=== PATIENT | female | born 1960 | race Caucasian/White ===

== ENCOUNTER 2018-01-01 09:27 | Emergency (ER) | payer MEDICAID ==
[2018-01-01 10:27] LABS: BASOPHILS 0.3 % (0-2); EOSINOPHILS 1.6 % (0-7); HEMOGLOBIN 9.8 g/dL (12-16); IMMATURE GRANULOCYTES 0.2 % (0-5); LYMPHOCYTES 16.8 % (15-50); MCH 26.9 pg (26.0-34.0); MCHC 30.6 g/dL (31.0-37.0); MCV 87.9 fL (80.0-100.0); MEAN PLATELET VOLUME 9.1 fL (7.4-10.4); MONOCYTES 12.2 % (2-11); NEUTROPHILS 68.9 % (40-80); PLATELET COUNT 540 10x3/uL (130-400); RBC 3.64 10x6/uL (4.00-5.40); RDW 13.3 % (11.5-14.5); WBC 10.3 10x3/uL (4.8-10.8)
[2018-01-01 10:43] LABS: ALBUMIN 2.5 g/dL (3.4-5.0); ALKALINE PHOSPHATASE 71 U/L (46-116); ALT (SGPT) 13 U/L (10-68); AMYLASE - SERUM 59 U/L (25-115); CALC OSMOLALITY 278 mosm/kg (275-300); CALCIUM 8.5 mg/dL (8.5-10.1); CARBON DIOXIDE 25.5 mmol/L (21.0-32.0); CHLORIDE - SERUM 107 mmol/L (98-107); CREATININE - SERUM 0.7 mg/dL (0.6-1.3); GLUCOSE 103 mg/dL (74-106); LIPASE 149 U/L (73-393); POTASSIUM - SERUM 3.8 mmol/L (3.5-5.1); PROTEIN - SERUM 6.7 g/dL (6.4-8.2); SODIUM 139 mmol/L (136-145); UREA NITROGEN 14 mg/dL (7-18); eGFR NON AFRICAN AMERICAN > 90 mL/min (90-120)
[2018-01-01 10:44] LABS: APPEARANCE CLEAR (CLEAR); BILIRUBIN NEGATIVE (NEGATIVE); COLOR YELLOW (YELLOW); GLUCOSE NEGATIVE (NEGATIVE); KETONE NEGATIVE (NEGATIVE); NITRITE NEGATIVE (NEGATIVE); PROTEIN NEGATIVE (NEGATIVE); SPECIFIC GRAVITY 1.025 (1.005-1.020); UROBILINOGEN NORMAL (NORMAL)
[2018-01-30 15:33] VITALS: BMI 22.1
== END 2018-01-01 11:48 | disposition home or self-care (01) ==
LOC: D.ER 09:27
PROVIDERS: Family Medicine
DX: K21.9 Gastro-esophageal reflux disease without esophagitis (principal); B18.2 Chronic viral hepatitis C; D64.9 Anemia, unspecified; F17.200 Nicotine dependence, unspecified, uncomplicated

== ENCOUNTER 2018-01-28 10:15 | Inpatient (IN) | payer MEDICAID ==
[~2018-01-28] VITALS: Ht 157.5 cm; Wt 58.7 kg
--- NOTE | ~2018-01-28 | OP ---
PATIENT NAME: ESDRAS ART MEDICAL RECORD: [id number] :62 LOCATION:D.M2 D.2102 ADMISSION DATE:01/29/18 SURGEON: WILLIAM TUCKER MD DATE OF OPERATION: 02/01/2018 DATE OF OPERATION: 02/01/2018 PREOPERATIVE DIAGNOSES: 1. Obstructing distal esophageal adenocarcinoma. 2. Need of IV access for IV chemotherapy. POSTOPERATIVE DIAGNOSES: 1. Obstructing distal esophageal adenocarcinoma. 2. Need of IV access for IV chemotherapy. PROCEDURES: 1. Esophagogastroduodenoscopy with placement of [employer] WallFlex esophageal stent 23 mm x 155 mm under fluoroscopic guidance. 2. Immediate surgeon interpretation of fluoroscopic images. 3. Placement of left infraclavicular PowerPort under fluoroscopic guidance. 4. Immediate surgeon interpretation of fluoroscopic images. SURGEON: William Tucker MD WET PRESS TENDER: None. BLOOD LOSS: Minimal. ANESTHESIA: General. COMPLICATIONS: None. I measured the length of the malignancy, which was an obstructing malignancy. It measured 9 cm in the cephalad caudad dimension. It extended down into the cardia of the stomach. No radiologist was present for this procedure. Static and cine fluoroscopic images were obtained. Some of these images are kept in the PACS system. The surgeon interpretation of the radiographic images is dictated within the body of this operative note. OPERATIVE COURSE: The patient was conveyed to the operating room electively on 02/01/2018. General anesthesia was induced by the anesthesia staff. A bite block was inserted. A gastroscope was inserted into the mouth. It advanced easily into the hypopharynx. There was a lot of particulate debris in the hypopharynx. I intubated the esophagus. There was a great deal of debris within the esophagus, which was somewhat dilated, likely due to the distal obstruction. Although the esophagus was completely obstructed and there was a lot of food material and particulate material proximal to the obstruction, I was able to negotiate through the obstructed carcinoma and into the stomach A measuring tape was placed on the patient's chest. I intubated the duodenum. I then withdrew into the stomach. No gastric biopsies were obtained. I advanced a Jagwire through the working port of the gastroscope. It was advanced into the stomach. I slowly withdrew the endoscope. I marked the distal extent of the malignancy with a metallic clip. I then continued to withdraw the gastroscope OPERATIVE REPORT [id number] ESDRAS ART over the wire and I marked the proximal extent of the malignancy. The malignancy measures 9 cm in total length. I then withdrew the gastroscope over the wire. Over the wire, I advanced an esophageal stent. It was advanced into the stomach. I began to deploy it. Once it had flared out, I pulled it up against the cardia of the stomach. I then continued the deployment. I removed the deployment apparatus as well as the guidewire. I then readvanced the gastroscope. I was able to advance the gastroscope all the way into the stomach. I was able to withdraw as well. It covered the entire length of the malignancy. I was very satisfied with the placement. The endoscope was withdrawn under direct vision. The bite block was removed. The left chest was sterilely prepped and draped. A transverse incision was accomplished inferior to the left clavicle. I dissected down to the pectoralis fascia. A subcutaneous pocket was created in a caudad direction. I then removed some of the adipose tissue from between the skin and the port pocket to aid in easier access. I dissected in the deltopectoral groove. There was no generous cephalic vein. The cephalic vein that there was ligated doubly. I placed the patient in the Trendelenburg position. I then accessed the left subclavian vein in an antegrade fashion easily. A guidewire passed easily. A dilator sheath was advanced over the wire. The dilator and wire were removed. Through the sheath, the PowerPort catheter was advanced. It was advanced to the cavoatrial junction. It was shortened. It was attached to the PowerPort. The locking device was firmly engaged. A 3-point fixation was performed utilizing 2-0 Prolenes to prevent the port from flipping. I irrigated in the port pocket. I accessed the port. It accessed easily. It flushed easily and aspirated dark, nonpulsatile blood. The subdermis was approximated with interrupted 3-0 Vicryls. The skin was approximated with a running intracuticular 4-0 Vicryl. Benzoin and Steri-Strips were applied and then a pressure dressing. The patient was then extubated and conveyed to post-anesthesia care unit where she was in stable condition. A final set of images revealed no apparent kinking or twisting of the PowerPort catheter. The PowerPort catheter tip was at the cavoatrial junction. The right-sided PICC line could be seen as well. There was no evidence of pneumothorax. There is no need for the patient to follow up with me in the office unless she develops a complication related to this operative procedure. When she is ready for surgical resection after neoadjuvant chemotherapy and radiation, then she will be referred back to me at that time. TRANSINT:[id number] Voice Confirmation ID: [id number] DOCUMENT ID: [id number] WILLIAM TUCKER MD CC: ADRIANNE MONTERO MD, WILLIAM BARNETT and ROGELIO SAUCEDO [phone] DICTATION DATE: 02/01/182051 LOG TUMBLER: 02/02/18 0141 ADM IN [place] [id number] [place] [address]
[2018-01-28 11:00] LABS: BASOPHILS 0.3 % (0-2); EOSINOPHILS 0.1 % (0-7); HEMOGLOBIN 8.4 g/dL (12-16); IMMATURE GRANULOCYTES 0.2 % (0-5); MCH 26.5 pg (26.0-34.0); MCHC 31.1 g/dL (31.0-37.0); MCV 85.2 fL (80.0-100.0); MEAN PLATELET VOLUME 8.9 fL (7.4-10.4); MONOCYTES 7.7 % (2-11); NEUTROPHILS 75.7 % (40-80); PLATELET COUNT 604 10x3/uL (130-400); RBC 3.17 10x6/uL (4.00-5.40); RDW 13.3 % (11.5-14.5); WBC 11.5 10x3/uL (4.8-10.8)
[2018-01-28 11:17] LABS: APTT 32.1 SECONDS (22.8-39.4); INR 1.07 (0.85-1.17); PROTIME 13.5 SECONDS (11.6-15.0)
[2018-01-28 11:27] LABS: ALBUMIN 2.2 g/dL (3.4-5.0); ALKALINE PHOSPHATASE 51 U/L (46-116); ALT (SGPT) 12 U/L (10-68); BILIRUBIN - TOTAL 0.18 mg/dL (0.2-1.3); CALC OSMOLALITY 289 mosm/kg (275-300); CALCIUM 8.2 mg/dL (8.5-10.1); CARBON DIOXIDE 26.8 mmol/L (21.0-32.0); CHLORIDE - SERUM 106 mmol/L (98-107); CREATININE - SERUM 0.7 mg/dL (0.6-1.3); GLUCOSE 104 mg/dL (74-106); POTASSIUM - SERUM 3.1 mmol/L (3.5-5.1); PROTEIN - SERUM 6.4 g/dL (6.4-8.2); SODIUM 142 mmol/L (136-145); UREA NITROGEN 33 mg/dL (7-18); eGFR NON AFRICAN AMERICAN > 90 mL/min (90-120)
[2018-01-28 11:37] LABS: AMYLASE - SERUM 42 U/L (25-115); CREATINE KINASE 39 UL (21-215); LIPASE 121 U/L (73-393)
[2018-01-28 11:38] LABS: TROPONIN-I < 0.017 ng/mL (0.000-0.060)
[2018-01-28 11:50] LABS: UDS - AMPHET NEGATIVE QUAL (NEGATIVE); UDS - BARB NEGATIVE QUAL (NEGATIVE); UDS - BENZO NEGATIVE QUAL (NEGATIVE); UDS - COCAINE NEGATIVE QUAL (NEGATIVE); UDS - OPIATE NEGATIVE QUAL (NEGATIVE); UDS - PCP NEGATIVE QUAL (NEGATIVE); UDS - THC NEGATIVE QUAL (NEGATIVE)
[2018-01-28 11:55] LABS: APPEARANCE CLEAR (CLEAR); BILIRUBIN NEGATIVE (NEGATIVE); COLOR YELLOW (YELLOW); GLUCOSE NEGATIVE (NEGATIVE); KETONE LARGE mg/dL (NEGATIVE); NITRITE NEGATIVE (NEGATIVE); PROTEIN NEGATIVE (NEGATIVE); UROBILINOGEN NORMAL (NORMAL)
[2018-01-28] MEDS ORDERED: PROTONIX20 MG PO ×2 (16:25→16:26)
[2018-01-28] MEDS ORDERED: ZOFRAN4 MG PO (16:27)
[2018-01-28] MEDS ORDERED: FERROUS SULFAT325 MG PO (16:27)
[2018-01-28] MEDS ORDERED: CARAFATE1 G (16:28)
[2018-01-28] MEDS ORDERED: VITAMIN D3400 UNI1 PO (16:29)
[2018-01-28] MEDS ORDERED: ASCORBIC ACID500 MG PO (16:29)
[2018-01-28 16:38] VITALS: BP 117/73; BMI 22.2
[2018-01-28 21:09] VITALS: BP 90/53
[2018-01-29 00:49] VITALS: BP 96/58
[2018-01-29 05:12] VITALS: BP 102/70
[2018-01-29 06:47] LABS: BASOPHILS 0.4 % (0-2); EOSINOPHILS 1.6 % (0-7); HEMATOCRIT 25.4 % (36.0-48.0); HEMOGLOBIN 7.7 g/dL (12-16); IMMATURE GRANULOCYTES 0.2 % (0-5); LYMPHOCYTES 15.4 % (15-50); MCH 26.1 pg (26.0-34.0); MCHC 30.3 g/dL (31.0-37.0); MCV 86.1 fL (80.0-100.0); MEAN PLATELET VOLUME 9.9 fL (7.4-10.4); MONOCYTES 8.5 % (2-11); NEUTROPHILS 73.9 % (40-80); RBC 2.95 10x6/uL (4.00-5.40); RDW 13.7 % (11.5-14.5); WBC 9.4 10x3/uL (4.8-10.8)
[2018-01-29 06:48] LABS: PLATELET COUNT 443 10x3/uL (130-400)
[2018-01-29 07:01] LABS: CALCIUM 7.8 mg/dL (8.5-10.1); CARBON DIOXIDE 20.3 mmol/L (21.0-32.0); CHLORIDE - SERUM 113 mmol/L (98-107); CREATININE - SERUM 0.6 mg/dL (0.6-1.3); GLUCOSE 101 mg/dL (74-106); MAGNESIUM - SERUM 1.7 mg/dL (1.8-2.4); SODIUM 145 mmol/L (136-145); eGFR NON AFRICAN AMERICAN > 90 mL/min (90-120)
[2018-01-29 07:05] LABS: CALC OSMOLALITY 290 mosm/kg (275-300); POTASSIUM - SERUM 3.7 mmol/L (3.5-5.1); UREA NITROGEN 18 mg/dL (7-18)
[2018-01-29 08:14] VITALS: BP 109/70
[2018-01-29 11:53] VITALS: BP 104/55
[2018-01-29 13:15] VITALS: BMI 22.1
[2018-01-29 15:24] VITALS: BP 91/66
[2018-01-29 21:09] VITALS: BP 111/76
[2018-01-30 05:54] VITALS: BP 105/65
[2018-01-30 06:00] LABS: BASOPHILS 0.3 % (0-2); HEMATOCRIT 21.1 % (36.0-48.0); IMMATURE GRANULOCYTES 0.4 % (0-5); LYMPHOCYTES 12.4 % (15-50); MCH 27.1 pg (26.0-34.0); MCHC 30.8 g/dL (31.0-37.0); MCV 87.9 fL (80.0-100.0); MEAN PLATELET VOLUME 9.6 fL (7.4-10.4); MONOCYTES 7.4 % (2-11); NEUTROPHILS 78.5 % (40-80); PLATELET COUNT 386 10x3/uL (130-400); RDW 13.7 % (11.5-14.5)
[2018-01-30 06:10] LABS: CALCIUM 7.9 mg/dL (8.5-10.1); CARBON DIOXIDE 21.6 mmol/L (21.0-32.0); CHLORIDE - SERUM 113 mmol/L (98-107); GLUCOSE 86 mg/dL (74-106); POTASSIUM - SERUM 3.8 mmol/L (3.5-5.1); SODIUM 144 mmol/L (136-145)
[2018-01-30 06:11] LABS: HEMOGLOBIN 6.5 g/dL (12-16)
[2018-01-30 06:14] LABS: CALC OSMOLALITY 284 mosm/kg (275-300); CREATININE - SERUM 0.4 mg/dL (0.6-1.3); UREA NITROGEN 11 mg/dL (7-18); eGFR NON AFRICAN AMERICAN > 90 mL/min (90-120)
[2018-01-30 08:52] VITALS: BP 105/66
[2018-01-30 12:47] VITALS: BP 126/85
[2018-01-30 13:19] LABS: HEPATITIS C ANTIBODY >11.0 (0.0-0.9)
[2018-01-30 15:33] VITALS: Ht 157.5 cm; Wt 58.7 kg
[2018-01-30 18:08] VITALS: BP 124/87
[2018-01-30 20:00] VITALS: BP 133/76
[2018-01-31] VITALS: BP 133/84
[2018-01-31 04:00] VITALS: BP 147/84
[2018-01-31 05:45] LABS: BASOPHILS 0.3 % (0-2); EOSINOPHILS 0.7 % (0-7); IMMATURE GRANULOCYTES 0.3 % (0-5); LYMPHOCYTES 9.3 % (15-50); MCV 87.4 fL (80.0-100.0); MEAN PLATELET VOLUME 9.5 fL (7.4-10.4); MONOCYTES 10.9 % (2-11); NEUTROPHILS 78.5 % (40-80); PLATELET COUNT 397 10x3/uL (130-400); RDW 13.9 % (11.5-14.5); WBC 9.9 10x3/uL (4.8-10.8)
[2018-01-31 05:46] LABS: HEMATOCRIT 30.6 % (36.0-48.0); HEMOGLOBIN 9.8 g/dL (12-16)
[2018-01-31 05:56] LABS: % SATURATION 95 % (15-55); IRON 241 ug/dl (35-150); TOTAL IRON BIND CAPACITY 253 ug/dl (260-445)
[2018-01-31 06:03] LABS: CALC OSMOLALITY 278 mosm/kg (275-300); CALCIUM 7.8 mg/dL (8.5-10.1); CARBON DIOXIDE 23.8 mmol/L (21.0-32.0); CHLORIDE - SERUM 109 mmol/L (98-107); CREATININE - SERUM 0.4 mg/dL (0.6-1.3); FERRITIN 49 ng/mL (3-244); GLUCOSE 97 mg/dL (74-106); POTASSIUM - SERUM 3.3 mmol/L (3.5-5.1); SODIUM 141 mmol/L (136-145); UNSAT IRON BIND CAPACITY 12 ug/dl (150-375); eGFR NON AFRICAN AMERICAN > 90 mL/min (90-120)
[2018-01-31 06:04] LABS: UREA NITROGEN 7 mg/dL (7-18)
[2018-01-31 08:39] VITALS: BP 140/90
[2018-01-31 11:57] VITALS: BP 128/77
[2018-01-31 15:54] VITALS: BP 139/93
[2018-01-31 20:00] VITALS: BP 136/93
[2018-02-01] VITALS (7 sets, daily range): BP systolic 108–125; BP diastolic 71–91
[2018-02-01 07:00] LABS: CALC OSMOLALITY 277 mosm/kg (275-300); CALCIUM 7.9 mg/dL (8.5-10.1); CARBON DIOXIDE 25.9 mmol/L (21.0-32.0); CHLORIDE - SERUM 108 mmol/L (98-107); CREATININE - SERUM 0.4 mg/dL (0.6-1.3); GLUCOSE 89 mg/dL (74-106); POTASSIUM - SERUM 3.5 mmol/L (3.5-5.1); SODIUM 141 mmol/L (136-145); UREA NITROGEN 6 mg/dL (7-18); eGFR NON AFRICAN AMERICAN > 90 mL/min (90-120)
[2018-02-01 07:15] LABS: BASOPHILS 0.1 % (0-2); EOSINOPHILS 1.4 % (0-7); HEMATOCRIT 30.4 % (36.0-48.0); HEMOGLOBIN 9.6 g/dL (12-16); IMMATURE GRANULOCYTES 0.4 % (0-5); LYMPHOCYTES 10.5 % (15-50); MCH 27.5 pg (26.0-34.0); MCHC 31.6 g/dL (31.0-37.0); MCV 87.1 fL (80.0-100.0); MEAN PLATELET VOLUME 9.5 fL (7.4-10.4); MONOCYTES 11.5 % (2-11); NEUTROPHILS 76.1 % (40-80); PLATELET COUNT 350 10x3/uL (130-400); RBC 3.49 10x6/uL (4.00-5.40); RDW 13.8 % (11.5-14.5); WBC 9.2 10x3/uL (4.8-10.8)
[2018-02-01 08:20] LABS: FOLATE (FOLIC ACID) - SERUM 5.5 ng/mL (>3.0)
[2018-02-02 01:11] VITALS: BP 104/62
[2018-02-02 05:46] VITALS: BP 118/76
[2018-02-02 06:06] LABS: BASOPHILS 0.4 % (0-2); EOSINOPHILS 0.7 % (0-7); HEMOGLOBIN 9.6 g/dL (12-16); IMMATURE GRANULOCYTES 0.4 % (0-5); LYMPHOCYTES 9.4 % (15-50); MCH 27.4 pg (26.0-34.0); MCV 88.3 fL (80.0-100.0); MEAN PLATELET VOLUME 9.7 fL (7.4-10.4); MONOCYTES 14.7 % (2-11); NEUTROPHILS 74.4 % (40-80); PLATELET COUNT 322 10x3/uL (130-400); RBC 3.51 10x6/uL (4.00-5.40); RDW 14.4 % (11.5-14.5); WBC 10.9 10x3/uL (4.8-10.8)
[2018-02-02 06:15] LABS: CALC OSMOLALITY 274 mosm/kg (275-300); CALCIUM 8.1 mg/dL (8.5-10.1); CARBON DIOXIDE 24.3 mmol/L (21.0-32.0); CHLORIDE - SERUM 107 mmol/L (98-107); CREATININE - SERUM 0.5 mg/dL (0.6-1.3); GLUCOSE 87 mg/dL (74-106); POTASSIUM - SERUM 3.9 mmol/L (3.5-5.1); SODIUM 139 mmol/L (136-145); eGFR NON AFRICAN AMERICAN > 90 mL/min (90-120)
[2018-02-02 06:19] LABS: UREA NITROGEN 8 mg/dL (7-18)
[2018-02-02 08:26] VITALS: BP 127/81
[2018-02-02] MEDS ORDERED: TRANSDERM-SCO1 PATCH TRANSDERM (09:34)
[2018-02-02] MEDS ORDERED: HYDROCODON-ACE1 EAC7 PO (09:35)
== END 2018-02-02 11:30 | disposition home or self-care (01) | DRG 374 ==
LOC: D.ER 10:15 → D.EDHOLD 14:58 → OBSVTIME 14:58 → D.M2 14:58
PROVIDERS: Family Medicine; Internal Medicine Gastroenterology; Internal Medicine Hematology & Oncology; Internal Medicine Nephrology
PROC: 0DB48ZX Excision of Esophagogastric Junction, Via Natural or Artificial Opening Endoscopic, Diagnostic (ICD-10-PCS; principal; 2018-01-29 15:30)
PROC: 02H633Z Insertion of Infusion Device into Right Atrium, Percutaneous Approach (ICD-10-PCS; 2018-01-30)
PROC: B244ZZZ Ultrasonography of Right Heart (ICD-10-PCS; 2018-01-30)
PROC: 0D748DZ Dilation of Esophagogastric Junction with Intraluminal Device, Via Natural or Artificial Opening Endoscopic (ICD-10-PCS; 2018-02-01)
PROC: BD11ZZZ Fluoroscopy of Esophagus (ICD-10-PCS; 2018-02-01)
PROC: 02HV33Z Insertion of Infusion Device into Superior Vena Cava, Percutaneous Approach (ICD-10-PCS; 2018-02-01)
PROC: B5181ZA Fluoroscopy of Superior Vena Cava using Low Osmolar Contrast, Guidance (ICD-10-PCS; 2018-02-01)
DX: C15.9 Malignant neoplasm of esophagus, unspecified (principal); E43 Unspecified severe protein-calorie malnutrition; D62 Acute posthemorrhagic anemia; N17.9 Acute kidney failure, unspecified; E87.6 Hypokalemia; K21.9 Gastro-esophageal reflux disease without esophagitis; B19.20 Unspecified viral hepatitis C without hepatic coma; F41.9 Anxiety disorder, unspecified; Z68.22 Body mass index [BMI] 22.0-22.9, adult

== ENCOUNTER 2018-04-20 20:28 | Emergency (ER) | payer MEDICAID ==
[~2018-04-20] VITALS: Ht 157.5 cm; Wt 50.8 kg
[~2018-04-20 20:28] MED LIST: ASCORBIC ACID500 MG PO; CARAFATE1 G; FERROUS SULFAT325 MG PO; HYDROCODON-ACE1 EAC7 PO; PROTONIX20 MG PO; TRANSDERM-SCO1 PATCH TRANSDERM; VITAMIN D3400 UNI1 PO; ZOFRAN4 MG PO
[2018-04-20 21:04] VITALS: Ht 157.5 cm; Wt 50.8 kg
[2018-04-20] MEDS ORDERED: DURAGESIC1 PATCH .1 TRANSDERM (21:06)
[2018-04-20] MEDS ORDERED: OXYCONTIN10 MG PO (21:07)
[2018-04-21] MEDS ORDERED: PERCOCET 10/3251 TA1 PO (02:42)
[2018-04-21 02:54] VITALS: BP 150/90
== END 2018-04-21 02:55 | disposition home or self-care (01) ==
LOC: D.ER 20:28
DX: G89.29 Other chronic pain (principal); C15.9 Malignant neoplasm of esophagus, unspecified

== ENCOUNTER 2018-06-05 18:19 | Emergency (ER) | payer MEDICAID ==
[~2018-06-05] VITALS: Ht 157.5 cm; Wt 54.1 kg
[~2018-06-05 18:19] MED LIST changes: +DURAGESIC1 PATCH .1 TRANSDERM; +OXYCONTIN10 MG PO; +PERCOCET 10/3251 TA1 PO
[2018-06-05 18:25] VITALS: BP 103/69; Ht 157.5 cm; Wt 54.1 kg
[2018-06-06] MEDS ORDERED: XANAX0.5 MG PO (10:28)
== END 2018-06-05 19:10 | disposition left against medical advice (07) ==
LOC: D.ER 18:19
DX: R07.9 Chest pain, unspecified (principal); Z85.01 Personal history of malignant neoplasm of esophagus

== ENCOUNTER 2018-06-05 20:07 | Emergency (ER) | payer MEDICAID ==
[~2018-06-05] VITALS: Ht 157.5 cm; Wt 52.3 kg
[2018-06-05 20:12] VITALS: Ht 157.5 cm; Wt 52.3 kg
[2018-06-05 21:16] LABS: BASOPHILS 0.2 % (0-2); EOSINOPHILS 1.7 % (0-7); HEMATOCRIT 35.7 % (36.0-48.0); HEMOGLOBIN 11.8 g/dL (12-16); IMMATURE GRANULOCYTES 0.3 % (0-5); LYMPHOCYTES 9.6 % (15-50); MCHC 33.1 g/dL (31.0-37.0); MCV 96.7 fL (80.0-100.0); MEAN PLATELET VOLUME 8.3 fL (7.4-10.4); NEUTROPHILS 77.2 % (40-80); PLATELET COUNT 344 10x3/uL (130-400); RBC 3.69 10x6/uL (4.00-5.40); RDW 13.8 % (11.5-14.5); WBC 10.8 10x3/uL (4.8-10.8)
[2018-06-05 21:27] LABS: APTT 34.1 SECONDS (22.8-39.4); INR 1.01 (0.85-1.17); PROTIME 12.9 SECONDS (11.6-15.0)
[2018-06-05 21:28] LABS: D-DIMER-QUANTITATIVE 0.42 ug/mLFEU (0.20-0.54)
[2018-06-05 21:36] LABS: ALBUMIN 2.7 g/dL (3.4-5.0); ALKALINE PHOSPHATASE 83 U/L (46-116); ALT (SGPT) 17 U/L (10-68); BILIRUBIN - TOTAL 0.19 mg/dL (0.2-1.3); CALC OSMOLALITY 269 mosm/kg (275-300); CALCIUM 8.9 mg/dL (8.5-10.1); CARBON DIOXIDE 30.7 mmol/L (21.0-32.0); CHLORIDE - SERUM 99 mmol/L (98-107); CREATININE - SERUM 0.8 mg/dL (0.6-1.3); GLUCOSE 122 mg/dL (74-106); PROTEIN - SERUM 8.2 g/dL (6.4-8.2); SODIUM 134 mmol/L (136-145); UREA NITROGEN 16 mg/dL (7-18); eGFR NON AFRICAN AMERICAN 78 mL/min (90-120)
[2018-06-05 21:48] LABS: CREATINE KINASE 21 UL (21-215); TROPONIN-I < 0.017 ng/mL (0.000-0.060)
[2018-06-06 01:18] VITALS: BP 115/84
[2018-06-06] MEDS ORDERED: XANAX0.5 MG PO (10:28)
[2018-06-07] MEDS ORDERED: OXYCODONE-APAP1 TAB PO (06:24)
== END 2018-06-06 01:19 | disposition home or self-care (01) ==
LOC: D.ER 20:07
PROVIDERS: Family Medicine
DX: R07.9 Chest pain, unspecified (principal); Z85.01 Personal history of malignant neoplasm of esophagus

== ENCOUNTER 2018-06-07 05:42 | Inpatient (IN) | payer MEDICAID ==
[~2018-06-07] VITALS: Ht 157.5 cm; Wt 39.2 kg
[2018-06-07] VITALS (31 sets, daily range): BP systolic 80–184; BP diastolic 60–109; BMI 19.6; BMI 19.4
--- NOTE | ~2018-06-07 | MORECARE ---
CASE MANAGEMENT DISCHARGE SUMMARY PATIENT: EVY ART UNIT: [id number] ADM DATE: 06/07/18 AGE: 57 : 62 SEX: F ROOM/BED: D.2224 AUTHOR: DARCI MAR PHYSICIAN: REFERRING PHYSICIAN: WILLIAM TUCKER MD DATE OF SERVICE: 08/23/18 Discharge Plan Patient Name: EVY ART Facility: [facility]:[place] : 1960 Planned Disposition: Home or Self Care Anticipated Discharge Date: Discharge Date: Expected LOS: Initial Reviewer: [email or web address] Initial Review Date: 06/07/2018 Generated: 08/23/18 1:22 pm Comments DCP- Discharge Planning Updated by [id number]: Edita Quinonez on 08/23/18 11:[address] I spoke with Alba Baker today for an update. She states she does not have an accepting facility at this time. I sent referral to [facility]. CM will continue to follow and assist with discharge planning/needs. DCP- Discharge Planning Updated by [id number]: Lizabeth Bingham on 08/21/18 9:[address] CM received a call from patients sister Lesley Domingo that [facility] has notified her that she should be receiving her paperwork in the next 2 weeks. Paperwork that she can act in Evy behalf for Medicaid. CM will continue to follow and assist with discharge planning. DCP- Discharge Planning Updated by [email or web address]: Lizabeth Bingham on 08/16/18 11:[address] CM continuing to follow up with [facility] about placement for female vent bed availability. If patient can be off vent for 72hrs then CM can seek placement locally. CM will continue to follow and assist as needed with discharge planning / needs. DCP- Discharge Planning Updated by [id number]: Winter Randolph on 08/15/18 12:[address] Patient Name: EVY ART Admission Status: Elective Accout number: [id number] Admission Date: 06-07-2018 : 1960 Admission Diagnosis:MALIGNANT NEOPLASM OF CARDIA Attending: WILLIAM TUCKER Current LOS: 69 Anticipated DC Date: Planned Disposition: Home or Self Care Primary Insurance: MEDICAID [place] Discharge Planning Comments: CM CALLED [facility] TO SPEAK WITH JULY REGARDING A VENT BED. THEY STATE JULY IS OUT SICK AND WON'T BE BACK UNTIL NEXT WEEK. STATES WILL HAVE TO CALL BACK ON SUNDAY. Tearoom Hostess: Winter Randolph DCP- Discharge Planning Updated by [email or web address]: Lizabeth Bingham on 08/14/18 4:[address] CM called [facility] and spoke with Jennyfer RANDLE. Jennyfer stated that she wasn't able to answer questions regarding how soon for bed availability. July was out sick and she had no information on placement. CM will call back tomorrow and attempt to speak with July. DCP- Discharge Planning Updated by [id number]: Lizabeth Bingham on 08/13/18 2:[address] CM called [facility] in [place] and left message for DON (July) to return call regarding placement and how long until placement. CM still awaiting call back @ this time. DCP- Discharge Planning Updated by [id number]: Lizabeth Bingham on 08/12/18 5:[address] CM called and spoke with Meli @ [facility] [phone]. Meli stated that at this time they do not have a female vent bed available. She stated that she doesn't know when one may be available or if patient is at the top of the list or not. Meli stated that CM would need to speak with July PARK for that information and she isn't there today. CM will continue to follow and assist as needed with discharge planning / needs. DCP- Discharge Planning Updated by [id number]: Lizabeth Bingham on 08/09/18 6:[address] CM spoke with Wei Delatorre in [employer] she got in touch with for me and got in touch with the appropriate person at [facility]. Was able to fax form in and get the appropriate information to Meli @ [facility] in [place]. CM later contacted Meli and she stated that everything was good as far as financials. They currently do not have any female vent beds available. Meli stated she would keep us posted on availability. Wei notified me that [facility] had put in the necessary information so that Lesley Domingo patients sister can be her payor source. Lesley is to go to social security in [place] next week.CM will continue to follow and assist as needed with discharge planning / needs. DCP- Discharge Planning Updated by [id number]: Lizabeth Bingham on 08/08/18 7:[address] CM attempted to call local office to see if CM could fax form into them and get patients disability number. CM was on hold for over 30 mins and never got to speak to a off premise service representative. KRYSTAL spoke with Meli at [facility]. She stated that she hasn't heard anything yet. Meli stated that once the financials was cleared then we will need to send updated clinicals and then would go through medical review for acceptance. CM will continue to follow and assist with discharge planning/ needs DCP- Discharge Planning Updated by [email or web address]: Lizabeth Bingham on 08/06/18 5:[address] Late Entry 08/06/18 @ [address] Webb office to see if they have received a fax from [employer]. Omaira stated that they have not received anything for her. CM will try to get back in touch with Lesley Domingo patients sister and Wei in [facility] to see what our next step is. CM contacted Meli at [facility] to let her know we are still working on placement. CM will continue to follow and assist with discharge planning / needs. DCP- Discharge Planning Updated by [id number]: Lizabeth Bingham on 07/31/18 4:[address] CM received notification that the social security office in [place] would not accept form that was sent to Lesley Domingo to get authorization to manage patients finances. They said they would have to directly send it to Dr. Tucker and then have him to send it back. [facility] has to have some proof of income before they can accept patient. We are having to wait to see if we can get Lesley approved to manage social security benefits in patients behalf. CM will continue to follow and assist with discharge planning / needs. DCP- Discharge Planning Updated by [id number]: Lizabeth Bingham on 07/26/18 6:[address] Late Entry 07/26/18 @ [address] Tucker and got form signed for [facility]. CM took form to Wei in [facility]. CM will continue to follow and assist as needed with discharge planning / needs DCP- Discharge Planning Updated by [id number]: Lizabeth Cumminsr on 07/25/18 4:[address] CM spoke with Wei Delatorre this am. Wei spoke with patients sister Lesley Domingo trying to find out information needed to get patient placement. KRYSTAL was later notified that a form from [employer] needed to be filled out by physician. CM attempted to get in touch with paged him several times but was unsuccessful. Called his office but no response at this time. CM will continue to follow and assist as needed with discharge planning / needs. DCP- Discharge Planning Updated by [id number]: Lizabethlarry Bingham on 07/24/18 4:[address] CM called and spoke with Meli at [facility] in [place]. [phone]. KRYSTAL asked if family was able to provide information needed. Meli stated that she hasn't heard from anyone since she had spoke to me last week. Meli is requesting proof that patient has applied for SSI and she needs proof of income. KRYSTAL attempted to call home health care social worker Ailyn Read [phone] or [phone] to see if she might could assist with obtaining this information. CM was unsuccessful in contacting Ailyn. CM called and spoke with Wei Delatorre and gave her Meli phone number to see if she could assist with information. Wei will contact Meli and her elevator constructor supervisor to see if they can assist with information needed. Wei will contact KRYSTAL after she gets in contact with others. CM will continue to follow and assist as needed with discharge planning / needs. DCP- Discharge Planning Updated by [id number]: Lizabeth Zachery on 07/18/18 5:[address] Late Entry 07/18/18 @ 1020 CM called and left a message for July PARK @ [facility]. CM awaiting response.CM will continue to follow and assist as needed with discharge planning / needs. Late Entry 07/18/18 @ 1330 CM received call from Meli with [facility]. Meli was wanting to know if patient was getting SSI or SSA. KRYSTAL was unaware of this information and referred Meli to call patients sister Lesley Domingo. KRYSTAL called and spoke with Wei Delatorre regarding Medicaid. Wei stated patient had SSI Medicaid until 07/10/18 and regular Medicaid started 07/11/18. CM called Meli back to give this information to her and also gave Wei's number if she has questions regarding this. Meli stated that she also needed to know if the patient had applied for SSI and how much she had in her bank account. CM explained that we would try to find out this information. CM will check with sister and possibly patient renal case manager whom assisted patient with housing when released from skilled nursing. CM will continue to follow and assist as needed with discharge planning / needs. DCP- Discharge Planning Updated by [email or web address]: Lizabeth Bingham on 07/18/18 5:[address] Late Entry 07/17/18 @ 1600 CM called and left message x 2 for July PARK from [facility]. CM awaiting response. CM will continue to follow and assist as needed with discharge planning / needs. DCP- Discharge Planning Updated by [id number]: Lizabeth Bingham on 07/15/18 12:[address] CM spoke with patient's sister Lesley Domingo this am. She stated that the patient doesn't have Medicare. She asked when patient would transfer to [place]. CM explained that we are awaiting on acceptance to [facility] at this point. CM called [facility] for update July told CM to fax updated clinical and that it would be tomorrow 07/16/18 before they may have a determination. July requested CM not to call back tomorrow until after noon. CM will update family. CM also contacted [facility] in [place], [place]. [phone] CM spoke with Za she stated at this time they are not accepting out of state Medicaid at their facility. CM will continue to follow and assist as needed with discharge planning / needs. DCP- Discharge Planning Updated by [id number]: Lizabeth Bingham on 07/12/18 7:[address] CM was notified patient sister Lesley Domingo was here and requested to speak with me. KRYSTAL explained that the current plan was that we was looking into placement with [facility] in [place], [place]. CM had spoke to Zoila with [facility] prior to coming to speak with Lesley. KRYSTAL had answered questions that Zoila had. Zoila stated the next process that they would send patients information to Executive offices and would be awaiting financial approval. Zoila stated for CM to call back to check on this at anytime next week. KRYSTAL explained all this to sister Lesley. Lesley asked why she was having to be transferred out of state. KRYSTAL explained that LTACH facilities within the state do not take Medicaid and that regional intermodal truck driver residential facilities in the state do not accept ventilator patients. Lesley states that she had received information that the patient is and receiving Medicare through her . KRYSTAL explained that we had no record of that only Medicaid. Lesley requested that [facility] find this information out. KRYSTAL explained that if it was through the patients spouse then it would need to be his information used to look it up. Lesley states that she has a letter at her home that has this information on it.(Because she has custody of patients son and he receiving his benefits also). The conversation ended that Lesley was going to get the information to KRYSTAL. KRYSTAL received call from Lesley around 4:45pm requesting information on online Social Security office hours. Lesley also wanted to know what would happen if they didn't consent to transfer. KRYSTAL explained that I wasn't sure and Lesley requested for CM to find out this information. KRYSTAL spoke with other keycase assembler within the facility. KRYSTAL then called Lesley back and explained that if the patient was stable for transfer and they still refusing transfer then it would most likely go to ethics board and DHS could be notified. Lesley then starting raising her voice that" the hospital and staff was not giving her accurate updates over the phone. She had no idea that Evy was almost in a comatose state." Lesley requested for us to wait on transfer until after she could show proof that she has Medicare. KRYSTAL explained that nothing would be happening until next week. She was still upset that she was going to have to stay longer than she had planned to get this taken care of. KRYSTAL told her that I would be happy to let her speak to someone else on Sunday. CM will continue to follow and assist as needed will discharge planning/ needs. DCP- Discharge Planning Updated by [id number]: Lizabeth Bingham on 07/11/18 7:[address] KRYSTAL spoke with [facility] in [place] ([facility]). She stated that all their Vent beds are full at this time and they could put the patient on a waiting list for a bed. CM gave information to put patient on waiting list. CM then contacted [facility] in [place] ([facility]) she stated they might could accept patient. CM faxed over information and later got denial from [facility] that patient required too high of level of care. CM contacted [facility] to see if they could give any insight on facilities that take ventilator patients within the [facility]. They only gave [facility] in [place]. CM called and spoke with patients sister Lesley Domingo. CM explained the situation that the patient was needing placement and we might have to go out of the state of [place] for placement. Lesley was concerned about patient getting back to [place] once she recovered. Lesley also stated that she would be in to see patient today that she just got into town. CM will plan to speak to her while she is here. CM received information on [facility] in [place], [place] that takes ventilator patients. CM called Meli [phone] and faxed [phone] records. CM awaiting decision from [facility]. CM will continue to follow and assist as needed with discharge planning / needs. DCP- Discharge Planning Updated by [email or web address]: Lizabeth Bingham on 07/08/18 4:[address] CM contacted all LTACH within [facility] to check on Medicaid bed availability / ana bed availability. Still awaiting call back on three facilities but at this time no had stated they would accept any Medicaid patients or ana. CM will continue to follow and assist as needed with discharge planning / needs. DCP- Discharge Planning Updated by [id number]: Lizabeth Bingham on 06/20/18 11:[address] Patient Name: EVY ART Admission Status: Elective Accout number: [id number] Admission Date: 06-07-2018 : 1960 Admission Diagnosis:MALIGNANT NEOPLASM OF CARDIA Attending: WILLIAM TUCKER Current LOS: 13 Anticipated DC Date: Planned Disposition: Home or Self Care Primary Insurance: MEDICAID [place] Discharge Planning Comments: CM called and spoke with sister Lesley Domingo [phone]. Patient is still on vent and sedated. Lesley (lives in [place]) informed CM that patient doesn't have any family that lives in the state of [place]. She stated that the patient had been incarcerated and had been released approximately 8 weeks prior to admission. Sister states that patient had found out while incarcerated that she had cancer. Patient had been getting radiation / chemo prior to admit. Lesley states that she has custody of patients youngest child and that her oldest child is in skilled nursing in [place]. Lesley states that her goal is for patient to finish her cancer treatments then come to her home in [place]. Lesley also states that patient has a roommate Nadine that comes to visit patient in the evenings. CM will continue to follow and assist as needed with discharge planning/ needs. Tearoom Hostess: Lizabeth Bingham DCP- Discharge Planning Updated by [id number]: Lizabeth Bingham on 06/14/18 7:[address] Patient on Vent / sedated. No family available for discharge planning.CM will continue to follow and assist as needed with discharge planning / needs. Last DP export: 08/23/18 10:43 Patient Name: EVY ART Page [id number] at 1222 All edits/amendments must be made on the electronic document DICTATION DATE: 08/23/18 122 CORRESPONDENCE REVIEW CLERK: ANA ROSA 08/23/18 122 RPT#: [id number] DC DATE: STATUS: ADM IN [facility] [address] [place] [address] END OF REPORT
--- NOTE | ~2018-06-07 | MORECARE ---
CASE MANAGEMENT DISCHARGE SUMMARY PATIENT: ESDRAS ART UNIT: [id number] ADM DATE: 06/07/18 AGE: 57 : 62 SEX: F ROOM/BED: D.2307 AUTHOR: ZAID,DOC PHYSICIAN: REFERRING PHYSICIAN: WILLIAM TUCKER MD DATE OF SERVICE: 07/11/18 Discharge Plan Patient Name: ESDRAS ART Facility: [facility]:[place] : 1960 Planned Disposition: Home or Self Care Anticipated Discharge Date: Discharge Date: Expected LOS: Initial Reviewer: [email or web address] Initial Review Date: 06/07/2018 Generated: 07/11/18 12:23 pm Comments DCP- Discharge Planning Updated by [id number]: Lizabeth Bingham on 07/08/18 3:[address] CM contacted all LTACH within state to check on Medicaid bed availability / ana bed availability. Still awaiting call back on three facilities but at this time no had stated they would accept any Medicaid patients or ana. CM will continue to follow and assist as needed with discharge planning / needs. DCP- Discharge Planning Updated by [id number]: Lizabeth Bingham on 06/20/18 10:[address] Patient Name: ESDRAS ART Admission Status: Elective Accout number: [id number] Admission Date: 06-07-2018 : 1960 Admission Diagnosis:MALIGNANT NEOPLASM OF CARDIA Attending: WILLIAM TUCKER Current LOS: 13 Anticipated DC Date: Planned Disposition: Home or Self Care Primary Insurance: MED[place]ID [place] Discharge Planning Comments: CM called and spoke with sister Lesley Domingo [phone]. Patient is still on vent and sedated. Lesley (lives in [place]) informed CM that patient doesn't have any family that lives in the state of [place]. She stated that the patient had been incarcerated and had been released approximately 8 weeks prior to admission. Sister states that patient had found out while incarcerated that she had cancer. Patient had been getting radiation / chemo prior to admit. Lesley states that she has custody of patients youngest child and that her oldest child is in senior living in [place]. Lesley states that her goal is for patient to finish her cancer treatments then come to her home in [place]. Lesley also states that patient has a roommate Nadine that comes to visit patient in the evenings. CM will continue to follow and assist as needed with discharge planning/ needs. Director Fundraising: Lizabeth Bingham DCP- Discharge Planning Updated by [id number]: Lizabeth Bingham on 06/14/18 6:[address] Patient on Vent / sedated. No family available for discharge planning.CM will continue to follow and assist as needed with discharge planning / needs. External Providers External Provider: [facility] Next Contact Date: Service Request Date: Service Type: Resolution: Reviewer: Comments: Last DP export: 07/08/18 3:54 Patient Name: ESDRAS ART Page [id number] at 1123 All edits/amendments must be made on the electronic document DICTATION DATE: 07/11/181121 WET PROCESS ASSISTANT HEAD MILLER: ANA ROSA 07/11/18 112 RPT#: [id number] DC DATE: STATUS: ADM IN [facility] [address] [place] [address] END OF REPORT
--- NOTE | ~2018-06-07 | MORECARE ---
CASE MANAGEMENT DISCHARGE SUMMARY PATIENT: EVY ART UNIT: [id number] ADM DATE: 06/07/18 AGE: 57 : 62 SEX: F ROOM/BED: D.2224 AUTHOR: DARCI MAR PHYSICIAN: REFERRING PHYSICIAN: WILLIAM TUCKER MD DATE OF SERVICE: 08/30/18 Discharge Plan Patient Name: EVY ART Facility: [facility]:[place] : 1960 Planned Disposition: Home or Self Care Anticipated Discharge Date: Discharge Date: Expected LOS: Initial Reviewer: [email or web address] Initial Review Date: 06/07/2018 Generated: 08/30/18 10:36 am Comments DCP- Discharge Planning Updated by [id number]: Edita Quinonez on 08/30/18 8:[address] I spoke with Shaniqua in [facility] in [place]. She states she is waiting on 3 months of bank statements from the sister. She is also going to check on when her supplier can get her osmolyte and concentrator to them. I called her sister, Lesley, and gave her the update. She states she has sent Shaniqua the bank account number and information. States she cannot get the bank statements until Medicaid sends her the payee franchise sales representative approval. Karyn from [facility] called and they have declined patient due to no Medicaid beds available. CM will continue to follow and assist with discharge planning/needs. DCP- Discharge Planning Updated by [id number]: Edita Quinonez on 08/29/18 10:[address] Referral sent to [facility] in [facility] faxed. I was unable to speak with the disaster response director, but left a message with my phone number to return call. CM will continue to follow and assist with discharge planning/needs. DCP- Discharge Planning Updated by [id number]: Edita Quinonez on 08/29/18 8:[address] I spoke with Quan at [facility] and faxed clinical. I also spoke with Shaniqua at [facility] and faxed clinical. Shaniqua states they do have a restorative plan for therapy there for physical therapy for Medicaid patients. States she will come to [place] and see her today. CM will continue to follow and assist with discharge planning/needs. DCP- Discharge Planning Updated by [email or web address]: Edita Quinonez on 08/28/18 2:[address] Received a call from Evi that they are not going to meet her needs for rehab at their facility and will deny her coming to [facility] in [place]. I spoke with the patient and explained. I called [facility] and asked if she could look again for a place for her. Her tracheostomy has a plug and she is now on a nasal cannula. She is taking in ice chips. I will continue to work on finding placement, she only has Medicaid, so she does not have any rehab benefits. DCP- Discharge Planning Updated by [id number]: Edita Quinonez on 08/28/18 7:[address] Spoke with Evi at [facility] in [place] and sent requested clinical. She states she and the DON are reviewing clinical for admission. I did inform her barber shop manager is working toward decannulation. I spoke again with [facility] and she met with the patient and at this time she is unable to get her placed with any of her facilities. CM will continue to follow and assist with discharge planning/needs. DCP- Discharge Planning Updated by [email or web address]: Edita Quinonez on 08/27/18 10:[address] Updated clinical sent to [facility] in [facility] and I notified David Byrne that I sent them. I left a message with David about status of transfer to the facility. CM will continue to follow and assist with discharge planning/needs. DCP- Discharge Planning Updated by [id number]: Edita Mckeonangelita on 08/26/18 1:[address] KYLIE paper work and clinical faxed to [facility]. CM will continue to follow and assist with discharge planning/needs. DCP- Discharge Planning Updated by [id number]: Edita Quinonez on 08/26/18 12:[address] Met with patient to discuss discharge planning, she would like to go to her brother's up [place]. She states that she needs to get stronger prior to going there. I informed her I was trying to get her in a rehab in [place], which is [facility]. She agrees to going to [place] for rehab if they will accept her. I have filled a Kylie form out and she signed. I will need to contact Dr. Tucker for his signature. He is in surgery at this time. DCP- Discharge Planning Updated by [email or web address]: Edita Quinonez on 08/23/18 3:[address] Received a call from Evi bernardo [facility] in [facility] for more information for possible admission. I faxed her clinical to [phone]. She will also need a KYLIE before admission completed. CM will continue to follow and assist with discharge planning/needs. DCP- Discharge Planning Updated by [id number]: Edita Quinonez on 08/23/18 11:[address] I spoke with [facility] today for an update. She states she does not have an accepting facility at this time. I sent referral to David Byrne. CM will continue to follow and assist with discharge planning/needs. DCP- Discharge Planning Updated by [id number]: Lizabeth Bingham on 08/21/18 9:[address] CM received a call from patients sister Lesley Domingo that [employer] has notified her that she should be receiving her paperwork in the next 2 weeks. Paperwork that she can act in Evy behalf for Medicaid. CM will continue to follow and assist with discharge planning. DCP- Discharge Planning Updated by [id number]: Lizabeth Bingham on 08/16/18 11:[address] CM continuing to follow up with [facility] about placement for female vent bed availability. If patient can be off vent for 72hrs then CM can seek placement locally. CM will continue to follow and assist as needed with discharge planning / needs. DCP- Discharge Planning Updated by [id number]: Winter Randolph on 08/15/18 12:[address] Patient Name: EVY ART Admission Status: Elective Accout number: [id number] Admission Date: 06-07-2018 : 1960 Admission Diagnosis:MALIGNANT NEOPLASM OF CARDIA Attending: WILLIAM TUCKER Current LOS: 69 Anticipated DC Date: Planned Disposition: Home or Self Care Primary Insurance: [place]ID [place] Discharge Planning Comments: CM CALLED [facility] TO SPEAK WITH JULY REGARDING A VENT BED. THEY STATE JULY IS OUT SICK AND WON'T BE BACK UNTIL NEXT WEEK. STATES WILL HAVE TO CALL BACK ON SUNDAY. Office Machine Punch Operator: Winter Randolph DCP- Discharge Planning Updated by [id number]: Lizabeth Bingham on 08/14/18 4:[address] CM called [facility] and spoke with Jennyfer RANDLE. Jennyfer stated that she wasn't able to answer questions regarding how soon for bed availability. July was out sick and she had no information on placement. CM will call back tomorrow and attempt to speak with July. DCP- Discharge Planning Updated by [id number]: Lizabeth Bingham on 08/13/18 2:[address] CM called [facility] in [place] and left message for DON (July) to return call regarding placement and how long until placement. CM still awaiting call back @ this time. DCP- Discharge Planning Updated by [id number]: Lizabeth Bingham on 08/12/18 5:[address] CM called and spoke with Meli @ [facility] [phone]. Meli stated that at this time they do not have a female vent bed available. She stated that she doesn't know when one may be available or if patient is at the top of the list or not. Meli stated that CM would need to speak with July PARK for that information and she isn't there today. CM will continue to follow and assist as needed with discharge planning / needs. DCP- Discharge Planning Updated by [id number]: Lizabeth Bingham on 08/09/18 6:[address] CM spoke with Wei Delatorre in [facility] Data she got in touch with for me and got in touch with the appropriate person at [facility]. Was able to fax form in and get the appropriate information to Meli @ [facility] in [place]. CM later contacted Meli and she stated that everything was good as far as financials. They currently do not have any female vent beds available. Meli stated she would keep us posted on availability. Wei notified me that [facility] had put in the necessary information so that Lesley diaz sister can be her payor source. Lesley is to go to social security in [place] next week.CM will continue to follow and assist as needed with discharge planning / needs. DCP- Discharge Planning Updated by [id number]: Lizabeth Bingham on 08/08/18 7:[address] CM attempted to call local office to see if CM could fax form into them and get patients disability number. CM was on hold for over 30 mins and never got to speak to a franchise sales representative. CM spoke with Meli at [facility]. She stated that she hasn't heard anything yet. Meli stated that once the financials was cleared then we will need to send updated clinicals and then would go through medical review for acceptance. CM will continue to follow and assist with discharge planning/ needs DCP- Discharge Planning Updated by [id number]: Lizabeth Bingham on 08/06/18 5:[address] Late Entry 08/06/18 @ [address] Webb office to see if they have received a fax from Social Security. Omaira stated that they have not received anything for her. CM will try to get back in touch with Lesley Domingo patients sister [facility] to see what our next step is. KRYSTAL contacted Meli at [facility] to let her know we are still working on placement. CM will continue to follow and assist with discharge planning / needs. DCP- Discharge Planning Updated by [id number]: Lizabeth Bingham on 07/31/18 4:[address] CM received notification that the social security office in [place] would not accept form that was sent to Lesley Domingo to get authorization to manage patients finances. They said they would have to directly send it to Dr. Tucker and then have him to send it back. [facility] has to have some proof of income before they can accept patient. We are having to wait to see if we can get Lesley approved to manage social security benefits in patients behalf. CM will continue to follow and assist with discharge planning / needs. DCP- Discharge Planning Updated by [id number]: Lizabeth Bingham on 07/26/18 6:[address] Late Entry 07/26/18 @ [address] Tucker and got form signed for [facility]. CM took form to Wei in [facility]. CM will continue to follow and assist as needed with discharge planning / needs DCP- Discharge Planning Updated by [id number]: Lizaebth Bingham on 07/25/18 4:[address] CM spoke with Wei Delatorre this am. Wei spoke with patients sister Lesley Domingo trying to find out information needed to get patient placement. KRYSTAL was later notified that a form from [employer] needed to be filled out by physician. KRYSTAL attempted to get in touch with paged him several times but was unsuccessful. Called his office but no response at this time. CM will continue to follow and assist as needed with discharge planning / needs. DCP- Discharge Planning Updated by [id number]: Lizabeth Bingham on 07/24/18 4:[address] CM called and spoke with Meli at [facility] in [place]. [phone]. KRYSTAL asked if family was able to provide information needed. Meli stated that she hasn't heard from anyone since she had spoke to me last week. Meli is requesting proof that patient has applied for SSI and she needs proof of income. KRYSTAL attempted to call dowel pin worker Ailyn Read [phone] or [phone] to see if she might could assist with obtaining this information. CM was unsuccessful in contacting Ailyn. KRYSTAL called and spoke with Wei Delatorre and gave her Meli phone number to see if she could assist with information. Wei will contact Meli and her city dispatch supervisor to see if they can assist with information needed. Wei will contact KRYSTAL after she gets in contact with others. CM will continue to follow and assist as needed with discharge planning / needs. DCP- Discharge Planning Updated by [id number]: Lizabeth Zachery on 07/18/18 5:[address] Late Entry 07/18/18 @ 1020 CM called and left a message for July PARK @ [facility]. CM awaiting response.CM will continue to follow and assist as needed with discharge planning / needs. Late Entry 07/18/18 @ 1330 CM received call from Meli with [facility]. Meli was wanting to know if patient was getting SSI or SSA. KRYSTAL was unaware of this information and referred Meli to call patients sister Lesley Domingo. KRYSTAL called and spoke with Wei Delatorre regarding Medicaid. Wei stated patient had SSI Medicaid until 07/10/18 and regular Medicaid started 07/11/18. KRYSTAL called Meli back to give this information to her and also gave Wei's number if she has questions regarding this. Meli stated that she also needed to know if the patient had applied for SSI and how much she had in her bank account. CM explained that we would try to find out this information. CM will check with sister and possibly patient case folder whom assisted patient with housing when released from assisted. CM will continue to follow and assist as needed with discharge planning / needs. DCP- Discharge Planning Updated by [id number]: Lizabeth Bingham on 07/18/18 5:[address] Late Entry 07/17/18 @ 1600 CM called and left message x 2 for July PARK from [facility]. CM awaiting response. CM will continue to follow and assist as needed with discharge planning / needs. DCP- Discharge Planning Updated by [id number]: Lizabeth Bingham on 07/15/18 12:[address] CM spoke with patient's sister Lesley Domingo this am. She stated that the patient doesn't have Medicare. She asked when patient would transfer to [place]. CM explained that we are awaiting on acceptance to [facility] at this point. CM called [facility] for update July told CM to fax updated clinical and that it would be tomorrow 07/16/18 before they may have a determination. July requested CM not to call back tomorrow until after noon. CM will update family. CM also contacted [facility] in [place], [place]. [phone] CM spoke with Za she stated at this time they are not accepting out of state Medicaid at their facility. CM will continue to follow and assist as needed with discharge planning / needs. DCP- Discharge Planning Updated by [id number]: Lizabeth Bingham on 07/12/18 7:[address] CM was notified patient sister Lesley Domingo was here and requested to speak with me. KRYSTAL explained that the current plan was that we was looking into placement with [facility] in [place], [place]. CM had spoke to Zoila with [facility] prior to coming to speak with Lesley. KRYSTAL had answered questions that Zoila had. Zoila stated the next process that they would send patients information to Executive offices and would be awaiting financial approval. Zoila stated for CM to call back to check on this at anytime next week. KRYSTAL explained all this to sister Lesley. Lesley asked why she was having to be transferred out of state. KRYSTAL explained that LTACH facilities within the state do not take Medicaid and that [facility] in the state do not accept ventilator patients. Lesley states that she had received information that the patient is and receiving Medicare through her . KRYSTAL explained that we had no record of that only Medicaid. Lesley requested that [facility] find this information out. KRYSTAL explained that if it was through the patients spouse then it would need to be his information used to look it up. Lesley states that she has a letter at her home that has this information on it.(Because she has custody of patients son and he receiving his benefits also). The conversation ended that Lesley was going to get the information to KRYSTAL. KRYSTAL received call from Lesley around 4:45pm requesting information on online Social Security office hours. Lesley also wanted to know what would happen if they didn't consent to transfer. KRYSTAL explained that I wasn't sure and Lesley requested for CM to find out this information. KRYSTAL spoke with other caser up within the facility. KRYSTAL then called Lesley back and explained that if the patient was stable for transfer and they still refusing transfer then it would most likely go to ethics board and DHS could be notified. Lesley then starting raising her voice that" the hospital and staff was not giving her accurate updates over the phone. She had no idea that Evy was almost in a comatose state." Lesley requested for us to wait on transfer until after she could show proof that she has Medicare. KRYSTAL explained that nothing would be happening until next week. She was still upset that she was going to have to stay longer than she had planned to get this taken care of. KRYSTAL told her that I would be happy to let her speak to someone else on Sunday. CM will continue to follow and assist as needed will discharge planning/ needs. DCP- Discharge Planning Updated by [id number]: Lizabeth Bingham on 07/11/18 7:[address] KRYSTAL spoke with [facility] in [place] ([facility] She stated that all their Vent beds are full at this time and they could put the patient on a waiting list for a bed. CM gave information to put patient on waiting list. KRYSTAL then contacted [facility] in [place] ([facility]) she stated they might could accept patient. CM faxed over information and later got denial from [facility] that patient required too high of level of care. CM contacted [facility] division terminal gauger care to see if they could give any insight on facilities that take ventilator patients within the critical access hospital. They only gave [facility] in [place]. CM called and spoke with patients sister Lesley Domingo. CM explained the situation that the patient was needing placement and we might have to go out of the state of [place] for placement. Lesley was concerned about patient getting back to [place] once she recovered. Lesley also stated that she would be in to see patient today that she just got into town. CM will plan to speak to her while she is here. CM received information on [facility] in [place], [place] that takes ventilator patients. CM called Meli [phone] and faxed [phone] records. CM awaiting decision from [facility]. CM will continue to follow and assist as needed with discharge planning / needs. DCP- Discharge Planning Updated by [id number]: Lizabeth Bingham on 07/08/18 4:[address] CM contacted all LTACH within critical access hospital to check on Medicaid bed availability / ana bed availability. Still awaiting call back on three facilities but at this time no had stated they would accept any Medicaid patients or ana. CM will continue to follow and assist as needed with discharge planning / needs. DCP- Discharge Planning Updated by [id number]: Lizabeth Bingham on 06/20/18 11:[address] Patient Name: EVY ART Admission Status: Elective Accout number: [id number] Admission Date: 06-07-2018 : 1960 Admission Diagnosis:MALIGNANT NEOPLASM OF CARDIA Attending: WILLIAM TUCKER Current LOS: 13 Anticipated DC Date: Planned Disposition: Home or Self Care Primary Insurance: [place] Discharge Planning Comments: CM called and spoke with sister Lesley Domingo [phone]. Patient is still on vent and sedated. Lesley (lives in [place]) informed CM that patient doesn't have any family that lives in the state of [place]. She stated that the patient had been incarcerated and had been released approximately 8 weeks prior to admission. Sister states that patient had found out while incarcerated that she had cancer. Patient had been getting radiation / chemo prior to admit. Lesley states that she has custody of patients youngest child and that her oldest child is in assisted in [place]. Lesley states that her goal is for patient to finish her cancer treatments then come to her home in [place]. Lesley also states that patient has a roommate Nadine that comes to visit patient in the evenings. CM will continue to follow and assist as needed with discharge planning/ needs. Office Machine Punch Operator: Lizabeth Bingham DCP- Discharge Planning Updated by [id number]: Lizabeth Bingham on 06/14/18 7:[address] Patient on Vent / sedated. No family available for discharge planning.CM will continue to follow and assist as needed with discharge planning / needs. Last DP export: 08/30/18 8:29 Patient Name: EVY ART Page 33331 at 0936 All edits/amendments must be made on the electronic document DICTATION DATE: 08/30/18934 EVP CHIEF EXPLORATION OFFICER: ANA ROSA 08/30/18934 RPT#: [id number] DC DATE: STATUS: ADM IN [facility] [address] [place] [address] END OF REPORT
--- NOTE | ~2018-06-07 | MORECARE ---
CASE MANAGEMENT DISCHARGE SUMMARY PATIENT: ESDRAS ART UNIT: [id number] ADM DATE: 06/07/18 AGE: 57 : 62 SEX: F ROOM/BED: D.2307 AUTHOR: ZAID,DOC PHYSICIAN: REFERRING PHYSICIAN: WILLIAM TUCKER MD DATE OF SERVICE: 07/11/18 Discharge Plan Patient Name: ESDRAS ART Facility: [facility]:[place] : 1960 Planned Disposition: Home or Self Care Anticipated Discharge Date: Discharge Date: Expected LOS: Initial Reviewer: [email or web address] Initial Review Date: 06/07/2018 Generated: 07/11/18 5:46 pm Comments DCP- Discharge Planning Updated by [email or web address]: Lizabeth Bingham on 07/08/18 3:[address] CM contacted all [facility] within state to check on Medicaid bed availability / ana bed availability. Still awaiting call back on three facilities but at this time no had stated they would accept any Medicaid patients or ana. CM will continue to follow and assist as needed with discharge planning / needs. DCP- Discharge Planning Updated by [email or web address]: Lizabeth Bingham on 06/20/18 10:[address] Patient Name: ESDRAS ART Admission Status: Elective Accout number: [id number] Admission Date: 06-07-2018 : 1960 Admission Diagnosis:MALIGNANT NEOPLASM OF CARDIA Attending: WILLIAM TUCKER Current LOS: 13 Anticipated DC Date: Planned Disposition: Home or Self Care Primary Insurance: [place]ICAID [place] Discharge Planning Comments: CM called and spoke with sister Lesley Domingo [phone]. Patient is still on vent and sedated. Lesley (lives in [place]) informed CM that patient doesn't have any family that lives in the state of [place]. She stated that the patient had been incarcerated and had been released approximately 8 weeks prior to admission. Sister states that patient had found out while incarcerated that she had cancer. Patient had been getting radiation / chemo prior to admit. Lesley states that she has custody of patients youngest child and that her oldest child is in senior care in [place]. Lesley states that her goal is for patient to finish her cancer treatments then come to her home in [place]. Lesley also states that patient has a roommate Nadine that comes to visit patient in the evenings. CM will continue to follow and assist as needed with discharge planning/ needs. Treasury Representative: Lizabeth Bingham DCP- Discharge Planning Updated by [email or web address]: Lizabeth Bingham on 06/14/18 6:[address] Patient on Vent / sedated. No family available for discharge planning.CM will continue to follow and assist as needed with discharge planning / needs. External Providers External Provider: OTHER-OTHER Next Contact Date: Service Request Date: Service Type: Resolution: Reviewer: Comments: Last DP export: 07/11/18 10:23 a Patient Name: ESDRAS ART Page [id number] at 1646 All edits/amendments must be made on the electronic document DICTATION DATE: 07/11/181645 FERRULER: ANA ROSA 07/11/181645 RPT#: [id number] [place] DATE: STATUS: ADM IN [facility] [address] [place] [address] END OF REPORT
--- NOTE | ~2018-06-07 | OP ---
PATIENT NAME: ESDRAS ART MEDICAL RECORD: [id number] :[birth year] LOCATION:D.[facility] D.2307 ADMISSION DATE:06/07/18 SURGEON: WILLIAM TUCKER MD DATE OF OPERATION: 06/21/2018 PREOPERATIVE DIAGNOSES: 1. Rule out gastro-tracheal fistula. 2. Bile reflux. POSTOPERATIVE DIAGNOSES: 1. No evidence of a gastro-tracheal fistula. 2. Bile reflux. PROCEDURE: Esophagogastroduodenoscopy without biopsies. SURGEON: William Tucker MD HIGH SCHOOL PHYSICAL EDUCATION TEACHER: None. BLOOD LOSS: Minimal. ANESTHESIA: IV sedation. COMPLICATIONS: None. I am going to perform an EGD to try to determine whether the anastomosis is patent, whether the pyloroplasty is patent and whether there is a gastro-bronchial or gastro-tracheal fistula. Consent was obtained. The patient is already on a propofol drip. OPERATIVE COURSE: The patient was given a bolus for sedation. A bite-block was inserted. A gastroscope was inserted into the mouth. It was advanced easily into the hypopharynx. I noted that the endotracheal tube balloon was actually at the level of the cords. I was able to go posterior to the balloon into the hypopharynx and then intubate the esophagus. I traveled down the esophagus and very gently I traversed the esophagogastric anastomosis. I then went down the gastric tube through the pyloroplasty and into the duodenum. I then withdrew the endoscope while aspirating. There was a great deal of bowel present. The pyloroplasty was widely patent. The gastric tube appeared viable. There was some exudate on the superior aspect of the gastric tube; however, there was no full-thickness necrosis. The anastomosis was intact. I then continued to withdraw the endoscope. I have discussed the endoscopic findings with Dr. Lang. We are going to try to see if we can find some type of esophageal stent that has a one-way valve in it because what is happening is that bile is refluxing all the way up the gastric tube up the esophagus and then spilling over into the hypopharynx and some of this is getting by the endotracheal tube balloon and is entering the tracheobronchial tree. She likely is going to require a tracheostomy sometime next week. TRANSINT:[id number] Voice Confirmation ID: [id number] DOCUMENT ID: [id number] OPERATIVE REPORT [id number] ESDRAS ART ROBERT MD at 1708 CC: KAR LANG MD, Jessy TYSON MULDOON, ROBERT T and [id number] DICTATION DATE: 06/22/18 1426 INVESTMENT BANKER: 06/22/18 1454 ADM IN [facility] [address] [id number]
--- NOTE | ~2018-06-07 | OP ---
PATIENT NAME: ESDRAS ART MEDICAL RECORD: [id number] :62 LOCATION:D.[facility] D.2307 ADMISSION DATE:06/07/18 SURGEON: KARLOS TUCKER MD DATE OF OPERATION: 06/27/2018 PREOPERATIVE DIAGNOSES: 1. Bile reflux to the pharynx. 2. Postop esophagogastrectomy. 3. Overflow of bile reflux into the tracheobronchial tree. 4. Ventilatory failure. 5. Prolonged mechanical ventilation. POSTOPERATIVE DIAGNOSES: 1. Bile reflux to the pharynx. 2. Postop esophagogastrectomy. 3. Overflow of bile reflux into the tracheobronchial tree. 4. Ventilatory failure. 5. Prolonged mechanical ventilation with inability to perform a percutaneous gastrostomy tube. 6. Intraabdominal adhesions. 7. Mucopurulent debris involving the segmental bronchi of both lungs, worse on the right. 8. Bile gastritis. PROCEDURES: 1. Esophagogastroduodenoscopy without biopsies. 2. Exploratory laparotomy with open placement of 24-Urdu balloon-type gastrostomy tube. 3. Diagnostic and therapeutic bronchoscopy with bronchoalveolar lavage. 4. Percutaneous tracheostomy placement, 8 mm. SURGEON: Karlos Tucker MD MATCH MAKER: None. BLOOD LOSS: Minimal. ANESTHESIA: General. COMPLICATIONS: None. The risks, possible complications and alternatives to procedure were explained. A consent form was signed. OPERATIVE COURSE: The patient was conveyed to the operating room electively on 06/27/2018. General anesthesia was induced by anesthesia staff. The right chest was sterilely prepped and draped. [place] from the thoracotomy incision were removed. I then removed both chest tubes and tied down on the horizontal mattress Prolene sutures to close the chest tube insertion sites. I then went about the EGD. A bite block was inserted. A gastroscope was inserted into the mouth. It was advanced easily into the hypopharynx. The esophagus was easily intubated as were the stomach and duodenum. Upon withdrawal, I aspirated large amount of bile. There was impressive bile gastritis present. We turned the lights down in the room. I tried to OPERATIVE REPORT [id number] ESDRAS ART transilluminate the abdominal wall with my gastroscope. This was not successful. I tried to indent the anterior abdominal wall and visualize this endoscopically and this was not successful either. I felt that an attempt at insertion of a percutaneous gastrostomy tube would be treacherous. I elected to convert to an open procedure. The gastroscope was then withdrawn under direct vision. The abdomen was sterilely prepped and draped. I opened the midline incision. I cut the PDS sutures. The peritoneal cavity was entered bluntly. I was able to take down some filmy adhesions with my fingers. In fact, most of the dissection was finger dissection. At no time was there any full thickness enterotomy. A serial myotomy occurred and this was oversewn with imbricating 3-0 Vicryl sutures. The jejunostomy tube was still well placed. I could not immediately identified the stomach. I had to dissect some small bowel out of the way that was between the stomach and the anterior abdominal wall. Additionally, the liver just about completely covered the gastric tube. I identified the gastric tube. An abdominal wall defect was accomplished in the left upper quadrant cephalad to the jejunostomy tube. Through this abdominal wall defect, I passed the 24-Urdu gastrostomy tube. An anterior gastrotomy was accomplished. Through the gastrotomy, I advanced the tip of the gastrostomy tube. The balloon was inflated. I then placed a 3-0 silk pursestring suture around the G-tube. I irrigated and all quadrants aspirated. I ensured the small bowel was not twisted on its mesentery. The midline fascia was approximated with a running looped PDS in a horizontal mattress fashion. I then overran the fascial closure with a running #1 Vicryl. The subdermis was approximated with interrupted 3-0 Vicryls. The skin was approximated with metallic clips. I then pushed down on the flange of the gastrostomy tube. The gastrostomy tube flange was sutured to the underlying skin with 2-0 silks. The gastrostomy tube was then attached to a Mejía drainage bag and it did drain bile. The plan is that hopefully this will drain enough bile so that the bowel will not reflux at the gastric tube into the esophagus and then into the pharynx. Attention was then turned to placement of the tracheostomy. The neck was extended. The neck was sterilely prepped and draped. The bronchoscopic adapter was attached to the endotracheal tube. Utilizing the bronchoscope, I first examined the right lung and then the left lung. I irrigated with normal saline. No cultures were obtained. I aspirated until all the segmental bronchi were free of mucopurulent debris. I then made an incision in the suprasternal notch. Sharp dissection was carried down through the skin and subcutaneous tissue. The strap muscles were in the midline. I divided a portion of the thyroid gland. I identified the tracheal rings. I then had the MEDICAL PRACTITIONERS withdraw the bronchoscope and the endotracheal tube as a unit, then the anterior portion of the trachea. I entered the trachea with an Angiocath at the second ring. A guidewire passed easily. I dilated over the guidewire to a larger size. The 8 mm percutaneous tracheostomy tube, which had been loaded on its introducer was advanced over the wire. The balloon was well within the trachea and it was inflated. The wire and the tracheostomy introduction device were removed. I performed a quick OPERATIVE REPORT [id number] ESDRAS ART bronchoscopy through the tracheostomy tube and it revealed intratracheal placement with no apparent injury to the esophagus. We began ventilating through the tracheostomy. The flange of the tracheostomy was sutured to the surrounding skin with 2-0 nylons. I closed some of the skin around the tracheostomy tube with 3-0 Vicryls. I then injected Tisseel into the area around the tracheostomy tube for additional hemostasis. Sterile dressings were applied. The patient was then conveyed back to the intensive care unit in critical, but stable condition. TRANSINT:[id number] Voice Confirmation ID: [id number] DOCUMENT ID: [id number] KARLOS TUCKER MD at 1718 CC: [id number] DICTATION DATE: 06/27/18 1438 SCRAP BALER: 06/27/18 1701 ADM IN [facility] [address] [place] [address]
--- NOTE | ~2018-06-07 | MORECARE ---
CASE MANAGEMENT DISCHARGE SUMMARY PATIENT: EVY ART UNIT: [id number] ADM DATE: 06/07/18 AGE: 57 : 62 SEX: F ROOM/BED: D.2224 AUTHOR: ZAID,DOC PHYSICIAN: REFERRING PHYSICIAN: WILLIAM TUCKER MD DATE OF SERVICE: 08/23/18 Discharge Plan Patient Name: EVY ART Facility: [facility]:[place] : 1960 Planned Disposition: Home or Self Care Anticipated Discharge Date: Discharge Date: Expected LOS: Initial Reviewer: [id number] Initial Review Date: 06/07/2018 Generated: 08/23/18 5:54 pm Comments DCP- Discharge Planning Updated by [email or web address]: Edita Quinonez on 08/23/18 3:[address] Received a call from Evi bernardo [place] in [facility] for more information for possible admission. I faxed her clinical to [phone]. She will also need a KYLIE before admission completed. CM will continue to follow and assist with discharge planning/needs. DCP- Discharge Planning Updated by [email or web address]: Edita Quinonez on 08/23/18 11:[address] I spoke with Alba Baker today for an update. She states she does not have an accepting facility at this time. I sent referral to [facility]. CM will continue to follow and assist with discharge planning/needs. DCP- Discharge Planning Updated by [id number]: Lizabeth Bingham on 08/21/18 9:[address] CM received a call from patients sister Lesley Domingo that [employer] has notified her that she should be receiving her paperwork in the next 2 weeks. Paperwork that she can act in Evy behalf for Medicaid. CM will continue to follow and assist with discharge planning. DCP- Discharge Planning Updated by [email or web address]: Lizabeth Bingham on 08/16/18 11:[address] CM continuing to follow up with [facility] about placement for female vent bed availability. If patient can be off vent for 72hrs then CM can seek placement locally. CM will continue to follow and assist as needed with discharge planning / needs. DCP- Discharge Planning Updated by [id number]: Winter Randolph on 08/15/18 12:[address] Patient Name: EVY ART Admission Status: Elective Accout number: [id number] Admission Date: 06-07-2018 : 1960 Admission Diagnosis:MALIGNANT NEOPLASM OF CARDIA Attending: WILLIAM TUCKER Current LOS: 69 Anticipated DC Date: Planned Disposition: Home or Self Care Primary Insurance: [place] Discharge Planning Comments: CM CALLED [facility] TO SPEAK WITH JULY REGARDING A VENT BED. THEY STATE JULY IS OUT SICK AND WON'T BE BACK UNTIL NEXT WEEK. STATES WILL HAVE TO CALL BACK ON SUNDAY. Letter Stamping Machine Operator: Winter Randolph DCP- Discharge Planning Updated by [id number]: Lizabeth Bingham on 08/14/18 4:[address] CM called [facility] and spoke with Jennyfer RANDLE. Jennyfer stated that she wasn't able to answer questions regarding how soon for bed availability. July was out sick and she had no information on placement. CM will call back tomorrow and attempt to speak with July. DCP- Discharge Planning Updated by [email or web address]: Lizabeth Bingham on 08/13/18 2:[address] CM called [facility] in [place] and left message for DON (July) to return call regarding placement and how long until placement. CM still awaiting call back @ this time. DCP- Discharge Planning Updated by [id number]: Lizabeth Bingham on 08/12/18 5:[address] CM called and spoke with Meli @ [facility] [phone]. Meli stated that at this time they do not have a female vent bed available. She stated that she doesn't know when one may be available or if patient is at the top of the list or not. Meli stated that CM would need to speak with July PARK for that information and she isn't there today. CM will continue to follow and assist as needed with discharge planning / needs. DCP- Discharge Planning Updated by [id number]: Lizabeth Bingham on 08/09/18 6:[address] CM spoke with Wei Delatorre in [facility] she got in touch with for me and got in touch with the appropriate person at [employer]. Was able to fax form in and get the appropriate information to Meli @ [facility] in [place]. KRYSTAL later contacted Meli and she stated that everything was good as far as financials. They currently do not have any female vent beds available. Meli stated she would keep us posted on availability. Wei notified me that social security had put in the necessary information so that Lesley Domingo patients sister can be her payor source. Lesley is to go to social security in [place] next week.KRYSTAL will continue to follow and assist as needed with discharge planning / needs. DCP- Discharge Planning Updated by [id number]: Lizabeth Bingham on 08/08/18 7:[address] CM attempted to call local office to see if CM could fax form into them and get patients disability number. CM was on hold for over 30 mins and never got to speak to a reimbursement representative. KRYSTAL spoke with Meli at [facility]. She stated that she hasn't heard anything yet. Meli stated that once the financials was cleared then we will need to send updated clinicals and then would go through medical review for acceptance. CM will continue to follow and assist with discharge planning/ needs DCP- Discharge Planning Updated by [email or web address]: Lizabeth Bingham on 08/06/18 5:[address] Late Entry 08/06/18 @ [address] Webb office to see if they have received a fax from [employer]. Omaira stated that they have not received anything for her. KRYSTAL will try to get back in touch with Lesleygerda Domingo patients sister and Wei in [facility] to see what our next step is. KRYSTAL contacted Meli at [facility] to let her know we are still working on placement. CM will continue to follow and assist with discharge planning / needs. DCP- Discharge Planning Updated by [id number]: Lizabeth Bingham on 07/31/18 4:[address] CM received notification that the social security office in [place] would not accept form that was sent to Lesley Domingo to get authorization to manage patients finances. They said they would have to directly send it to Dr. Tucker and then have him to send it back. [facility] has to have some proof of income before they can accept patient. We are having to wait to see if we can get Lesley approved to manage social security benefits in patients behalf. CM will continue to follow and assist with discharge planning / needs. DCP- Discharge Planning Updated by [id number]: Lizabeth Bingham on 07/26/18 6:[address] Late Entry 07/26/18 @ [address] Tucker and got form signed for [facility]. CM took form to Wei in [facility]. CM will continue to follow and assist as needed with discharge planning / needs DCP- Discharge Planning Updated by [id number]: Lizabeth Bingham on 07/25/18 4:[address] CM spoke with Wei Delatorre this am. Wei spoke with patients sister Lesley Domingo trying to find out information needed to get patient placement. KRYSTAL was later notified that a form from [facility] needed to be filled out by physician. CM attempted to get in touch with paged him several times but was unsuccessful. Called his office but no response at this time. CM will continue to follow and assist as needed with discharge planning / needs. DCP- Discharge Planning Updated by [id number]: Lizabeth Bingham on 07/24/18 4:[address] CM called and spoke with Meli at [facility] in [place]. [phone]. KRYSTAL asked if family was able to provide information needed. Meli stated that she hasn't heard from anyone since she had spoke to me last week. Meli is requesting proof that patient has applied for SSI and she needs proof of income. KRYSTAL attempted to call forming process line worker Ailyn Read [phone] or [phone] to see if she might could assist with obtaining this information. KRYSTAL was unsuccessful in contacting Ailyn. KRYSTAL called and spoke with Wei Delatorre and gave her Meli phone number to see if she could assist with information. Wei will contact Meli and her security shift supervisor to see if they can assist with information needed. Wei will contact KRYSTAL after she gets in contact with others. CM will continue to follow and assist as needed with discharge planning / needs. DCP- Discharge Planning Updated by [id number]: Lizabeth Bingham on 07/18/18 5:[address] Late Entry 07/18/18 @ 1020 CM called and left a message for July PARK @ [facility]. CM awaiting response.CM will continue to follow and assist as needed with discharge planning / needs. Late Entry 07/18/18 @ 1330 CM received call from Meli with [facility]. Meli was wanting to know if patient was getting SSI or SSA. CM was unaware of this information and referred Meli to call patients sister Lesley Domingo. CM called and spoke with Wei Delatorre regarding Medicaid. Wei stated patient had SSI Medicaid until 07/10/18 and regular Medicaid started 07/11/18. CM called Meli back to give this information to her and also gave Wei's number if she has questions regarding this. Meli stated that she also needed to know if the patient had applied for SSI and how much she had in her bank account. CM explained that we would try to find out this information. CM will check with sister and possibly patient case fitter whom assisted patient with housing when released from [facility]. CM will continue to follow and assist as needed with discharge planning / needs. DCP- Discharge Planning Updated by [email or web address]: Lizabeth Bingham on 07/18/18 5:[address] Late Entry 07/17/18 @ 1600 CM called and left message x 2 for July PARK from [facility]. CM awaiting response. CM will continue to follow and assist as needed with discharge planning / needs. DCP- Discharge Planning Updated by [id number]: Lizabeth Bingham on 07/15/18 12:[address] CM spoke with patient's sister Lesley Domingo this am. She stated that the patient doesn't have Medicare. She asked when patient would transfer to [place]. CM explained that we are awaiting on acceptance to [facility] at this point. KRYSTAL called [facility] for update July told CM to fax updated clinical and that it would be tomorrow 07/16/18 before they may have a determination. July requested CM not to call back tomorrow until after noon. CM will update family. CM also contacted [facility] in [place], [place]. [phone] CM spoke with Za she stated at this time they are not accepting out of state Medicaid at their facility. CM will continue to follow and assist as needed with discharge planning / needs. DCP- Discharge Planning Updated by [id number]: Lizabeth Bingham on 07/12/18 7:[address] CM was notified patient sister Lesley Domingo was here and requested to speak with me. KRYSTAL explained that the current plan was that we was looking into placement with [facility] in [place], [place]. KRYSTAL had spoke to Zoila with [facility] prior to coming to speak with Lesley. KRYSTAL had answered questions that Zoila had. Zoila stated the next process that they would send patients information to Executive offices and would be awaiting financial approval. Zolia stated for KRYSTAL to call back to check on this at anytime next week. KRYSTAL explained all this to sister Lesley. Lesley asked why she was having to be transferred out of state. KRYSTAL explained that LTACH facilities within the state do not take Medicaid and that prison longterm facilities in the state do not accept ventilator patients. Lesley states that she had received information that the patient is and receiving Medicare through her . KRYSTAL explained that we had no record of that only Medicaid. Lesley requested that [facility] find this information out. KRYSTAL explained that if it was through the patients spouse then it would need to be his information used to look it up. Lesley states that she has a letter at her home that has this information on it.(Because she has custody of patients son and he receiving his benefits also). The conversation ended that Lesley was going to get the information to KRYSTAL. KRYSTAL received call from Lesley around 4:45pm requesting information on online Social Security office hours. Lesley also wanted to know what would happen if they didn't consent to transfer. KRYSTAL explained that I wasn't sure and Lesley requested for KRYSTAL to find out this information. KRYSTAL spoke with other telehealth case manager within the facility. KRYSTAL then called Lesley back and explained that if the patient was stable for transfer and they still refusing transfer then it would most likely go to ethics board and DHS could be notified. Lesley then starting raising her voice that" the hospital and staff was not giving her accurate updates over the phone. She had no idea that Evy was almost in a comatose state." Lesley requested for us to wait on transfer until after she could show proof that she has Medicare. KRYSTAL explained that nothing would be happening until next week. She was still upset that she was going to have to stay longer than she had planned to get this taken care of. KRYSTAL told her that I would be happy to let her speak to someone else on Sunday. CM will continue to follow and assist as needed will discharge planning/ needs. DCP- Discharge Planning Updated by [id number]: Lizabeth Bingham on 07/11/18 7:[address] CM spoke with [facility] in [place] ([place]). She stated that all their Vent beds are full at this time and they could put the patient on a waiting list for a bed. CM gave information to put patient on waiting list. [facility] [place] [facility]) she stated they might could accept patient. CM faxed over information and later got denial from [facility] that patient required too high of level of care. CM contacted [facility] termination clerk care to see if they could give any insight on facilities that take ventilator patients within the [facility]. They only gave [facility] in [place]. CM called and spoke with patients sister Lesley Domingo. CM explained the situation that the patient was needing placement and we might have to go out of the [facility] for placement. Lesley was concerned about patient getting back to [place] once she recovered. Lesley also stated that she would be in to see patient today that she just got into town. CM will plan to speak to her while she is here. CM received information on [facility] in [place], [place] that takes ventilator patients. CM called [facility] [phone] and faxed [phone] records. CM awaiting decision from [facility]. CM will continue to follow and assist as needed with discharge planning / needs. DCP- Discharge Planning Updated by [id number]: Lizabeth Bingham on 07/08/18 4:[address] CM contacted all LTACH within [facility] to check on Medicaid bed availability / ana bed availability. Still awaiting call back on three facilities but at this time no had stated they would accept any Medicaid patients or ana. CM will continue to follow and assist as needed with discharge planning / needs. DCP- Discharge Planning Updated by [id number]: Lizabeth Bingham on 06/20/18 11:[address] Patient Name: EVY ART Admission Status: Elective Accout number: [id number] Admission Date: 06-07-2018 : 1960 Admission Diagnosis:MALIGNANT NEOPLASM OF CARDIA Attending: WILLIAM TUCKER Current LOS: 13 Anticipated DC Date: Planned Disposition: Home or Self Care Primary Insurance: [place] Discharge Planning Comments: CM called and spoke with sister Lesley Domingo [phone]. Patient is still on vent and sedated. Lesley (lives in [place]) informed CM that patient doesn't have any family that lives in the state of [place]. She stated that the patient had been incarcerated and had been released approximately 8 weeks prior to admission. Sister states that patient had found out while incarcerated that she had cancer. Patient had been getting radiation / chemo prior to admit. Lesley states that she has custody of patients youngest child and that her oldest child is in [facility] in [place]. Lesley states that her goal is for patient to finish her cancer treatments then come to her home in [place]. Lesley also states that patient has a roommate Nadine that comes to visit patient in the evenings. CM will continue to follow and assist as needed with discharge planning/ needs. Letter Stamping Machine Operator: Lizabeth Bingham DCP- Discharge Planning Updated by [id number]: Lizabeth Bingham on 06/14/18 7:[address] Patient on Vent / sedated. No family available for discharge planning.CM will continue to follow and assist as needed with discharge planning / needs. Last DP export: 08/23/18 11:22 Patient Name: EVY ART Page [id number] at 1654 All edits/amendments must be made on the electronic document DICTATION DATE: 08/23/181652 STORE CASHIER: ANA ROSA 08/23/181652 RPT#: [id number] DC DATE: STATUS: ADM IN [facility] [address] [place] [address] END OF REPORT
--- NOTE | ~2018-06-07 | MORECARE ---
CASE MANAGEMENT DISCHARGE SUMMARY PATIENT: EVY ART UNIT: [id number] ADM DATE: 06/07/18 AGE: 57 : 62 SEX: F ROOM/BED: D.2307 AUTHOR: ZAID,DOC PHYSICIAN: REFERRING PHYSICIAN: WILLIAM TUCKER MD DATE OF SERVICE: 07/25/18 Discharge Plan Patient Name: EVY ART Facility: [facility]:[place] : 1960 Planned Disposition: Home or Self Care Anticipated Discharge Date: Discharge Date: Expected LOS: Initial Reviewer: [email or web address] Initial Review Date: 06/07/2018 Generated: 07/25/18 6:53 pm Comments DCP- Discharge Planning Updated by [id number]: Lizabeth Bingham on 07/25/18 4:[address] CM spoke with Wei eDlatorre this am. Wei spoke with patients sister Lesley Domingo trying to find out information needed to get patient placement. KRYSTAL was later notified that a form from [facility] needed to be filled out by physician. KRYSTAL attempted to get in touch with paged him several times but was unsuccessful. Called his office but no response at this time. CM will continue to follow and assist as needed with discharge planning / needs. DCP- Discharge Planning Updated by [id number]: Lizabeth Bingham on 07/24/18 4:[address] CM called and spoke with Meli at [facility] in [place]. [phone]. KRYSTAL asked if family was able to provide information needed. Meli stated that she hasn't heard from anyone since she had spoke to me last week. Meli is requesting proof that patient has applied for SSI and she needs proof of income. KRYSTAL attempted to call workers compensation coordinator Ailyn Read [phone] or [phone] to see if she might could assist with obtaining this information. KRYSTAL was unsuccessful in contacting Ailyn. KRYSTAL called and spoke with Wei Delatorre and gave her Meli phone number to see if she could assist with information. Wei will contact Meli and her blacksmith supervisor to see if they can assist with information needed. Wei will contact KRYSTAL after she gets in contact with others. CM will continue to follow and assist as needed with discharge planning / needs. DCP- Discharge Planning Updated by [id number]: Lizabeth Bingham on 07/18/18 5:[address] Late Entry 07/18/18 @ 1020 CM called and left a message for July PARK @ [facility]. CM awaiting response.CM will continue to follow and assist as needed with discharge planning / needs. Late Entry 07/18/18 @ 1330 CM received call from Meli with [facility]. Meli was wanting to know if patient was getting SSI or SSA. KRYSTAL was unaware of this information and referred Meli to call patients sister Lesley Domingo. KRYSTAL called and spoke with Wei Juan Ramon regarding Medicaid. Wei stated patient had SSI Medicaid until 07/10/18 and regular Medicaid started 07/11/18. CM called Meli back to give this information to her and also gave Wei's number if she has questions regarding this. Meli stated that she also needed to know if the patient had applied for SSI and how much she had in her bank account. KRYSTAL explained that we would try to find out this information. CM will check with sister and possibly patient continuous pillowcase cutter whom assisted patient with housing when released from [facility]. CM will continue to follow and assist as needed with discharge planning / needs. DCP- Discharge Planning Updated by [id number]: Lizabeth Cumminsr on 07/18/18 5:[address] Late Entry 07/17/18 @ 1600 CM called and left message x 2 for July PARK from [facility]. CM awaiting response. CM will continue to follow and assist as needed with discharge planning / needs. DCP- Discharge Planning Updated by [id number]: Lizabeth Bingham on 07/15/18 12:[address] CM spoke with patient's sister Lesley Domingo this am. She stated that the patient doesn't have Medicare. She asked when patient would transfer to [place]. CM explained that we are awaiting on acceptance to [facility] at this point. KRYSTAL called [facility] for update July told CM to fax updated clinical and that it would be tomorrow 07/16/18 before they may have a determination. July requested CM not to call back tomorrow until after noon. CM will update family. CM also contacted [facility] in [place], [place]. [phone] KRYSTAL spoke with Za she stated at this time they are not accepting out of state Medicaid at their facility. KRYSTAL will continue to follow and assist as needed with discharge planning / needs. DCP- Discharge Planning Updated by [id number]: Lizabeth Bingham on 07/12/18 7:[address] KRYSTAL was notified patient sister Lesley Domingo was here and requested to speak with me. KRYSTAL explained that the current plan was that we was looking into placement with [facility] in [place], [place]. KRYSTAL had spoke to Zoila with [facility] prior to coming to speak with Lesley. KRYSTAL had answered questions that Zoila had. Zoila stated the next process that they would send patients information to Executive offices and would be awaiting financial approval. Zoila stated for KRYSTAL to call back to check on this at anytime next week. KRYSTAL explained all this to sister Lesley. Lesley asked why she was having to be transferred out of state. KRYSTAL explained that LTACH facilities within the state do not take Medicaid and that fci fci facilities in the state do not accept ventilator patients. Lesley states that she had received information that the patient is and receiving Medicare through her . KRYSTAL explained that we had no record of that only Medicaid. Lesley requested that [facility] find this information out. KRYSTAL explained that if it was through the patients spouse then it would need to be his information used to look it up. Lesley states that she has a letter at her home that has this information on it.(Because she has custody of patients son and he receiving his benefits also). The conversation ended that Lesley was going to get the information to KRYSTAL. KRYSTAL received call from Lesley around 4:45pm requesting information on online Social Security office hours. Lesley also wanted to know what would happen if they didn't consent to transfer. KRYSTAL explained that I wasn't sure and Lesley requested for KRYSTAL to find out this information. KRYSTAL spoke with other case sealer within the facility. KRYSTAL then called Lesley back and explained that if the patient was stable for transfer and they still refusing transfer then it would most likely go to ethics board and DHS could be notified. Lesley then starting raising her voice that" the hospital and staff was not giving her accurate updates over the phone. She had no idea that Evy was almost in a comatose state." Lesley requested for us to wait on transfer until after she could show proof that she has Medicare. CM explained that nothing would be happening until next week. She was still upset that she was going to have to stay longer than she had planned to get this taken care of. CM told her that I would be happy to let her speak to someone else on Sunday. CM will continue to follow and assist as needed will discharge planning/ needs. DCP- Discharge Planning Updated by [email or web address]: Lizabeth Bingham on 07/11/18 7:[address] CM spoke with [facility] in [place] ([facility]). She stated that all their Vent beds are full at this time and they could put the patient on a waiting list for a bed. CM gave information to put patient on waiting list. CM then contacted [facility] in [place] ([facility]) she stated they might could accept patient. CM faxed over information and later got denial from [facility] that patient required too high of level of care. CM contacted [facility] division fci care to see if they could give any insight on facilities that take ventilator patients within the [facility]. They only gave [facility] in [place]. CM called and spoke with patients sister Lesley Domingo. CM explained the situation that the patient was needing placement and we might have to go out of the state of [place] for placement. Lesley was concerned about patient getting back to [place] once she recovered. Lesley also stated that she would be in to see patient today that she just got into town. CM will plan to speak to her while she is here. CM received information on [facility] in [place], [place] that takes ventilator patients. CM called Meli [phone] and faxed [phone] records. CM awaiting decision from [facility]. CM will continue to follow and assist as needed with discharge planning / needs. DCP- Discharge Planning Updated by [email or web address]: Lizabeth Bingham on 07/08/18 4:[address] CM contacted all LTACH within [facility] to check on Medicaid bed availability / ana bed availability. Still awaiting call back on three facilities but at this time no had stated they would accept any Medicaid patients or ana. CM will continue to follow and assist as needed with discharge planning / needs. DCP- Discharge Planning Updated by [id number]: Lizabeth Bingham on 06/20/18 11:[address] Patient Name: EVY ART Admission Status: Elective Accout number: [id number] Admission Date: 06-07-2018 : 1960 Admission Diagnosis:MALIGNANT NEOPLASM OF CARDIA Attending: WILLIAM TUCKER Current LOS: 13 Anticipated DC Date: Planned Disposition: Home or Self Care Primary Insurance: MEDICAID [place] Discharge Planning Comments: CM called and spoke with sister Lesley Domingo [phone]. Patient is still on vent and sedated. Lesley (lives in [place]) informed CM that patient doesn't have any family that lives in the [facility]. She stated that the patient had been incarcerated and had been released approximately 8 weeks prior to admission. Sister states that patient had found out while incarcerated that she had cancer. Patient had been getting radiation / chemo prior to admit. Lesley states that she has custody of patients youngest child and that her oldest child is in [facility] in [place]. Lesley states that her goal is for patient to finish her cancer treatments then come to her home in [place]. Lesley also states that patient has a roommate Nadine that comes to visit patient in the evenings. CM will continue to follow and assist as needed with discharge planning/ needs. Field Care Advocate: Lizabeth Bingham DCP- Discharge Planning Updated by [id number]: Lizabeth Bingham on 06/14/18 7:[address] Patient on Vent / sedated. No family available for discharge planning.CM will continue to follow and assist as needed with discharge planning / needs. Last DP export: 07/24/18 4:20 Patient Name: EVY ART Page [id number] at 1753 All edits/amendments must be made on the electronic document DICTATION DATE: 07/25/181752 RIVETER HELPER: ANA ROSA 07/25/181752 RPT#: [id number] DC DATE: STATUS: ADM IN [place] [address] [place] [address] END OF REPORT
--- NOTE | ~2018-06-07 | MORECARE ---
CASE MANAGEMENT DISCHARGE SUMMARY PATIENT: EVY ART UNIT: [id number] ADM DATE: 06/07/18 AGE: 57 : 62 SEX: F ROOM/BED: D.2307 AUTHOR: ZAID,DOC PHYSICIAN: REFERRING PHYSICIAN: WILLIAM TUCKER MD DATE OF SERVICE: 07/24/18 Discharge Plan Patient Name: EVY ART Facility: [facility]:[place] : 1960 Planned Disposition: Home or Self Care Anticipated Discharge Date: Discharge Date: Expected LOS: Initial Reviewer: [email or web address] Initial Review Date: 06/07/2018 Generated: 07/24/18 6:20 pm Comments DCP- Discharge Planning Updated by [email or web address]: Lizabeth Bingham on 07/24/18 4:[address] CM called and spoke with Meli at [facility] in [place]. [phone]. KRYSTAL asked if family was able to provide information needed. Meli stated that she hasn't heard from anyone since she had spoke to me last week. Meli is requesting proof that patient has applied for SSI and she needs proof of income. KRYSTAL attempted to call box worker Ailyn Read [phone] or [phone] to see if she might could assist with obtaining this information. KRYSTAL was unsuccessful in contacting Ailyn. KRYSTAL called and spoke with Wei Delatorre and gave her Meli phone number to see if she could assist with information. Wei will contact Meli and her supervisor/port director to see if they can assist with information needed. Wei will contact KRYSTAL after she gets in contact with others. CM will continue to follow and assist as needed with discharge planning / needs. DCP- Discharge Planning Updated by [id number]: Lizabeth Bingham on 07/18/18 5:[address] Late Entry 07/18/18 @ 1020 CM called and left a message for July PARK @ [facility]. CM awaiting response.CM will continue to follow and assist as needed with discharge planning / needs. Late Entry 07/18/18 @ 1330 CM received call from Meli with [facility]. Meli was wanting to know if patient was getting SSI or SSA. CM was unaware of this information and referred Meli to call patients sister Lesley Domingo. CM called and spoke with Wei Delatorre regarding Medicaid. Wei stated patient had SSI Medicaid until 07/10/18 and regular Medicaid started 07/11/18. CM called Meli back to give this information to her and also gave Wei's number if she has questions regarding this. Meli stated that she also needed to know if the patient had applied for SSI and how much she had in her bank account. CM explained that we would try to find out this information. CM will check with sister and possibly patient family independence case manager whom assisted patient with housing when released from halfway. CM will continue to follow and assist as needed with discharge planning / needs. DCP- Discharge Planning Updated by [id number]: Lizabeth Bingham on 07/18/18 5:[address] Late Entry 07/17/18 @ 1600 CM called and left message x 2 for July VIVIAN from [facility]. CM awaiting response. CM will continue to follow and assist as needed with discharge planning / needs. DCP- Discharge Planning Updated by [id number]: Lizabeth Binhgam on 07/15/18 12:[address] CM spoke with patient's sister Lesley Domingo this am. She stated that the patient doesn't have Medicare. She asked when patient would transfer to [place]. CM explained that we are awaiting on acceptance to [facility] at this point. CM called [facility] for update July told CM to fax updated clinical and that it would be tomorrow 07/16/18 before they may have a determination. July requested CM not to call back tomorrow until after noon. CM will update family. CM also contacted [facility] in [place], [place]. [phone] CM spoke with Za she stated at this time they are not accepting out of state Medicaid at their facility. CM will continue to follow and assist as needed with discharge planning / needs. DCP- Discharge Planning Updated by [id number]: Lizabeth Bingham on 07/12/18 7:[address] CM was notified patient sister Lesley Domingo was here and requested to speak with me. CM explained that the current plan was that we was looking into placement with [facility] in [place], [place]. CM had spoke to [facility] with [facility] prior to coming to speak with Lesley. KRYSTAL had answered questions that Zoila had. Zoila stated the next process that they would send patients information to Executive offices and would be awaiting financial approval. Zoila stated for CM to call back to check on this at anytime next week. KRYSTAL explained all this to sister Lesley. Lesley asked why she was having to be transferred out of state. KRYSTAL explained that LTACH facilities within the state do not take Medicaid and that halfway senior living facilities in the state do not accept ventilator patients. Lesley states that she had received information that the patient is and receiving Medicare through her . KRYSTAL explained that we had no record of that only Medicaid. Lesley requested that [facility] find this information out. KRYSTAL explained that if it was through the patients spouse then it would need to be his information used to look it up. Lesley states that she has a letter at her home that has this information on it.(Because she has custody of patients son and he receiving his benefits also). The conversation ended that Lesley was going to get the information to . CM received call from Lesley around 4:45pm requesting information on online Social Security office hours. Lesley also wanted to know what would happen if they didn't consent to transfer. KRYSTAL explained that I wasn't sure and Lesley requested for CM to find out this information. KRYSTAL spoke with other telephonic case manager within the facility. KRYSTAL then called Lesley back and explained that if the patient was stable for transfer and they still refusing transfer then it would most likely go to ethics board and DHS could be notified. Lesley then starting raising her voice that" the hospital and staff was not giving her accurate updates over the phone. She had no idea that Evy was almost in a comatose state." Lesley requested for us to wait on transfer until after she could show proof that she has Medicare. KRYSTAL explained that nothing would be happening until next week. She was still upset that she was going to have to stay longer than she had planned to get this taken care of. CM told her that I would be happy to let her speak to someone else on Sunday. CM will continue to follow and assist as needed will discharge planning/ needs. DCP- Discharge Planning Updated by [id number]: Lizabeth Bingham on 07/11/18 7:[address] CM spoke with [facility] in [place] ([place]). She stated that all their Vent beds are full at this time and they could put the patient on a waiting list for a bed. CM gave information to put patient on waiting list. CM then contacted [facility] in [place] ([facility]) she stated they might could accept patient. CM faxed over information and later got denial from [facility] that patient required too high of level of care. CM contacted [facility] division halfway care to see if they could give any insight on facilities that take ventilator patients within the [facility]. They only gave [facility] in [place]. CM called and spoke with patients sister Lesley Domingo. CM explained the situation that the patient was needing placement and we might have to go out of the state of [place] for placement. Lesley was concerned about patient getting back to [place] once she recovered. Lesley also stated that she would be in to see patient today that she just got into town. CM will plan to speak to her while she is here. CM received information on [facility] in [place], [place] that takes ventilator patients. CM called [facility] [phone] and faxed [phone] records. CM awaiting decision from [facility]. CM will continue to follow and assist as needed with discharge planning / needs. DCP- Discharge Planning Updated by [id number]: Lizabeth Bingham on 07/08/18 4:[address] CM contacted all [facility] within [facility] to check on Medicaid bed availability / ana bed availability. Still awaiting call back on three facilities but at this time no had stated they would accept any Medicaid patients or ana. CM will continue to follow and assist as needed with discharge planning / needs. DCP- Discharge Planning Updated by [id number]: Lizabeth Bingham on 06/20/18 11:[address] Patient Name: EVY ART Admission Status: Elective Accout number: [id number] Admission Date: 06-07-2018 : 1960 Admission Diagnosis:MALIGNANT NEOPLASM OF CARDIA Attending: WILLIAM TUCKER Current LOS: 13 Anticipated DC Date: Planned Disposition: Home or Self Care Primary Insurance: MEDICAID [place] Discharge Planning Comments: CM called and spoke with sister Lesley Domingo [phone]. Patient is still on vent and sedated. Lesley (lives in [place]) informed CM that patient doesn't have any family that lives in the state of [place]. She stated that the patient had been incarcerated and had been released approximately 8 weeks prior to admission. Sister states that patient had found out while incarcerated that she had cancer. Patient had been getting radiation / chemo prior to admit. Lesley states that she has custody of patients youngest child and that her oldest child is in halfway in [place]. Lesley states that her goal is for patient to finish her cancer treatments then come to her home in [place]. Lesley also states that patient has a roommate Nadine that comes to visit patient in the evenings. CM will continue to follow and assist as needed with discharge planning/ needs. Medical Receptionist Assistant: Lizabeth Bingham DCP- Discharge Planning Updated by [id number]: Lizabeth Bingham on 06/14/18 7:[address] Patient on Vent / sedated. No family available for discharge planning.CM will continue to follow and assist as needed with discharge planning / needs. Last DP export: 07/18/18 5:35 p Patient Name: EVY ART Page [id number] at 1721 All edits/amendments must be made on the electronic document DICTATION DATE: 07/24/181719 BOILER RELINER: ANA ROSA 07/24/181719 RPT#: [id number] [place] DATE: STATUS: ADM IN [facility] [address] [place] [address] END OF REPORT
--- NOTE | ~2018-06-07 | MORECARE ---
CASE MANAGEMENT DISCHARGE SUMMARY PATIENT: EVY ART UNIT: [id number] ADM DATE: 06/07/18 AGE: 57 : 62 SEX: F ROOM/BED: D.2224 AUTHOR: DARCI MAR PHYSICIAN: REFERRING PHYSICIAN: WILLIAM TUCKER MD DATE OF SERVICE: 09/04/18 Discharge Plan Patient Name: EVY ART Facility: [facility]:[place] : 1960 Planned Disposition: Home or Self Care Anticipated Discharge Date: Discharge Date: Expected LOS: Initial Reviewer: [email or web address] Initial Review Date: 06/07/2018 Generated: 09/04/18 4:35 pm Comments DCP- Discharge Planning Updated by [id number]: Edita Quinonez on 09/04/18 2:[address] I received a call from [facility] that they can accept the patient tomorrow via ambulance. They would like her transported via ambulance due to inability to sit that long in a van. I called Dr. Tucker and informed him that she can be discharged to [facility] tomorrow. I also notified Dr. Smith and Dr. Jose and they are in agreement. CM will continue to follow and assist with discharge planning/needs. DCP- Discharge Planning Updated by [id number]: Edita Quinonez on 09/04/18 11:[address] I spoke with [facility] today with [facility], they are still awaiting bank statements for placement. I spoke with Lesley (Patient's sister) she just received patient's PIN number and is setting up on line banking to retrieve bank statements and will fax them to me. I gave her case managements fax number. CM will continue to follow and assist with discharge planning/needs. DCP- Discharge Planning Updated by [email or web address]: Edita Quinonez on 08/30/18 2:[address] RECEIVED A CALL FROM [facility] FROM [facility]. THEY ARE WILLING TO ACCEPT HER NEXT WEEK IF THEY ARE ABLE TO GET HER 3 MONTHS BANK STATEMENTS FROM [employer]. I WILL F/U NEXT WEEK. DCP- Discharge Planning Updated by [id number]: Edita Quinonez on 08/30/18 8:[address] I spoke with Shaniqua in [facility] in [place]. She states she is waiting on 3 months of bank statements from the sister. She is also going to check on when her supplier can get her osmolyte and concentrator to them. I called her sister, Lesley, and gave her the update. She states she has sent Shaniqua the bank account number and information. States she cannot get the bank statements until Medicaid sends her the payee statement services representative approval. Karyn from [facility] called and they have declined patient due to no Medicaid beds available. CM will continue to follow and assist with discharge planning/needs. DCP- Discharge Planning Updated by [id number]: Edita Quinonez on 08/29/18 10:[address] Referral sent to [facility] in [place], clinical faxed. I was unable to speak with the residential life director, but left a message with my phone number to return call. CM will continue to follow and assist with discharge planning/needs. DCP- Discharge Planning Updated by [id number]: Edita Quinonez on 08/29/18 8:[address] I spoke with Quan at [facility] and faxed clinical. I also spoke with Shaniqua at [facility] and faxed clinical. Shaniqua states they do have a restorative plan for therapy there for physical therapy for Medicaid patients. States she will come to [place] and see her today. CM will continue to follow and assist with discharge planning/needs. DCP- Discharge Planning Updated by [id number]: Edita Quinonez on 08/28/18 2:[address] Received a call from Evi that they are not going to meet her needs for rehab at their facility and will deny her coming to [facility] in [place]. I spoke with the patient and explained. I called [facility] and asked if she could look again for a place for her. Her tracheostomy has a plug and she is now on a nasal cannula. She is taking in ice chips. I will continue to work on finding placement, she only has Medicaid, so she does not have any rehab benefits. DCP- Discharge Planning Updated by [email or web address]: Edita Quinonez on 08/28/18 7:[address] Spoke with Evi at [facility] in [place] and sent requested clinical. She states she and the DON are reviewing clinical for admission. I did inform her peoplesoft developer is working toward decannulation. I spoke again with [facility] and she met with the patient and at this time she is unable to get her placed with any of her facilities. CM will continue to follow and assist with discharge planning/needs. DCP- Discharge Planning Updated by [id number]: Edita Mckeonangelita on 08/27/18 10:[address] Updated clinical sent to [facility] in [facility] and I notified David Byrne that I sent them. I left a message with David about status of transfer to the facility. CM will continue to follow and assist with discharge planning/needs. DCP- Discharge Planning Updated by [id number]: Edita Quinonez on 08/26/18 1:[address] KYLIE paper work and clinical faxed to [facility]. CM will continue to follow and assist with discharge planning/needs. DCP- Discharge Planning Updated by [id number]: Edita Quinonez on 08/26/18 12:[address] Met with patient to discuss discharge planning, she would like to go to her brother's [facility]. She states that she needs to get stronger prior to going there. I informed her I was trying to get her in a rehab in [place], which is [facility]. She agrees to going to [place] for rehab if they will accept her. I have filled a Kylie form out and she signed. I will need to contact Dr. Tucker for his signature. He is in surgery at this time. DCP- Discharge Planning Updated by [id number]: Edita Quinonez on 08/23/18 3:[address] Received a call from Evi at [facility] in [facility] for more information for possible admission. I faxed her clinical to [phone]. She will also need a KYLIE before admission completed. CM will continue to follow and assist with discharge planning/needs. DCP- Discharge Planning Updated by [id number]: Edita Quinonez on 08/23/18 11:[address] I spoke with [facility] today for an update. She states she does not have an accepting facility at this time. I sent referral to [facility]. CM will continue to follow and assist with discharge planning/needs. DCP- Discharge Planning Updated by [id number]: Lizabeth Bingham on 08/21/18 9:[address] CM received a call from patients sister Lesley Domingo that [employer] security has notified her that she should be receiving her paperwork in the next 2 weeks. Paperwork that she can act in Evy behalf for Medicaid. CM will continue to follow and assist with discharge planning. DCP- Discharge Planning Updated by [id number]: Lizabeth Bingham on 08/16/18 11:[address] CM continuing to follow up with [facility] about placement for female vent bed availability. If patient can be off vent for 72hrs then CM can seek placement locally. CM will continue to follow and assist as needed with discharge planning / needs. DCP- Discharge Planning Updated by [id number]: Winter Randolph on 08/15/18 12:[address] Patient Name: EVY ART Admission Status: Elective Accout number: [id number] Admission Date: 06-07-2018 : 1960 Admission Diagnosis:MALIGNANT NEOPLASM OF CARDIA Attending: WILLIAM TUCKER Current LOS: 69 Anticipated DC Date: Planned Disposition: Home or Self Care Primary Insurance: [place] Discharge Planning Comments: CM CALLED [facility] TO SPEAK WITH JULY REGARDING A VENT BED. THEY STATE JULY IS OUT SICK AND WON'T BE BACK UNTIL NEXT WEEK. STATES WILL HAVE TO CALL BACK ON SUNDAY. Director Data Architecture: Winter Randolph DCP- Discharge Planning Updated by [id number]: Lizabeth Bingham on 08/14/18 4:[address] CM called [facility] and spoke with Jennyfer RANDLE. Jennyfer stated that she wasn't able to answer questions regarding how soon for bed availability. July was out sick and she had no information on placement. CM will call back tomorrow and attempt to speak with July. DCP- Discharge Planning Updated by [id number]: Lizabeth Bingham on 08/13/18 2:[address] CM called [facility] in [place] and left message for DON (July) to return call regarding placement and how long until placement. CM still awaiting call back @ this time. DCP- Discharge Planning Updated by [id number]: Lizabeth Bingham on 08/12/18 5:[address] CM called and spoke with Meli @ [facility] [phone]. Meli stated that at this time they do not have a female vent bed available. She stated that she doesn't know when one may be available or if patient is at the top of the list or not. Meli stated that KRYSTAL would need to speak with July PARK for that information and she isn't there today. CM will continue to follow and assist as needed with discharge planning / needs. DCP- Discharge Planning Updated by [email or web address]: Lizabeth Bingham on 08/09/18 6:[address] CM spoke with Wei Delatorre in [employer] she got in touch with for me and got in touch with the appropriate person at [facility]. Was able to fax form in and get the appropriate information to Meli @ [facility] in [place]. KRYSTAL later contacted Meli and she stated that everything was good as far as financials. They currently do not have any female vent beds available. Meli stated she would keep us posted on availability. Wei notified me that [facility] had put in the necessary information so that Lesley Domingo patients sister can be her payor source. Lesley is to go to [facility] in [place] next week.CM will continue to follow and assist as needed with discharge planning / needs. DCP- Discharge Planning Updated by [id number]: Lizabeth Bingham on 08/08/18 7:[address] CM attempted to call local SS office to see if CM could fax form into them and get patients disability number. CM was on hold for over 30 mins and never got to speak to a statement services representative. KRYSTAL spoke with Meli at [facility]. She stated that she hasn't heard anything yet. Meli stated that once the financials was cleared then we will need to send updated clinicals and then would go through medical review for acceptance. CM will continue to follow and assist with discharge planning/ needs DCP- Discharge Planning Updated by [id number]: Lizabeth Bingham on 08/06/18 5:[address] Late Entry 08/06/18 @ [address] Webb office to see if they have received a fax from [facility]. Omaira stated that they have not received anything for her. KRYSTAL will try to get back in touch with Lesley Domingo patients sister and Wei in [employer] to see what our next step is. CM contacted Meli at [facility] to let her know we are still working on placement. CM will continue to follow and assist with discharge planning / needs. DCP- Discharge Planning Updated by [id number]: Lizabeth Bingham on 07/31/18 4:[address] CM received notification that the social security office in [place] would not accept form that was sent to Lesley Domingo to get authorization to manage patients finances. They said they would have to directly send it to Dr. Tucker and then have him to send it back. [facility] has to have some proof of income before they can accept patient. We are having to wait to see if we can get Lesley approved to manage social security benefits in patients behalf. CM will continue to follow and assist with discharge planning / needs. DCP- Discharge Planning Updated by [id number]: Lizabeth Bingham on 07/26/18 6:[address] Late Entry 07/26/18 @ [address] Tucker and got form signed for [facility]. CM took form to Wei in [facility]. CM will continue to follow and assist as needed with discharge planning / needs DCP- Discharge Planning Updated by [id number]: Lizabeth Bingham on 07/25/18 4:[address] CM spoke with Wei Delatorre this am. Wei spoke with patients sister Lesley Domingo trying to find out information needed to get patient placement. KRYSTAL was later notified that a form from [facility] needed to be filled out by physician. KRYSTAL attempted to get in touch with paged him several times but was unsuccessful. Called his office but no response at this time. CM will continue to follow and assist as needed with discharge planning / needs. DCP- Discharge Planning Updated by [id number]: Lizabeth Bingham on 07/24/18 4:[address] CM called and spoke with Meli at [facility] in [place]. [phone]. CM asked if family was able to provide information needed. Meli stated that she hasn't heard from anyone since she had spoke to me last week. Meli is requesting proof that patient has applied for SSI and she needs proof of income. KRYSTAL attempted to call workers compensation claims analyst Ailyn Read [phone] or [phone] to see if she might could assist with obtaining this information. CM was unsuccessful in contacting Ailyn. CM called and spoke with Wei Juan Ramon and gave her Meli phone number to see if she could assist with information. Wei will contact Meli and her maintenance and custodian supervisor to see if they can assist with information needed. Wei will contact CM after she gets in contact with others. CM will continue to follow and assist as needed with discharge planning / needs. DCP- Discharge Planning Updated by [id number]: Lizabeth Bingham on 07/18/18 5:[address] Late Entry 07/18/18 @ 1020 CM called and left a message for July PARK @ [facility]. CM awaiting response.CM will continue to follow and assist as needed with discharge planning / needs. Late Entry 07/18/18 @ 1330 CM received call from Meli with [facility]. Meli was wanting to know if patient was getting SSI or SSA. KRYSTAL was unaware of this information and referred Meli to call patients sister Lesley Domingo. KRYSTAL called and spoke with Wei Delatorre regarding Medicaid. Wei stated patient had SSI Medicaid until 07/10/18 and regular Medicaid started 07/11/18. KRYSTAL called Meli back to give this information to her and also gave Wei's number if she has questions regarding this. Meli stated that she also needed to know if the patient had applied for SSI and how much she had in her bank account. KRYSTAL explained that we would try to find out this information. KRYSTAL will check with sister and possibly patient case resource manager whom assisted patient with housing when released from care home. CM will continue to follow and assist as needed with discharge planning / needs. DCP- Discharge Planning Updated by [id number]: Lizabeth Bingham on 07/18/18 5:[address] Late Entry 07/17/18 @ 1600 CM called and left message x 2 for July PARK from [facility]. CM awaiting response. CM will continue to follow and assist as needed with discharge planning / needs. DCP- Discharge Planning Updated by [id number]: Lizabeth Bingham on 07/15/18 12:[address] CM spoke with patient's sister Lesley Domingo this am. She stated that the patient doesn't have Medicare. She asked when patient would transfer to [place]. CM explained that we are awaiting on acceptance to [facility] at this point. KRYSTAL called [facility] for update July told CM to fax updated clinical and that it would be tomorrow 07/16/18 before they may have a determination. July requested CM not to call back tomorrow until after noon. CM will update family. CM also contacted [facility] in [place], [place]. [phone] CM spoke with Za she stated at this time they are not accepting out of state Medicaid at their facility. CM will continue to follow and assist as needed with discharge planning / needs. DCP- Discharge Planning Updated by [id number]: Lizabeth Bingham on 07/12/18 7:[address] CM was notified patient sister Lesley Domingo was here and requested to speak with me. KRYSTAL explained that the current plan was that we was looking into placement with [facility] in [place], [place]. KRYSTAL had spoke to Zoila with [facility] prior to coming to speak with Lesley. KRYSTAL had answered questions that Zoila had. Zoila stated the next process that they would send patients information to Executive offices and would be awaiting financial approval. Zoila stated for CM to call back to check on this at anytime next week. KRYSTAL explained all this to sister Lesley. Lesley asked why she was having to be transferred out of state. KRYSTAL explained that LTACH facilities within the state do not take Medicaid and that [facility] jail facilities in the [facility] do not accept ventilator patients. Lesley states that she had received information that the patient is and receiving Medicare through her . KRYSTAL explained that we had no record of that only Medicaid. Lesley requested that [facility] find this information out. KRYSTAL explained that if it was through the patients spouse then it would need to be his information used to look it up. Lesley states that she has a letter at her home that has this information on it.(Because she has custody of patients son and he receiving his benefits also). The conversation ended that Lesley was going to get the information to KRYSTAL. KRYSTAL received call from Lesley around 4:45pm requesting information on online Social Security office hours. Lesley also wanted to know what would happen if they didn't consent to transfer. KRYSTAL explained that I wasn't sure and Lesley requested for KRYSTAL to find out this information. KRYSTAL spoke with other corrections caseworker within the facility. KRYSTAL then called Lesley back and explained that if the patient was stable for transfer and they still refusing transfer then it would most likely go to ethics board and [facility] could be notified. Lesley then starting raising her voice that" the hospital and staff was not giving her accurate updates over the phone. She had no idea that Evy was almost in a comatose state." Lesley requested for us to wait on transfer until after she could show proof that she has Medicare. KRYSTAL explained that nothing would be happening until next week. She was still upset that she was going to have to stay longer than she had planned to get this taken care of. CM told her that I would be happy to let her speak to someone else on Sunday. CM will continue to follow and assist as needed will discharge planning/ needs. DCP- Discharge Planning Updated by [id number]: Lizabeth Bingham on 07/11/18 7:[address] KRYSTAL spoke with [facility] in [place] ([facility]). She stated that all their Vent beds are full at this time and they could put the patient on a waiting list for a bed. CM gave information to put patient on waiting list. CM then contacted [facility] [place] ([facility]) she stated they might could accept patient. CM faxed over information and later got denial from [facility] that patient required too high of level of care. CM contacted [facility] division longterm care to see if they could give any insight on facilities that take ventilator patients within the [facility]. They only gave [facility] in [place]. KRYSTAL called and spoke with patients sister Lesley Domingo. KRYSTAL explained the situation that the patient was needing placement and we might have to go out of the state of [place] for placement. Lesley was concerned about patient getting back to [place] once she recovered. Lesley also stated that she would be in to see patient today that she just got into town. CM will plan to speak to her while she is here. KRYSTAL received information on [facility] in [place], [place] that takes ventilator patients. KRYSTAL called Meli [phone] and faxed [phone] records. CM awaiting decision from [facility]. CM will continue to follow and assist as needed with discharge planning / needs. DCP- Discharge Planning Updated by [id number]: Lizabeth Bingham on 07/08/18 4:[address] CM contacted all LTACH within state to check on Medicaid bed availability / ana bed availability. Still awaiting call back on three facilities but at this time no had stated they would accept any Medicaid patients or ana. CM will continue to follow and assist as needed with discharge planning / needs. DCP- Discharge Planning Updated by [email or web address]: Lizabeth Bingham on 06/20/18 11:[address] Patient Name: EVY CARABALLOMikhail Admission Status: Elective Accout number: [id number] Admission Date: 06-07-2018 : 1960 Admission Diagnosis:MALIGNANT NEOPLASM OF CARDIA Attending: WILLIAM TUCKER Current LOS: 13 Anticipated DC Date: Planned Disposition: Home or Self Care Primary Insurance: [place] Discharge Planning Comments: CM called and spoke with sister Lesley Domingo [phone]. Patient is still on vent and sedated. Lesley (lives in [place]) informed CM that patient doesn't have any family that lives in the [facility] of [place]. She stated that the patient had been incarcerated and had been released approximately 8 weeks prior to admission. Sister states that patient had found out while incarcerated that she had cancer. Patient had been getting radiation / chemo prior to admit. Lesley states that she has custody of patients youngest child and that her oldest child is in care home in [place]. Lesley states that her goal is for patient to finish her cancer treatments then come to her home in [place]. Lesley also states that patient has a roommate Nadine that comes to visit patient in the evenings. CM will continue to follow and assist as needed with discharge planning/ needs. Director Data Architecture: Lizabeth Bingham DCP- Discharge Planning Updated by [id number]: Lizabeth Bingham on 06/14/18 7:[address] Patient on Vent / sedated. No family available for discharge planning.CM will continue to follow and assist as needed with discharge planning / needs. Last DP export: 09/04/18 11:45 Patient Name: KAELYN EVY Page [id number] at 1535 All edits/amendments must be made on the electronic document DICTATION DATE: 09/04/181534 HIGH SCHOOL TEACHER: ANA ROSA 09/04/181534 RPT#: [id number] DC DATE: STATUS: ADM IN [facility] [address] [place] [address] END OF REPORT
--- NOTE | ~2018-06-07 | MORECARE ---
CASE MANAGEMENT DISCHARGE SUMMARY PATIENT: EVY ART UNIT: [id number] ADM DATE: 06/07/18 AGE: 57 : 62 SEX: F ROOM/BED: D.2307 AUTHOR: ZAID,DOC PHYSICIAN: REFERRING PHYSICIAN: WILLIAM TUCKER MD DATE OF SERVICE: 07/26/18 Discharge Plan Patient Name: EVY ART Facility: [facility]:[place] : 1960 Planned Disposition: Home or Self Care Anticipated Discharge Date: Discharge Date: Expected LOS: Initial Reviewer: [email or web address] Initial Review Date: 06/07/2018 Generated: 07/26/18 9:02 pm Comments DCP- Discharge Planning Updated by [id number]: Lizabeth Bingham on 07/26/18 6:[address] Late Entry 07/26/18 @ [address] Tucker and got form signed for [facility]. CM took form to Wei in [facility]. CM will continue to follow and assist as needed with discharge planning / needs DCP- Discharge Planning Updated by [email or web address]: Lizabeth Bingham on 07/25/18 4:[address] CM spoke with Wei Delatorre this am. Wei spoke with patients sister Lesley Domingo trying to find out information needed to get patient placement. CM was later notified that a form from [facility] needed to be filled out by physician. CM attempted to get in touch with paged him several times but was unsuccessful. Called his office but no response at this time. CM will continue to follow and assist as needed with discharge planning / needs. DCP- Discharge Planning Updated by [email or web address]: Lizabeth Bingham on 07/24/18 4:[address] CM called and spoke with Meli at [facility] in [place]. [phone]. CM asked if family was able to provide information needed. Meli stated that she hasn't heard from anyone since she had spoke to me last week. Meli is requesting proof that patient has applied for SSI and she needs proof of income. CM attempted to call cinder crew worker Ailyn Raed [phone] or [phone] to see if she might could assist with obtaining this information. CM was unsuccessful in contacting Ailyn. CM called and spoke with Wei Delatorre and gave her Meli phone number to see if she could assist with information. Wei will contact Meli and her oil field equipment mechanic supervisor to see if they can assist with information needed. Wei will contact CM after she gets in contact with others. CM will continue to follow and assist as needed with discharge planning / needs. DCP- Discharge Planning Updated by [email or web address]: Lizabeth Bingham on 07/18/18 5:[address] Late Entry 07/18/18 @ 1020 CM called and left a message for July VIVIAN @ [facility]. CM awaiting response.CM will continue to follow and assist as needed with discharge planning / needs. Late Entry 07/18/18 @ 1330 CM received call from Meli with [facility]. Meli was wanting to know if patient was getting SSI or SSA. KRYSTAL was unaware of this information and referred Meli to call patients sister Lesley Domingo. KRYSTAL called and spoke with Wie Delatorre regarding Medicaid. Wei stated patient had SSI Medicaid until 07/10/18 and regular Medicaid started 07/11/18. CM called Meli back to give this information to her and also gave Wei's number if she has questions regarding this. Meli stated that she also needed to know if the patient had applied for SSI and how much she had in her bank account. KRYSTAL explained that we would try to find out this information. CM will check with sister and possibly patient trimming caser whom assisted patient with housing when released from intermediate. CM will continue to follow and assist as needed with discharge planning / needs. DCP- Discharge Planning Updated by [email or web address]: Lizabeth Bingham on 07/18/18 5:[address] Late Entry 07/17/18 @ 1600 CM called and left message x 2 for July PARK from [facility]. CM awaiting response. CM will continue to follow and assist as needed with discharge planning / needs. DCP- Discharge Planning Updated by [id number]: Lizabeth Bingham on 07/15/18 12:[address] CM spoke with patient's sister Lesley Domingo this am. She stated that the patient doesn't have Medicare. She asked when patient would transfer to [place]. CM explained that we are awaiting on acceptance to [facility] at this point. CM called [facility] for update July told CM to fax updated clinical and that it would be tomorrow 07/16/18 before they may have a determination. July requested CM not to call back tomorrow until after noon. CM will update family. KRYSTAL also contacted [facility] in [place], [place]. [phone] KRYSTAL spoke with Za she stated at this time they are not accepting out of state Medicaid at their facility. CM will continue to follow and assist as needed with discharge planning / needs. DCP- Discharge Planning Updated by [email or web address]: Lizabeth Bingham on 07/12/18 7:[address] CM was notified patient sister Lesley Domingo was here and requested to speak with me. KRYSTAL explained that the current plan was that we was looking into placement with [facility] in [place], [place]. KRYSTAL had spoke to Zoila with [facility] prior to coming to speak with Lesley. KRYSTAL had answered questions that Zoila had. Zoila stated the next process that they would send patients information to Executive offices and would be awaiting financial approval. Zoila stated for KRYSTAL to call back to check on this at anytime next week. KRYSTAL explained all this to sister Lesley. Lesley asked why she was having to be transferred out of state. KRYSTAL explained that LTACH facilities within the state do not take Medicaid and that [facility] [place] facilities in the state do not accept ventilator patients. Lesley states that she had received information that the patient is and receiving Medicare through her . KRYSTAL explained that we had no record of that only Medicaid. Lesley requested that [facility] find this information out. KRYSTAL explained that if it was through the patients spouse then it would need to be his information used to look it up. Lesley states that she has a letter at her home that has this information on it.(Because she has custody of patients son and he receiving his benefits also). The conversation ended that Lesley was going to get the information to KRYSTAL. KRYSTAL received call from Lesley around 4:45pm requesting information on online Social Security office hours. Lesley also wanted to know what would happen if they didn't consent to transfer. KRYSTAL explained that I wasn't sure and Lesley requested for KRYSTAL to find out this information. KRYSTAL spoke with other binder caser within the facility. KRYSTAL then called Lesley back and explained that if the patient was stable for transfer and they still refusing transfer then it would most likely go to ethics board and [facility] could be notified. Lesley then starting raising her voice that" the hospital and staff was not giving her accurate updates over the phone. She had no idea that Evy was almost in a comatose state." Lesley requested for us to wait on transfer until after she could show proof that she has Medicare. KRYSTAL explained that nothing would be happening until next week. She was still upset that she was going to have to stay longer than she had planned to get this taken care of. CM told her that I would be happy to let her speak to someone else on Sunday. CM will continue to follow and assist as needed will discharge planning/ needs. DCP- Discharge Planning Updated by [id number]: Lizabeth Bingham on 07/11/18 7:[address]RYSTAL spoke with [facility] in [place] ([facility] She stated that all their Vent beds are full at this time and they could put the patient on a waiting list for a bed. CM gave information to put patient on waiting list. CM then contacted [facility] in [place] ([facility]) she stated they might could accept patient. CM faxed over information and later got denial from [facility] that patient required too high of level of care. CM contacted [facility] division online content coordinator care to see if they could give any insight on facilities that take ventilator patients within the [facility]. They only gave [facility] in [place]. KRYSTAL called and spoke with patients sister Lesley Domingo. KRYSTAL explained the situation that the patient was needing placement and we might have to go out of the state of [place] for placement. Lesley was concerned about patient getting back to [place] once she recovered. Lesley also stated that she would be in to see patient today that she just got into town. CM will plan to speak to her while she is here. KRYSTAL received information on [facility] in [place], [place] that takes ventilator patients. KRYSTAL called Meli [phone] and faxed [phone] records. CM awaiting decision from [facility]. CM will continue to follow and assist as needed with discharge planning / needs. DCP- Discharge Planning Updated by [email or web address]: Lizabeth Bingham on 07/08/18 4:[address] CM contacted all LTACH within state to check on Medicaid bed availability / ana bed availability. Still awaiting call back on three facilities but at this time no had stated they would accept any Medicaid patients or ana. CM will continue to follow and assist as needed with discharge planning / needs. DCP- Discharge Planning Updated by [email or web address]: Lizabeth Bingham on 06/20/18 11:[address] Patient Name: EVY ART Admission Status: Elective Accout number: [id number] Admission Date: 06-07-2018 : 1960 Admission Diagnosis:MALIGNANT NEOPLASM OF CARDIA Attending: WILLIAM TUCKER Current LOS: 13 Anticipated DC Date: Planned Disposition: Home or Self Care Primary Insurance: [place]ID [place] Discharge Planning Comments: CM called and spoke with sister Lesley Domingo [phone]. Patient is still on vent and sedated. Lesley (lives in [place]) informed CM that patient doesn't have any family that lives in the [facility]. She stated that the patient had been incarcerated and had been released approximately 8 weeks prior to admission. Sister states that patient had found out while incarcerated that she had cancer. Patient had been getting radiation / chemo prior to admit. Lesley states that she has custody of patients youngest child and that her oldest child is in intermediate in [place]. Lesley states that her goal is for patient to finish her cancer treatments then come to her home in [place]. Lesley also states that patient has a roommate Nadine that comes to visit patient in the evenings. CM will continue to follow and assist as needed with discharge planning/ needs. Operations Manager: Lizabeth Bingham DCP- Discharge Planning Updated by [email or web address]: Lizabeth Bingham on 06/14/18 7:[address] Patient on Vent / sedated. No family available for discharge planning.CM will continue to follow and assist as needed with discharge planning / needs. Last DP export: 07/25/18 4:53 Patient Name: KAELYN EVY Page [id number] at 2002 All edits/amendments must be made on the electronic document DICTATION DATE: 07/26/182000 HEEL BOOM OPERATOR: ANA ROSA 07/26/182000 RPT#: [id number] DC DATE: STATUS: ADM IN [facility] [address] [place] [address] END OF REPORT
--- NOTE | ~2018-06-07 | MORECARE ---
CASE MANAGEMENT DISCHARGE SUMMARY PATIENT: ESDRAS ART UNIT: [id number] ADM DATE: 06/07/18 AGE: 57 : 62 SEX: F ROOM/BED: D.2307 AUTHOR: ZAID,DOC PHYSICIAN: REFERRING PHYSICIAN: WILLIAM TUCKER MD DATE OF SERVICE: 07/15/18 Discharge Plan Patient Name: ESDRAS ART Facility: [facility]:[place] : 1960 Planned Disposition: Home or Self Care Anticipated Discharge Date: Discharge Date: Expected LOS: Initial Reviewer: [id number] Initial Review Date: 06/07/2018 Generated: 07/15/18 2:05 pm Comments DCP- Discharge Planning Updated by [email or web address]: Lizabeth Bingham on 07/15/18 12:[address] CM spoke with patient's sister Lesley Domingo this am. She stated that the patient doesn't have Medicare. She asked when patient would transfer to [place]. KRYSTAL explained that we are awaiting on acceptance to [facility] at this point. KRYSTAL called [facility] for update July told CM to fax updated clinical and that it would be tomorrow 07/16/18 before they may have a determination. July requested CM not to call back tomorrow until after noon. CM will update family. KRYSTAL also contacted [facility] in [place], [place]. [phone] KRYSTAL spoke with Za she stated at this time they are not accepting out of state Medicaid at their facility. CM will continue to follow and assist as needed with discharge planning / needs. DCP- Discharge Planning Updated by [id number]: Lizabeth Bingham on 07/12/18 7:[address] KRYSTAL was notified patient sister Lesley Domingo was here and requested to speak with me. KRYSTAL explained that the current plan was that we was looking into placement with [facility] in [place], [place]. KRYSTAL had spoke to Zoila with [facility] prior to coming to speak with Lesley. KRYSTAL had answered questions that Zoila had. Zoila stated the next process that they would send patients information to Executive offices and would be awaiting financial approval. Zoila stated for CM to call back to check on this at anytime next week. KRYSTAL explained all this to sister Lesley. Lesley asked why she was having to be transferred out of state. KRYSTAL explained that LTACH facilities within the state do not take Medicaid and that [facility] facilities in the state do not accept ventilator patients. Lesley states that she had received information that the patient is and receiving Medicare through her . KRYSTAL explained that we had no record of that only Medicaid. Lesley requested that [facility] find this information out. KRYSTAL explained that if it was through the patients spouse then it would need to be his information used to look it up. Lesley states that she has a letter at her home that has this information on it.(Because she has custody of patients son and he receiving his benefits also). The conversation ended that Lesley was going to get the information to KRYSTAL. KRYSTAL received call from Lesley around 4:45pm requesting information on online Social Security office hours. Lesley also wanted to know what would happen if they didn't consent to transfer. KRYSTAL explained that I wasn't sure and Lesley requested for CM to find out this information. KRYSTAL spoke with other classification case manager within the facility. KRYSTAL then called Lesley back and explained that if the patient was stable for transfer and they still refusing transfer then it would most likely go to ethics board and [facility] could be notified. Lesley then starting raising her voice that" the hospital and staff was not giving her accurate updates over the phone. She had no idea that Esdras was almost in a comatose state." Lesley requested for us to wait on transfer until after she could show proof that she has Medicare. KRYSTAL explained that nothing would be happening until next week. She was still upset that she was going to have to stay longer than she had planned to get this taken care of. KRYSTAL told her that I would be happy to let her speak to someone else on Sunday. CM will continue to follow and assist as needed will discharge planning/ needs. DCP- Discharge Planning Updated by [email or web address]: Lizabeth Bingham on 07/11/18 7:[address] KRYSTAL spoke with [facility] in [place] ([facility]). She stated that all their Vent beds are full at this time and they could put the patient on a waiting list for a bed. KRYSTAL gave information to put patient on waiting list. CM then contacted [facility] in [place] ([facility]) she stated they might could accept patient. CM faxed over information and later got denial from [facility] that patient required too high of level of care. CM contacted [facility] detention care to see if they could give any insight on facilities that take ventilator patients within the [facility]. They only gave [facility] in [place]. CM called and spoke with patients sister Lesley Domingo. CM explained the situation that the patient was needing placement and we might have to go out of the state [facility] for placement. Lesley was concerned about patient getting back to [place] once she recovered. Lesley also stated that she would be in to see patient today that she just got into town. CM will plan to speak to her while she is here. CM received information on [facility] in [place], [place] that takes ventilator patients. CM called [facility] [phone] and faxed [phone] records. CM awaiting decision from [facility]. CM will continue to follow and assist as needed with discharge planning / needs. DCP- Discharge Planning Updated by [id number]: Lizabeth Bingham on 07/08/18 4:[address] CM contacted all LTACH within [facility] to check on Medicaid bed availability / ana bed availability. Still awaiting call back on three facilities but at this time no had stated they would accept any Medicaid patients or ana. CM will continue to follow and assist as needed with discharge planning / needs. DCP- Discharge Planning Updated by [id number]: Lizabeth Bingham on 06/20/18 11:[address] Patient Name: ESDRAS ART Admission Status: Elective Accout number: [id number] Admission Date: 06-07-2018 : 1960 Admission Diagnosis:MALIGNANT NEOPLASM OF CARDIA Attending: WILLIAM TUCKER Current LOS: 13 Anticipated DC Date: Planned Disposition: Home or Self Care Primary Insurance: MEDICAID [place] Discharge Planning Comments: CM called and spoke with sister Lesley Domingo [phone]. Patient is still on vent and sedated. Lesley (lives in [place]) informed CM that patient doesn't have any family that lives in the state of [place]. She stated that the patient had been incarcerated and had been released approximately 8 weeks prior to admission. Sister states that patient had found out while incarcerated that she had cancer. Patient had been getting radiation / chemo prior to admit. Lesley states that she has custody of patients youngest child and that her oldest child is in retirement in [place]. Lesley states that her goal is for patient to finish her cancer treatments then come to her home in [place]. Lesley also states that patient has a roommate Nadine that comes to visit patient in the evenings. CM will continue to follow and assist as needed with discharge planning/ needs. Stencil Cutter Machine: Lizabeth Bingham DCP- Discharge Planning Updated by [email or web address]: Lizabeth Bingham on 06/14/18 7:[address] Patient on Vent / sedated. No family available for discharge planning.CM will continue to follow and assist as needed with discharge planning / needs. Last DP export: 07/12/18 7:06 p Patient Name: ESDRAS ART Page [id number] at 1305 All edits/amendments must be made on the electronic document DICTATION DATE: 07/15/18 1305 DIE SET UP WORKER: ANA ROSA 07/15/18 1305 RPT#: [id number] DC DATE: STATUS: ADM IN [facility] [address] [place] [address] END OF REPORT
--- NOTE | ~2018-06-07 | MORECARE ---
CASE MANAGEMENT DISCHARGE SUMMARY PATIENT: EVY ART UNIT: [id number] ADM DATE: 06/07/18 AGE: 57 : 62 SEX: F ROOM/BED: D.2224 AUTHOR: DARCI MAR PHYSICIAN: REFERRING PHYSICIAN: WILLIAM TUCKER MD DATE OF SERVICE: 08/28/18 Discharge Plan Patient Name: EVY ART Facility: [facility]:[place] : 1960 Planned Disposition: Home or Self Care Anticipated Discharge Date: Discharge Date: Expected LOS: Initial Reviewer: [id number] Initial Review Date: 06/07/2018 Generated: 08/28/18 4:20 pm Comments DCP- Discharge Planning Updated by [email or web address]: Edita Mckeonangelita on 08/28/18 2:[address] Received a call from Evi that they are not going to meet her needs for rehab at their facility and will deny her coming to [facility]. I spoke with the patient and explained. I called [facility] and asked if she could look again for a place for her. Her tracheostomy has a plug and she is now on a nasal cannula. She is taking in ice chips. I will continue to work on finding placement, she only has Medicaid, so she does not have any rehab benefits. DCP- Discharge Planning Updated by [email or web address]: Edita Mckeonangelita on 08/28/18 7:[address] Spoke with Evi at [facility] in [place] and sent requested clinical. She states she and the DON are reviewing clinical for admission. I did inform her enrollment specialist is working toward decannulation. I spoke again with [facility] and she met with the patient and at this time she is unable to get her placed with any of her facilities. CM will continue to follow and assist with discharge planning/needs. DCP- Discharge Planning Updated by [id number]: Edita Mckeonangelita on 08/27/18 10:[address] Updated clinical sent to [facility] and I notified David Byrne that I sent them. I left a message with David about status of transfer to the facility. CM will continue to follow and assist with discharge planning/needs. DCP- Discharge Planning Updated by [id number]: Edita Quinonez on 08/26/18 1:[address] KYLIE paper work and clinical faxed to [facility]. CM will continue to follow and assist with discharge planning/needs. DCP- Discharge Planning Updated by [id number]: Edita Quinonez on 08/26/18 12:[address] Met with patient to discuss discharge planning, she would like to go to her brother's [facility]. She states that she needs to get stronger prior to going there. I informed her I was trying to get her in a rehab in [place], which is [facility]. She agrees to going to [place] for rehab if they will accept her. I have filled a [place] form out and she signed. I will need to contact Dr. Tucker for his signature. He is in surgery at this time. DCP- Discharge Planning Updated by [id number]: Edita Quinonez on 08/23/18 3:[address] Received a call from Evi bernardo [facility] in [facility] for more information for possible admission. I faxed her clinical to [phone]. She will also need a KYLIE before admission completed. CM will continue to follow and assist with discharge planning/needs. DCP- Discharge Planning Updated by [id number]: Edita Quinonez on 08/23/18 11:[address] I spoke with [facility] today for an update. She states she does not have an accepting facility at this time. I sent referral to David Byrne. CM will continue to follow and assist with discharge planning/needs. DCP- Discharge Planning Updated by [id number]: Lizabeth Bingham on 08/21/18 9:[address] CM received a call from patients sister Lesley Domingo that [employer] has notified her that she should be receiving her paperwork in the next 2 weeks. Paperwork that she can act in Evy behalf for Medicaid. CM will continue to follow and assist with discharge planning. DCP- Discharge Planning Updated by [id number]: Lizabeth Bingham on 08/16/18 11:[address] CM continuing to follow up with [facility] about placement for female vent bed availability. If patient can be off vent for 72hrs then CM can seek placement locally. CM will continue to follow and assist as needed with discharge planning / needs. DCP- Discharge Planning Updated by [id number]: Winter Tomasa on 08/15/18 12:[address] Patient Name: EVY ART Admission Status: Elective Accout number: [id number] Admission Date: 06-07-2018 : 1960 Admission Diagnosis:MALIGNANT NEOPLASM OF CARDIA Attending: WILLIAM TUCKER Current LOS: 69 Anticipated DC Date: Planned Disposition: Home or Self Care Primary Insurance: [place]ID [place] Discharge Planning Comments: CM CALLED [facility] TO SPEAK WITH JULY REGARDING A VENT BED. THEY STATE JULY IS OUT SICK AND WON'T BE BACK UNTIL NEXT WEEK. STATES WILL HAVE TO CALL BACK ON SUNDAY. Dowel Pointer: Winter Randolph DCP- Discharge Planning Updated by [id number]: Lizabeth Bingham on 08/14/18 4:[address] CM called [facility] and spoke with Jennyfer RANDLE. Jennyfer stated that she wasn't able to answer questions regarding how soon for bed availability. July was out sick and she had no information on placement. CM will call back tomorrow and attempt to speak with July. DCP- Discharge Planning Updated by [id number]: Lizabeth Bingham on 08/13/18 2:[address] CM called [facility] in [place] and left message for DON (July) to return call regarding placement and how long until placement. CM still awaiting call back @ this time. DCP- Discharge Planning Updated by [id number]: Lizabeth Bingham on 08/12/18 5:[address] CM called and spoke with Meli @ [facility] [phone]. Meli stated that at this time they do not have a female vent bed available. She stated that she doesn't know when one may be available or if patient is at the top of the list or not. Meli stated that CM would need to speak with July PARK for that information and she isn't there today. CM will continue to follow and assist as needed with discharge planning / needs. DCP- Discharge Planning Updated by [id number]: Lizabeth Bingham on 08/09/18 6:[address] CM spoke with Wei Delatorre in [facility] [employer] she got in touch with for me and got in touch with the appropriate person at [employer] [facility]. Was able to fax form in and get the appropriate information to Meli @ [facility] in [place]. KRYSTAL later contacted Meli and she stated that everything was good as far as financials. They currently do not have any female vent beds available. Meli stated she would keep us posted on availability. Wei notified me that [employer] [facility] had put in the necessary information so that Lesley Domingo patients sister can be her payor source. Lesley is to go to social security in [place] next week.KRYSTAL will continue to follow and assist as needed with discharge planning / needs. DCP- Discharge Planning Updated by [id number]: Lizabeth Bingham on 08/08/18 7:[address] CM attempted to call local SS office to see if CM could fax form into them and get patients disability number. KRYSTAL was on hold for over 30 mins and never got to speak to a transportation services representative. KRYSTAL spoke with Meli at [facility]. She stated that she hasn't heard anything yet. Meli stated that once the financials was cleared then we will need to send updated clinicals and then would go through medical review for acceptance. CM will continue to follow and assist with discharge planning/ needs DCP- Discharge Planning Updated by [id number] Bingham on 08/06/18 5:[address] Late Entry 08/06/18 @ [address] Webb office to see if they have received a fax from [email or web address] [facility]. Omaira stated that they have not received anything for her. KRYSTAL will try to get back in touch with Lesleygerda Domingo patients sister and Wei in [facility] to see what our next step is. KRYSTAL contacted Meli at [facility] to let her know we are still working on placement. CM will continue to follow and assist with discharge planning / needs. DCP- Discharge Planning Updated by [id number]: Lizabeth Bingham on 07/31/18 4:[address] CM received notification that the social security office in [place] would not accept form that was sent to Lesley Domingo to get authorization to manage patients finances. They said they would have to directly send it to Dr. Tucker and then have him to send it back. [facility] has to have some proof of income before they can accept patient. We are having to wait to see if we can get Lesley approved to manage social security benefits in patients behalf. CM will continue to follow and assist with discharge planning / needs. DCP- Discharge Planning Updated by [email or web address]: Lizabeth Bingham on 07/26/18 6:[address] Late Entry 07/26/18 @ [address] Tucker and got form signed for [facility]. CM took form to Wei in [facility] [employer]. CM will continue to follow and assist as needed with discharge planning / needs DCP- Discharge Planning Updated by [email or web address]: Lizabeth Bingham on 07/25/18 4:[address] CM spoke with Wei Delatorre this am. Wei spoke with patients sister Lesley Domingo trying to find out information needed to get patient placement. KRYSTAL was later notified that a form from [facility] needed to be filled out by physician. CM attempted to get in touch with paged him several times but was unsuccessful. Called his office but no response at this time. CM will continue to follow and assist as needed with discharge planning / needs. DCP- Discharge Planning Updated by [id number]: Lizabeth Bingham on 07/24/18 4:[address] CM called and spoke with Meli at [facility] in [place]. [phone]. KRYSTAL asked if family was able to provide information needed. Meli stated that she hasn't heard from anyone since she had spoke to me last week. Meli is requesting proof that patient has applied for SSI and she needs proof of income. KRYSTAL attempted to call convention worker Ailyn Read [phone] or [phone] to see if she might could assist with obtaining this information. KRYSTAL was unsuccessful in contacting Ailyn. CM called and spoke with Wei Delatorre and gave her Meli phone number to see if she could assist with information. Wei will contact Meli and her supervisor harvesting to see if they can assist with information needed. Wei will contact KRYSTAL after she gets in contact with others. CM will continue to follow and assist as needed with discharge planning / needs. DCP- Discharge Planning Updated by [id number]: Lizabeth Bingham on 07/18/18 5:[address] Late Entry 07/18/18 @ 1020 CM called and left a message for July PARK @ [facility]. CM awaiting response.CM will continue to follow and assist as needed with discharge planning / needs. Late Entry 07/18/18 @ 1330 CM received call from Meli with [facility]. Meli was wanting to know if patient was getting SSI or SSA. CM was unaware of this information and referred Meli to call patients sister Lesley Domingo. CM called and spoke with Wei Delatorre regarding Medicaid. Wei stated patient had SSI Medicaid until 07/10/18 and regular Medicaid started 07/11/18. CM called Meli back to give this information to her and also gave Wei's number if she has questions regarding this. Meli stated that she also needed to know if the patient had applied for SSI and how much she had in her bank account. CM explained that we would try to find out this information. CM will check with sister and possibly patient director of casework department whom assisted patient with housing when released from [facility]. CM will continue to follow and assist as needed with discharge planning / needs. DCP- Discharge Planning Updated by [id number]: Lizabeth Bingham on 07/18/18 5:[address] Late Entry 07/17/18 @ 1600 CM called and left message x 2 for July PARK from [facility]. CM awaiting response. CM will continue to follow and assist as needed with discharge planning / needs. DCP- Discharge Planning Updated by [id number]: Lizabeth Bingham on 07/15/18 12:[address] CM spoke with patient's sister Lesley Domingo this am. She stated that the patient doesn't have Medicare. She asked when patient would transfer to [place]. CM explained that we are awaiting on acceptance to [facility] at this point. KRYSTAL called [facility] for update July told CM to fax updated clinical and that it would be tomorrow 07/16/18 before they may have a determination. July requested CM not to call back tomorrow until after noon. CM will update family. CM also contacted [facility] in [place], [place]. [phone] CM spoke with Za she stated at this time they are not accepting out of state Medicaid at their facility. CM will continue to follow and assist as needed with discharge planning / needs. DCP- Discharge Planning Updated by [id number]: Lizabeth Zachery on 07/12/18 7:[address] KRYSTAL was notified patient sister Lesley Domingo was here and requested to speak with me. KRYSTAL explained that the current plan was that we was looking into placement with [facility] in [place], [place]. KRYSTAL had spoke to Zoila with [facility] prior to coming to speak with Lesley. KRYSTAL had answered questions that Zoila had. Zoila stated the next process that they would send patients information to Executive offices and would be awaiting financial approval. Zoila stated for CM to call back to check on this at anytime next week. KRYSTAL explained all this to sister Lesley. Lesley asked why she was having to be transferred out of state. KRYSTAL explained that LTACH facilities within the state do not take Medicaid and that [facility] facilities in the [facility] do not accept ventilator patients. Lesley states that she had received information that the patient is and receiving Medicare through her . KRYSTAL explained that we had no record of that only Medicaid. Lesley requested that [facility] find this information out. KRYSTAL explained that if it was through the patients spouse then it would need to be his information used to look it up. Lesley states that she has a letter at her home that has this information on it.(Because she has custody of patients son and he receiving his benefits also). The conversation ended that Lesley was going to get the information to KRYSTAL. KRYSTAL received call from Lesley around 4:45pm requesting information on online Social Security office hours. Lesley also wanted to know what would happen if they didn't consent to transfer. KRYSTAL explained that I wasn't sure and Lesley requested for KRYSTAL to find out this information. KRYSTAL spoke with other director case management within the facility. KRYSTAL then called Lesley back and explained that if the patient was stable for transfer and they still refusing transfer then it would most likely go to ethics board and DHS could be notified. Lesley then starting raising her voice that" the hospital and staff was not giving her accurate updates over the phone. She had no idea that Evy was almost in a comatose state." Lesley requested for us to wait on transfer until after she could show proof that she has Medicare. KRYSTAL explained that nothing would be happening until next week. She was still upset that she was going to have to stay longer than she had planned to get this taken care of. CM told her that I would be happy to let her speak to someone else on Sunday. CM will continue to follow and assist as needed will discharge planning/ needs. DCP- Discharge Planning Updated by [id number]: Lizabeth Bingham on 07/11/18 7:[address] CM spoke with [facility] in [place] ([place]). She stated that all their Vent beds are full at this time and they could put the patient on a waiting list for a bed. CM gave information to put patient on waiting list. CM then contacted [facility] in [place] ([facility]) she stated they might could accept patient. CM faxed over information and later got denial from [facility] that patient required too high of level of care. CM contacted [facility] moth exterminator care to see if they could give any insight on facilities that take ventilator patients within the [facility]. They only gave [facility] in [place]. CM called and spoke with patients sister Lesley Domingo. CM explained the situation that the patient was needing placement and we might have to go out of the state of [place] for placement. Lesley was concerned about patient getting back to [place] once she recovered. Lesley also stated that she would be in to see patient today that she just got into town. CM will plan to speak to her while she is here. CM received information on [facility] in [place], [place] that takes ventilator patients. CM called [facility] [phone] and faxed [phone] records. CM awaiting decision from [facility]. CM will continue to follow and assist as needed with discharge planning / needs. DCP- Discharge Planning Updated by [id number]: Lizabeth Bingham on 07/08/18 4:[address] CM contacted all [facility] within [facility] to check on Medicaid bed availability / ana bed availability. Still awaiting call back on three facilities but at this time no had stated they would accept any Medicaid patients or ana. CM will continue to follow and assist as needed with discharge planning / needs. DCP- Discharge Planning Updated by [id number]: Lizabeth Bingham on 06/20/18 11:[address] Patient Name: EVY ART Admission Status: Elective Accout number: [id number] Admission Date: 06-07-2018 : 1960 Admission Diagnosis:MALIGNANT NEOPLASM OF CARDIA Attending: WILLIAM TUCKER Current LOS: 13 Anticipated DC Date: Planned Disposition: Home or Self Care Primary Insurance: [place]ID [place] Discharge Planning Comments: CM called and spoke with sister Lesley Domingo [phone]. Patient is still on vent and sedated. Lesley (lives in [place]) informed CM that patient doesn't have any family that lives in the [facility]. She stated that the patient had been incarcerated and had been released approximately 8 weeks prior to admission. Sister states that patient had found out while incarcerated that she had cancer. Patient had been getting radiation / chemo prior to admit. Lesley states that she has custody of patients youngest child and that her oldest child is in fdc in [place]. Lesley states that her goal is for patient to finish her cancer treatments then come to her home in [place]. Lesley also states that patient has a roommate Nadine that comes to visit patient in the evenings. CM will continue to follow and assist as needed with discharge planning/ needs. Dowel Pointer: Lizabeth Bingham DCP- Discharge Planning Updated by [id number]: Lizabeth Bingham on 06/14/18 7:[address] Patient on Vent / sedated. No family available for discharge planning.CM will continue to follow and assist as needed with discharge planning / needs. Last DP export: 08/28/18 1:05 Patient Name: EVY ART Page [id number] Electronically Signed by DARCI [email or web address] on 08/28/18 at 1520 All edits/amendments must be made on the electronic document DICTATION DATE: 08/28/18 1520 VIDEOGAME DESIGNER: ANA ROSA 08/28/18 1520 RPT#: [id number] DC DATE: STATUS: ADM IN [facility] [address] [place] [address] END OF REPORT
--- NOTE | ~2018-06-07 | MORECARE ---
CASE MANAGEMENT DISCHARGE SUMMARY PATIENT: EVY ART UNIT: [id number] ADM DATE: 06/07/18 AGE: 57 : 62 SEX: F ROOM/BED: D.2224 AUTHOR: DARCI MAR PHYSICIAN: REFERRING PHYSICIAN: WILLIAM TUCKER MD DATE OF SERVICE: 09/04/18 Discharge Plan Patient Name: EVY ART Facility: [facility]:[place] : 1960 Planned Disposition: Home or Self Care Anticipated Discharge Date: Discharge Date: Expected LOS: Initial Reviewer: [id number] Initial Review Date: 06/07/2018 Generated: 09/04/18 1:45 pm Comments DCP- Discharge Planning Updated by [id number]: Edita Quinonez on 09/04/18 11:[address] I spoke with Clovis today with [facility], they are still awaiting bank statements for placement. I spoke with Lesley (Patient's sister) she just received patient's PIN number and is setting up on line banking to retrieve bank statements and will fax them to me. I gave her case managements fax number. CM will continue to follow and assist with discharge planning/needs. DCP- Discharge Planning Updated by [id number]: Edita Quinonez on 08/30/18 2:[address] RECEIVED A CALL FROM CLOVIS FROM [facility]. THEY ARE WILLING TO ACCEPT HER NEXT WEEK IF THEY ARE ABLE TO GET HER 3 MONTHS BANK STATEMENTS FROM [employer]. I WILL F/U NEXT WEEK. DCP- Discharge Planning Updated by [id number]: Edita Quinonez on 08/30/18 8:[address] I spoke with Shaniqua in [facility] in [place]. She states she is waiting on 3 months of bank statements from the sister. She is also going to check on when her supplier can get her osmolyte and concentrator to them. I called her sister, Lesley, and gave her the update. She states she has sent Shaniqua the bank account number and information. States she cannot get the bank statements until Medicaid sends her the payee field representatives director approval. Karyn from [facility] called and they have declined patient due to no Medicaid beds available. CM will continue to follow and assist with discharge planning/needs. DCP- Discharge Planning Updated by [id number]: Edita Mckeonangelita on 08/29/18 10:[address] Referral sent to [facility] in [place], clinical faxed. I was unable to speak with the staffing director, but left a message with my phone number to return call. CM will continue to follow and assist with discharge planning/needs. DCP- Discharge Planning Updated by [id number]: Edita Mckeonangelita on 08/29/18 8:[address] I spoke with Quan at [facility] and faxed clinical. I also spoke with Shaniqua at [facility] and faxed clinical. Shaniqua states they do have a restorative plan for therapy there for physical therapy for Medicaid patients. States she will come to [place] and see her today. CM will continue to follow and assist with discharge planning/needs. DCP- Discharge Planning Updated by [id number]: Edita Mckeonangelita on 08/28/18 2:[address] Received a call from Evi that they are not going to meet her needs for rehab at their facility and will deny her coming to [facility]. I spoke with the patient and explained. I called [facility] and asked if she could look again for a place for her. Her tracheostomy has a plug and she is now on a nasal cannula. She is taking in ice chips. I will continue to work on finding placement, she only has Medicaid, so she does not have any rehab benefits. DCP- Discharge Planning Updated by [id number]: Edita Devi on 08/28/18 7:[address] Spoke with Evi at [facility] in [place] and sent requested clinical. She states she and the DON are reviewing clinical for admission. I did inform her assembler finger buffs is working toward decannulation. I spoke again with [facility] and she met with the patient and at this time she is unable to get her placed with any of her facilities. CM will continue to follow and assist with discharge planning/needs. DCP- Discharge Planning Updated by [id number]: Edita Devi on 08/27/18 10:[address] Updated clinical sent to [facility] in [facility] and I notified David Byrne that I sent them. I left a message with David about status of transfer to the facility. CM will continue to follow and assist with discharge planning/needs. DCP- Discharge Planning Updated by [id number]: Edita Quinonez on 08/26/18 1:[address] KYLIE paper work and clinical faxed to [facility]. CM will continue to follow and assist with discharge planning/needs. DCP- Discharge Planning Updated by [id number]: Edita Quinonez on 08/26/18 12:[address] Met with patient to discuss discharge planning, she would like to go to her brother[facility] [place]. She states that she needs to get stronger prior to going there. I informed her I was trying to get her in a rehab in [place], which is [facility]. She agrees to going to [place] for rehab if they will accept her. I have filled a Kylie form out and she signed. I will need to contact Dr. Tucker for his signature. He is in surgery at this time. DCP- Discharge Planning Updated by [id number]: Edita Quinonez on 08/23/18 3:[address] Received a call from Evi bernardo [facility] in [facility] for more information for possible admission. I faxed her clinical to [phone]. She will also need a KYLIE before admission completed. CM will continue to follow and assist with discharge planning/needs. DCP- Discharge Planning Updated by [id number]: Edita Quinonez on 08/23/18 11:[address] I spoke with [facility] today for an update. She states she does not have an accepting facility at this time. I sent referral to David Byrne. CM will continue to follow and assist with discharge planning/needs. DCP- Discharge Planning Updated by [id number]: Lizabeth Bingham on 08/21/18 9:[address] CM received a call from patients sister Lesley Domingo that [employer] has notified her that she should be receiving her paperwork in the next 2 weeks. Paperwork that she can act in Evy behalf for Medicaid. CM will continue to follow and assist with discharge planning. DCP- Discharge Planning Updated by [id number]: Lizabeth Bingham on 08/16/18 11:[address] CM continuing to follow up with [facility] about placement for female vent bed availability. If patient can be off vent for 72hrs then CM can seek placement locally. CM will continue to follow and assist as needed with discharge planning / needs. DCP- Discharge Planning Updated by [id number]: Winter Randolph on 08/15/18 12:[address] Patient Name: EVY ART Admission Status: Elective Accout number: [id number] Admission Date: 06-07-2018 : 1960 Admission Diagnosis:MALIGNANT NEOPLASM OF CARDIA Attending: WILLIAM TUCKER Current LOS: 69 Anticipated DC Date: Planned Disposition: Home or Self Care Primary Insurance: [place] Discharge Planning Comments: CM CALLED [facility] TO SPEAK WITH JULY REGARDING A VENT BED. THEY STATE JULY IS OUT SICK AND WON'T BE BACK UNTIL NEXT WEEK. STATES WILL HAVE TO CALL BACK ON SUNDAY. Secretary Office Clerk: Winter Randolph DCP- Discharge Planning Updated by [id number]: Lizabeth Bingham on 08/14/18 4:[address] CM called [facility] and spoke with Jennyfer RANDLE. Jennyfer stated that she wasn't able to answer questions regarding how soon for bed availability. July was out sick and she had no information on placement. CM will call back tomorrow and attempt to speak with July. DCP- Discharge Planning Updated by [id number]: Lizabeth Bingham on 08/13/18 2:[address] CM called [facility] in [place] and left message for DON (July) to return call regarding placement and how long until placement. CM still awaiting call back @ this time. DCP- Discharge Planning Updated by [id number]: Lizabeth Bingham on 08/12/18 5:[address] CM called and spoke with Meli @ [facility] [phone]. Meli stated that at this time they do not have a female vent bed available. She stated that she doesn't know when one may be available or if patient is at the top of the list or not. Meli stated that CM would need to speak with July PARK for that information and she isn't there today. CM will continue to follow and assist as needed with discharge planning / needs. DCP- Discharge Planning Updated by [id number]: Lizabeth Bingham on 08/09/18 6:[address] KRYSTAL spoke with Wei Delatorre in [facility] she got in touch with for me and got in touch with the appropriate person at [facility]. Was able to fax form in and get the appropriate information to Meli @ [facility] in [place]. KRYSTAL later contacted Meli and she stated that everything was good as far as financials. They currently do not have any female vent beds available. Meli stated she would keep us posted on availability. Wei notified me that [facility] had put in the necessary information so that Lesleygerda Domingo patients sister can be her payor source. Lesley is to go to [employer] security in [place] next week.CM will continue to follow and assist as needed with discharge planning / needs. DCP- Discharge Planning Updated by [id number]: Lizabeth Bingham on 08/08/18 7:[address] CM attempted to call local SS office to see if CM could fax form into them and get patients disability number. CM was on hold for over 30 mins and never got to speak to a field representatives director. CM spoke with Meli at [facility]. She stated that she hasn't heard anything yet. Meli stated that once the financials was cleared then we will need to send updated clinicals and then would go through medical review for acceptance. CM will continue to follow and assist with discharge planning/ needs DCP- Discharge Planning Updated by [id number]: Lizabeth Bingham on 08/06/18 5:[address] Late Entry 08/06/18 @ [address] Webb office to see if they have received a fax from [employer]. Omaira stated that they have not received anything for her. KRYSTAL will try to get back in touch with Lesley Domingo patients sister and Wei in [employer] to see what our next step is. KRYSTAL contacted Meli at [facility] to let her know we are still working on placement. CM will continue to follow and assist with discharge planning / needs. DCP- Discharge Planning Updated by [id number]: Lizabeth Bingham on 07/31/18 4:[address] CM received notification that the social security office in [place] would not accept form that was sent to Lesley Domingo to get authorization to manage patients finances. They said they would have to directly send it to Dr. Tucker and then have him to send it back. [facility] has to have some proof of income before they can accept patient. We are having to wait to see if we can get Lesley approved to manage social security benefits in patients behalf. CM will continue to follow and assist with discharge planning / needs. DCP- Discharge Planning Updated by [id number]: Lizabeth Bingham on 07/26/18 6:[address] Late Entry 07/26/18 @ [address] Tucker and got form signed for [facility]. CM took form to Wei in [facility]. CM will continue to follow and assist as needed with discharge planning / needs DCP- Discharge Planning Updated by [id number]: Lizabeth Bingham on 07/25/18 4:[address] CM spoke with Wei Delatorre this am. Wei spoke with patients sister Lesley Domingo trying to find out information needed to get patient placement. KRYSTAL was later notified that a form from [facility] needed to be filled out by physician. KRYSTAL attempted to get in touch with paged him several times but was unsuccessful. Called his office but no response at this time. CM will continue to follow and assist as needed with discharge planning / needs. DCP- Discharge Planning Updated by [id number]: Lizabeth Bingham on 07/24/18 4:[address] CM called and spoke with Meli at [facility] in [place]. [phone]. KRYSTAL asked if family was able to provide information needed. Meli stated that she hasn't heard from anyone since she had spoke to me last week. Meli is requesting proof that patient has applied for SSI and she needs proof of income. KRYSTAL attempted to call criminal justice social worker Aiyln Read [phone] or [phone] to see if she might could assist with obtaining this information. KRYSTAL was unsuccessful in contacting Ailyn. KRYSTAL called and spoke with Wei Delatorre and gave her Meli phone number to see if she could assist with information. Wei will contact Meli and her customer solutions supervisor to see if they can assist with information needed. Wei will contact KRYSTAL after she gets in contact with others. CM will continue to follow and assist as needed with discharge planning / needs. DCP- Discharge Planning Updated by [id number]: Lizabeth Bingham on 07/18/18 5:[address] Late Entry 07/18/18 @ 1020 CM called and left a message for July PARK @ [facility]. CM awaiting response.CM will continue to follow and assist as needed with discharge planning / needs. Late Entry 07/18/18 @ 1330 CM received call from Meli with [facility]. Meli was wanting to know if patient was getting SSI or SSA. KRYSTAL was unaware of this information and referred Meli to call patients sister Lesley Domingo. CM called and spoke with Wei Juan Ramon regarding Medicaid. Wei stated patient had SSI Medicaid until 07/10/18 and regular Medicaid started 07/11/18. CM called Meli back to give this information to her and also gave Wei's number if she has questions regarding this. Meli stated that she also needed to know if the patient had applied for SSI and how much she had in her bank account. CM explained that we would try to find out this information. CM will check with sister and possibly patient case management assistant whom assisted patient with housing when released from long term. CM will continue to follow and assist as needed with discharge planning / needs. DCP- Discharge Planning Updated by [id number]: Lizabeth Bingham on 07/18/18 5:[address] Late Entry 07/17/18 @ 1600 CM called and left message x 2 for July PARK from [facility]. CM awaiting response. CM will continue to follow and assist as needed with discharge planning / needs. DCP- Discharge Planning Updated by [id number]: Lizabeth Bingham on 07/15/18 12:[address] CM spoke with patient's sister Lesley Domingo this am. She stated that the patient doesn't have Medicare. She asked when patient would transfer to [place]. CM explained that we are awaiting on acceptance to [facility] at this point. KRYSTAL called [facility] for update July told CM to fax updated clinical and that it would be tomorrow 07/16/18 before they may have a determination. July requested CM not to call back tomorrow until after noon. CM will update family. CM also contacted [facility] in [place], [place]. [phone] KRYSTAL spoke with Za she stated at this time they are not accepting out of state Medicaid at their facility. CM will continue to follow and assist as needed with discharge planning / needs. DCP- Discharge Planning Updated by [id number]: Lizabeth Zachery on 07/12/18 7:[address] KRYSTAL was notified patient sister Lesley Domingo was here and requested to speak with me. KRYSTAL explained that the current plan was that we was looking into placement with [facility] in [place], [place]. KRYSTAL had spoke to Zoila with [facility] prior to coming to speak with Lesley. KRYSTAL had answered questions that Zoila had. Zoila stated the next process that they would send patients information to Executive offices and would be awaiting financial approval. Zoila stated for CM to call back to check on this at anytime next week. KRYSTAL explained all this to sister Lesley. Lesley asked why she was having to be transferred out of state. KRYSTAL explained that LTACH facilities within the [facility] do not take Medicaid and that half-way detention facilities in the [facility] do not accept ventilator patients. Lesley states that she had received information that the patient is and receiving Medicare through her . KRYSTAL explained that we had no record of that only Medicaid. Lesley requested that [facility] find this information out. KRYSTAL explained that if it was through the patients spouse then it would need to be his information used to look it up. Lesley states that she has a letter at her home that has this information on it.(Because she has custody of patients son and he receiving his benefits also). The conversation ended that Lesley was going to get the information to KRYSTAL. KRYSTAL received call from Lesley around 4:45pm requesting information on online Social Security office hours. Lesley also wanted to know what would happen if they didn't consent to transfer. KRYSTAL explained that I wasn't sure and Lesley requested for KRYSTAL to find out this information. KRYSTAL spoke with other case management associate within the facility. KRYSTAL then called Lesley back and explained that if the patient was stable for transfer and they still refusing transfer then it would most likely go to ethics board and DHS could be notified. Lesley then starting raising her voice that" the hospital and staff was not giving her accurate updates over the phone. She had no idea that Evy was almost in a comatose state." Lesley requested for us to wait on transfer until after she could show proof that she has Medicare. CM explained that nothing would be happening until next week. She was still upset that she was going to have to stay longer than she had planned to get this taken care of. CM told her that I would be happy to let her speak to someone else on Sunday. CM will continue to follow and assist as needed will discharge planning/ needs. DCP- Discharge Planning Updated by [id number]: Lizabeth Bingham on 07/11/18 7:[address] CM spoke with [facility] in [place] ([facility] She stated that all their Vent beds are full at this time and they could put the patient on a waiting list for a bed. CM gave information to put patient on waiting list. CM then contacted [facility] in [place] ([facility]) she stated they might could accept patient. CM faxed over information and later got denial from [facility] that patient required too high of level of care. CM contacted [facility] half-way care to see if they could give any insight on facilities that take ventilator patients within the [facility]. They only gave [facility] in [place]. CM called and spoke with patients sister Lesley Domingo. CM explained the situation that the patient was needing placement and we might have to go out of the state of [place] for placement. Lesley was concerned about patient getting back to [place] once she recovered. Lesley also stated that she would be in to see patient today that she just got into town. CM will plan to speak to her while she is here. CM received information on [facility] in [place], [place] that takes ventilator patients. CM called Meli [phone] and faxed [phone] records. CM awaiting decision from [facility]. CM will continue to follow and assist as needed with discharge planning / needs. DCP- Discharge Planning Updated by [id number]: Lizabeth Bingham on 07/08/18 4:[address] CM contacted all LTACH within [facility] to check on Medicaid bed availability / ana bed availability. Still awaiting call back on three facilities but at this time no had stated they would accept any Medicaid patients or ana. CM will continue to follow and assist as needed with discharge planning / needs. DCP- Discharge Planning Updated by [id number]: Lizabeth Bingham on 06/20/18 11:[address] Patient Name: EVY ART Admission Status: Elective Accout number: [id number] Admission Date: 06-07-2018 : 1960 Admission Diagnosis:MALIGNANT NEOPLASM OF CARDIA Attending: WILLIAM TUCKER Current LOS: 13 Anticipated DC Date: Planned Disposition: Home or Self Care Primary Insurance: [place] Discharge Planning Comments: CM called and spoke with sister Lesley Domingo [phone]. Patient is still on vent and sedated. Lesley (lives in [place]) informed CM that patient doesn't have any family that lives in the state of [place]. She stated that the patient had been incarcerated and had been released approximately 8 weeks prior to admission. Sister states that patient had found out while incarcerated that she had cancer. Patient had been getting radiation / chemo prior to admit. Lesley states that she has custody of patients youngest child and that her oldest child is in long term in [place]. Lesley states that her goal is for patient to finish her cancer treatments then come to her home in [place]. Lesley also states that patient has a roommate Nadine that comes to visit patient in the evenings. CM will continue to follow and assist as needed with discharge planning/ needs. Secretary Office Clerk: Lizabeth Bingham DCP- Discharge Planning Updated by [id number]: Lizabeth Bingham on 06/14/18 7:[address] Patient on Vent / sedated. No family available for discharge planning.CM will continue to follow and assist as needed with discharge planning / needs. Last DP export: 08/30/18 2:24 Patient Name: EVY ART Page [id number] at 1245 All edits/amendments must be made on the electronic document DICTATION DATE: 09/04/18 1244 TREE AND SHRUB WORKER: ANA ROSA 09/04/18 1244 RPT#: [id number] DC DATE: STATUS: ADM IN [facility] [address] [place] [address] END OF REPORT
--- NOTE | ~2018-06-07 | MORECARE ---
CASE MANAGEMENT DISCHARGE SUMMARY PATIENT: EVY ART UNIT: [id number] ADM DATE: 06/07/18 AGE: 57 : 62 SEX: F ROOM/BED: D.2224 AUTHOR: DARCI MAR PHYSICIAN: REFERRING PHYSICIAN: WILLIAM TUCKER MD DATE OF SERVICE: 08/29/18 Discharge Plan Patient Name: EVY ART Facility: [facility]:[place] : 1960 Planned Disposition: Home or Self Care Anticipated Discharge Date: Discharge Date: Expected LOS: Initial Reviewer: [id number] Initial Review Date: 06/07/2018 Generated: 08/29/18 10:28 am Comments DCP- Discharge Planning Updated by [id number]: Edita Mckeonangelita on 08/28/18 2:[address] Received a call from Evi that they are not going to meet her needs for rehab at their facility and will deny her coming to [facility]. I spoke with the patient and explained. I called [facility] and asked if she could look again for a place for her. Her tracheostomy has a plug and she is now on a nasal cannula. She is taking in ice chips. I will continue to work on finding placement, she only has Medicaid, so she does not have any rehab benefits. DCP- Discharge Planning Updated by [id number]: Edita Mckeonangelita on 08/28/18 7:[address] Spoke with Evi at [facility] in [place] and sent requested clinical. She states she and the DON are reviewing clinical for admission. I did inform her partner cco is working toward decannulation. I spoke again with [facility] and she met with the patient and at this time she is unable to get her placed with any of her facilities. CM will continue to follow and assist with discharge planning/needs. DCP- Discharge Planning Updated by [id number]: Edita Devi on 08/27/18 10:[address] Updated clinical sent to [facility] in [facility] and I notified David Byrne that I sent them. I left a message with David about status of transfer to the facility. CM will continue to follow and assist with discharge planning/needs. DCP- Discharge Planning Updated by [id number]: Edita Quinonez on 08/26/18 1:[address] KYLIE paper work and clinical faxed to [facility]. CM will continue to follow and assist with discharge planning/needs. DCP- Discharge Planning Updated by [id number]: Edita Quinonez on 08/26/18 12:[address] Met with patient to discuss discharge planning, she would like to go to her brother's [facility]. She states that she needs to get stronger prior to going there. I informed her I was trying to get her in a rehab in [place], which is [facility]. She agrees to going to [place] for rehab if they will accept her. I have filled a Kylie form out and she signed. I will need to contact Dr. Tucker for his signature. He is in surgery at this time. DCP- Discharge Planning Updated by [id number]: Edita Quinonez on 08/23/18 3:[address] Received a call from Evi bernardo [facility] in [facility] for more information for possible admission. I faxed her clinical to [phone]. She will also need a KYLIE before admission completed. CM will continue to follow and assist with discharge planning/needs. DCP- Discharge Planning Updated by [id number]: Edita Quinonez on 08/23/18 11:[address] I spoke with [facility] today for an update. She states she does not have an accepting facility at this time. I sent referral to David Byrne. CM will continue to follow and assist with discharge planning/needs. DCP- Discharge Planning Updated by [id number]: Lizabeth Bingham on 08/21/18 9:[address] CM received a call from patients sister Lesley Domingo that [facility] has notified her that she should be receiving her paperwork in the next 2 weeks. Paperwork that she can act in Evy behalf for Medicaid. CM will continue to follow and assist with discharge planning. DCP- Discharge Planning Updated by [id number]: Lizabeth Bingham on 08/16/18 11:[address] CM continuing to follow up with [facility] about placement for female vent bed availability. If patient can be off vent for 72hrs then CM can seek placement locally. CM will continue to follow and assist as needed with discharge planning / needs. DCP- Discharge Planning Updated by [id number]: Winter Tomasa on 08/15/18 12:[address] Patient Name: EVY ART Admission Status: Elective Accout number: [id number] Admission Date: 06-07-2018 : 1960 Admission Diagnosis:MALIGNANT NEOPLASM OF CARDIA Attending: WILLIAM TUCKER Current LOS: 69 Anticipated DC Date: Planned Disposition: Home or Self Care Primary Insurance: [place]ID [place] Discharge Planning Comments: CM CALLED [facility] TO SPEAK WITH JULY REGARDING A VENT BED. THEY STATE JULY IS OUT SICK AND WON'T BE BACK UNTIL NEXT WEEK. STATES WILL HAVE TO CALL BACK ON SUNDAY. Director Specialty: Winter Randolph DCP- Discharge Planning Updated by [id number]: Lizabeth Bingham on 08/14/18 4:[address] CM called [facility] and spoke with Jennyfer RANDLE. Jennyfer stated that she wasn't able to answer questions regarding how soon for bed availability. July was out sick and she had no information on placement. CM will call back tomorrow and attempt to speak with July. DCP- Discharge Planning Updated by [id number]: Lizabeth Bingham on 08/13/18 2:[address] CM called [facility] in [place] and left message for DON (July) to return call regarding placement and how long until placement. CM still awaiting call back @ this time. DCP- Discharge Planning Updated by [id number]: Lizabeth Bingham on 08/12/18 5:[address] CM called and spoke with Meli @ [facility] [phone]. Meli stated that at this time they do not have a female vent bed available. She stated that she doesn't know when one may be available or if patient is at the top of the list or not. Meli stated that CM would need to speak with July [facility]ARK for that information and she isn't there today. CM will continue to follow and assist as needed with discharge planning / needs. DCP- Discharge Planning Updated by [id number]: Lizabeth Bingham on 08/09/18 6:[address] CM spoke with Wei Delatorre in [facility] she got in touch with for me and got in touch with the appropriate person at [employer] [facility]. Was able to fax form in and get the appropriate information to [facility] @ [facility] [place]. KRYSTAL later contacted Meli and she stated that everything was good as far as financials. They currently do not have any female vent beds available. Meli stated she would keep us posted on availability. Wei notified me that [employer] [facility] had put in the necessary information so that Lesley Domingo patients sister can be her payor source. Lesley is to go to social security in [place] next week.KRYSTAL will continue to follow and assist as needed with discharge planning / needs. DCP- Discharge Planning Updated by [id number]: Lizabeth Bingham on 08/08/18 7:[address] CM attempted to call local SS office to see if CM could fax form into them and get patients disability number. KRYSTAL was on hold for over 30 mins and never got to speak to a community engagement representative. KRYSTAL spoke with Meli at [facility]. She stated that she hasn't heard anything yet. Meli stated that once the financials was cleared then we will need to send updated clinicals and then would go through medical review for acceptance. CM will continue to follow and assist with discharge planning/ needs DCP- Discharge Planning Updated by [id number] Bingham on 08/06/18 5:[address] Late Entry 08/06/18 @ [address] Webb office to see if they have received a fax from [employer] [facility]. Omaira stated that they have not received anything for her. KRYSTAL will try to get back in touch with Lesleygerda Domingo patients sister and Wei in [facility] to see what our next step is. KRYSTAL contacted Meil at [facility] to let her know we are still working on placement. CM will continue to follow and assist with discharge planning / needs. DCP- Discharge Planning Updated by [id number]: Lizabeth Bingham on 07/31/18 4:[address] CM received notification that the social security office in [place] would not accept form that was sent to Lesley Domingo to get authorization to manage patients finances. They said they would have to directly send it to Dr. Tucker and then have him to send it back. [facility] has to have some proof of income before they can accept patient. We are having to wait to see if we can get Lesley approved to manage social security benefits in patients behalf. CM will continue to follow and assist with discharge planning / needs. DCP- Discharge Planning Updated by [id number]: Lizabeth Bingham on 07/26/18 6:[address] Late Entry 07/26/18 @ [address] Tucker and got form signed for [facility]. CM took form to Wei in [facility]. CM will continue to follow and assist as needed with discharge planning / needs DCP- Discharge Planning Updated by [id number]: Lizabeth Bingham on 07/25/18 4:[address] CM spoke with Wei Delatorre this am. Wei spoke with patients sister Lesley Domingo trying to find out information needed to get patient placement. KRYSTAL was later notified that a form from [facility] needed to be filled out by physician. CM attempted to get in touch with paged him several times but was unsuccessful. Called his office but no response at this time. CM will continue to follow and assist as needed with discharge planning / needs. DCP- Discharge Planning Updated by [id number]: Lizabeth Bingham on 07/24/18 4:[address] CM called and spoke with Meli at [facility] in [place]. [phone]. KRYSTAL asked if family was able to provide information needed. Meli stated that she hasn't heard from anyone since she had spoke to me last week. Meli is requesting proof that patient has applied for SSI and she needs proof of income. KRYSTAL attempted to call scruff worker Ailyn Read [phone] or [phone] to see if she might could assist with obtaining this information. KRYSTAL was unsuccessful in contacting Ailyn. CM called and spoke with Wei Delatorre and gave her Meli phone number to see if she could assist with information. Wei will contact Meli and her histotechnologist supervisor to see if they can assist with information needed. Wei will contact KRYSTAL after she gets in contact with others. CM will continue to follow and assist as needed with discharge planning / needs. DCP- Discharge Planning Updated by [id number]: Lizabeth Bingham on 07/18/18 5:[address] Late Entry 07/18/18 @ 1020 CM called and left a message for July PARK @ [facility]. CM awaiting response.CM will continue to follow and assist as needed with discharge planning / needs. Late Entry 07/18/18 @ 1330 CM received call from Meli with [facility]. Meli was wanting to know if patient was getting SSI or SSA. CM was unaware of this information and referred Meli to call patients sister Lesley Domingo. CM called and spoke with Wei Delatorre regarding Medicaid. Wei stated patient had SSI Medicaid until 07/10/18 and regular Medicaid started 07/11/18. CM called Meli back to give this information to her and also gave Wei's number if she has questions regarding this. Meli stated that she also needed to know if the patient had applied for SSI and how much she had in her bank account. CM explained that we would try to find out this information. CM will check with sister and possibly patient home health care case manager whom assisted patient with housing when released from long-term. CM will continue to follow and assist as needed with discharge planning / needs. DCP- Discharge Planning Updated by [id number]: Lizabeth Bingham on 07/18/18 5:[address] Late Entry 07/17/18 @ 1600 CM called and left message x 2 for July PARK from [facility]. CM awaiting response. CM will continue to follow and assist as needed with discharge planning / needs. DCP- Discharge Planning Updated by [id number]: Lizabeth Bingham on 07/15/18 12:[address] CM spoke with patient's sister Lesley Domingo this am. She stated that the patient doesn't have Medicare. She asked when patient would transfer to [place]. CM explained that we are awaiting on acceptance to [facility] at this point. KRYSTAL called [facility] for update July told CM to fax updated clinical and that it would be tomorrow 07/16/18 before they may have a determination. July requested CM not to call back tomorrow until after noon. CM will update family. CM also contacted [facility] in [place], [place]. [phone] CM spoke with Za she stated at this time they are not accepting out of state Medicaid at their facility. CM will continue to follow and assist as needed with discharge planning / needs. DCP- Discharge Planning Updated by [id number]: Lizabeth Zachery on 07/12/18 7:[address] KRYSTAL was notified patient sister Lesley Domingo was here and requested to speak with me. KRYSTAL explained that the current plan was that we was looking into placement with [facility] in [place], [place]. KRYSTAL had spoke to Zoila with [facility] prior to coming to speak with Lesley. KRYSTAL had answered questions that Zoila had. Zoila stated the next process that they would send patients information to Executive offices and would be awaiting financial approval. Zoila stated for CM to call back to check on this at anytime next week. KRYSTAL explained all this to sister Lesley. Lesley asked why she was having to be transferred out of state. KRYSTAL explained that LTACH facilities within the state do not take Medicaid and that senior living detention facilities in the [facility] do not accept ventilator patients. Lesley states that she had received information that the patient is and receiving Medicare through her . KRYSTAL explained that we had no record of that only Medicaid. Lesley requested that [facility] find this information out. KRYSTAL explained that if it was through the patients spouse then it would need to be his information used to look it up. Lesley states that she has a letter at her home that has this information on it.(Because she has custody of patients son and he receiving his benefits also). The conversation ended that Lesely was going to get the information to KRYSTAL. KRYSTAL received call from Lesley around 4:45pm requesting information on online Social Security office hours. Lesley also wanted to know what would happen if they didn't consent to transfer. KRYSTAL explained that I wasn't sure and Lesley requested for KRYSTAL to find out this information. KRYSTAL spoke with other home health care case manager within the facility. KRYSTAL then called Lesley back and explained that if the patient was stable for transfer and they still refusing transfer then it would most likely go to ethics board and DHS could be notified. Lesley then starting raising her voice that" the hospital and staff was not giving her accurate updates over the phone. She had no idea that Evy was almost in a comatose state." Lesley requested for us to wait on transfer until after she could show proof that she has Medicare. KRYSTAL explained that nothing would be happening until next week. She was still upset that she was going to have to stay longer than she had planned to get this taken care of. CM told her that I would be happy to let her speak to someone else on Sunday. CM will continue to follow and assist as needed will discharge planning/ needs. DCP- Discharge Planning Updated by [id number]: Lizabeth Bingham on 07/11/18 7:[address] CM spoke with [facility] in [place] ([place]). She stated that all their Vent beds are full at this time and they could put the patient on a waiting list for a bed. CM gave information to put patient on waiting list. CM then contacted [facility] in [place] ([facility]) she stated they might could accept patient. CM faxed over information and later got denial from [facility] that patient required too high of level of care. CM contacted [facility] manager intermediate care to see if they could give any insight on facilities that take ventilator patients within the [facility]. They only gave [facility] in [place]. CM called and spoke with patients sister Lesley Domingo. CM explained the situation that the patient was needing placement and we might have to go out of the state of [place] for placement. Lesley was concerned about patient getting back to [place] once she recovered. Lesley also stated that she would be in to see patient today that she just got into town. CM will plan to speak to her while she is here. CM received information on [facility] in [place] that takes ventilator patients. CM called [facility] [phone] and faxed [phone] records. CM awaiting decision from [facility]. CM will continue to follow and assist as needed with discharge planning / needs. DCP- Discharge Planning Updated by [id number]: Lizabeth Bingham on 07/08/18 4:[address] CM contacted all LTACH within [facility] to check on Medicaid bed availability / ana bed availability. Still awaiting call back on three facilities but at this time no had stated they would accept any Medicaid patients or ana. CM will continue to follow and assist as needed with discharge planning / needs. DCP- Discharge Planning Updated by [id number]: Lizabeth Bingham on 06/20/18 11:[address] Patient Name: EVY ART Admission Status: Elective Accout number: [id number] Admission Date: 06-07-2018 : 1960 Admission Diagnosis:MALIGNANT NEOPLASM OF CARDIA Attending: WILLIAM TUCKER Current LOS: 13 Anticipated DC Date: Planned Disposition: Home or Self Care Primary Insurance: MEDICAID [place] Discharge Planning Comments: CM called and spoke with sister Lesley Domingo [phone]. Patient is still on vent and sedated. Lesley (lives in [place]) informed CM that patient doesn't have any family that lives in the [facility]. She stated that the patient had been incarcerated and had been released approximately 8 weeks prior to admission. Sister states that patient had found out while incarcerated that she had cancer. Patient had been getting radiation / chemo prior to admit. Lesley states that she has custody of patients youngest child and that her oldest child is in long-term in [place]. Lesley states that her goal is for patient to finish her cancer treatments then come to her home in [place]. Lesley also states that patient has a roommate Nadine that comes to visit patient in the evenings. CM will continue to follow and assist as needed with discharge planning/ needs. Director Specialty: Lizabeth Bingham DCP- Discharge Planning Updated by [id number]: Lizabeth Bingham on 06/14/18 7:[address] Patient on Vent / sedated. No family available for discharge planning.CM will continue to follow and assist as needed with discharge planning / needs. External Providers External Provider: [facility] and [facility] Next Contact Date: Service Request Date: Service Type: Resolution: Reviewer: Comments: External Provider: OTHER-OTHER Next Contact Date: Service Request Date: Service Type: Resolution: Reviewer: Comments: Last DP export: 08/28/18 2:20 Patient Name: EVY ART Page [id number] at 0929 All edits/amendments must be made on the electronic document DICTATION DATE: 08/29/18927 GROUND LAYER: ANA ROSA 08/29/18927 RPT#: [id number] DC DATE: STATUS: ADM IN [place] [address] [place] [address] END OF REPORT
--- NOTE | ~2018-06-07 | MORECARE ---
CASE MANAGEMENT DISCHARGE SUMMARY PATIENT: ESDRAS ART UNIT: [id number] ADM DATE: 06/07/18 AGE: 57 : 62 SEX: F ROOM/BED: D.2307 AUTHOR: ZAID,DOC PHYSICIAN: REFERRING PHYSICIAN: WILLIAM TUCKER MD DATE OF SERVICE: 07/18/18 Discharge Plan Patient Name: ESDRAS ART [facility]:[place] : 1960 Planned Disposition: Home or Self Care Anticipated Discharge Date: Discharge Date: Expected LOS: Initial Reviewer: [id number] Initial Review Date: 06/07/2018 Generated: 07/18/18 7:35 pm Comments DCP- Discharge Planning Updated by [email or web address]: Lizabeth Bingham on 07/18/18 5:[address] Late Entry 07/18/18 @ 1020 CM called and left a message for July PARK @ [facility]. CM awaiting response.CM will continue to follow and assist as needed with discharge planning / needs. Late Entry 07/18/18 @ 1330 CM received call from Meli with [facility]. Meli was wanting to know if patient was getting SSI or SSA. KRYSTAL was unaware of this information and referred Meli to call patients sister Lesley Domingo. KRYSTAL called and spoke with Wei Delatorre regarding Medicaid. Wei stated patient had SSI Medicaid until 07/10/18 and regular Medicaid started 07/11/18. CM called Meli back to give this information to her and also gave Wei's number if she has questions regarding this. Meli stated that she also needed to know if the patient had applied for SSI and how much she had in her bank account. KRYSTAL explained that we would try to find out this information. CM will check with sister and possibly patient adult protective caseworker whom assisted patient with housing when released from [facility]. CM will continue to follow and assist as needed with discharge planning / needs. DCP- Discharge Planning Updated by [id number]: Lizabeth Bingham on 07/18/18 5:[address] Late Entry 07/17/18 @ 1600 CM called and left message x 2 for July PARK from [facility]. CM awaiting response. CM will continue to follow and assist as needed with discharge planning / needs. DCP- Discharge Planning Updated by [id number]: Lizabeth Bingham on 07/15/18 12:[address] CM spoke with patient's sister Lesley Domingo this am. She stated that the patient doesn't have Medicare. She asked when patient would transfer to [place]. KRYSTAL explained that we are awaiting on acceptance to [facility] at this point. KRYSTAL called [facility] for update July told CM to fax updated clinical and that it would be tomorrow 07/16/18 before they may have a determination. July requested CM not to call back tomorrow until after noon. CM will update family. CM also contacted [facility] in [place], [place]. [phone] CM spoke with Za she stated at this time they are not accepting out of state Medicaid at their facility. CM will continue to follow and assist as needed with discharge planning / needs. DCP- Discharge Planning Updated by [id number]: Lizabeth Bingham on 07/12/18 7:[address] CM was notified patient sister Lesley Domingo was here and requested to speak with me. KRYSTAL explained that the current plan was that we was looking into placement with [facility] in [place], [place]. KRYSTAL had spoke to Zoila with [facility] prior to coming to speak with Lesley. KRYSTAL had answered questions that Zoila had. Zoila stated the next process that they would send patients information to Executive offices and would be awaiting financial approval. Zoila stated for CM to call back to check on this at anytime next week. KRYSTAL explained all this to sister Leslye. Lesley asked why she was having to be transferred out of state. KRYSTAL explained that LTACH facilities within the state do not take Medicaid and that [facility] facilities in the [facility] do not accept ventilator patients. Lesley states that she had received information that the patient is and receiving Medicare through her . KRYSTAL explained that we had no record of that only Medicaid. Lesley requested that [facility] find this information out. KRYSTAL explained that if it was through the patients spouse then it would need to be his information used to look it up. Lesley states that she has a letter at her home that has this information on it.(Because she has custody of patients son and he receiving his benefits also). The conversation ended that Lesley was going to get the information to KRYSTAL. KRYSTAL received call from Lesley around 4:45pm requesting information on online Social Security office hours. Lesley also wanted to know what would happen if they didn't consent to transfer. KRYSTAL explained that I wasn't sure and Lesley requested for KRYSTAL to find out this information. KRYSTAL spoke with other showcase maker within the facility. KRYSTAL then called Lesley back and explained that if the patient was stable for transfer and they still refusing transfer then it would most likely go to ethics board and [facility] could be notified. Lesley then starting raising her voice that" the hospital and staff was not giving her accurate updates over the phone. She had no idea that Esdras was almost in a comatose state." Lesley requested for us to wait on transfer until after she could show proof that she has Medicare. KRYSTAL explained that nothing would be happening until next week. She was still upset that she was going to have to stay longer than she had planned to get this taken care of. KRYSTAL told her that I would be happy to let her speak to someone else on Sunday. CM will continue to follow and assist as needed will discharge planning/ needs. DCP- Discharge Planning Updated by [id number]: Lizabeth Bingham on 07/11/18 7:[address] KRYSTAL spoke with [facility] in [place] ([facility]). She stated that all their Vent beds are full at this time and they could put the patient on a waiting list for a bed. CM gave information to put patient on waiting list. KRYSTAL then contacted [facility] in [place] ([facility]) she stated they might could accept patient. CM faxed over information and later got denial from [facility] that patient required too high of level of care. CM contacted [facility] division mate chief care to see if they could give any insight on facilities that take ventilator patients within the [facility]. They only gave [facility] in [place]. KRYSTAL called and spoke with patients sister Lesley Domingo. KRYSTAL explained the situation that the patient was needing placement and we might have to go out of the state of [place] for placement. Lesley was concerned about patient getting back to [place] once she recovered. Lesley also stated that she would be in to see patient today that she just got into town. CM will plan to speak to her while she is here. CM received information on [facility] in [place], [place] that takes ventilator patients. CM called Meli [phone] and faxed [phone] records. CM awaiting decision from [facility]. CM will continue to follow and assist as needed with discharge planning / needs. DCP- Discharge Planning Updated by [id number]: Lizabeth Bingham on 07/08/18 4:[address] CM contacted all LTACH within state to check on Medicaid bed availability / ana bed availability. Still awaiting call back on three facilities but at this time no had stated they would accept any Medicaid patients or ana. CM will continue to follow and assist as needed with discharge planning / needs. DCP- Discharge Planning Updated by [id number]: Lizabeth Bingham on 06/20/18 11:[address] Patient Name: ESDRAS ART Admission Status: Elective Accout number: [id number] Admission Date: 06-07-2018 : 1960 Admission Diagnosis:MALIGNANT NEOPLASM OF CARDIA Attending: WILLIAM TUCKER Current LOS: 13 Anticipated DC Date: Planned Disposition: Home or Self Care Primary Insurance: MEDICAID [place] Discharge Planning Comments: CM called and spoke with sister Lesley Domingo [phone]. Patient is still on vent and sedated. Lesley (lives in [place]) informed CM that patient doesn't have any family that lives in the [facility] [place]. She stated that the patient had been incarcerated and had been released approximately 8 weeks prior to admission. Sister states that patient had found out while incarcerated that she had cancer. Patient had been getting radiation / chemo prior to admit. Lesley states that she has custody of patients youngest child and that her oldest child is in [facility] in [place]. Lesley states that her goal is for patient to finish her cancer treatments then come to her home in [place]. Lesley also states that patient has a roommate Nadine that comes to visit patient in the evenings. CM will continue to follow and assist as needed with discharge planning/ needs. Environmental Programs Specialist: Lizabeth Bingham DCP- Discharge Planning Updated by [id number]: Lizabeth Bingham on 06/14/18 7:[address] Patient on Vent / sedated. No family available for discharge planning.CM will continue to follow and assist as needed with discharge planning / needs. Last DP export: 07/18/18 5:16 p Patient Name: ESDRAS ART Page [id number] at 1835 All edits/amendments must be made on the electronic document DICTATION DATE: 07/18/181833 ELECTRIC FRYING PAN REPAIRER: ANA ROSA 07/18/181833 RPT#: [id number] DC DATE: STATUS: ADM IN [facility] [address] [place] [address] END OF REPORT
--- NOTE | ~2018-06-07 | MORECARE ---
CASE MANAGEMENT DISCHARGE SUMMARY PATIENT: ESDRAS ART UNIT: [id number] ADM DATE: 06/07/18 AGE: 57 : 62 SEX: F ROOM/BED: D.2307 AUTHOR: ZAID,DOC PHYSICIAN: REFERRING PHYSICIAN: WILLIAM TUCKER MD DATE OF SERVICE: 07/31/18 Discharge Plan Patient Name: ESDRAS ART Facility[facility]:[place] : 1960 Planned Disposition: Home or Self Care Anticipated Discharge Date: Discharge Date: Expected LOS: Initial Reviewer: [id number] Initial Review Date: 06/07/2018 Generated: 07/31/18 6:39 pm Comments DCP- Discharge Planning Updated by [id number]: Lizabeth Bingham on 07/31/18 4:[address] CM received notification that the social security office in [place] would not accept form that was sent to Lesley Domingo to get authorization to manage patients finances. They said they would have to directly send it to Dr. Tucker and then have him to send it back. [facility] has to have some proof of income before they can accept patient. We are having to wait to see if we can get Lesley approved to manage social security benefits in patients behalf. CM will continue to follow and assist with discharge planning / needs. DCP- Discharge Planning Updated by [id number]: Lizabeth Bingham on 07/26/18 6:[address] Late Entry 07/26/18 @ [address] Tucker and got form signed for [facility]. CM took form to Wei in [facility]. CM will continue to follow and assist as needed with discharge planning / needs DCP- Discharge Planning Updated by [email or web address]: Lizabeth Bingham on 07/25/18 4:[address] CM spoke with Wei Delatorre this am. Wei spoke with patients sister Lesley Domingo trying to find out information needed to get patient placement. KRYSTAL was later notified that a form from [facility] needed to be filled out by physician. CM attempted to get in touch with paged him several times but was unsuccessful. Called his office but no response at this time. CM will continue to follow and assist as needed with discharge planning / needs. DCP- Discharge Planning Updated by [id number]: Lizabeth Bingham on 07/24/18 4:[address] CM called and spoke with Meli at [facility] in [place]. [phone]. KRYSTAL asked if family was able to provide information needed. Meli stated that she hasn't heard from anyone since she had spoke to me last week. Meli is requesting proof that patient has applied for SSI and she needs proof of income. CM attempted to call broom worker Ailyn Read [phone] or [phone] to see if she might could assist with obtaining this information. CM was unsuccessful in contacting Ailyn. CM called and spoke with Wei Delatorre and gave her Meli phone number to see if she could assist with information. Wei will contact Meli and her supervisor ship maintenance services to see if they can assist with information needed. Wei will contact KRYSTAL after she gets in contact with others. CM will continue to follow and assist as needed with discharge planning / needs. DCP- Discharge Planning Updated by [id number]: Lizabeth Bingham on 07/18/18 5:[address] Late Entry 07/18/18 @ 1020 CM called and left a message for July PARK @ [facility]. CM awaiting response.CM will continue to follow and assist as needed with discharge planning / needs. Late Entry 07/18/18 @ 1330 CM received call from Meli with [facility]. Meli was wanting to know if patient was getting SSI or SSA. KRYSTAL was unaware of this information and referred Meli to call patients sister Lesley Domingo. KRYSTAL called and spoke with Wei Delatorre regarding Medicaid. Wei stated patient had SSI Medicaid until 07/10/18 and regular Medicaid started 07/11/18. KRYSTAL called Meli back to give this information to her and also gave Wei's number if she has questions regarding this. Meli stated that she also needed to know if the patient had applied for SSI and how much she had in her bank account. KRYSTAL explained that we would try to find out this information. KRYSTAL will check with sister and possibly patient keycase assembler whom assisted patient with housing when released from nursing home. CM will continue to follow and assist as needed with discharge planning / needs. DCP- Discharge Planning Updated by [id number]: Lizabeth Cumminsr on 07/18/18 5:[address] Late Entry 07/17/18 @ 1600 CM called and left message x 2 for July PARK from [facility]. CM awaiting response. CM will continue to follow and assist as needed with discharge planning / needs. DCP- Discharge Planning Updated by [id number]: Lizabeth Bingham on 07/15/18 12:[address] CM spoke with patient's sister Lesley Domingo this am. She stated that the patient doesn't have Medicare. She asked when patient would transfer to [place]. CM explained that we are awaiting on acceptance to [facility] at this point. CM called [facility] for update July told CM to fax updated clinical and that it would be tomorrow 07/16/18 before they may have a determination. July requested CM not to call back tomorrow until after noon. CM will update family. CM also contacted [facility] in [place], [place]. [phone] CM spoke with Za she stated at this time they are not accepting out of state Medicaid at their facility. CM will continue to follow and assist as needed with discharge planning / needs. DCP- Discharge Planning Updated by [id number]: Lizabeth Bingham on 07/12/18 7:[address] CM was notified patient sister Lesley Domingo was here and requested to speak with me. CM explained that the current plan was that we was looking into placement with [facility] in [place], [place]. CM had spoke to Zoila with [facility] prior to coming to speak with Lesley. KRYSTAL had answered questions that Zoila had. Zoila stated the next process that they would send patients information to Executive offices and would be awaiting financial approval. Zoila stated for CM to call back to check on this at anytime next week. KRYSTAL explained all this to sister Lesley. Lesley asked why she was having to be transferred out of state. KRYSTAL explained that LTACH facilities within the state do not take Medicaid and that intellectual property counsel senior care facilities in the state do not accept ventilator patients. Lesley states that she had received information that the patient is and receiving Medicare through her . KRYSTAL explained that we had no record of that only Medicaid. Lesley requested that [facility] find this information out. KRYSTAL explained that if it was through the patients spouse then it would need to be his information used to look it up. Lesley states that she has a letter at her home that has this information on it.(Because she has custody of patients son and he receiving his benefits also). The conversation ended that Lesley was going to get the information to CM. KRYSTAL received call from Lesley around 4:45pm requesting information on online Social Security office hours. Lesley also wanted to know what would happen if they didn't consent to transfer. KRYSTAL explained that I wasn't sure and Lesley requested for CM to find out this information. KRYSTAL spoke with other spring encaser within the facility. KRYSTAL then called Lesley back and explained that if the patient was stable for transfer and they still refusing transfer then it would most likely go to ethics board and [facility] could be notified. Lesley then starting raising her voice that" the hospital and staff was not giving her accurate updates over the phone. She had no idea that Esdras was almost in a comatose state." Lesley requested for us to wait on transfer until after she could show proof that she has Medicare. KRYSTAL explained that nothing would be happening until next week. She was still upset that she was going to have to stay longer than she had planned to get this taken care of. KRYSTAL told her that I would be happy to let her speak to someone else on Sunday. CM will continue to follow and assist as needed will discharge planning/ needs. DCP- Discharge Planning Updated by [id number]: Lizabeth Bingham on 07/11/18 7:[address] CM spoke with [facility] in [place] ([facility]). She stated that all their Vent beds are full at this time and they could put the patient on a waiting list for a bed. CM gave information to put patient on waiting list. CM then contacted [facility] in [place] ([facility]) she stated they might could accept patient. CM faxed over information and later got denial from [facility] that patient required too high of level of care. CM contacted [facility] division senior living care to see if they could give any insight on facilities that take ventilator patients within the [facility]. They only gave [facility] in [place]. CM called and spoke with patients sister Lesley Domingo. CM explained the situation that the patient was needing placement and we might have to go out of the state [facility] for placement. Lesley was concerned about patient getting back to [place] once she recovered. Lesley also stated that she would be in to see patient today that she just got into town. CM will plan to speak to her while she is here. CM received information on [facility] in [place], [place] that takes ventilator patients. CM called Meli [phone] and faxed [phone] records. CM awaiting decision from [facility]. CM will continue to follow and assist as needed with discharge planning / needs. DCP- Discharge Planning Updated by [id number]: Lizabeth Bingham on 07/08/18 4:[address] CM contacted all LTACH within state to check on Medicaid bed availability / ana bed availability. Still awaiting call back on three facilities but at this time no had stated they would accept any Medicaid patients or ana. CM will continue to follow and assist as needed with discharge planning / needs. DCP- Discharge Planning Updated by [email or web address]: Lizabeth Bingham on 06/20/18 11:[address] Patient Name: ESDRAS ART Admission Status: Elective Accout number: [id number] Admission Date: 06-07-2018 : 1960 Admission Diagnosis:MALIGNANT NEOPLASM OF CARDIA Attending: WILLIAM TUCKER Current LOS: 13 Anticipated DC Date: Planned Disposition: Home or Self Care Primary Insurance: MEDICAID [place] Discharge Planning Comments: CM called and spoke with sister Lesley Domingo [phone]. Patient is still on vent and sedated. Lesley (lives in [place]) informed CM that patient doesn't have any family that lives in the state of [place]. She stated that the patient had been incarcerated and had been released approximately 8 weeks prior to admission. Sister states that patient had found out while incarcerated that she had cancer. Patient had been getting radiation / chemo prior to admit. Lesley states that she has custody of patients youngest child and that her oldest child is in nursing home in [place]. Lesley states that her goal is for patient to finish her cancer treatments then come to her home in [place]. Lesley also states that patient has a roommate Nadine that comes to visit patient in the evenings. CM will continue to follow and assist as needed with discharge planning/ needs. Mill Platform Supervisor: Lizabeth Bingham DCP- Discharge Planning Updated by [email or web address]: Lizabeth Bingham on 06/14/18 7:[address] Patient on Vent / sedated. No family available for discharge planning.CM will continue to follow and assist as needed with discharge planning / needs. Last DP export: 07/26/18 7:02 Patient Name: ESDRAS ART Page [id number] at 1740 All edits/amendments must be made on the electronic document DICTATION DATE: 07/31/181738 MIME ARTIST: ANA ROSA 07/31/181738 RPT#: [id number] ID DATE: STATUS: ADM IN [facility] [address] [place] [address] END OF REPORT
--- NOTE | ~2018-06-07 | EC ---
PATIENT:ESDRAS ART DATE OF SERVICE: 06/07/18 SEX: F MEDICAL RECORD: [id number] DATE OF : [birth year] LOCATION:[facility] D230 AGE OF PATIENT: 57 ADMISSION DATE: 06/07/18 REFERRING PHYSICIAN: INTERPRETING PHYSICIAN: SERGIO COTA MD ECHOCARDIOGRAM REPORT ECHO CHARGES 5 ECHO LIMITED Date: 06/20/18 CLINICAL DIAGNOSIS: TACHYCARDIA ECHOCARDIOGRAPHIC MEASUREMENTS (adult normal given) AC root (d.<3.7cm) 2.7 cm LV Septum d (<1.2 cm> 0.9 cm Valve Excursion 1.6 cm LV Septum (systole) 0.9 cm Left Atria (s.<4.0cm> 3.9 cm LVPW d(<1.2cm) 0.9 cm RV (d.<2.3cm) 3.4 cm LVPW (sytole) 1.0 cm LV diastole(<5.6CM) 4.1 cm MV E-F(>70mm/sec) cm LV systole 2.9 cm LVOT Diameter 1.6 cm MV exc.(>10mm) cm Est.ejection fraction (50-75%) % DOPPLER: LVIT cm/sec A 94 cm/sec E 86 cm/sec LA cm/sec RVSP 23 mmHg LVOT 87 cm/sec AOP1/2T m/s Asc. Ao 152 cm/sec RVOT 75 cm/sec RA cm/sec PA 83 cm/sec AV Gradient Peak 7.2 mmHg AV Mean 5.1 mmHg AV Area 1.7 cm MV Gradient Peak 5.1 mmHg MV Mean 3.7 mmHg MV Area cm COMMENTS: Control Operator Flow Coat: Ignacio MASON Dry Pan Feeder: 1 Dr. Cota TAPE# PACS Pericardial Effusion N DATE OF SERVICE: 06/19/2018 ECHOCARDIOGRAM DATE OF SERVICE: 06/19/2018 FINDINGS: 1. Left ventricle chamber size is within normal limits. Left ventricular systolic function is normal. Overall ejection fraction estimated at 65%. 2. Left atrium, right atrium, right ventricle chamber sizes are within normal ECHOCARDIOGRAM REPORT [id number] ESDRAS ART limits. 3. Valvular structures have normal structure and motion. 4. Doppler interrogation reveals mild tricuspid regurgitation, no other valvular insufficiency or stenosis. 5. No evidence of pericardial effusion or left ventricular thrombus. TRANSINT:[id number] Voice Confirmation ID: [id number] DOCUMENT ID: [id number] SERGIO COTA MD at 0924 CC: [id number] DICTATION DATE: 06/20/18 1201 SHRINKING MACHINE OPERATOR: 06/20/18 1212 ADM IN [facility] [address] [place] [address]
--- NOTE | ~2018-06-07 | MORECARE ---
CASE MANAGEMENT DISCHARGE SUMMARY PATIENT: ESDRAS ART UNIT: [id number] ADM DATE: 06/07/18 AGE: 57 : 62 SEX: F ROOM/BED: D.2307 AUTHOR: ZAID,DOC PHYSICIAN: REFERRING PHYSICIAN: WILLIAM TUCKER MD DATE OF SERVICE: 07/11/18 Discharge Plan Patient Name: ESDRAS ART Facility: [facility]:[place] : 1960 Planned Disposition: Home or Self Care Anticipated Discharge Date: Discharge Date: Expected LOS: Initial Reviewer: [email or web address] Initial Review Date: 06/07/2018 Generated: 07/11/18 8:25 pm Comments DCP- Discharge Planning Updated by [email or web address]: Lizabeth Bingham on 07/11/18 6:[address] CM spoke with [facility] in [place] ([facility]). She stated that all their Vent beds are full at this time and they could put the patient on a waiting list for a bed. CM gave information to put patient on waiting list. CM then contacted [facility] in [place] ([facility]) she stated they might could accept patient. CM faxed over information and later got denial from [facility] that patient required too high of level of care. CM contacted [facility] alf care to see if they could give any insight on facilities that take ventilator patients within the [facility]. They only gave [facility] in [place]. CM called and spoke with patients sister Lesley Domingo. CM explained the situation that the patient was needing placement and we might have to go out of the state of [place] for placement. Lesley was concerned about patient getting back to [place] once she recovered. Lesley also stated that she would be in to see patient today that she just got into town. CM will plan to speak to her while she is here. CM received information on [facility] in [place], [place] that takes ventilator patients. KRYSTAL called Meli [phone] and faxed [phone] records. CM awaiting decision from [place]. CM will continue to follow and assist as needed with discharge planning / needs. DCP- Discharge Planning Updated by [id number]: Lizabeth Bingham on 07/08/18 3:[address] CM contacted all LTACH within state to check on Medicaid bed availability / ana bed availability. Still awaiting call back on three facilities but at this time no had stated they would accept any Medicaid patients or ana. CM will continue to follow and assist as needed with discharge planning / needs. DCP- Discharge Planning Updated by [email or web address]: Lizabeth Bingham on 06/20/18 10:[address] Patient Name: ESDRAS ART Admission Status: Elective Accout number: [id number] Admission Date: 06-07-2018 : 1960 Admission Diagnosis:MALIGNANT NEOPLASM OF CARDIA Attending: WILLIAM TUCKER Current LOS: 13 Anticipated DC Date: Planned Disposition: Home or Self Care Primary Insurance: MEDICAID [place] Discharge Planning Comments: CM called and spoke with sister Lesley Domingo [phone]. Patient is still on vent and sedated. Lesley (lives in [place]) informed CM that patient doesn't have any family that lives in the state of [place]. She stated that the patient had been incarcerated and had been released approximately 8 weeks prior to admission. Sister states that patient had found out while incarcerated that she had cancer. Patient had been getting radiation / chemo prior to admit. Lesley states that she has custody of patients youngest child and that her oldest child is in [facility] [place]. Lesley states that her goal is for patient to finish her cancer treatments then come to her home in [place]. Lesley also states that patient has a roommate Nadine that comes to visit patient in the evenings. CM will continue to follow and assist as needed with discharge planning/ needs. Machine Maintenance: Lizabeth Bingham DCP- Discharge Planning Updated by [id number]: Lizabeth Bingham on 06/14/18 6:[address] Patient on Vent / sedated. No family available for discharge planning.CM will continue to follow and assist as needed with discharge planning / needs. Last DP export: 07/11/18 3:46 p Patient Name: ESDRAS ART Page [id number] at 1925 All edits/amendments must be made on the electronic document DICTATION DATE: 07/11/181924 SENIOR NET DEVELOPER: ANA ROSA 07/11/181924 RPT#: [id number] AL DATE: STATUS: ADM IN [address] [place] [address] END OF REPORT
--- NOTE | ~2018-06-07 | MORECARE ---
CASE MANAGEMENT DISCHARGE SUMMARY PATIENT: EVY ART UNIT: [id number] ADM DATE: 06/07/18 AGE: 57 : 62 SEX: F ROOM/BED: D.2307 AUTHOR: ZAID,DOC PHYSICIAN: REFERRING PHYSICIAN: WILLIAM TUCKER MD DATE OF SERVICE: 08/08/18 Discharge Plan Patient Name: EVY ART Facility: [facility]:[place] : 1960 Planned Disposition: Home or Self Care Anticipated Discharge Date: Discharge Date: Expected LOS: Initial Reviewer: [email or web address] Initial Review Date: 06/07/2018 Generated: 08/08/18 9:45 pm Comments DCP- Discharge Planning Updated by [email or web address]: Lizabeth Bingham on 08/08/18 7:[address] CM attempted to call local office to see if CM could fax form into them and get patients disability number. CM was on hold for over 30 mins and never got to speak to a airport representative. KRYSTAL spoke with Meli at [facility]. She stated that she hasn't heard anything yet. Meli stated that once the financials was cleared then we will need to send updated clinicals and then would go through medical review for acceptance. CM will continue to follow and assist with discharge planning/ needs DCP- Discharge Planning Updated by [email or web address]: Lizabeth Bingham on 08/06/18 5:[address] Late Entry 08/06/18 @ [address] Webb office to see if they have received a fax from [employer]. Omaira stated that they have not received anything for her. CM will try to get back in touch with Lesley Domingo patients sister and Wei in [facility] to see what our next step is. KRYSTAL contacted Meli at [facility] to let her know we are still working on placement. CM will continue to follow and assist with discharge planning / needs. DCP- Discharge Planning Updated by [email or web address]: Lizabeth Bingham on 07/31/18 4:[address] CM received notification that the [employer] security office in [place] would not accept form that was sent to Lesley Domingo to get authorization to manage patients finances. They said they would have to directly send it to Dr. Tucker and then have him to send it back. [facility] has to have some proof of income before they can accept patient. We are having to wait to see if we can get Lesley approved to manage social security benefits in patients behalf. CM will continue to follow and assist with discharge planning / needs. DCP- Discharge Planning Updated by [email or web address]: Lizabeth Bingham on 07/26/18 6:[address] Late Entry 07/26/18 @ [address] Tucker and got form signed for [facility]. CM took form to Wei in [facility]. CM will continue to follow and assist as needed with discharge planning / needs DCP- Discharge Planning Updated by [id number]: Lizabeth Bingham on 07/25/18 4:[address] CM spoke with Wei Delatorre this am. Wei spoke with patients sister Lesley Domingo trying to find out information needed to get patient placement. KRYSTAL was later notified that a form from [facility] needed to be filled out by physician. KRYSTAL attempted to get in touch with paged him several times but was unsuccessful. Called his office but no response at this time. CM will continue to follow and assist as needed with discharge planning / needs. DCP- Discharge Planning Updated by [email or web address]: Lizabeth Bingham on 07/24/18 4:[address] CM called and spoke with Meli at [facility] in [place]. [phone]. KRYSTAL asked if family was able to provide information needed. Meli stated that she hasn't heard from anyone since she had spoke to me last week. Meli is requesting proof that patient has applied for SSI and she needs proof of income. KRYSTAL attempted to call bag worker Ailyn Read [phone] or [phone] to see if she might could assist with obtaining this information. KRYSTAL was unsuccessful in contacting Ailyn. KRYSATL called and spoke with Wei Delatorre and gave her Meli phone number to see if she could assist with information. Wei will contact Meli and her supervisor waterproofing to see if they can assist with information needed. Wei will contact KRYSTAL after she gets in contact with others. KRYSTAL will continue to follow and assist as needed with discharge planning / needs. DCP- Discharge Planning Updated by [email or web address]: Lizabeth Bingham on 07/18/18 5:[address] Late Entry 07/18/18 @ 1020 CM called and left a message for July PARK @ [facility]. CM awaiting response.CM will continue to follow and assist as needed with discharge planning / needs. Late Entry 07/18/18 @ 1330 CM received call from Meli with [facility]. Meli was wanting to know if patient was getting SSI or SSA. KRYSTAL was unaware of this information and referred Meli to call patients sister Lesley Domingo. CM called and spoke with Wei Juan Ramon regarding Medicaid. Wei stated patient had SSI Medicaid until 07/10/18 and regular Medicaid started 07/11/18. CM called Meli back to give this information to her and also gave Wei's number if she has questions regarding this. Meli stated that she also needed to know if the patient had applied for SSI and how much she had in her bank account. CM explained that we would try to find out this information. CM will check with sister and possibly patient assistant case manager whom assisted patient with housing when released from skilled nursing. CM will continue to follow and assist as needed with discharge planning / needs. DCP- Discharge Planning Updated by [email or web address]: Lizabeth Bingham on 07/18/18 5:[address] Late Entry 07/17/18 @ 1600 CM called and left message x 2 for July PARK from [facility]. CM awaiting response. CM will continue to follow and assist as needed with discharge planning / needs. DCP- Discharge Planning Updated by [id number]: Lizabeth Bingham on 07/15/18 12:[address] CM spoke with patient's sister Lesley Domingo this am. She stated that the patient doesn't have Medicare. She asked when patient would transfer to [place]. CM explained that we are awaiting on acceptance to [facility] at this point. KRYSTAL called [facility] for update July told CM to fax updated clinical and that it would be tomorrow 07/16/18 before they may have a determination. July requested CM not to call back tomorrow until after noon. CM will update family. CM also contacted [facility] in [place], [place]. [phone] KRYSTAL spoke with Za she stated at this time they are not accepting out of state Medicaid at their facility. CM will continue to follow and assist as needed with discharge planning / needs. DCP- Discharge Planning Updated by [id number]: Lizabeth Bingham on 07/12/18 7:[address] KRYSTAL was notified patient sister Lesley Domingo was here and requested to speak with me. KRYSTAL explained that the current plan was that we was looking into placement with [facility] in [place], [place]. KRYSTAL had spoke to Zoila with [facility] prior to coming to speak with Lesley. KRYSTAL had answered questions that Zoila had. Zoila stated the next process that they would send patients information to [employer] offices and would be awaiting financial approval. Zoila stated for CM to call back to check on this at anytime next week. KRYSTAL explained all this to sister Lesley. Lesley asked why she was having to be transferred out of state. KRYSTAL explained that LTACH facilities within the state do not take Medicaid and that group home long-term facilities in the state do not accept ventilator patients. Lesley states that she had received information that the patient is and receiving Medicare through her . KRYSTAL explained that we had no record of that only Medicaid. Lesley requested that [facility] find this information out. KRYSTAL explained that if it was through the patients spouse then it would need to be his information used to look it up. Lesley states that she has a letter at her home that has this information on it.(Because she has custody of patients son and he receiving his benefits also). The conversation ended that Lesley was going to get the information to KRYSTAL. KRYSTAL received call from Lesley around 4:45pm requesting information on online Social Security office hours. Lesley also wanted to know what would happen if they didn't consent to transfer. KRYSTAL explained that I wasn't sure and Lesley requested for KRYSTAL to find out this information. KRYSTAL spoke with other wrapper caser within the facility. KRYSTAL then called Lesley back and explained that if the patient was stable for transfer and they still refusing transfer then it would most likely go to ethics board and DHS could be notified. Lesley then starting raising her voice that" the hospital and staff was not giving her accurate updates over the phone. She had no idea that Evy was almost in a comatose state." Lesley requested for us to wait on transfer until after she could show proof that she has Medicare. CM explained that nothing would be happening until next week. She was still upset that she was going to have to stay longer than she had planned to get this taken care of. CM told her that I would be happy to let her speak to someone else on Sunday. CM will continue to follow and assist as needed will discharge planning/ needs. DCP- Discharge Planning Updated by [id number]: Lizabeth Bingham on 07/11/18 7:[address] CM spoke with [facility] in [place] ([facility]). She stated that all their Vent beds are full at this time and they could put the patient on a waiting list for a bed. CM gave information to put patient on waiting list. CM then contacted [facility] in [place] ([facility]) she stated they might could accept patient. CM faxed over information and later got denial from [facility] that patient required too high of level of care. CM contacted [facility] terminal makeup operator care to see if they could give any insight on facilities that take ventilator patients within the [facility]. They only gave [facility] in [place]. CM called and spoke with patients sister Lesley Domingo. CM explained the situation that the patient was needing placement and we might have to go out of the state of [place] for placement. Lesley was concerned about patient getting back to [place] once she recovered. Lesley also stated that she would be in to see patient today that she just got into town. CM will plan to speak to her while she is here. CM received information on [facility] in [place], [place] that takes ventilator patients. CM called Meli [phone] and faxed [phone] records. CM awaiting decision from [facility]. CM will continue to follow and assist as needed with discharge planning / needs. DCP- Discharge Planning Updated by [id number]: Lizabeth Bingham on 07/08/18 4:[address] CM contacted all LTACH within [facility] to check on Medicaid bed availability / ana bed availability. Still awaiting call back on three facilities but at this time no had stated they would accept any Medicaid patients or ana. CM will continue to follow and assist as needed with discharge planning / needs. DCP- Discharge Planning Updated by [email or web address]: Lizabeth Bingham on 06/20/18 11:[address] Patient Name: EVY ART Admission Status: Elective Accout number: [id number] Admission Date: 06-07-2018 : 1960 Admission Diagnosis:MALIGNANT NEOPLASM OF CARDIA Attending: WILLIAM TUCKER Current LOS: 13 Anticipated DC Date: Planned Disposition: Home or Self Care Primary Insurance: MEDICAID [place] Discharge Planning Comments: CM called and spoke with sister Lesley Domingo [phone]. Patient is still on vent and sedated. Lesley (lives in [place]) informed CM that patient doesn't have any family that lives in the state of [place]. She stated that the patient had been incarcerated and had been released approximately 8 weeks prior to admission. Sister states that patient had found out while incarcerated that she had cancer. Patient had been getting radiation / chemo prior to admit. Lesley states that she has custody of patients youngest child and that her oldest child is in skilled nursing in [place]. Lesley states that her goal is for patient to finish her cancer treatments then come to her home in [place]. Lesley also states that patient has a roommate Nadine that comes to visit patient in the evenings. CM will continue to follow and assist as needed with discharge planning/ needs. Vp Strategy: Lizabeth Bingham DCP- Discharge Planning Updated by [id number]: Lizabeth Bingham on 06/14/18 7:[address] Patient on Vent / sedated. No family available for discharge planning.CM will continue to follow and assist as needed with discharge planning / needs. Last DP export: 08/06/18 5:55 Patient Name: EVY ART Page [id number] at 204 All edits/amendments must be made on the electronic document DICTATION DATE: 08/08/182043 AUTOMOTIVE GENERATOR REPAIRER: ANA ROSA 08/08/182043 RPT#: [id number] DC DATE: STATUS: ADM IN [facility] [address] [place] [address] END OF REPORT
--- NOTE | ~2018-06-07 | MORECARE ---
CASE MANAGEMENT DISCHARGE SUMMARY PATIENT: EVY ART UNIT: [id number] ADM DATE: 06/07/18 AGE: 57 : 62 SEX: F ROOM/BED: D.2224 AUTHOR: DARCI MAR PHYSICIAN: REFERRING PHYSICIAN: WILLIAM TUCKER MD DATE OF SERVICE: 08/29/18 Discharge Plan Patient Name: EVY ART Facility: [facility]:[place] : 1960 Planned Disposition: Home or Self Care Anticipated Discharge Date: Discharge Date: Expected LOS: Initial Reviewer: [id number] Initial Review Date: 06/07/2018 Generated: 08/29/18 10:44 am Comments DCP- Discharge Planning Updated by [id number]: Edita Quinonez on 08/29/18 8:[address] I spoke with Quan at [facility] and faxed clinical. I also spoke with Shaniqua at [facility] and faxed clinical. Shaniqua states they do have a restorative plan for therapy there for physical therapy for Medicaid patients. States she will come to [place] and see her today. CM will continue to follow and assist with discharge planning/needs. DCP- Discharge Planning Updated by [id number]: Edita Devi on 08/28/18 2:[address] Received a call from Evi that they are not going to meet her needs for rehab at their facility and will deny her coming to [facility] in [place]. I spoke with the patient and explained. I called [facility] and asked if she could look again for a place for her. Her tracheostomy has a plug and she is now on a nasal cannula. She is taking in ice chips. I will continue to work on finding placement, she only has Medicaid, so she does not have any rehab benefits. DCP- Discharge Planning Updated by [id number]: Edita Quinonez on 08/28/18 7:[address] Spoke with Evi at [facility] in [place] and sent requested clinical. She states she and the DON are reviewing clinical for admission. I did inform her lodging house keeper is working toward decannulation. I spoke again with [facility] and she met with the patient and at this time she is unable to get her placed with any of her facilities. CM will continue to follow and assist with discharge planning/needs. DCP- Discharge Planning Updated by [id number]: Edita Quinonez on 08/27/18 10:[address] Updated clinical sent to [facility] in [place] and I notified David Byrne that I sent them. I left a message with David about status of transfer to the facility. CM will continue to follow and assist with discharge planning/needs. DCP- Discharge Planning Updated by [email or web address]: Edita Quinonez on 08/26/18 1:[address] [facility] paper work and clinical faxed to [facility]. CM will continue to follow and assist with discharge planning/needs. DCP- Discharge Planning Updated by [id number]: Edita Quinonez on 08/26/18 12:[address] Met with patient to discuss discharge planning, she would like to go to her brother's [facility]. She states that she needs to get stronger prior to going there. I informed her I was trying to get her in a rehab in [place], which is [facility]. She agrees to going to [place] for rehab if they will accept her. I have filled a [facility] form out and she signed. I will need to contact Dr. Tucker for his signature. He is in surgery at this time. DCP- Discharge Planning Updated by [id number]: Edita Quinonez on 08/23/18 3:[address] Received a call from Evi at [facility] in [facility] for more information for possible admission. I faxed her clinical to [phone]. She will also need a KYLIE before admission completed. CM will continue to follow and assist with discharge planning/needs. DCP- Discharge Planning Updated by [id number]: Edita Quinonez on 08/23/18 11:[address] I spoke with [facility] today for an update. She states she does not have an accepting facility at this time. I sent referral to David Byrne. CM will continue to follow and assist with discharge planning/needs. DCP- Discharge Planning Updated by [email or web address]: Lizabeth Bingham on 08/21/18 9:[address] CM received a call from patients sister Lesley Domingo that [facility] has notified her that she should be receiving her paperwork in the next 2 weeks. Paperwork that she can act in Evy behalf for Medicaid. CM will continue to follow and assist with discharge planning. DCP- Discharge Planning Updated by [id number]: Lizabeth Bingham on 08/16/18 11:[address] CM continuing to follow up with [facility] about placement for female vent bed availability. If patient can be off vent for 72hrs then CM can seek placement locally. CM will continue to follow and assist as needed with discharge planning / needs. DCP- Discharge Planning Updated by [id number]: Winter Randolph on 08/15/18 12:[address] Patient Name: EVY ART Admission Status: Elective Accout number: [id number] Admission Date: 06-07-2018 : 1960 Admission Diagnosis:MALIGNANT NEOPLASM OF CARDIA Attending: WILLIAM TUCKER Current LOS: 69 Anticipated DC Date: Planned Disposition: Home or Self Care Primary Insurance: [place] Discharge Planning Comments: CM CALLED [facility] TO SPEAK WITH JULY REGARDING A VENT BED. THEY STATE JULY IS OUT SICK AND WON'T BE BACK UNTIL NEXT WEEK. STATES WILL HAVE TO CALL BACK ON SUNDAY. [employer] Founder: Winter Tomasa DCP- Discharge Planning Updated by [id number]: Lizabeth Bingham on 08/14/18 4:[address] CM called [facility] and spoke with Jennyfer RANDLE. Jennyfer stated that she wasn't able to answer questions regarding how soon for bed availability. July was out sick and she had no information on placement. CM will call back tomorrow and attempt to speak with July. DCP- Discharge Planning Updated by [id number]: Lizabeth Bingham on 08/13/18 2:[address] CM called [facility] in [place] and left message for DON (July) to return call regarding placement and how long until placement. CM still awaiting call back @ this time. DCP- Discharge Planning Updated by [id number]: Lizabeth Bingham on 08/12/18 5:[address] CM called and spoke with Meli @ [facility] [phone]. Meli stated that at this time they do not have a female vent bed available. She stated that she doesn't know when one may be available or if patient is at the top of the list or not. Meli stated that CM would need to speak with July PARK for that information and she isn't there today. CM will continue to follow and assist as needed with discharge planning / needs. DCP- Discharge Planning Updated by [id number]: Lizabeth Bingham on 08/09/18 6:[address] CM spoke with Wei Delatorre in [facility] she got in touch with for me and got in touch with the appropriate person at [facility]. Was able to fax form in and get the appropriate information to Meli @ [facility] in [place]. KRYSTAL later contacted Meli and she stated that everything was good as far as financials. They currently do not have any female vent beds available. Meli stated she would keep us posted on availability. Wei notified me that [facility] had put in the necessary information so that Lesley Domingo patients sister can be her payor source. Lesley is to go to [facility] in [place] next week.CM will continue to follow and assist as needed with discharge planning / needs. DCP- Discharge Planning Updated by [id number]: Lizabeth Bingham on 08/08/18 7:[address] CM attempted to call local SS office to see if CM could fax form into them and get patients disability number. KRYSTAL was on hold for over 30 mins and never got to speak to a fuels sales representative. CM spoke with Meli at [facility]. She stated that she hasn't heard anything yet. Meli stated that once the financials was cleared then we will need to send updated clinicals and then would go through medical review for acceptance. CM will continue to follow and assist with discharge planning/ needs DCP- Discharge Planning Updated by [id number]: Lizabeth Bingham on 08/06/18 5:[address] Late Entry 08/06/18 @ [address] Webb office to see if they have received a fax from [facility]. Omaira stated that they have not received anything for her. CM will try to get back in touch with Lesley Domingo patients sister and Wei in [facility] to see what our next step is. KRYSTAL contacted Meli at [facility] to let her know we are still working on placement. CM will continue to follow and assist with discharge planning / needs. DCP- Discharge Planning Updated by [id number]: Lizabeth Bingham on 07/31/18 4:[address] CM received notification that the social security office in [place] would not accept form that was sent to Lesley Domingo to get authorization to manage patients finances. They said they would have to directly send it to Dr. Tucker and then have him to send it back. [facility] has to have some proof of income before they can accept patient. We are having to wait to see if we can get Lesley approved to manage social security benefits in patients behalf. CM will continue to follow and assist with discharge planning / needs. DCP- Discharge Planning Updated by [id number]: Lizabeth Bingham on 07/26/18 6:[address] Late Entry 07/26/18 @ [address] Tucker and got form signed for [facility]. CM took form to Wei in [facility]. CM will continue to follow and assist as needed with discharge planning / needs DCP- Discharge Planning Updated by [id number]: Lizabeth Bingham on 07/25/18 4:[address] CM spoke with Wei Delatorre this am. Wei spoke with patients sister Lesley Domingo trying to find out information needed to get patient placement. KRYSTAL was later notified that a form from [facility] needed to be filled out by physician. CM attempted to get in touch with paged him several times but was unsuccessful. Called his office but no response at this time. CM will continue to follow and assist as needed with discharge planning / needs. DCP- Discharge Planning Updated by [id number]: Lizabeth Bingham on 07/24/18 4:[address] CM called and spoke with Meli at [facility] in [place]. [phone]. CM asked if family was able to provide information needed. Meli stated that she hasn't heard from anyone since she had spoke to me last week. Meli is requesting proof that patient has applied for SSI and she needs proof of income. KRYSTAL attempted to call aids social worker Ailyn Read [phone] or [phone] to see if she might could assist with obtaining this information. CM was unsuccessful in contacting Ailyn. KRYSTAL called and spoke with Wei Delatorer and gave her Meli phone number to see if she could assist with information. Wei will contact Meli and her coagulating drying supervisor to see if they can assist with information needed. Wei will contact CM after she gets in contact with others. CM will continue to follow and assist as needed with discharge planning / needs. DCP- Discharge Planning Updated by [id number]: Lizabethlarry Bingham on 07/18/18 5:[address] Late Entry 07/18/18 @ 1020 CM called and left a message for July PARK @ [facility]. CM awaiting response.CM will continue to follow and assist as needed with discharge planning / needs. Late Entry 07/18/18 @ 1330 CM received call from Meli with [facility]. Meli was wanting to know if patient was getting SSI or SSA. KRYSTAL was unaware of this information and referred Meli to call patients sister Lesley Domingo. CM called and spoke with Wei Delatorre regarding Medicaid. Wei stated patient had SSI Medicaid until 07/10/18 and regular Medicaid started 07/11/18. KRYSTAL called Meli back to give this information to her and also gave Wei's number if she has questions regarding this. Meli stated that she also needed to know if the patient had applied for SSI and how much she had in her bank account. KRYSTAL explained that we would try to find out this information. CM will check with sister and possibly patient medical case manager whom assisted patient with housing when released from senior care. CM will continue to follow and assist as needed with discharge planning / needs. DCP- Discharge Planning Updated by [id number]: Lizabethlarry Bingham on 07/18/18 5:[address] Late Entry 07/17/18 @ 1600 CM called and left message x 2 for July PARK from [facility]. CM awaiting response. CM will continue to follow and assist as needed with discharge planning / needs. DCP- Discharge Planning Updated by [id number]: Lizabeth Bingham on 07/15/18 12:[address] CM spoke with patient's sister Lesley Domingo this am. She stated that the patient doesn't have Medicare. She asked when patient would transfer to [place]. CM explained that we are awaiting on acceptance to [facility] at this point. KRYSTAL called [facility] for update July told CM to fax updated clinical and that it would be tomorrow 11/06/18 before they may have a determination. July requested CM not to call back tomorrow until after noon. CM will update family. KRYSTAL also contacted [facility] in [place], [place]. [phone] KRYSTAL spoke with Za she stated at this time they are not accepting out of state Medicaid at their facility. CM will continue to follow and assist as needed with discharge planning / needs. DCP- Discharge Planning Updated by [id number]: Lizabeth Bingham on 07/12/18 7:[address] CM was notified patient sister Lesley Domingo was here and requested to speak with me. KRYSTAL explained that the current plan was that we was looking into placement with [facility] in [place], [place]. KRYSTAL had spoke to Zoila with [facility] prior to coming to speak with Lesley. KRYSTAL had answered questions that Zoila had. Zoila stated the next process that they would send patients information to Executive offices and would be awaiting financial approval. Zoila stated for CM to call back to check on this at anytime next week. KRYSTAL explained all this to sister Lesley. Lesley asked why she was having to be transferred out of state. KRYSTAL explained that LTACH facilities within the state do not take Medicaid and that assisted fpc facilities in the state do not accept ventilator patients. Lesley states that she had received information that the patient is and receiving Medicare through her . KRYSTAL explained that we had no record of that only Medicaid. Lesley requested that [facility] find this information out. KRYSTAL explained that if it was through the patients spouse then it would need to be his information used to look it up. Lesley states that she has a letter at her home that has this information on it.(Because she has custody of patients son and he receiving his benefits also). The conversation ended that Lesley was going to get the information to KRYSTAL. KRYSTAL received call from Lesley around 4:45pm requesting information on online Social Security office hours. Lesley also wanted to know what would happen if they didn't consent to transfer. KRYSTAL explained that I wasn't sure and Lesley requested for KRYSTAL to find out this information. KRYSTAL spoke with other test case developer within the facility. KRYSTAL then called Lesley back and explained that if the patient was stable for transfer and they still refusing transfer then it would most likely go to ethics board and [facility] could be notified. Lesley then starting raising her voice that" the hospital and staff was not giving her accurate updates over the phone. She had no idea that Evy was almost in a comatose state." Lesley requested for us to wait on transfer until after she could show proof that she has Medicare. KRYSTAL explained that nothing would be happening until next week. She was still upset that she was going to have to stay longer than she had planned to get this taken care of. CM told her that I would be happy to let her speak to someone else on Sunday. CM will continue to follow and assist as needed will discharge planning/ needs. DCP- Discharge Planning Updated by [id number]: Lizabeth Bingham on 07/11/18 7:[address] CM spoke with [facility] in [place] ([facility]). She stated that all their Vent beds are full at this time and they could put the patient on a waiting list for a bed. CM gave information to put patient on waiting list. CM then contacted [facility] in [place] ([facility]) she stated they might could accept patient. CM faxed over information and later got denial from [facility] that patient required too high of level of care. CM contacted [facility] division assisted care to see if they could give any insight on facilities that take ventilator patients [facility] the [facility]. They only gave [facility] in [place]. CM called and spoke with patients sister Lesley Domingo. CM explained the situation that the patient was needing placement and we might have to go out of the state of [place] for placement. Lesley was concerned about patient getting back to [place] once she recovered. Lesley also stated that she would be in to see patient today that she just got into town. CM will plan to speak to her while she is here. KRYSTAL received information on [facility] in [place], [place] that takes ventilator patients. KRYSTAL called Meli [phone] and faxed [phone] records. CM awaiting decision from [facility]. CM will continue to follow and assist as needed with discharge planning / needs. DCP- Discharge Planning Updated by [id number]: Lizabeth Bingham on 07/08/18 4:[address] CM contacted all LTACH within state to check on Medicaid bed availability / ana bed availability. Still awaiting call back on three facilities but at this time no had stated they would accept any Medicaid patients or ana. CM will continue to follow and assist as needed with discharge planning / needs. DCP- Discharge Planning Updated by [id number]: Lizabeth Bingham on 06/20/18 11:[address] Patient Name: EVY ART Admission Status: Elective Accout number: [id number] Admission Date: 06-07-2018 : 1960 Admission Diagnosis:MALIGNANT NEOPLASM OF CARDIA Attending: WILLIAM TUCKER Current LOS: 13 Anticipated DC Date: Planned Disposition: Home or Self Care Primary Insurance: [place] Discharge Planning Comments: CM called and spoke with sister Lesley Domingo [phone]. Patient is still on vent and sedated. Lesley (lives in [place]) informed CM that patient doesn't have any family that lives in the [facility]. She stated that the patient had been incarcerated and had been released approximately 8 weeks prior to admission. Sister states that patient had found out while incarcerated that she had cancer. Patient had been getting radiation / chemo prior to admit. Lesley states that she has custody of patients youngest child and that her oldest child is in senior care in [place]. Lesley states that her goal is for patient to finish her cancer treatments then come to her home in [place]. Lesley also states that patient has a roommate Nadine that comes to visit patient in the evenings. CM will continue to follow and assist as needed with discharge planning/ needs. [employer] Founder: Lizabeth Bingham DCP- Discharge Planning Updated by [id number]: Lizabeth Bingham on 06/14/18 7:[address] Patient on Vent / sedated. No family available for discharge planning.CM will continue to follow and assist as needed with discharge planning / needs. Last DP export: 08/29/18 8:28 Patient Name: EVY ART Page [id number] at 0944 All edits/amendments must be made on the electronic document DICTATION DATE: 08/29/18943 OUTPATIENT PHLEBOTOMIST: DM 08/29/18943 RPT#: [id number] DC DATE: STATUS: ADM IN [facility] [address] [place] [address] END OF REPORT
--- NOTE | ~2018-06-07 | MORECARE ---
CASE MANAGEMENT DISCHARGE SUMMARY PATIENT: ESDRAS ART UNIT: [id number] ADM DATE: 06/07/18 AGE: 57 : 62 SEX: F ROOM/BED: D.2307 AUTHOR: [email or web address] PHYSICIAN: REFERRING PHYSICIAN: WILLIAM TUCKER MD DATE OF SERVICE: 07/12/18 Discharge Plan Patient Name: ESDRAS ART Facility: [facility]:[place] : 1960 Planned Disposition: Home or Self Care Anticipated Discharge Date: Discharge Date: Expected LOS: Initial Reviewer: [id number] Initial Review Date: 06/07/2018 Generated: 07/12/18 8:06 pm Comments DCP- Discharge Planning Updated by [id number]: Lizabeth Bingham on 07/12/18 6:[address] CM was notified patient sister Lesley Domingo was here and requested to speak with me. KRYSTAL explained that the current plan was that we was looking into placement with [facility] in [place], [place]. KRYSTAL had spoke to Zoila with [facility] prior to coming to speak with Lesley. KRYSTAL had answered questions that Zoila had. Zoila stated the next process that they would send patients information to [facility] offices and would be awaiting financial approval. Zoila stated for to call back to check on this at anytime next week. KRYSTAL explained all this to sister Lesley. Lesley asked why she was having to be transferred out of state. KRYSTAL explained that LTACH facilities within the state do not take Medicaid and that cooky machine operator fdc facilities in the [facility] do not accept ventilator patients. Lesley states that she had received information that the patient is and receiving Medicare through her . KRYSTAL explained that we had no record of that only Medicaid. Lesley requested that [facility] find this information out. KRYSTAL explained that if it was through the patients spouse then it would need to be his information used to look it up. Lesley states that she has a letter at her home that has this information on it.(Because she has custody of patients son and he receiving his benefits also). The conversation ended that Lesley was going to get the information to KRYSTAL. KRYSTAL received call from Lesley around 4:45pm requesting information on online Social Security office hours. Lesley also wanted to know what would happen if they didn't consent to transfer. KRYSTAL explained that I wasn't sure and Lesley requested for KRYSTAL to find out this information. KRYSTAL spoke with other catalytic case operator within the facility. KRYSTAL then called Lesley back and explained that if the patient was stable for transfer and they still refusing transfer then it would most likely go to ethics board and [facility] could be notified. Lesley then starting raising her voice that" the hospital and staff was not giving her accurate updates over the phone. She had no idea that Esdras was almost in a comatose state." Lesley requested for us to wait on transfer until after she could show proof that she has Medicare. KRYSTAL explained that nothing would be happening until next week. She was still upset that she was going to have to stay longer than she had planned to get this taken care of. KRYSTAL told her that I would be happy to let her speak to someone else on Sunday. CM will continue to follow and assist as needed will discharge planning/ needs. DCP- Discharge Planning Updated by [id number]: Lizabeth Bingham on 07/11/18 6:[address] CM spoke with [facility] in [place] ([facility]). She stated that all their Vent beds are full at this time and they could put the patient on a waiting list for a bed. CM gave information to put patient on waiting list. KRYSTAL then contacted [facility] in [place] ([facility]) she stated they might could accept patient. CM faxed over information and later got denial from [facility] that patient required too high of level of care. CM contacted [facility] division cooky machine operator care to see if they could give any insight on facilities that take ventilator patients within the [facility]. They only gave [facility] [place]. KRYSTAL called and spoke with patients sister Lesley Domingo. KRYSTAL explained the situation that the patient was needing placement and we might have to go out of the state of [place] for placement. Lesley was concerned about patient getting back to [place] once she recovered. Lesley also stated that she would be in to see patient today that she just got into town. CM will plan to speak to her while she is here. CM received information on [facility] in [place], [place] that takes ventilator patients. CM called [facility] [phone] and faxed [phone] records. CM awaiting decision from [facility]. CM will continue to follow and assist as needed with discharge planning / needs. DCP- Discharge Planning Updated by [email or web address]: Lizabeth Bingham on 07/08/18 3:[address] CM contacted all LTACH within state to check on Medicaid bed availability / ana bed availability. Still awaiting call back on three facilities but at this time no had stated they would accept any Medicaid patients or ana. CM will continue to follow and assist as needed with discharge planning / needs. DCP- Discharge Planning Updated by [id number]: Lizabeth Bingham on 06/20/18 10:[address] Patient Name: ESDRAS ART Admission Status: Elective Accout number: [id number] Admission Date: 06-07-2018 : 1960 Admission Diagnosis:MALIGNANT NEOPLASM OF CARDIA Attending: WILLIAM TUCKER Current LOS: 13 Anticipated DC Date: Planned Disposition: Home or Self Care Primary Insurance: [place]ICAID [place] Discharge Planning Comments: CM called and spoke with sister Lesley Domingo [phone]. Patient is still on vent and sedated. Lesley (lives in [place]) informed CM that patient doesn't have any family that lives in the [facility]. She stated that the patient had been incarcerated and had been released approximately 8 weeks prior to admission. Sister states that patient had found out while incarcerated that she had cancer. Patient had been getting radiation / chemo prior to admit. Lesley states that she has custody of patients youngest child and that her oldest child is in shelter in [place]. Lesley states that her goal is for patient to finish her cancer treatments then come to her home in [place]. Lesley also states that patient has a roommate Nadine that comes to visit patient in the evenings. CM will continue to follow and assist as needed with discharge planning/ needs. Self Rising Flour Mixer: Lizabeth Bingham DCP- Discharge Planning Updated by [id number]: Lizabeth Bingham on 06/14/18 6:[address] Patient on Vent / sedated. No family available for discharge planning.CM will continue to follow and assist as needed with discharge planning / needs. Last DP export: 07/11/18 6:25 p Patient Name: ESDRAS ART Page [id number] at 1907 All edits/amendments must be made on the electronic document DICTATION DATE: 07/12/181905 AUTO BODY SERVICE MECHANIC: ANA ROSA 07/12/181905 RPT#: [id number] DC DATE: STATUS: ADM IN [facility] [address] [place] [address] END OF REPORT
--- NOTE | ~2018-06-07 | OP ---
PATIENT NAME: ESDRAS ART MEDICAL RECORD: [id number] :[birth year] LOCATION:D.MS [id number] ADMISSION DATE:06/07/18 SURGEON: KARLOS TUCKER MD DATE OF OPERATION: 08/30/2018 PREOPERATIVE DIAGNOSIS: Malfunctioning jejunostomy tube. POSTOPERATIVE DIAGNOSIS: Malfunctioning jejunostomy tube. PROCEDURE: Replacement of 16-Ukrainian jejunostomy tube at the bedside. SURGEON: Karlos Tucker MD NUCLEAR MEDICINE OFFICER: None. BLOOD LOSS: Minimal. ANESTHESIA: Local. COMPLICATIONS: None. The risks, possible complications and alternatives to procedure were explained to the patient. She elects to proceed. The entire procedure was performed in the presence of a female nurse. The indwelling nonfunctional (clogged up) jejunostomy tube was removed. I sterilely prepped the area around the enterocutaneous stoma. A local anesthetic was used to infiltrate the skin and subcutaneous tissues around the exit site. I then cut out some small holes at the distal end of a 16-Ukrainian red rubber Reyes catheter. I advanced it up through the enterocutaneous fistula and into the small bowel. I then sutured the jejunostomy tube in place with 2-0 nylon. I will obtain a dye study tomorrow to confirm the placement is correct and that the tip of the jejunostomy tube is within the jejunum. TRANSINT:[id number] Voice Confirmation ID: [id number] DOCUMENT ID: [id number] KARLOS TUCKER MD at 1643 CC: [id number] DICTATION DATE: 08/31/18 1520 ASSEMBLYMAN OR WOMAN: 08/31/18 2046 ADM IN [place] [id number] [place] [address]
--- NOTE | ~2018-06-07 | MORECARE ---
CASE MANAGEMENT DISCHARGE SUMMARY PATIENT: EVY ART UNIT: [id number] ADM DATE: 06/07/18 AGE: 57 : 62 SEX: F ROOM/BED: D.2224 AUTHOR: ZAID,DOC PHYSICIAN: REFERRING PHYSICIAN: WILLIAM TUCKER MD DATE OF SERVICE: 08/28/18 Discharge Plan Patient Name: EVY ART Facility: [facility]:[place] : 1960 Planned Disposition: Home or Self Care Anticipated Discharge Date: Discharge Date: Expected LOS: Initial Reviewer: [id number] Initial Review Date: 06/07/2018 Generated: 08/28/18 3:05 pm Comments DCP- Discharge Planning Updated by [id number]: Edita Quinonez on 08/28/18 7:[address] Spoke with Evi at [facility] in [place] and sent requested clinical. She states she and the DON are reviewing clinical for admission. I did inform her label maker is working toward decannulation. I spoke again with Alba Baker and she met with the patient and at this time she is unable to get her placed with any of her facilities. CM will continue to follow and assist with discharge planning/needs. DCP- Discharge Planning Updated by [id number]: Edita Devi on 08/27/18 10:[address] Updated clinical sent to [facility] in [facility] and I notified David Byrne that I sent them. I left a message with David about status of transfer to the facility. CM will continue to follow and assist with discharge planning/needs. DCP- Discharge Planning Updated by [id number]: Edita Quinonez on 08/26/18 1:[address] KYLIE paper work and clinical faxed to [facility]. CM will continue to follow and assist with discharge planning/needs. DCP- Discharge Planning Updated by [id number]: Edita Devi on 08/26/18 12:[address] Met with patient to discuss discharge planning, she would like to go to her brother's up [place]. She states that she needs to get stronger prior to going there. I informed her I was trying to get her in a rehab in [place], which is [facility]. She agrees to going to [place] for rehab if they will accept her. I have filled a [place] form out and she signed. I will need to contact Dr. Tucker for his signature. He is in surgery at this time. DCP- Discharge Planning Updated by [id number]: Edita Quinonez on 08/23/18 3:[address] Received a call from Evi bernardo [facility] in [facility] for more information for possible admission. I faxed her clinical to [phone]. She will also need a KYLIE before admission completed. CM will continue to follow and assist with discharge planning/needs. DCP- Discharge Planning Updated by [id number]: Edita Quinoenz on 08/23/18 11:[address] I spoke with Alba Baker today for an update. She states she does not have an accepting facility at this time. I sent referral to David Byrne. CM will continue to follow and assist with discharge planning/needs. DCP- Discharge Planning Updated by [id number]: Lizabeth Bingham on 08/21/18 9:[address] CM received a call from patients sister Lesley Domingo that [employer] has notified her that she should be receiving her paperwork in the next 2 weeks. Paperwork that she can act in Evy behalf for Medicaid. CM will continue to follow and assist with discharge planning. DCP- Discharge Planning Updated by [id number]: Lizabeth Bingham on 08/16/18 11:[address] CM continuing to follow up with [facility] about placement for female vent bed availability. If patient can be off vent for 72hrs then CM can seek placement locally. CM will continue to follow and assist as needed with discharge planning / needs. DCP- Discharge Planning Updated by [id number]: Wintergerda Randolph on 08/15/18 12:[address] Patient Name: EVY ART Admission Status: Elective Accout number: [id number] Admission Date: 06-07-2018 : 1960 Admission Diagnosis:MALIGNANT NEOPLASM OF CARDIA Attending: WILLIAM TUCKER Current LOS: 69 Anticipated DC Date: Planned Disposition: Home or Self Care Primary Insurance: [place] Discharge Planning Comments: CM CALLED [facility] TO SPEAK WITH JULY REGARDING A VENT BED. THEY STATE JULY IS OUT SICK AND WON'T BE BACK UNTIL NEXT WEEK. STATES WILL HAVE TO CALL BACK ON SUNDAY. Nondestructive Tester: Winter Randolph DCP- Discharge Planning Updated by [id number]: Lizabeth Furr on 08/14/18 4:[address] CM called [facility] and spoke with Jennyfer RANDLE. Jennyfer stated that she wasn't able to answer questions regarding how soon for bed availability. July was out sick and she had no information on placement. CM will call back tomorrow and attempt to speak with July. DCP- Discharge Planning Updated by [id number]: Lizabeth Zachery on 08/13/18 2:[address] CM called [facility] in [place] and left message for VIVIAN (July) to return call regarding placement and how long until placement. CM still awaiting call back @ this time. DCP- Discharge Planning Updated by [id number]: Lizabeth Furr on 08/12/18 5:[address] CM called and spoke with Meli @ [facility] [phone]. Meli stated that at this time they do not have a female vent bed available. She stated that she doesn't know when one may be available or if patient is at the top of the list or not. Meli stated that CM would need to speak with July PARK for that information and she isn't there today. CM will continue to follow and assist as needed with discharge planning / needs. DCP- Discharge Planning Updated by [id number]: Lizabeth Bingham on 08/09/18 6:[address] CM spoke with Wei Delatorre in [facility] she got in touch with for me and got in touch with the appropriate person at [facility]. Was able to fax form in and get the appropriate information to Meli @ [facility] in [place]. CM later contacted Meli and she stated that everything was good as far as financials. They currently do not have any female vent beds available. Meli stated she would keep us posted on availability. Wei notified me that [facility] security had put in the necessary information so that Lesley diaz sister can be her payor source. Lesley is to go to social security in [place] next week.CM will continue to follow and assist as needed with discharge planning / needs. DCP- Discharge Planning Updated by [id number]: Lizabeth Bingham on 08/08/18 7:[address] CM attempted to call local office to see if CM could fax form into them and get patients disability number. CM was on hold for over 30 mins and never got to speak to a client services representative. KRYSTAL spoke with Meli at [facility]. She stated that she hasn't heard anything yet. Meli stated that once the financials was cleared then we will need to send updated clinicals and then would go through medical review for acceptance. CM will continue to follow and assist with discharge planning/ needs DCP- Discharge Planning Updated by [email or web address]: Lizabeth Bingham on 08/06/18 5:[address] Late Entry 08/06/18 @ [address] Webb office to see if they have received a fax from Social Security. Omaira stated that they have not received anything for her. CM will try to get back in touch with Lesley Domingo patients sister and Wei in [facility] to see what our next step is. CM contacted Meli at [facility] to let her know we are still working on placement. CM will continue to follow and assist with discharge planning / needs. DCP- Discharge Planning Updated by [id number]: Lizabeth Bingham on 07/31/18 4:[address] CM received notification that the social security office in [place] would not accept form that was sent to Lesley Domingo to get authorization to manage patients finances. They said they would have to directly send it to Dr. Tucker and then have him to send it back. [facility] has to have some proof of income before they can accept patient. We are having to wait to see if we can get Lesley approved to manage social security benefits in patients behalf. CM will continue to follow and assist with discharge planning / needs. DCP- Discharge Planning Updated by [id number]: Lizabeth Bingham on 07/26/18 6:[address] Late Entry 07/26/18 @ [address] Tucker and got form signed for [facility]. CM took form to Wei in [facility]. CM will continue to follow and assist as needed with discharge planning / needs DCP- Discharge Planning Updated by [id number]: Lizabeth Bingham on 07/25/18 4:[address] CM spoke with Wei Delatorre this am. Wei spoke with patients sister Lesley Domingo trying to find out information needed to get patient placement. KRYSTAL was later notified that a form from [employer] needed to be filled out by physician. CM attempted to get in touch with paged him several times but was unsuccessful. Called his office but no response at this time. CM will continue to follow and assist as needed with discharge planning / needs. DCP- Discharge Planning Updated by [id number]: Lizabeth Bingham on 07/24/18 4:[address] CM called and spoke with Meli at [facility] in [place]. [phone]. KRYSTAL asked if family was able to provide information needed. Meli stated that she hasn't heard from anyone since she had spoke to me last week. Meli is requesting proof that patient has applied for SSI and she needs proof of income. KRYSTAL attempted to call bridge worker Ailyn Read [phone] or [phone] to see if she might could assist with obtaining this information. CM was unsuccessful in contacting Ailyn. CM called and spoke with Wei Delatorre and gave her Meli phone number to see if she could assist with information. Wei will contact Meli and her plant maintenance supervisor to see if they can assist with information needed. Wei will contact KRYSTAL after she gets in contact with others. CM will continue to follow and assist as needed with discharge planning / needs. DCP- Discharge Planning Updated by [id number]: Lizabeth Bingham on 07/18/18 5:[address] Late Entry 07/18/18 @ 1020 CM called and left a message for July PARK @ [facility]. CM awaiting response.CM will continue to follow and assist as needed with discharge planning / needs. Late Entry 07/18/18 @ 1330 CM received call from Meli with [facility]. Meli was wanting to know if patient was getting SSI or SSA. KRYSTAL was unaware of this information and referred Meli to call patients sister Lesley Domingo. KRYSTAL called and spoke with Wei Delatorre regarding Medicaid. Wei stated patient had SSI Medicaid until 07/10/18 and regular Medicaid started 07/11/18. KRYSTAL called Meli back to give this information to her and also gave Wei's number if she has questions regarding this. Meli stated that she also needed to know if the patient had applied for SSI and how much she had in her bank account. KRYSTAL explained that we would try to find out this information. CM will check with sister and possibly patient renal case manager whom assisted patient with housing when released from custodial. CM will continue to follow and assist as needed with discharge planning / needs. DCP- Discharge Planning Updated by [id number]: Lizabeth Bingham on 07/18/18 5:[address] Late Entry 07/17/18 @ 1600 CM called and left message x 2 for July PARK from [facility]. CM awaiting response. CM will continue to follow and assist as needed with discharge planning / needs. DCP- Discharge Planning Updated by [id number]: Lizabeth Bingham on 07/15/18 12:[address] CM spoke with patient's sister Lesley Domingo this am. She stated that the patient doesn't have Medicare. She asked when patient would transfer to [place]. KRYSTAL explained that we are awaiting on acceptance to [facility] at this point. CM called [facility] for update July told CM to fax updated clinical and that it would be tomorrow 07/16/18 before they may have a determination. July requested CM not to call back tomorrow until after noon. CM will update family. CM also contacted [facility] in [place], [place]. [phone] CM spoke with Za she stated at this time they are not accepting out of state Medicaid at their facility. CM will continue to follow and assist as needed with discharge planning / needs. DCP- Discharge Planning Updated by [id number]: Lizabeth Bingham on 07/12/18 7:[address] KRYSTAL was notified patient sister Lesley Domingo was here and requested to speak with me. KRYSTAL explained that the current plan was that we was looking into placement with [facility] in [place], [place]. CM had spoke to Zoila with [facility] prior to coming to speak with Lesley. KRYSTAL had answered questions that Zoila had. Zoila stated the next process that they would send patients information to [facility] offices and would be awaiting financial approval. Zoila stated for CM to call back to check on this at anytime next week. KRYSTAL explained all this to sister Lesley. Lesley asked why she was having to be transferred out of state. KRYSTAL explained that LTACH facilities within the state do not take Medicaid and that terminal gaug[facility] supervisor jail facilities in the state do not accept ventilator patients. Lesley states that she had received information that the patient is and receiving Medicare through her . KRYSTAL explained that we had no record of that only Medicaid. Lesley requested that [facility] find this information out. KRYSTAL explained that if it was through the patients spouse then it would need to be his information used to look it up. Lesley states that she has a letter at her home that has this information on it.(Because she has custody of patients son and he receiving his benefits also). The conversation ended that Lesley was going to get the information to CM. KRYSTAL received call from Lesley around 4:45pm requesting information on online Social Security office hours. Lesley also wanted to know what would happen if they didn't consent to transfer. KRYSTAL explained that I wasn't sure and Lesley requested for CM to find out this information. KRYSTAL spoke with other renal case manager within the facility. KRYSTAL then called Lesley back and explained that if the patient was stable for transfer and they still refusing transfer then it would most likely go to ethics board and DHS could be notified. Lesley then starting raising her voice that" the hospital and staff was not giving her accurate updates over the phone. She had no idea that Evy was almost in a comatose state." Lesley requested for us to wait on transfer until after she could show proof that she has Medicare. KRYSTAL explained that nothing would be happening until next week. She was still upset that she was going to have to stay longer than she had planned to get this taken care of. KRYSTAL told her that I would be happy to let her speak to someone else on Sunday. CM will continue to follow and assist as needed will discharge planning/ needs. DCP- Discharge Planning Updated by [id number]: Lizabeth Bingham on 07/11/18 7:[address] KRYSTAL spoke with [facility] in [place] ([facility] She stated that all their Vent beds are full at this time and they could put the patient on a waiting list for a bed. CM gave information to put patient on waiting list. KRYSTAL then contacted [facility] in [place] ([facility]) she stated they might could accept patient. CM faxed over information and later got denial from [facility] that patient required too high of level of care. CM contacted [facility] to see if they could give any insight on facilities that take ventilator patients within the [facility]. They only gave [facility] in [place]. CM called and spoke with patients sister Lesley Domingo. CM explained the situation that the patient was needing placement and we might have to go out of the state of [place] for placement. Lesley was concerned about patient getting back to [place] once she recovered. Lesley also stated that she would be in to see patient today that she just got into town. CM will plan to speak to her while she is here. CM received information on [facility] in [place], [place] that takes ventilator patients. CM called [facility] [phone] and faxed [phone] records. CM awaiting decision from [facility]. CM will continue to follow and assist as needed with discharge planning / needs. DCP- Discharge Planning Updated by [id number]: Lizabeth Bingham on 07/08/18 4:[address] CM contacted all LTACH within [facility] to check on Medicaid bed availability / ana bed availability. Still awaiting call back on three facilities but at this time no had stated they would accept any Medicaid patients or ana. CM will continue to follow and assist as needed with discharge planning / needs. DCP- Discharge Planning Updated by [id number]: Lizabeth Bingham on 06/20/18 11:[address] Patient Name: EVY ART Admission Status: Elective Accout number: [id number] Admission Date: 06-07-2018 : 1960 Admission Diagnosis:MALIGNANT NEOPLASM OF CARDIA Attending: WILLIAM TUCKER Current LOS: 13 Anticipated DC Date: Planned Disposition: Home or Self Care Primary Insurance: [place]ID [place] Discharge Planning Comments: CM called and spoke with sister Lesley Domingo [phone]. Patient is still on vent and sedated. Lesley (lives in [place]) informed CM that patient doesn't have any family that lives in the state of [place]. She stated that the patient had been incarcerated and had been released approximately 8 weeks prior to admission. Sister states that patient had found out while incarcerated that she had cancer. Patient had been getting radiation / chemo prior to admit. Lesley states that she has custody of patients youngest child and that her oldest child is in custodial in [place]. Lesley states that her goal is for patient to finish her cancer treatments then come to her home in [place]. Lesley also states that patient has a roommate Nadine that comes to visit patient in the evenings. CM will continue to follow and assist as needed with discharge planning/ needs. Nondestructive Tester: Lizabeth Bingham DCP- Discharge Planning Updated by [id number]: Lizabeth Bingham on 06/14/18 7:[address] Patient on Vent / sedated. No family available for discharge planning.CM will continue to follow and assist as needed with discharge planning / needs. External Providers External Provider: [facility] Next Contact Date: Service Request Date: Service Type: Resolution: Reviewer: Comments: Last DP export: 08/28/18 8:03 Patient Name: EVY ART Page [id number] at 1405 All edits/amendments must be made on the electronic document DICTATION DATE: 08/28/181403 INJECTION MOLDING MACHINE TENDER: ANA ROSA 08/28/181403 RPT#: [id number] DC DATE: STATUS: ADM IN [facility] [address] [place] [address] END OF REPORT
--- NOTE | ~2018-06-07 | MORECARE ---
CASE MANAGEMENT DISCHARGE SUMMARY PATIENT: EVY ART UNIT: [id number] ADM DATE: 06/07/18 AGE: 57 : 62 SEX: F ROOM/BED: D.2224 AUTHOR: DARCI MAR PHYSICIAN: REFERRING PHYSICIAN: WILLIAM TUCKER MD DATE OF SERVICE: 08/27/18 Discharge Plan Patient Name: EVY ART Facility: [facility]:[place] : 1960 Planned Disposition: Home or Self Care Anticipated Discharge Date: Discharge Date: Expected LOS: Initial Reviewer: [email or web address] Initial Review Date: 06/07/2018 Generated: 08/27/18 12:43 pm Comments DCP- Discharge Planning Updated by [email or web address]: Edita Quinonez on 08/27/18 10:[address] Updated clinical sent to [facility] and I notified David Byrne that I sent them. I left a message with David about status of transfer to the facility. CM will continue to follow and assist with discharge planning/needs. DCP- Discharge Planning Updated by [id number]: Edita Devi on 08/26/18 1:[address] KYLIE paper work and clinical faxed to [facility]. CM will continue to follow and assist with discharge planning/needs. DCP- Discharge Planning Updated by [id number]: Edita Mckeonangelita on 08/26/18 12:[address] Met with patient to discuss discharge planning, she would like to go to her brother's [facility]. She states that she needs to get stronger prior to going there. I informed her I was trying to get her in a rehab in [place], which is [facility]. She agrees to going to [place] for rehab if they will accept her. I have filled a Kylie form out and she signed. I will need to contact Dr. Tucker for his signature. He is in surgery at this time. DCP- Discharge Planning Updated by [email or web address]: Edita Devi on 08/23/18 3:[address] Received a call from Evi at [facility] for more information for possible admission. I faxed her clinical to [phone]. She will also need a KYLIE before admission completed. CM will continue to follow and assist with discharge planning/needs. DCP- Discharge Planning Updated by [email or web address]: Edita Quinonez on 08/23/18 11:[address] I spoke with Alba Baker today for an update. She states she does not have an accepting facility at this time. I sent referral to David Byrne. CM will continue to follow and assist with discharge planning/needs. DCP- Discharge Planning Updated by [id number]: Lizabeth Bingham on 08/21/18 9:[address] CM received a call from patients sister Lesley Domingo that [employer] has notified her that she should be receiving her paperwork in the next 2 weeks. Paperwork that she can act in Evy behalf for Medicaid. CM will continue to follow and assist with discharge planning. DCP- Discharge Planning Updated by [id number]: Lizabeth Bingham on 08/16/18 11:[address] CM continuing to follow up with [facility] about placement for female vent bed availability. If patient can be off vent for 72hrs then CM can seek placement locally. CM will continue to follow and assist as needed with discharge planning / needs. DCP- Discharge Planning Updated by [id number]: Winter Randolph on 08/15/18 12:[address] Patient Name: EVY ART Admission Status: Elective Accout number: [id number] Admission Date: 06-07-2018 : 1960 Admission Diagnosis:MALIGNANT NEOPLASM OF CARDIA Attending: WILLIAM TUCKER Current LOS: 69 Anticipated DC Date: Planned Disposition: Home or Self Care Primary Insurance: MEDICAID [place] Discharge Planning Comments: CM CALLED [facility] TO SPEAK WITH JULY REGARDING A VENT BED. THEY STATE JULY IS OUT SICK AND WON'T BE BACK UNTIL NEXT WEEK. STATES WILL HAVE TO CALL BACK ON SUNDAY. Rebeamer: Winter Randolph DCP- Discharge Planning Updated by [email or web address]: Lizabeth Bingham on 08/14/18 4:[address] CM called [facility] and spoke with Jennyfer RANDLE. Jennyfer stated that she wasn't able to answer questions regarding how soon for bed availability. July was out sick and she had no information on placement. CM will call back tomorrow and attempt to speak with July. DCP- Discharge Planning Updated by [id number]: Lizabeth Bingham on 08/13/18 2:[address] CM called [facility] in [place] and left message for VIVIAN (July) to return call regarding placement and how long until placement. CM still awaiting call back @ this time. DCP- Discharge Planning Updated by [id number]: Lizabeth Bingham on 08/12/18 5:[address] CM called and spoke with Meli @ [facility] [phone]. Meli stated that at this time they do not have a female vent bed available. She stated that she doesn't know when one may be available or if patient is at the top of the list or not. Meli stated that CM would need to speak with July PARK for that information and she isn't there today. CM will continue to follow and assist as needed with discharge planning / needs. DCP- Discharge Planning Updated by [id number]: Lizabeth Bingham on 08/09/18 6:[address] KRYSTAL spoke with Wei Delatorre in [facility] she got in touch with SS for me and got in touch with the appropriate person at [facility]. Was able to fax form in and get the appropriate information to Meli @ [facility] in [place]. CM later contacted Meli and she stated that everything was good as far as financials. They currently do not have any female vent beds available. Meli stated she would keep us posted on availability. Wei notified me that [facility] [employer] security had put in the necessary information so that Lesley diaz sister can be her payor source. Lesley is to go to social security in [place] next week.CM will continue to follow and assist as needed with discharge planning / needs. DCP- Discharge Planning Updated by [id number]: Lizabeth Bingham on 08/08/18 7:[address] CM attempted to call local SS office to see if CM could fax form into them and get patients disability number. CM was on hold for over 30 mins and never got to speak to a provider service representative. CM spoke with Meli at [facility]. She stated that she hasn't heard anything yet. Meli stated that once the financials was cleared then we will need to send updated clinicals and then would go through medical review for acceptance. CM will continue to follow and assist with discharge planning/ needs DCP- Discharge Planning Updated by [id number]: Lizabeth Bingham on 08/06/18 5:[address] Late Entry 08/06/18 @ [address] Webb office to see if they have received a fax from Social Security. Omaira stated that they have not received anything for her. CM will try to get back in touch with Lesley Jose L patients sister and Wei in [facility] to see what our next step is. CM contacted Meli at [facility] to let her know we are still working on placement. CM will continue to follow and assist with discharge planning / needs. DCP- Discharge Planning Updated by [id number]: Lizabeth Bingham on 07/31/18 4:[address] CM received notification that the social security office in [place] would not accept form that was sent to Lesley Domingo to get authorization to manage patients finances. They said they would have to directly send it to Dr. Tucker and then have him to send it back. [facility] has to have some proof of income before they can accept patient. We are having to wait to see if we can get Lesley approved to manage social security benefits in patients behalf. CM will continue to follow and assist with discharge planning / needs. DCP- Discharge Planning Updated by [email or web address]: Lizabeth Bingham on 07/26/18 6:[address] Late Entry 07/26/18 @ [address] Tucker and got form signed for [facility]. CM took form to Wei in [facility]. CM will continue to follow and assist as needed with discharge planning / needs DCP- Discharge Planning Updated by [id number]: Lizabeth Bingham on 07/25/18 4:[address] CM spoke with Wei Delatorre this am. Wei spoke with patients sister Lesley Domingo trying to find out information needed to get patient placement. KRYSTAL was later notified that a form from [facility] needed to be filled out by physician. CM attempted to get in touch with paged him several times but was unsuccessful. Called his office but no response at this time. CM will continue to follow and assist as needed with discharge planning / needs. DCP- Discharge Planning Updated by [id number]: Lizabeth Bingham on 07/24/18 4:[address] CM called and spoke with Meli at [facility] in [place]. [phone]. CM asked if family was able to provide information needed. Meli stated that she hasn't heard from anyone since she had spoke to me last week. Meli is requesting proof that patient has applied for SSI and she needs proof of income. CM attempted to call piece worker Ailyn Read [phone] or [phone] to see if she might could assist with obtaining this information. CM was unsuccessful in contacting Ailyn. CM called and spoke with Wei Delatorre and gave her Meli phone number to see if she could assist with information. Wei will contact Meli and her fiber locking supervisor to see if they can assist with information needed. Wei will contact CM after she gets in contact with others. CM will continue to follow and assist as needed with discharge planning / needs. DCP- Discharge Planning Updated by [id number]: Lizabeth Bingham on 07/18/18 5:[address] Late Entry 07/18/18 @ 1020 CM called and left a message for July PARK @ [facility]. CM awaiting response.CM will continue to follow and assist as needed with discharge planning / needs. Late Entry 07/18/18 @ 1330 CM received call from Meli with [facility]. Meli was wanting to know if patient was getting SSI or SSA. KRYSTAL was unaware of this information and referred Meli to call patients sister Lesley Domingo. KRYSTAL called and spoke with Wei Delatorre regarding Medicaid. Wei stated patient had SSI Medicaid until 07/10/18 and regular Medicaid started 07/11/18. CM called Meli back to give this information to her and also gave Wei's number if she has questions regarding this. Meli stated that she also needed to know if the patient had applied for SSI and how much she had in her bank account. KRYSTAL explained that we would try to find out this information. CM will check with sister and possibly patient window caser whom assisted patient with housing when released from residential. CM will continue to follow and assist as needed with discharge planning / needs. DCP- Discharge Planning Updated by [id number]: Lizabeth Bingham on 07/18/18 5:[address] Late Entry 07/17/18 @ 1600 CM called and left message x 2 for July PARK from [facility]. CM awaiting response. CM will continue to follow and assist as needed with discharge planning / needs. DCP- Discharge Planning Updated by [email or web address]: Lizabeth Bingham on 07/15/18 12:[address] CM spoke with patient's sister Lesley Domingo this am. She stated that the patient doesn't have Medicare. She asked when patient would transfer to [place]. CM explained that we are awaiting on acceptance to [facility] at this point. CM called [facility] for update July told CM to fax updated clinical and that it would be tomorrow 07/16/18 before they may have a determination. July requested CM not to call back tomorrow until after noon. CM will update family. CM also contacted [facility] in [place], [place]. [phone] CM spoke with Za she stated at this time they are not accepting out of state Medicaid at their facility. CM will continue to follow and assist as needed with discharge planning / needs. DCP- Discharge Planning Updated by [id number]: Lizabeth Bingham on 07/12/18 7:[address] CM was notified patient sister Lesley Domingo was here and requested to speak with me. KRYSTAL explained that the current plan was that we was looking into placement with [facility] in [place], [place]. CM had spoke to Zoila with [facility] prior to coming to speak with Lesley. KRYSTAL had answered questions that Zoila had. Zoila stated the next process that they would send patients information to Executive offices and would be awaiting financial approval. Zoila stated for CM to call back to check on this at anytime next week. KRYSTAL explained all this to sister Lesley. Lesley asked why she was having to be transferred out of state. KRYSTAL explained that LTACH facilities within the state do not take Medicaid and that intermodal dispatcher residential facilities in the state do not accept ventilator patients. Lesley states that she had received information that the patient is and receiving Medicare through her . KRYSTAL explained that we had no record of that only Medicaid. Lesley requested that [facility] find this information out. KRYSTAL explained that if it was through the patients spouse then it would need to be his information used to look it up. Lesley states that she has a letter at her home that has this information on it.(Because she has custody of patients son and he receiving his benefits also). The conversation ended that Lesley was going to get the information to KRYSTAL. KRYSTAL received call from Lesley around 4:45pm requesting information on online Social Security office hours. Lesley also wanted to know what would happen if they didn't consent to transfer. KRYSTAL explained that I wasn't sure and Lesley requested for CM to find out this information. KRYSTAL spoke with other telephonic nurse case manager within the facility. KRYSTAL then called Lesley back and explained that if the patient was stable for transfer and they still refusing transfer then it would most likely go to ethics board and [facility] could be notified. Lesley then starting raising her voice that" the hospital and staff was not giving her accurate updates over the phone. She had no idea that Evy was almost in a comatose state." Lesley requested for us to wait on transfer until after she could show proof that she has Medicare. KRYSTAL explained that nothing would be happening until next week. She was still upset that she was going to have to stay longer than she had planned to get this taken care of. KRYSTAL told her that I would be happy to let her speak to someone else on Sunday. CM will continue to follow and assist as needed will discharge planning/ needs. DCP- Discharge Planning Updated by [id number]: Lizabeth Bingham on 07/11/18 7:[address] KRYSTAL spoke with [facility] in [place] ([facility] She stated that all their Vent beds are full at this time and they could put the patient on a waiting list for a bed. CM gave information to put patient on waiting list. [facility] [place] [facility]) she stated they might could accept patient. CM faxed over information and later got denial from [facility] that patient required too high of level of care. CM contacted [facility] division fpc care to see if they could give any insight on facilities that take ventilator patients within the [facility]. They only gave [facility]. [facility] in [place]. KRYSTAL called and spoke with patients sister Lesley Domingo. KRYSTAL explained the situation that the patient was needing placement and we might have to go out of the state of [place] for placement. Lesley was concerned about patient getting back to [place] once she recovered. Lesley also stated that she would be in to see patient today that she just got into town. CM will plan to speak to her while she is here. CM received information on [facility] in [place], [place] that takes ventilator patients. CM called Meli [phone] and faxed [phone] records. CM awaiting decision from [facility]. CM will continue to follow and assist as needed with discharge planning / needs. DCP- Discharge Planning Updated by [id number]: Lizabeth Bingham on 07/08/18 4:[address] CM contacted all LTACH within state to check on Medicaid bed availability / ana bed availability. Still awaiting call back on three facilities but at this time no had stated they would accept any Medicaid patients or ana. CM will continue to follow and assist as needed with discharge planning / needs. DCP- Discharge Planning Updated by [email or web address]: Lizabeth Bingham on 06/20/18 11:[address] Patient Name: EVY ART Admission Status: Elective Accout number: [id number] Admission Date: 06-07-2018 : 1960 Admission Diagnosis:MALIGNANT NEOPLASM OF CARDIA Attending: WILLIMA TCUKER Current LOS: 13 Anticipated DC Date: Planned Disposition: Home or Self Care Primary Insurance: MED[place]ID [place] Discharge Planning Comments: CM called and spoke with sister Lesley Domingo [phone]. Patient is still on vent and sedated. Lesley (lives in [place]) informed CM that patient doesn't have any family that lives in the [facility]. She stated that the patient had been incarcerated and had been released approximately 8 weeks prior to admission. Sister states that patient had found out while incarcerated that she had cancer. Patient had been getting radiation / chemo prior to admit. Lesley states that she has custody of patients youngest child and that her oldest child is in residential in [place]. Lesley states that her goal is for patient to finish her cancer treatments then come to her home in [place]. Lesley also states that patient has a roommate Nadine that comes to visit patient in the evenings. CM will continue to follow and assist as needed with discharge planning/ needs. Rebeamer: Lizabeth Bingham DCP- Discharge Planning Updated by [id number]: Lizabeth Bingham on 06/14/18 7:[address] Patient on Vent / sedated. No family available for discharge planning.CM will continue to follow and assist as needed with discharge planning / needs. Last DP export: 08/26/18 1:09 Patient Name: EVY ART Page [id number] at 1144 All edits/amendments must be made on the electronic document DICTATION DATE: 08/27/18 1143 DISTRIBUTION LINEMAN: ANA ROSA 08/27/18 1143 RPT#: [id number] [place] DATE: STATUS: ADM IN [facility] [address] [place] [address] END OF REPORT
--- NOTE | ~2018-06-07 | MORECARE ---
CASE MANAGEMENT DISCHARGE SUMMARY PATIENT: EVY ART UNIT: [id number] ADM DATE: 06/07/18 AGE: 57 : 62 SEX: F ROOM/BED: D.2224 AUTHOR: ZAID,DOC PHYSICIAN: REFERRING PHYSICIAN: WILLIAM TUCKER MD DATE OF SERVICE: 08/29/18 Discharge Plan Patient Name: EVY ART Facility: [facility]:[place] : 1960 Planned Disposition: Home or Self Care Anticipated Discharge Date: Discharge Date: Expected LOS: Initial Reviewer: [email or web address] Initial Review Date: 06/07/2018 Generated: 08/29/18 12:15 pm Comments DCP- Discharge Planning Updated by [id number]: Edita Quinonez on 08/29/18 10:[address] Referral sent to [facility] in [place], [facility] faxed. I was unable to speak with the cycle director, but left a message with my phone number to return call. CM will continue to follow and assist with discharge planning/needs. DCP- Discharge Planning Updated by [id number]: Edita Quinonez on 08/29/18 8:[address] I spoke with Quan at [facility] and faxed clinical. I also spoke with Shaniqua at [facility] and faxed clinical. Shaniqua states they do have a restorative plan for therapy there for physical therapy for Medicaid patients. States she will come to [place] and see her today. CM will continue to follow and assist with discharge planning/needs. DCP- Discharge Planning Updated by [id number]: Edita Quinonez on 08/28/18 2:[address] Received a call from Evi that they are not going to meet her needs for rehab at their facility and will deny her coming to [facility] in [place]. I spoke with the patient and explained. I called [facility] and asked if she could look again for a place for her. Her tracheostomy has a plug and she is now on a nasal cannula. She is taking in ice chips. I will continue to work on finding placement, she only has Medicaid, so she does not have any rehab benefits. DCP- Discharge Planning Updated by [id number]: Edita Quinonez on 08/28/18 7:[address] Spoke with Evi at [facility] in [place] and sent requested clinical. She states she and the DON are reviewing clinical for admission. I did inform her rug scratcher is working toward decannulation. I spoke again with [facility] and she met with the patient and at this time she is unable to get her placed with any of her facilities. CM will continue to follow and assist with discharge planning/needs. DCP- Discharge Planning Updated by [id number]: Edita Mckeonangelita on 08/27/18 10:[address] Updated clinical sent to [facility] in [facility] and I notified David Byrne that I sent them. I left a message with David about status of transfer to the facility. CM will continue to follow and assist with discharge planning/needs. DCP- Discharge Planning Updated by [id number]: Edita Mckeonangelita on 08/26/18 1:[address] KYLIE paper work and clinical faxed to [facility]. CM will continue to follow and assist with discharge planning/needs. DCP- Discharge Planning Updated by [email or web address]: Edita Quinonez on 08/26/18 12:[address] Met with patient to discuss discharge planning, she would like to go to her brother's [facility]. She states that she needs to get stronger prior to going there. I informed her I was trying to get her in a rehab in [place], which is [facility]. She agrees to going to [place] for rehab if they will accept her. I have filled a [place] form out and she signed. I will need to contact Dr. Tucker for his signature. He is in surgery at this time. DCP- Discharge Planning Updated by [id number]: Edita Quinonez on 08/23/18 3:[address] Received a call from Evi at [facility] in [facility] for more information for possible admission. I faxed her clinical to [phone]. She will also need a KYLIE before admission completed. CM will continue to follow and assist with discharge planning/needs. DCP- Discharge Planning Updated by [email or web address]: Edita Mckeonangelita on 08/23/18 11:[address] I spoke with [facility] today for an update. She states she does not have an accepting facility at this time. I sent referral to David Byrne. CM will continue to follow and assist with discharge planning/needs. DCP- Discharge Planning Updated by [id number]: Lizabeth Bingham on 08/21/18 9:[address] CM received a call from patients sister Lesley Domingo that [employer] has notified her that she should be receiving her paperwork in the next 2 weeks. Paperwork that she can act in Evy behalf for Medicaid. CM will continue to follow and assist with discharge planning. DCP- Discharge Planning Updated by [id number]: Lizabeth Bingham on 08/16/18 11:[address] CM continuing to follow up with [facility] about placement for female vent bed availability. If patient can be off vent for 72hrs then CM can seek placement locally. CM will continue to follow and assist as needed with discharge planning / needs. DCP- Discharge Planning Updated by [id number]: Winter Randolph on 08/15/18 12:[address] Patient Name: EVY ART Admission Status: Elective Accout number: [id number] Admission Date: 06-07-2018 : 1960 Admission Diagnosis:MALIGNANT NEOPLASM OF CARDIA Attending: WILLIAM TUCKER Current LOS: 69 Anticipated DC Date: Planned Disposition: Home or Self Care Primary Insurance: [place]ID [place] Discharge Planning Comments: CM CALLED [facility] TO SPEAK WITH JULY REGARDING A VENT BED. THEY STATE JULY IS OUT SICK AND WON'T BE BACK UNTIL NEXT WEEK. STATES WILL HAVE TO CALL BACK ON SUNDAY. Curriculum Coordinator: Winter Randolph DCP- Discharge Planning Updated by [id number]: Lizabeth Bingham on 08/14/18 4:[address] CM called [facility] and spoke with Jennyfer RANDLE. Jennyfer stated that she wasn't able to answer questions regarding how soon for bed availability. July was out sick and she had no information on placement. CM will call back tomorrow and attempt to speak with July. DCP- Discharge Planning Updated by [id number]: Lizabeth Bingham on 08/13/18 2:[address] CM called [facility] in [place] and left message for DON (July) to return call regarding placement and how long until placement. CM still awaiting call back @ this time. DCP- Discharge Planning Updated by [id number]: Lizabeth Bingham on 08/12/18 5:[address] CM called and spoke with Meli @ [facility] [phone]. Meli stated that at this time they do not have a female vent bed available. She stated that she doesn't know when one may be available or if patient is at the top of the list or not. Meli stated that CM would need to speak with July PARK for that information and she isn't there today. CM will continue to follow and assist as needed with discharge planning / needs. DCP- Discharge Planning Updated by [id number]: Lizabeth Bingham on 08/09/18 6:[address] CM spoke with Wei Delatorre in [employer] she got in touch with for me and got in touch with the appropriate person at [employer]. Was able to fax form in and get the appropriate information to Meli @ [facility] in [place]. CM later contacted Meli and she stated that everything was good as far as financials. They currently do not have any female vent beds available. Meli stated she would keep us posted on availability. Wei notified me that [employer] had put in the necessary information so that Lesley diaz sister can be her payor source. Lesley is to go to social security in [place] next week.CM will continue to follow and assist as needed with discharge planning / needs. DCP- Discharge Planning Updated by [id number]: Lizabeth Bingham on 08/08/18 7:[address] CM attempted to call local SS office to see if CM could fax form into them and get patients disability number. CM was on hold for over 30 mins and never got to speak to a lifeline representatives. CM spoke with Meli at [facility]. She stated that she hasn't heard anything yet. Meli stated that once the financials was cleared then we will need to send updated clinicals and then would go through medical review for acceptance. CM will continue to follow and assist with discharge planning/ needs DCP- Discharge Planning Updated by [email or web address]: Lizabeth Bingham on 08/06/18 5:[address] Late Entry 08/06/18 @ [address] Webb office to see if they have received a fax from Social Security. Omaira stated that they have not received anything for her. CM will try to get back in touch with Lesley Jose L patients sister and Wei in [facility] to see what our next step is. CM contacted Meli at [facility] to let her know we are still working on placement. CM will continue to follow and assist with discharge planning / needs. DCP- Discharge Planning Updated by [id number]: Lizabeth Bingham on 07/31/18 4:[address] CM received notification that the social security office in [place] would not accept form that was sent to Lesley Domingo to get authorization to manage patients finances. They said they would have to directly send it to Dr. Tucker and then have him to send it back. [facility] has to have some proof of income before they can accept patient. We are having to wait to see if we can get Lesley approved to manage social security benefits in patients behalf. CM will continue to follow and assist with discharge planning / needs. DCP- Discharge Planning Updated by [id number]: Lizabeth Bingham on 07/26/18 6:[address] Late Entry 07/26/18 @ [address] Tucker and got form signed for [facility]. CM took form to Wei in [facility]. CM will continue to follow and assist as needed with discharge planning / needs DCP- Discharge Planning Updated by [id number]: Lizabeth Bingham on 07/25/18 4:[address] CM spoke with Wei Delatorre this am. Wei spoke with patients sister Lesley Domingo trying to find out information needed to get patient placement. KRYSTAL was later notified that a form from [facility] needed to be filled out by physician. CM attempted to get in touch with paged him several times but was unsuccessful. Called his office but no response at this time. CM will continue to follow and assist as needed with discharge planning / needs. DCP- Discharge Planning Updated by [id number]: Lizabeth Bingham on 07/24/18 4:[address] CM called and spoke with Meli at [facility] in [place]. [phone]. CM asked if family was able to provide information needed. Meli stated that she hasn't heard from anyone since she had spoke to me last week. Meli is requesting proof that patient has applied for SSI and she needs proof of income. KRYSTAL attempted to call take away worker Ailyn Read [phone] or [phone] to see if she might could assist with obtaining this information. CM was unsuccessful in contacting Ailyn. KRYSTAL called and spoke with Wei Juan Ramon and gave her Meli phone number to see if she could assist with information. Wei will contact Meli and her taxi driver supervisor to see if they can assist with information needed. Wei will contact KRYSTAL after she gets in contact with others. CM will continue to follow and assist as needed with discharge planning / needs. DCP- Discharge Planning Updated by [id number]: Lizabeth Bingham on 07/18/18 5:[address] Late Entry 07/18/18 @ 1020 CM called and left a message for July PARK @ [facility]. CM awaiting response.CM will continue to follow and assist as needed with discharge planning / needs. Late Entry 07/18/18 @ 1330 CM received call from Meli with [facility]. Meli was wanting to know if patient was getting SSI or SSA. KRYSTAL was unaware of this information and referred Meli to call patients sister Lesley Domingo. KRYSTAL called and spoke with Wei Delatorre regarding Medicaid. Wei stated patient had SSI Medicaid until 07/10/18 and regular Medicaid started 07/11/18. KRYSTAL called Meli back to give this information to her and also gave Wei's number if she has questions regarding this. Meli stated that she also needed to know if the patient had applied for SSI and how much she had in her bank account. KRYSTAL explained that we would try to find out this information. CM will check with sister and possibly patient case folder whom assisted patient with housing when released from group home. CM will continue to follow and assist as needed with discharge planning / needs. DCP- Discharge Planning Updated by [id number]: Lizabeth Bingham on 07/18/18 5:[address] Late Entry 07/17/18 @ 1600 CM called and left message x 2 for July PARK from [facility]. CM awaiting response. CM will continue to follow and assist as needed with discharge planning / needs. DCP- Discharge Planning Updated by [id number]: Lizabeth Bingham on 07/15/18 12:[address] KRYSTAL spoke with patient's sister Lesley Domingo this am. She stated that the patient doesn't have Medicare. She asked when patient would transfer to [place]. KRYSTAL explained that we are awaiting on acceptance to [facility] at this point. KRYSTAL called [facility] for update July told CM to fax updated clinical and that it would be tomorrow 07/16/18 before they may have a determination. July requested CM not to call back tomorrow until after noon. CM will update family. CM also contacted [facility] in [place], [place]. [phone] CM spoke with Za she stated at this time they are not accepting out of state Medicaid at their facility. CM will continue to follow and assist as needed with discharge planning / needs. DCP- Discharge Planning Updated by [id number]: Lizabeth Bingham on 07/12/18 7:[address] CM was notified patient sister Lesley Domingo was here and requested to speak with me. KRYSTAL explained that the current plan was that we was looking into placement with [facility] in [place], [place]. KRYSTAL had spoke to Zoila with [facility] prior to coming to speak with Lesley. KRYSTAL had answered questions that Zoila had. Zoila stated the next process that they would send patients information to Executive offices and would be awaiting financial approval. Zoila stated for CM to call back to check on this at anytime next week. KRYSTAL explained all this to sister Lesley. Lesley asked why she was having to be transferred out of state. KRYSTAL explained that LTACH facilities within the state do not take Medicaid and that [facility] longterm facilities in the [facility] do not accept ventilator patients. Lesley states that she had received information that the patient is and receiving Medicare through her . KRYSTAL explained that we had no record of that only Medicaid. Lesley requested that [facility] find this information out. KRYSTAL explained that if it was through the patients spouse then it would need to be his information used to look it up. Lesley states that she has a letter at her home that has this information on it.(Because she has custody of patients son and he receiving his benefits also). The conversation ended that Lesley was going to get the information to KRYSTAL. KRYSTAL received call from Lesley around 4:45pm requesting information on online Social Security office hours. Lesley also wanted to know what would happen if they didn't consent to transfer. KRYSTAL explained that I wasn't sure and Lesley requested for KRYSTAL to find out this information. KRYSTAL spoke with other case folder within the facility. KRYSTAL then called Lesley back and explained that if the patient was stable for transfer and they still refusing transfer then it would most likely go to ethics board and [facility] could be notified. Lesley then starting raising her voice that" the hospital and staff was not giving her accurate updates over the phone. She had no idea that Evy was almost in a comatose state." Lesley requested for us to wait on transfer until after she could show proof that she has Medicare. KRYSTAL explained that nothing would be happening until next week. She was still upset that she was going to have to stay longer than she had planned to get this taken care of. KRYSTAL told her that I would be happy to let her speak to someone else on Sunday. CM will continue to follow and assist as needed will discharge planning/ needs. DCP- Discharge Planning Updated by [id number]: Lizabeth Bingham on 07/11/18 7:[address] CM spoke with [facility] in [place] ([facility]). She stated that all their Vent beds are full at this time and they could put the patient on a waiting list for a bed. CM gave information to put patient on waiting list. CM then contacted [facility] in [place] ([facility]) she stated they might could accept patient. CM faxed over information and later got denial from [facility] that patient required too high of level of care. CM contacted [facility] division shelter care to see if they could give any insight on facilities that take ventilator patients within the [facility]. They only gave [facility] in [place]. KRYSTAL called and spoke with patients sister Lesley Domingo. KRYSTAL explained the situation that the patient was needing placement and we might have to go out of the state of [place] for placement. Lesley was concerned about patient getting back to [place] once she recovered. Lesley also stated that she would be in to see patient today that she just got into town. CM will plan to speak to her while she is here. CM received information on [facility] in [place], [place] that takes ventilator patients. CM called Meli [phone] and faxed [phone] records. CM awaiting decision from [facility]. CM will continue to follow and assist as needed with discharge planning / needs. DCP- Discharge Planning Updated by [id number]: Lizabeth Bingham on 07/08/18 4:[address] CM contacted all LTACH within state to check on Medicaid bed availability / ana bed availability. Still awaiting call back on three facilities but at this time no had stated they would accept any Medicaid patients or ana. CM will continue to follow and assist as needed with discharge planning / needs. DCP- Discharge Planning Updated by [id number]: Lizabeth Bingham on 06/20/18 11:[address] Patient Name: EVY ART Admission Status: Elective Accout number: [id number] Admission Date: 06-07-2018 : 1960 Admission Diagnosis:MALIGNANT NEOPLASM OF CARDIA Attending: WILLIAM TUCKER Current LOS: 13 Anticipated DC Date: Planned Disposition: Home or Self Care Primary Insurance: MED[place]ID [place] Discharge Planning Comments: CM called and spoke with sister Lesley Domingo [phone]. Patient is still on vent and sedated. Lesley (lives in [place]) informed CM that patient doesn't have any family that lives in the [facility]. She stated that the patient had been incarcerated and had been released approximately 8 weeks prior to admission. Sister states that patient had found out while incarcerated that she had cancer. Patient had been getting radiation / chemo prior to admit. Lesley states that she has custody of patients youngest child and that her oldest child is in group home in [place]. Lesley states that her goal is for patient to finish her cancer treatments then come to her home in [place]. Lesley also states that patient has a roommate Nadine that comes to visit patient in the evenings. CM will continue to follow and assist as needed with discharge planning/ needs. Curriculum Coordinator: Lizabeth Bingham DCP- Discharge Planning Updated by [id number]: Lizabeth Bingham on 06/14/18 7:[address] Patient on Vent / sedated. No family available for discharge planning.CM will continue to follow and assist as needed with discharge planning / needs. Last DP export: 08/29/18 10:07 Patient Name: EYV ART Page [id number] at [id number] All edits/amendments must be made on the electronic document DICTATION DATE: 08/29/181113 COLLEGE OR UNIVERSITY FACULTY MEMBER: ANA ROSA 08/29/181113 RPT#: [id number] DC DATE: STATUS: ADM IN [facility] [address] [place] [address] END OF REPORT
--- NOTE | ~2018-06-07 | MORECARE ---
CASE MANAGEMENT DISCHARGE SUMMARY PATIENT: EVY ART UNIT: [id number] ADM DATE: 06/07/18 AGE: 57 : 62 SEX: F ROOM/BED: D.2307 AUTHOR: [email or web address] PHYSICIAN: REFERRING PHYSICIAN: WILLIAM TUCKER MD DATE OF SERVICE: 08/13/18 Discharge Plan Patient Name: EVY ART Facility: [facility]:[place] : 1960 Planned Disposition: Home or Self Care Anticipated Discharge Date: Discharge Date: Expected LOS: Initial Reviewer: [email or web address] Initial Review Date: 06/07/2018 Generated: 08/13/18 4:49 pm Comments DCP- Discharge Planning Updated by [email or web address]: Lizabeth Bingham on 08/13/18 2:[address] CM called [facility] in [place] and left message for VIVIAN Trammell) to return call regarding placement and how long until placement. CM still awaiting call back @ this time. DCP- Discharge Planning Updated by [id number]: Lizabeth Bingham on 08/12/18 5:[address] CM called and spoke with Meli @ [facility] [phone]. Meli stated that at this time they do not have a female vent bed available. She stated that she doesn't know when one may be available or if patient is at the top of the list or not. Meli stated that CM would need to speak with July PARK for that information and she isn't there today. CM will continue to follow and assist as needed with discharge planning / needs. DCP- Discharge Planning Updated by [id number]: Lizabeth Bingham on 08/09/18 6:[address] CM spoke with Wei Delatorre in [facility] she got in touch with for me and got in touch with the appropriate person at [place]. Was able to fax form in and get the appropriate information to Meli @ [facility] in [place]. CM later contacted Meli and she stated that everything was good as far as financials. They currently do not have any female vent beds available. Meli stated she would keep us posted on availability. Wei notified me that [place] [facility] had put in the necessary information so that Lesley diaz sister can be her payor source. Lesley is to go to social security in [place] next week.CM will continue to follow and assist as needed with discharge planning / needs. DCP- Discharge Planning Updated by [id number]: Lizabeth Bingham on 08/08/18 7:[address] CM attempted to call local office to see if CM could fax form into them and get patients disability number. CM was on hold for over 30 mins and never got to speak to a client care representative. CM spoke with Meli at [facility]. She stated that she hasn't heard anything yet. Meli stated that once the financials was cleared then we will need to send updated clinicals and then would go through medical review for acceptance. CM will continue to follow and assist with discharge planning/ needs DCP- Discharge Planning Updated by [email or web address]: Lizabeth Bingham on 08/06/18 5:[address] Late Entry 08/06/18 @ [address] Webb office to see if they have received a fax from [employer]. Omaira stated that they have not received anything for her. CM will try to get back in touch with Lesley Domingo patients sister and Wei in [facility] to see what our next step is. CM contacted Meli at [facility] to let her know we are still working on placement. CM will continue to follow and assist with discharge planning / needs. DCP- Discharge Planning Updated by [id number]: Lizabeth Bingham on 07/31/18 4:[address] CM received notification that the social security office in [place] would not accept form that was sent to Lesley Domingo to get authorization to manage patients finances. They said they would have to directly send it to Dr. Tucker and then have him to send it back. [facility] has to have some proof of income before they can accept patient. We are having to wait to see if we can get Lesley approved to manage social security benefits in patients behalf. CM will continue to follow and assist with discharge planning / needs. DCP- Discharge Planning Updated by [id number]: Lizabeth Bingham on 07/26/18 6:[address] Late Entry 07/26/18 @ [address] Tucker and got form signed for [employer]SA. CM took form to Wie in [facility]. CM will continue to follow and assist as needed with discharge planning / needs DCP- Discharge Planning Updated by [id number]: Lizabeth Bingham on 07/25/18 4:[address] CM spoke with Wei Delatorre this am. Wei spoke with patients sister Lesley Domingo trying to find out information needed to get patient placement. KRYSTAL was later notified that a form from [employer] needed to be filled out by physician. CM attempted to get in touch with paged him several times but was unsuccessful. Called his office but no response at this time. CM will continue to follow and assist as needed with discharge planning / needs. DCP- Discharge Planning Updated by [email or web address]: Lizabeth Bingham on 07/24/18 4:[address] CM called and spoke with Meli at [facility] in [place]. [phone]. KRYSTAL asked if family was able to provide information needed. Meli stated that she hasn't heard from anyone since she had spoke to me last week. Meli is requesting proof that patient has applied for SSI and she needs proof of income. KRYSTAL attempted to call social worker school [employer] [phone] or [phone] to see if she might could assist with obtaining this information. KRYSTAL was unsuccessful in contacting Ailyn. CM called and spoke with Wei Delatorre and gave her Meli phone number to see if she could assist with information. Wei will contact Meli and her refueling ramp supervisor to see if they can assist with information needed. Wei will contact KRYSTAL after she gets in contact with others. CM will continue to follow and assist as needed with discharge planning / needs. DCP- Discharge Planning Updated by [id number]: Lizabeth Bingham on 07/18/18 5:[address] Late Entry 07/18/18 @ 1020 CM called and left a message for July PARK @ [facility]. CM awaiting response.CM will continue to follow and assist as needed with discharge planning / needs. Late Entry 07/18/18 @ 1330 CM received call from Meli with [facility]. Meli was wanting to know if patient was getting SSI or SSA. KRYSTAL was unaware of this information and referred Meli to call patients sister Lesley Domingo. CM called and spoke with Wei Delatorre regarding Medicaid. Wei stated patient had SSI Medicaid until 07/10/18 and regular Medicaid started 07/11/18. CM called Meli back to give this information to her and also gave Wei's number if she has questions regarding this. Meli stated that she also needed to know if the patient had applied for SSI and how much she had in her bank account. CM explained that we would try to find out this information. CM will check with sister and possibly patient case preparer and liner whom assisted patient with housing when released from senior care. CM will continue to follow and assist as needed with discharge planning / needs. DCP- Discharge Planning Updated by [id number]: Lizabeth Bingham on 07/18/18 5:[address] Late Entry 07/17/18 @ 1600 CM called and left message x 2 for July VIVIAN from [facility]. CM awaiting response. CM will continue to follow and assist as needed with discharge planning / needs. DCP- Discharge Planning Updated by [id number]: Lizabeth Bingham on 07/15/18 12:[address] CM spoke with patient's sister Lesley Domingo this am. She stated that the patient doesn't have Medicare. She asked when patient would transfer to [place]. CM explained that we are awaiting on acceptance to [facility] at this point. CM called [facility] for update July told CM to fax updated clinical and that it would be tomorrow 07/16/18 before they may have a determination. July requested CM not to call back tomorrow until after noon. CM will update family. CM also contacted [facility] in [place], [place]. [phone] CM spoke with Za she stated at this time they are not accepting out of state Medicaid at their facility. CM will continue to follow and assist as needed with discharge planning / needs. DCP- Discharge Planning Updated by [id number]: Lizabeth Bingham on 07/12/18 7:[address] CM was notified patient sister Lesley Domingo was here and requested to speak with me. CM explained that the current plan was that we was looking into placement with [facility] in [place], [place]. CM had spoke to Zoila with [facility] prior to coming to speak with Lesley. CM had answered questions that Zoila had. [facility] stated the next process that they would send patients information to [facility] offices and would be awaiting financial approval. [facility] stated for CM to call back to check on this at anytime next week. CM explained all this to sister Lesley. Lesley asked why she was having to be transferred out of state. KRYSTAL explained that LTACH facilities within the state do not take Medicaid and that mcfp fpc facilities in the state do not accept ventilator patients. Lesley states that she had received information that the patient is and receiving Medicare through her . KRYSTAL explained that we had no record of that only Medicaid. Lesley requested that [facility] find this information out. KRYSTAL explained that if it was through the patients spouse then it would need to be his information used to look it up. Lesley states that she has a letter at her home that has this information on it.(Because she has custody of patients son and he receiving his benefits also). The conversation ended that Lesley was going to get the information to CM. CM received call from Lesley around 4:45pm requesting information on online Social Security office hours. Lesley also wanted to know what would happen if they didn't consent to transfer. KRYSTAL explained that I wasn't sure and Lesley requested for CM to find out this information. KRYSTAL spoke with other case packer within the facility. CM then called Lesley back and explained that if the patient was stable for transfer and they still refusing transfer then it would most likely go to ethics board and DHS could be notified. Lesley then starting raising her voice that" the hospital and staff was not giving her accurate updates over the phone. She had no idea that Evy was almost in a comatose state." Lesley requested for us to wait on transfer until after she could show proof that she has Medicare. KRYSTAL explained that nothing would be happening until next week. She was still upset that she was going to have to stay longer than she had planned to get this taken care of. CM told her that I would be happy to let her speak to someone else on Sunday. CM will continue to follow and assist as needed will discharge planning/ needs. DCP- Discharge Planning Updated by [id number]: Lizabeth Bingham on 07/11/18 7:[address] CM spoke with [facility] in [place] ([place]). She stated that all their Vent beds are full at this time and they could put the patient on a waiting list for a bed. CM gave information to put patient on waiting list. CM then contacted [facility] in [place] ([facility]) she stated they might could accept patient. CM faxed over information and later got denial from [facility] that patient required too high of level of care. CM contacted [facility] care to see if they could give any insight on facilities that take ventilator patients within the [facility]. They only gave [facility] in [place]. CM called and spoke with patients sister Lesley Domingo. CM explained the situation that the patient was needing placement and we might have to go out of the state of [place] for placement. Lesley was concerned about patient getting back to [place] once she recovered. Lesley also stated that she would be in to see patient today that she just got into town. CM will plan to speak to her while she is here. CM received information on [facility] in [place], [place] that takes ventilator patients. CM called [facility] [phone] and faxed [phone] records. CM awaiting decision from [facility]. CM will continue to follow and assist as needed with discharge planning / needs. DCP- Discharge Planning Updated by [id number]: Lizabeth Bingham on 07/08/18 4:[address] CM contacted all LTACH within [facility] to check on Medicaid bed availability / ana bed availability. Still awaiting call back on three facilities but at this time no had stated they would accept any Medicaid patients or ana. CM will continue to follow and assist as needed with discharge planning / needs. DCP- Discharge Planning Updated by [id number]: Lizabeth Bingham on 06/20/18 11:[address] Patient Name: EVY ART Admission Status: Elective Accout number: [id number] Admission Date: 06-07-2018 : 1960 Admission Diagnosis:MALIGNANT NEOPLASM OF CARDIA Attending: WILLIAM TUCKER Current LOS: 13 Anticipated DC Date: Planned Disposition: Home or Self Care Primary Insurance: MEDICAID [place] Discharge Planning Comments: CM called and spoke with sister Lesley Domingo [phone]. Patient is still on vent and sedated. Lesley (lives in [place]) informed CM that patient doesn't have any family that lives in the state of [place]. She stated that the patient had been incarcerated and had been released approximately 8 weeks prior to admission. Sister states that patient had found out while incarcerated that she had cancer. Patient had been getting radiation / chemo prior to admit. Lesley states that she has custody of patients youngest child and that her oldest child is in senior care in [place]. Lesley states that her goal is for patient to finish her cancer treatments then come to her home in [place]. Lesley also states that patient has a roommate Nadien that comes to visit patient in the evenings. CM will continue to follow and assist as needed with discharge planning/ needs. Clinical Biochemist: Lizabeth Bingham DCP- Discharge Planning Updated by [id number]: Lizabeth Bingham on 06/14/18 7:[address] Patient on Vent / sedated. No family available for discharge planning.CM will continue to follow and assist as needed with discharge planning / needs. Last DP export: 08/12/18 5:16 p Patient Name: EVY ART Page [id number] at 1549 All edits/amendments must be made on the electronic document DICTATION DATE: 08/13/181547 HAND TENNIS BALL COVERER: ANA ROSA 08/13/181547 RPT#: [id number] DC DATE: STATUS: ADM IN [facility] [address] [place] [address] END OF REPORT
--- NOTE | ~2018-06-07 | EC ---
PATIENT:ESDRAS ART DATE OF SERVICE: 06/07/18 SEX: F MEDICAL RECORD: [id number] DATE OF : 62 LOCATION:[facility] AGE OF PATIENT: 57 ADMISSION DATE: 06/07/18 REFERRING PHYSICIAN: INTERPRETING PHYSICIAN: ANAYA FERMIN MD ECHOCARDIOGRAM REPORT ECHO CHARGES 4 ECHO COMPLETE Date: 06/09/18 CLINICAL DIAGNOSIS: CP ECHOCARDIOGRAPHIC MEASUREMENTS (adult normal given) AC root (d.<3.7cm) 2.7 cm LV Septum d (<1.2 cm> 0.9 cm Valve Excursion 1.6 cm LV Septum (systole) 0.9 cm Left Atria (s.<4.0cm> 2.7 cm LVPW d(<1.2cm) 0.9 cm RV (d.<2.3cm) 2.4 cm LVPW (sytole) 1.0 cm LV diastole(<5.6CM) 4.4 cm MV E-F(>70mm/sec) cm LV systole 3.7 cm LVOT Diameter 1.6 cm MV exc.(>10mm) cm Est.ejection fraction (50-75%) % DOPPLER: LVIT cm/sec A 94 cm/sec E 86 cm/sec LA cm/sec RVSP 20.4 mmHg LVOT 87 cm/sec AOP1/2T m/s Asc. Ao 152 cm/sec RVOT 75 cm/sec RA cm/sec PA 83 cm/sec AV Gradient Peak 7.2 mmHg AV Mean 5.1 mmHg AV Area 1.7 cm MV Gradient Peak 5.1 mmHg MV Mean 3.7 mmHg MV Area cm COMMENTS: Charge Entry Specialist: Sapna PEARCE [employer]room Foundry Laborer: 4 Dr. Fermin TAPE# PACS Pericardial Effusion N DATE OF SERVICE: PROCEDURE: Transthoracic echocardiogram. FINDINGS: 1. Left ventricle is hyperdynamic with ejection fraction of 65+%. 2. The left atrium is normal. 3. The aortic valve is normal. 4. The mitral valve is normal. 5. The tricuspid valve is normal. ECHOCARDIOGRAM REPORT [id number] ESDRAS ART 6. The right ventricle is normal. 7. The right atrium is normal. 8. The pulmonic valve is normal. There is no pericardial effusion. CONCLUSION: This is a hyperdynamic left ventricular function, otherwise normal for the patient's stated age. TRANSINT:[id number] Voice Confirmation ID: [id number] DOCUMENT ID: [id number] ANAYA FERMIN MD at 1348 CC: [id number] DICTATION DATE: 06/10/18 0750 FIELD AUTO APPRAISER: 06/10/18 1133 ADM IN [facility] [address] [place] [address]
--- NOTE | ~2018-06-07 | MORECARE ---
CASE MANAGEMENT DISCHARGE SUMMARY PATIENT: EVY ART UNIT: [id number] ADM DATE: 06/07/18 AGE: 57 : 62 SEX: F ROOM/BED: D.2224 AUTHOR: ZAID,DOC PHYSICIAN: REFERRING PHYSICIAN: WILLIAM TUCKER MD DATE OF SERVICE: 08/28/18 Discharge Plan Patient Name: EVY ART Facility: [facility]:[place] : 1960 Planned Disposition: Home or Self Care Anticipated Discharge Date: Discharge Date: Expected LOS: Initial Reviewer: [email or web address] Initial Review Date: 06/07/2018 Generated: 08/28/18 10:03 am Comments DCP- Discharge Planning Updated by [email or web address]: Edita Quinonez on 08/28/18 7:[address] Spoke with Evi at [facility] in [place] and sent requested clinical. She states she and the DON are reviewing clinical for admission. I did inform her electrical unit rebuilder is working toward decannulation. I spoke again with Alba Baker and she met with the patient and at this time she is unable to get her placed with any of her facilities. CM will continue to follow and assist with discharge planning/needs. DCP- Discharge Planning Updated by [id number]: Edita Quinonez on 08/27/18 10:[address] Updated clinical sent to [facility] and I notified David Byrne that I sent them. I left a message with David about status of transfer to the facility. CM will continue to follow and assist with discharge planning/needs. DCP- Discharge Planning Updated by [id number]: Edita Quinonez on 08/26/18 1:[address] KYLIE paper work and clinical faxed to [facility]. CM will continue to follow and assist with discharge planning/needs. DCP- Discharge Planning Updated by [id number]: Edita Devi on 08/26/18 12:[address] Met with patient to discuss discharge planning, she would like to go to her brother's up [place]. She states that she needs to get stronger prior to going there. I informed her I was trying to get her in a rehab in [place], which is [facility]. She agrees to going to [place] for rehab if they will accept her. I have filled a [employer] form out and she signed. I will need to contact Dr. Tucker for his signature. He is in surgery at this time. DCP- Discharge Planning Updated by [id number]: Edita Quinonez on 08/23/18 3:[address] Received a call from Evi bernardo [facility] in [facility] for more information for possible admission. I faxed her clinical to [phone]. She will also need a KYLIE before admission completed. CM will continue to follow and assist with discharge planning/needs. DCP- Discharge Planning Updated by [id number]: Edita Quinonez on 08/23/18 11:[address] I spoke with Alba Baker today for an update. She states she does not have an accepting facility at this time. I sent referral to David Byrne. CM will continue to follow and assist with discharge planning/needs. DCP- Discharge Planning Updated by [id number]: Lizabeth Bingham on 08/21/18 9:[address] CM received a call from patients sister Lesley Domingo that [employer] has notified her that she should be receiving her paperwork in the next 2 weeks. Paperwork that she can act in Evy behalf for Medicaid. CM will continue to follow and assist with discharge planning. DCP- Discharge Planning Updated by [id number]: Lizabeth Bingham on 08/16/18 11:[address] CM continuing to follow up with [facility] about placement for female vent bed availability. If patient can be off vent for 72hrs then CM can seek placement locally. CM will continue to follow and assist as needed with discharge planning / needs. DCP- Discharge Planning Updated by [id number]: Wintergerda Randolph on 08/15/18 12:[address] Patient Name: EVY ART Admission Status: Elective Accout number: [id number] Admission Date: 06-07-2018 : 1960 Admission Diagnosis:MALIGNANT NEOPLASM OF CARDIA Attending: WILLIAM TUCKER Current LOS: 69 Anticipated DC Date: Planned Disposition: Home or Self Care Primary Insurance: [place]ID [place] Discharge Planning Comments: CM CALLED [facility] TO SPEAK WITH JULY REGARDING A VENT BED. THEY STATE JULY IS OUT SICK AND WON'T BE BACK UNTIL NEXT WEEK. STATES WILL HAVE TO CALL BACK ON SUNDAY. Body Fitter: Winter Randolph DCP- Discharge Planning Updated by [id number]: Lizabeth Furr on 08/14/18 4:[address] CM called [facility] and spoke with Jennyfer RANDLE. Jennyfer stated that she wasn't able to answer questions regarding how soon for bed availability. July was out sick and she had no information on placement. CM will call back tomorrow and attempt to speak with July. DCP- Discharge Planning Updated by [id number]: Lizabeth Zachery on 08/13/18 2:[address] CM called [facility] in [place] and left message for VIVIAN (July) to return call regarding placement and how long until placement. CM still awaiting call back @ this time. DCP- Discharge Planning Updated by [id number]: Lizabeth Furr on 08/12/18 5:[address] CM called and spoke with Meli @ [facility] [phone]. Meli stated that at this time they do not have a female vent bed available. She stated that she doesn't know when one may be available or if patient is at the top of the list or not. Meli stated that CM would need to speak with July PARK for that information and she isn't there today. CM will continue to follow and assist as needed with discharge planning / needs. DCP- Discharge Planning Updated by [id number]: Lizabeth Bingham on 08/09/18 6:[address] CM spoke with Wei Delatorre in [facility] she got in touch with for me and got in touch with the appropriate person at [facility]. Was able to fax form in and get the appropriate information to Meli @ [facility] in [place]. CM later contacted Meli and she stated that everything was good as far as financials. They currently do not have any female vent beds available. Meli stated she would keep us posted on availability. Wei notified me that [employer] security had put in the necessary information so that Lesley diaz sister can be her payor source. Lesley is to go to social security in [place] next week.CM will continue to follow and assist as needed with discharge planning / needs. DCP- Discharge Planning Updated by [id number]: Lizabeth Bingham on 08/08/18 7:[address] CM attempted to call local office to see if CM could fax form into them and get patients disability number. CM was on hold for over 30 mins and never got to speak to a patient service representative. KRYSTAL spoke with Meli at [facility]. She stated that she hasn't heard anything yet. Meli stated that once the financials was cleared then we will need to send updated clinicals and then would go through medical review for acceptance. CM will continue to follow and assist with discharge planning/ needs DCP- Discharge Planning Updated by [id number]: Lizabeth Bingham on 08/06/18 5:[address] Late Entry 08/06/18 @ [address] Webb office to see if they have received a fax from Social Security. Omaira stated that they have not received anything for her. CM will try to get back in touch with Lesley Domingo patients sister and Wei in [facility] to see what our next step is. CM contacted Meli at [facility] to let her know we are still working on placement. CM will continue to follow and assist with discharge planning / needs. DCP- Discharge Planning Updated by [id number]: Lizabeth Bingham on 07/31/18 4:[address] CM received notification that the social security office in [place] would not accept form that was sent to Lesley Domingo to get authorization to manage patients finances. They said they would have to directly send it to Dr. Tucker and then have him to send it back. [facility] has to have some proof of income before they can accept patient. We are having to wait to see if we can get Lesley approved to manage social security benefits in patients behalf. CM will continue to follow and assist with discharge planning / needs. DCP- Discharge Planning Updated by [id number]: Lizabeth Bingham on 07/26/18 6:[address] Late Entry 07/26/18 @ [address] Tucker and got form signed for [facility]. CM took form to Wei in [facility]. CM will continue to follow and assist as needed with discharge planning / needs DCP- Discharge Planning Updated by [id number]: Lizabeth Bingham on 07/25/18 4:[address] CM spoke with Wei Delatorre this am. Wei spoke with patients sister Lesley Domingo trying to find out information needed to get patient placement. KRYSTAL was later notified that a form from [employer] needed to be filled out by physician. CM attempted to get in touch with paged him several times but was unsuccessful. Called his office but no response at this time. CM will continue to follow and assist as needed with discharge planning / needs. DCP- Discharge Planning Updated by [id number]: Lizabeth Bingham on 07/24/18 4:[address] CM called and spoke with Meli at [facility] in [place]. [phone]. KRYSTAL asked if family was able to provide information needed. Meli stated that she hasn't heard from anyone since she had spoke to me last week. Meli is requesting proof that patient has applied for SSI and she needs proof of income. KRYSTAL attempted to call bakery worker conveyor line Ailyn Read [phone] or [phone] to see if she might could assist with obtaining this information. CM was unsuccessful in contacting Ailyn. CM called and spoke with Wei Delatorre and gave her Meli phone number to see if she could assist with information. Wei will contact Meli and her collection supervisor to see if they can assist with information needed. Wei will contact KRYSTAL after she gets in contact with others. CM will continue to follow and assist as needed with discharge planning / needs. DCP- Discharge Planning Updated by [id number]: Lizabeth Bingham on 07/18/18 5:[address] Late Entry 07/18/18 @ 1020 CM called and left a message for July PARK @ [facility]. CM awaiting response.CM will continue to follow and assist as needed with discharge planning / needs. Late Entry 07/18/18 @ 1330 CM received call from Mlei with [facility]. Meli was wanting to know if patient was getting SSI or SSA. KRYSTAL was unaware of this information and referred Meli to call patients sister Lesley Domingo. KRYSTAL called and spoke with Wei Delatorre regarding Medicaid. Wei stated patient had SSI Medicaid until 07/10/18 and regular Medicaid started 07/11/18. KRYSTAL called Meli back to give this information to her and also gave Wei's number if she has questions regarding this. Meli stated that she also needed to know if the patient had applied for SSI and how much she had in her bank account. KRYSTAL explained that we would try to find out this information. CM will check with sister and possibly patient casework specialist whom assisted patient with housing when released from halfway. CM will continue to follow and assist as needed with discharge planning / needs. DCP- Discharge Planning Updated by [id number]: Lizabeth Bingham on 07/18/18 5:[address] Late Entry 07/17/18 @ 1600 CM called and left message x 2 for July PARK from [facility]. CM awaiting response. CM will continue to follow and assist as needed with discharge planning / needs. DCP- Discharge Planning Updated by [id number]: Lizabeth Bingham on 07/15/18 12:[address] CM spoke with patient's sister Lesley Domingo this am. She stated that the patient doesn't have Medicare. She asked when patient would transfer to [place]. KRYSTAL explained that we are awaiting on acceptance to [facility] at this point. CM called [facility] for update July told CM to fax updated clinical and that it would be tomorrow 07/16/18 before they may have a determination. July requested CM not to call back tomorrow until after noon. CM will update family. CM also contacted [facility] in [place], [place]. [phone] CM spoke with Za she stated at this time they are not accepting out of state Medicaid at their facility. CM will continue to follow and assist as needed with discharge planning / needs. DCP- Discharge Planning Updated by [id number]: Lizabeth Bingham on 07/12/18 7:[address] KRYSTAL was notified patient sister Lesley Domingo was here and requested to speak with me. KRYSTAL explained that the current plan was that we was looking into placement with [facility] in [place], [place]. CM had spoke to Zoila with [facility] prior to coming to speak with Lesley. KRYSTAL had answered questions that Zoila had. Zoila stated the next process that they would send patients information to Executive offices and would be awaiting financial approval. Zoila stated for CM to call back to check on this at anytime next week. KRYSTAL explained all this to sister Lesley. Lesley asked why she was having to be transferred out of state. KRYSTAL explained that LTACH facilities within the state do not take Medicaid and that intermediate school teacher assisted facilities in the state do not accept ventilator patients. Lesley states that she had received information that the patient is and receiving Medicare through her . KRYSTAL explained that we had no record of that only Medicaid. Lesley requested that [facility] find this information out. KRYSTAL explained that if it was through the patients spouse then it would need to be his information used to look it up. Lesley states that she has a letter at her home that has this information on it.(Because she has custody of patients son and he receiving his benefits also). The conversation ended that Lesley was going to get the information to CM. KRYSTAL received call from Lesley around 4:45pm requesting information on online Social Security office hours. Lesley also wanted to know what would happen if they didn't consent to transfer. KRYSTAL explained that I wasn't sure and Lesley requested for CM to find out this information. KRYSTAL spoke with other registered nurse hh case manager within the facility. KRYSTAL then called Lesley back and explained that if the patient was stable for transfer and they still refusing transfer then it would most likely go to ethics board and DHS could be notified. Lesley then starting raising her voice that" the hospital and staff was not giving her accurate updates over the phone. She had no idea that Evy was almost in a comatose state." Lesley requested for us to wait on transfer until after she could show proof that she has Medicare. KRYSTAL explained that nothing would be happening until next week. She was still upset that she was going to have to stay longer than she had planned to get this taken care of. KRYSTAL told her that I would be happy to let her speak to someone else on Sunday. CM will continue to follow and assist as needed will discharge planning/ needs. DCP- Discharge Planning Updated by [id number]: Lizabeth Bingham on 07/11/18 7:[address] KRYSTAL spoke with [facility] in [place] ([facility] She stated that all their Vent beds are full at this time and they could put the patient on a waiting list for a bed. CM gave information to put patient on waiting list. KRYSTAL then contacted [facility] in [place] ([facility]) she stated they might could accept patient. CM faxed over information and later got denial from [facility] that patient required too high of level of care. CM contacted [facility] intermediate school teacher care to see if they could give any insight on facilities that take ventilator patients within the [facility]. They only gave [facility] in [place]. CM called and spoke with patients sister Lesley Domingo. CM explained the situation that the patient was needing placement and we might have to go out of the state of [place] for placement. Lesley was concerned about patient getting back to [place] once she recovered. Lesley also stated that she would be in to see patient today that she just got into town. CM will plan to speak to her while she is here. CM received information on [facility] in [place], [place] that takes ventilator patients. CM called [facility] [phone] and faxed [phone] records. CM awaiting decision from [facility]. CM will continue to follow and assist as needed with discharge planning / needs. DCP- Discharge Planning Updated by [id number]: Lizabeth Bingham on 07/08/18 4:[address] CM contacted all LTACH within [facility] to check on Medicaid bed availability / ana bed availability. Still awaiting call back on three facilities but at this time no had stated they would accept any Medicaid patients or ana. CM will continue to follow and assist as needed with discharge planning / needs. DCP- Discharge Planning Updated by [id number]: Lizabeth Bingham on 06/20/18 11:[address] Patient Name: EVY ART Admission Status: Elective Accout number: [id number] Admission Date: 06-07-2018 : 1960 Admission Diagnosis:MALIGNANT NEOPLASM OF CARDIA Attending: WILLIAM TUCKER Current LOS: 13 Anticipated DC Date: Planned Disposition: Home or Self Care Primary Insurance: MEDICAID [place] Discharge Planning Comments: CM called and spoke with sister Lesley Domingo [phone]. Patient is still on vent and sedated. Lesley (lives in [place]) informed CM that patient doesn't have any family that lives in the state of [place]. She stated that the patient had been incarcerated and had been released approximately 8 weeks prior to admission. Sister states that patient had found out while incarcerated that she had cancer. Patient had been getting radiation / chemo prior to admit. Lesley states that she has custody of patients youngest child and that her oldest child is in halfway in [place]. Lesley states that her goal is for patient to finish her cancer treatments then come to her home in [place]. Lesley also states that patient has a roommate Nadine that comes to visit patient in the evenings. CM will continue to follow and assist as needed with discharge planning/ needs. Body Fitter: Lizabeth Bingham DCP- Discharge Planning Updated by [id number]: Lizabeth Bingham on 06/14/18 7:[address] Patient on Vent / sedated. No family available for discharge planning.CM will continue to follow and assist as needed with discharge planning / needs. Last DP export: 08/27/18 10:43 Patient Name: EVY ART Page [id number] at 0903 All edits/amendments must be made on the electronic document DICTATION DATE: 08/28/18902 NEWSPAPER REPORTER: ANA ROSA 08/28/18902 RPT#: [id number] [place] DATE: STATUS: ADM IN [facility] [address] [place] [address] END OF REPORT
--- NOTE | ~2018-06-07 | MORECARE ---
CASE MANAGEMENT DISCHARGE SUMMARY PATIENT: EVY ART UNIT: [id number] ADM DATE: 06/07/18 AGE: 57 : 62 SEX: F ROOM/BED: D.2224 AUTHOR: DARCI MAR PHYSICIAN: REFERRING PHYSICIAN: WILLIAM TUCKER MD DATE OF SERVICE: 08/30/18 Discharge Plan Patient Name: EVY ART Facility: [facility]:[place] : 1960 Planned Disposition: Home or Self Care Anticipated Discharge Date: Discharge Date: Expected LOS: Initial Reviewer: [email or web address] Initial Review Date: 06/07/2018 Generated: 08/30/18 4:24 pm Comments DCP- Discharge Planning Updated by [email or web address]: Edita Quinonez on 08/30/18 2:[address] RECEIVED A CALL FROM CLOVIS FROM [facility]. THEY ARE WILLING TO ACCEPT HER NEXT WEEK IF THEY ARE ABLE TO GET HER 3 MONTHS BANK STATEMENTS FROM [facility]. I WILL F/U NEXT WEEK. DCP- Discharge Planning Updated by [id number]: Edita Quinonez on 08/30/18 8:[address] I spoke with Shaniqua in [facility] in [place]. She states she is waiting on 3 months of bank statements from the sister. She is also going to check on when her supplier can get her osmolyte and concentrator to them. I called her sister, Lesley, and gave her the update. She states she has sent Shaniqua the [employer] account number and information. States she cannot get the bank statements until Medicaid sends her the payee representative government relations approval. Karyn from [facility] called and they have declined patient due to no Medicaid beds available. CM will continue to follow and assist with discharge planning/needs. DCP- Discharge Planning Updated by [email or web address]: Edita Quinonez on 08/29/18 10:[address] Referral sent to [facility] in [place], [facility] faxed. I was unable to speak with the waterfront director, but left a message with my phone number to return call. CM will continue to follow and assist with discharge planning/needs. DCP- Discharge Planning Updated by [id number]: Edita Quinonez on 08/29/18 8:[address] I spoke with Quan at [facility] and faxed clinical. I also spoke with Shaniqua at [facility] and faxed clinical. Shaniqua states they do have a restorative plan for therapy there for physical therapy for Medicaid patients. States she will come to [place] and see her today. CM will continue to follow and assist with discharge planning/needs. DCP- Discharge Planning Updated by [id number]: Edita Devi on 08/28/18 2:[address] Received a call from Evi that they are not going to meet her needs for rehab at their facility and will deny her coming to [facility]. I spoke with the patient and explained. I called [facility] and asked if she could look again for a place for her. Her tracheostomy has a plug and she is now on a nasal cannula. She is taking in ice chips. I will continue to work on finding placement, she only has Medicaid, so she does not have any rehab benefits. DCP- Discharge Planning Updated by [id number]: Edita Devi on 08/28/18 7:[address] Spoke with Evi at [facility] in [place] and sent requested clinical. She states she and the DON are reviewing clinical for admission. I did inform her remelt operator is working toward decannulation. I spoke again with [facility] and she met with the patient and at this time she is unable to get her placed with any of her facilities. CM will continue to follow and assist with discharge planning/needs. DCP- Discharge Planning Updated by [id number]: Edita Quinonez on 08/27/18 10:[address] Updated clinical sent to [facility] in [facility] and I notified David Byrne that I sent them. I left a message with David about status of transfer to the facility. CM will continue to follow and assist with discharge planning/needs. DCP- Discharge Planning Updated by [id number]: Edita Quinonez on 08/26/18 1:[address] KYLIE paper work and clinical faxed to [facility]. CM will continue to follow and assist with discharge planning/needs. DCP- Discharge Planning Updated by [id number]: Edita Quinonez on 08/26/18 12:[address] Met with patient to discuss discharge planning, she would like to go to her brother's up [place]. She states that she needs to get stronger prior to going there. I informed her I was trying to get her in a rehab in [place], which is [facility]. She agrees to going to [place] for rehab if they will accept her. I have filled a Kylie form out and she signed. I will need to contact Dr. Tucker for his signature. He is in surgery at this time. DCP- Discharge Planning Updated by [id number]: Edita Quinonez on 08/23/18 3:[address] Received a call from Evi at [facility] for more information for possible admission. I faxed her clinical to [phone]. She will also need a KYLIE before admission completed. CM will continue to follow and assist with discharge planning/needs. DCP- Discharge Planning Updated by [id number]: Edita Quinonez on 08/23/18 11:[address] I spoke with [facility] today for an update. She states she does not have an accepting facility at this time. I sent referral to David Byrne. CM will continue to follow and assist with discharge planning/needs. DCP- Discharge Planning Updated by [id number]: Lizabeth Bingham on 08/21/18 9:[address] CM received a call from patients sister Lesley Domingo that [employer] has notified her that she should be receiving her paperwork in the next 2 weeks. Paperwork that she can act in Evy behalf for Medicaid. CM will continue to follow and assist with discharge planning. DCP- Discharge Planning Updated by [id number]: Lizabeth Bingham on 08/16/18 11:[address] CM continuing to follow up with [facility] about placement for female vent bed availability. If patient can be off vent for 72hrs then CM can seek placement locally. CM will continue to follow and assist as needed with discharge planning / needs. DCP- Discharge Planning Updated by [email or web address]: Winter Randolph on 08/15/18 12:[address] Patient Name: EVY ART Admission Status: Elective Accout number: [id number] Admission Date: 06-07-2018 : 1960 Admission Diagnosis:MALIGNANT NEOPLASM OF CARDIA Attending: WILLIAM TUCKER Current LOS: 69 Anticipated DC Date: Planned Disposition: Home or Self Care Primary Insurance: [place]ID [place] Discharge Planning Comments: CM CALLED [facility] TO SPEAK WITH JULY REGARDING A VENT BED. THEY STATE JULY IS OUT SICK AND WON'T BE BACK UNTIL NEXT WEEK. STATES WILL HAVE TO CALL BACK ON SUNDAY. Case Resolution Specialist: Winter Randolph DCP- Discharge Planning Updated by [id number]: Lizabeth Bingham on 08/14/18 4:[address] CM called [facility] and spoke with Jennyfer RANDLE. Jennyfer stated that she wasn't able to answer questions regarding how soon for bed availability. July was out sick and she had no information on placement. CM will call back tomorrow and attempt to speak with July. DCP- Discharge Planning Updated by [id number]: Lizabeth Bingham on 08/13/18 2:[address] CM called [facility] in [place] and left message for DON (July) to return call regarding placement and how long until placement. CM still awaiting call back @ this time. DCP- Discharge Planning Updated by [id number]: Lizabeth Bingham on 08/12/18 5:[address] CM called and spoke with Meli @ [facility] [phone]. Meli stated that at this time they do not have a female vent bed available. She stated that she doesn't know when one may be available or if patient is at the top of the list or not. Meli stated that CM would need to speak with July PARK for that information and she isn't there today. CM will continue to follow and assist as needed with discharge planning / needs. DCP- Discharge Planning Updated by [id number]: Lizabeth Bingham on 08/09/18 6:[address] CM spoke with Wei Delatorre in [facility] she got in touch with for me and got in touch with the appropriate person at [employer]. Was able to fax form in and get the appropriate information to Meli @ [facility] in [place]. CM later contacted [facility] and she stated that everything was good as far as financials. They currently do not have any female vent beds available. Meli stated she would keep us posted on availability. Wei notified me that social security had put in the necessary information so that Lesley diaz sister can be her payor source. Lesley is to go to social security in [place] next week.CM will continue to follow and assist as needed with discharge planning / needs. DCP- Discharge Planning Updated by [id number]: Lizabeth Bingham on 08/08/18 7:[address] CM attempted to call local office to see if CM could fax form into them and get patients disability number. CM was on hold for over 30 mins and never got to speak to a representative government relations. CM spoke with Meli at [facility]. She stated that she hasn't heard anything yet. Meli stated that once the financials was cleared then we will need to send updated clinicals and then would go through medical review for acceptance. CM will continue to follow and assist with discharge planning/ needs DCP- Discharge Planning Updated by [id number]: Lizabeth Bingham on 08/06/18 5:[address] Late Entry 08/06/18 @ [address] Webb office to see if they have received a fax from [employer]. Omaira stated that they have not received anything for her. CM will try to get back in touch with Lesley Domingo patients sister and Wei in [facility] to see what our next step is. CM contacted Meli at [facility] to let her know we are still working on placement. CM will continue to follow and assist with discharge planning / needs. DCP- Discharge Planning Updated by [id number]: Lizabeth Bingham on 07/31/18 4:[address] CM received notification that the social security office in [place] would not accept form that was sent to Lesley Domingo to get authorization to manage patients finances. They said they would have to directly send it to Dr. Tucker and then have him to send it back. [facility] has to have some proof of income before they can accept patient. We are having to wait to see if we can get Lesley approved to manage social security benefits in patients behalf. CM will continue to follow and assist with discharge planning / needs. DCP- Discharge Planning Updated by [email or web address]: Lizabeth Bingham on 07/26/18 6:[address] Late Entry 07/26/18 @ [address] Tucker and got form signed for SSA. CM took form to Wei in [facility]. CM will continue to follow and assist as needed with discharge planning / needs DCP- Discharge Planning Updated by [id number]: Lizabeth Bingham on 07/25/18 4:[address] CM spoke with Wei Delatorre this am. Wei spoke with patients sister Lesley Domingo trying to find out information needed to get patient placement. KRYSTAL was later notified that a form from SSA needed to be filled out by physician. CM attempted to get in touch with paged him several times but was unsuccessful. Called his office but no response at this time. CM will continue to follow and assist as needed with discharge planning / needs. DCP- Discharge Planning Updated by [id number]: Lizabeth Bingham on 07/24/18 4:[address] CM called and spoke with Meli at [facility] in [place]. [phone]. KRYSTAL asked if family was able to provide information needed. Meli stated that she hasn't heard from anyone since she had spoke to me last week. Meli is requesting proof that patient has applied for SSI and she needs proof of income. KRYSTAL attempted to call sorting livestock worker Ailyn Read [phone] or [phone] to see if she might could assist with obtaining this information. KRYSTAL was unsuccessful in contacting Ailyn. KRYSTAL called and spoke with Wei Delatorre and gave her Meli phone number to see if she could assist with information. Wei will contact Meli and her medical supervisor to see if they can assist with information needed. Wei will contact KRYSTAL after she gets in contact with others. CM will continue to follow and assist as needed with discharge planning / needs. DCP- Discharge Planning Updated by [id number]: Lizabeth Bingham on 07/18/18 5:[address] Late Entry 07/18/18 @ 1020 CM called and left a message for July PARK @ [facility]. CM awaiting response.CM will continue to follow and assist as needed with discharge planning / needs. Late Entry 07/18/18 @ 1330 CM received call from Meli with [facility]. Meli was wanting to know if patient was getting SSI or SSA. KRYSTAL was unaware of this information and referred Meli to call patients sister Lesley Domingo. CM called and spoke with Wei Delatorre regarding Medicaid. Wei stated patient had SSI Medicaid until 07/10/18 and regular Medicaid started 07/11/18. CM called Meli back to give this information to her and also gave Wei's number if she has questions regarding this. Meli stated that she also needed to know if the patient had applied for SSI and how much she had in her bank account. CM explained that we would try to find out this information. CM will check with sister and possibly patient window caser whom assisted patient with housing when released from long term. CM will continue to follow and assist as needed with discharge planning / needs. DCP- Discharge Planning Updated by [id number]: Lizabeth Bingham on 07/18/18 5:[address] Late Entry 07/17/18 @ 1600 CM called and left message x 2 for July PARK from [facility]. CM awaiting response. CM will continue to follow and assist as needed with discharge planning / needs. DCP- Discharge Planning Updated by [id number]: Lizabeth Bingham on 07/15/18 12:[address] CM spoke with patient's sister Lesley Domingo this am. She stated that the patient doesn't have Medicare. She asked when patient would transfer to [place]. CM explained that we are awaiting on acceptance to [facility] at this point. CM called [facility] for update July told CM to fax updated clinical and that it would be tomorrow 07/16/18 before they may have a determination. July requested CM not to call back tomorrow until after noon. CM will update family. CM also contacted [facility] in [place], [place]. [phone] CM spoke with Za she stated at this time they are not accepting out of state Medicaid at their facility. CM will continue to follow and assist as needed with discharge planning / needs. DCP- Discharge Planning Updated by [id number]: Lizabeth Bingham on 07/12/18 7:[address] CM was notified patient sister Lesley Domingo was here and requested to speak with me. KRYSTAL explained that the current plan was that we was looking into placement with [facility] in [place], [place]. CM had spoke to Zoila with [facility] prior to coming to speak with Lesley. CM had answered questions that Zoila had. Zoila stated the next process that they would send patients information to Executive offices and would be awaiting financial approval. Zoila stated for CM to call back to check on this at anytime next week. KRYSTAL explained all this to sister Lesley. Lesley asked why she was having to be transferred out of state. KRYSTAL explained that LTACH facilities within the [facility] do not take Medicaid and that custodial half-way facilities in the state do not accept ventilator patients. Lesley states that she had received information that the patient is and receiving Medicare through her . KRYSTAL explained that we had no record of that only Medicaid. Lesley requested that [facility] find this information out. KRYSTAL explained that if it was through the patients spouse then it would need to be his information used to look it up. Lesley states that she has a letter at her home that has this information on it.(Because she has custody of patients son and he receiving his benefits also). The conversation ended that Lesley was going to get the information to CM. CM received call from Lesley around 4:45pm requesting information on online Social Security office hours. Lesley also wanted to know what would happen if they didn't consent to transfer. KRYSTAL explained that I wasn't sure and Lesley requested for CM to find out this information. KRYSTAL spoke with other case therapist within the facility. CM then called Lesley back and explained that if the patient was stable for transfer and they still refusing transfer then it would most likely go to ethics board and DHS could be notified. Lesley then starting raising her voice that" the hospital and staff was not giving her accurate updates over the phone. She had no idea that Evy was almost in a comatose state." Lesley requested for us to wait on transfer until after she could show proof that she has Medicare. KRYSTAL explained that nothing would be happening until next week. She was still upset that she was going to have to stay longer than she had planned to get this taken care of. CM told her that I would be happy to let her speak to someone else on Sunday. CM will continue to follow and assist as needed will discharge planning/ needs. DCP- Discharge Planning Updated by [id number]: Lizabeth Bingham on 07/11/18 7:[address] CM spoke with [facility] in [place] ([place]). She stated that all their Vent beds are full at this time and they could put the patient on a waiting list for a bed. CM gave information to put patient on waiting list. CM then contacted [facility] in [place] ([facility]) she stated they might could accept patient. CM faxed over information and later got denial from [facility] that patient required too high of level of care. CM contacted [facility] superintendent terminal care to see if they could give any insight on facilities that take ventilator patients within the [facility]. They only gave [facility] in [place]. CM called and spoke with patients sister Lesley Domingo. CM explained the situation that the patient was needing placement and we might have to go out of the [facility] of [place] for placement. Lesley was concerned about patient getting back to [place] once she recovered. Lesley also stated that she would be in to see patient today that she just got into town. CM will plan to speak to her while she is here. CM received information on [facility] in [place], [place] that takes ventilator patients. CM called [facility] [phone] and faxed [phone] records. CM awaiting decision from [facility]. CM will continue to follow and assist as needed with discharge planning / needs. DCP- Discharge Planning Updated by [id number]: Lizabeth Bingham on 07/08/18 4:[address] CM contacted all LTACH within [facility] to check on Medicaid bed availability / ana bed availability. Still awaiting call back on three facilities but at this time no had stated they would accept any Medicaid patients or ana. CM will continue to follow and assist as needed with discharge planning / needs. DCP- Discharge Planning Updated by [id number]: Lizabeth Bingham on 06/20/18 11:[address] Patient Name: EVY ART Admission Status: Elective Accout number: [id number] Admission Date: 06-07-2018 : 1960 Admission Diagnosis:MALIGNANT NEOPLASM OF CARDIA Attending: WILLIAM TUCKER Current LOS: 13 Anticipated DC Date: Planned Disposition: Home or Self Care Primary Insurance: [place]ID [place] Discharge Planning Comments: CM called and spoke with sister Lesley Domingo [phone]. Patient is still on vent and sedated. Lesley (lives in [place]) informed CM that patient doesn't have any family that lives in the state of [place]. She stated that the patient had been incarcerated and had been released approximately 8 weeks prior to admission. Sister states that patient had found out while incarcerated that she had cancer. Patient had been getting radiation / chemo prior to admit. Lesley states that she has custody of patients youngest child and that her oldest child is in long term in [place]. Lesley states that her goal is for patient to finish her cancer treatments then come to her home in [place]. Lesley also states that patient has a roommate Nadine that comes to visit patient in the evenings. CM will continue to follow and assist as needed with discharge planning/ needs. Case Resolution Specialist: Lizabeth Bingham DCP- Discharge Planning Updated by [id number]: Lizabeth Bingham on 06/14/18 7:[address] Patient on Vent / sedated. No family available for discharge planning.CM will continue to follow and assist as needed with discharge planning / needs. Last DP export: 08/30/18 8:36 Patient Name: EVY ART Page [id number] at 1524 All edits/amendments must be made on the electronic document DICTATION DATE: 08/30/181523 OTOLARYNGOLOGIST: ANA ROSA 08/30/181523 RPT#: [id number] MD DATE: STATUS: ADM IN [facility] [address] [place] [address] END OF REPORT
--- NOTE | ~2018-06-07 | MORECARE ---
CASE MANAGEMENT DISCHARGE SUMMARY PATIENT: EVY ART UNIT: [id number] ADM DATE: 06/07/18 AGE: 57 : 62 SEX: F ROOM/BED: D.2307 AUTHOR: DARCI MAR PHYSICIAN: REFERRING PHYSICIAN: WILLIAM TUCKER MD DATE OF SERVICE: 08/16/18 Discharge Plan Patient Name: EVY ART Facility: [facility]:[place] : 1960 Planned Disposition: Home or Self Care Anticipated Discharge Date: Discharge Date: Expected LOS: Initial Reviewer: [id number] Initial Review Date: 06/07/2018 Generated: 08/16/18 1:11 pm Comments DCP- Discharge Planning Updated by [email or web address]: Lizabeth Bingham on 08/16/18 11:[address] CM continuing to follow up with [facility] about placement for female vent bed availability. If patient can be off vent for 72hrs then CM can seek placement locally. CM will continue to follow and assist as needed with discharge planning / needs. DCP- Discharge Planning Updated by [id number]: Winter Randolph on 08/15/18 12:[address] Patient Name: EVY ART Admission Status: Elective Accout number: [id number] Admission Date: 06-07-2018 : 1960 Admission Diagnosis:MALIGNANT NEOPLASM OF CARDIA Attending: WILLIAM TUCKER Current LOS: 69 Anticipated DC Date: Planned Disposition: Home or Self Care Primary Insurance: MEDICAID [place] Discharge Planning Comments: CM CALLED [facility] TO SPEAK WITH JULY REGARDING A VENT BED. THEY STATE JULY IS OUT SICK AND WON'T BE BACK UNTIL NEXT WEEK. STATES WILL HAVE TO CALL BACK ON SUNDAY. Soft Mud Molder: Winter Randolph DCP- Discharge Planning Updated by [id number]: Lizabeth Bingham on 08/14/18 4:[address] CM called [facility] and spoke with Jennyfer RANDLE. Jennyfer stated that she wasn't able to answer questions regarding how soon for bed availability. July was out sick and she had no information on placement. CM will call back tomorrow and attempt to speak with July. DCP- Discharge Planning Updated by [id number]: Lizabeth Bingham on 08/13/18 2:[address] CM called [facility] in [place] and left message for VIVIAN (July) to return call regarding placement and how long until placement. CM still awaiting call back @ this time. DCP- Discharge Planning Updated by [email or web address]: Lizabeth Bingham on 08/12/18 5:[address] CM called and spoke with Meli @ [facility] [phone]. Meli stated that at this time they do not have a female vent bed available. She stated that she doesn't know when one may be available or if patient is at the top of the list or not. Meli stated that CM would need to speak with July PARK for that information and she isn't there today. CM will continue to follow and assist as needed with discharge planning / needs. DCP- Discharge Planning Updated by [id number]: Lizabeth Bingham on 08/09/18 6:[address] KRYSTAL spoke with Wei Delatorre in [facility] she got in touch with for me and got in touch with the appropriate person at [facility]. Was able to fax form in and get the appropriate information to Meli @ [facility] in [place]. CM later contacted Meli and she stated that everything was good as far as financials. They currently do not have any female vent beds available. Meli stated she would keep us posted on availability. Wei notified me that [facility] had put in the necessary information so that Lesley diaz sister can be her payor source. Lesley is to go to social security in [place] next week.CM will continue to follow and assist as needed with discharge planning / needs. DCP- Discharge Planning Updated by [id number]: Lizabeth Bingham on 08/08/18 7:[address] CM attempted to call local SS office to see if CM could fax form into them and get patients disability number. CM was on hold for over 30 mins and never got to speak to a technical account representative. CM spoke with Meli at [facility]. She stated that she hasn't heard anything yet. Meli stated that once the financials was cleared then we will need to send updated clinicals and then would go through medical review for acceptance. CM will continue to follow and assist with discharge planning/ needs DCP- Discharge Planning Updated by [id number]: Lizabeth Bingham on 08/06/18 5:[address] Late Entry 08/06/18 @ [address] Webb office to see if they have received a fax from Social Security. Omaira stated that they have not received anything for her. CM will try to get back in touch with Lesley Jose L patients sister and Wei in [facility] to see what our next step is. CM contacted Meli at [facility] to let her know we are still working on placement. CM will continue to follow and assist with discharge planning / needs. DCP- Discharge Planning Updated by [id number]: Lizabeth Bingham on 07/31/18 4:[address] CM received notification that the social security office in [place] would not accept form that was sent to Lesley Domingo to get authorization to manage patients finances. They said they would have to directly send it to Dr. Tucker and then have him to send it back. [facility] has to have some proof of income before they can accept patient. We are having to wait to see if we can get Lesley approved to manage social security benefits in patients behalf. CM will continue to follow and assist with discharge planning / needs. DCP- Discharge Planning Updated by [id number]: Lizabeth Bingham on 07/26/18 6:[address] Late Entry 07/26/18 @ [address] Tucker and got form signed for [facility]. CM took form to Wei in [facility]. CM will continue to follow and assist as needed with discharge planning / needs DCP- Discharge Planning Updated by [id number]: Lizabeth Bingham on 07/25/18 4:[address] CM spoke with Wei Delatorre this am. Wei spoke with patients sister Lesley Domingo trying to find out information needed to get patient placement. KRYSTAL was later notified that a form from [facility] needed to be filled out by physician. CM attempted to get in touch with paged him several times but was unsuccessful. Called his office but no response at this time. CM will continue to follow and assist as needed with discharge planning / needs. DCP- Discharge Planning Updated by [id number]: Lizabeth Bingham on 07/24/18 4:[address] CM called and spoke with Meli at [facility] in [place]. [phone]. CM asked if family was able to provide information needed. Meli stated that she hasn't heard from anyone since she had spoke to me last week. Meli is requesting proof that patient has applied for SSI and she needs proof of income. CM attempted to call [employer] worker Ailyn Read [phone] or [phone] to see if she might could assist with obtaining this information. CM was unsuccessful in contacting Ailyn. CM called and spoke with Wei Delatorre and gave her Meli phone number to see if she could assist with information. Wei will contact Meli and her information systems supervisor to see if they can assist with information needed. Wei will contact CM after she gets in contact with others. CM will continue to follow and assist as needed with discharge planning / needs. DCP- Discharge Planning Updated by [id number]: Lizabeth Bingham on 07/18/18 5:[address] Late Entry 07/18/18 @ 1020 CM called and left a message for July PARK @ [facility]. CM awaiting response.CM will continue to follow and assist as needed with discharge planning / needs. Late Entry 07/18/18 @ 1330 CM received call from Meli with [facility]. Meli was wanting to know if patient was getting SSI or SSA. KRYSTAL was unaware of this information and referred Meli to call patients sister Lesley Domingo. CM called and spoke with Wei Delatorre regarding Medicaid. Wei stated patient had SSI Medicaid until 07/10/18 and regular Medicaid started 07/11/18. CM called Meli back to give this information to her and also gave Wei's number if she has questions regarding this. Meli stated that she also needed to know if the patient had applied for SSI and how much she had in her bank account. KRYSTAL explained that we would try to find out this information. CM will check with sister and possibly patient medical case worker whom assisted patient with housing when released from [facility]. CM will continue to follow and assist as needed with discharge planning / needs. DCP- Discharge Planning Updated by [id number]: Lizabeth Bingham on 07/18/18 5:[address] Late Entry 07/17/18 @ 1600 CM called and left message x 2 for July PARK from [facility]. CM awaiting response. CM will continue to follow and assist as needed with discharge planning / needs. DCP- Discharge Planning Updated by [id number]: Lizabeth Bingham on 07/15/18 12:[address] CM spoke with patient's sister Lesley Domingo this am. She stated that the patient doesn't have Medicare. She asked when patient would transfer to [place]. CM explained that we are awaiting on acceptance to [facility] at this point. KRYSTAL called [facility] for update July told CM to fax updated clinical and that it would be tomorrow 07/16/18 before they may have a determination. July requested CM not to call back tomorrow until after noon. CM will update family. CM also contacted [facility] in [place], [place]. [phone] KRYSTAL spoke with Za she stated at this time they are not accepting out of state Medicaid at their facility. CM will continue to follow and assist as needed with discharge planning / needs. DCP- Discharge Planning Updated by [id number]: Lizabeth Bingham on 07/12/18 7:[address] CM was notified patient sister Lesley Domingo was here and requested to speak with me. KRYSTAL explained that the current plan was that we was looking into placement with [facility] in [place], [place]. KRYSTAL had spoke to Zoila with [facility] prior to coming to speak with Lesley. KRYSTAL had answered questions that Zoila had. Zoila stated the next process that they would send patients information to Executive offices and would be awaiting financial approval. Zoila stated for CM to call back to check on this at anytime next week. KRYSTAL explained all this to sister Lesley. Lesley asked why she was having to be transferred out of state. KRYSTAL explained that LTACH facilities within the state do not take Medicaid and that correction longterm facilities in the state do not accept ventilator patients. Lesley states that she had received information that the patient is and receiving Medicare through her . KRYSTAL explained that we had no record of that only Medicaid. Lesley requested that [facility] find this information out. KRYSTAL explained that if it was through the patients spouse then it would need to be his information used to look it up. Lesley states that she has a letter at her home that has this information on it.(Because she has custody of patients son and he receiving his benefits also). The conversation ended that Lesley was going to get the information to KRYSTAL. KRYSTAL received call from Lesley around 4:45pm requesting information on online Social Security office hours. Lesley also wanted to know what would happen if they didn't consent to transfer. KRYSTAL explained that I wasn't sure and Lesley requested for KRYSTAL to find out this information. KRYSTAL spoke with other onsite case manager within the facility. KRYSTAL then called Lesley back and explained that if the patient was stable for transfer and they still refusing transfer then it would most likely go to ethics board and [facility] could be notified. Lesley then starting raising her voice that" the hospital and staff was not giving her accurate updates over the phone. She had no idea that Evy was almost in a comatose state." Lesley requested for us to wait on transfer until after she could show proof that she has Medicare. KRYSTAL explained that nothing would be happening until next week. She was still upset that she was going to have to stay longer than she had planned to get this taken care of. KRYSTAL told her that I would be happy to let her speak to someone else on Sunday. KRYSTAL will continue to follow and assist as needed will discharge planning/ needs. DCP- Discharge Planning Updated by [id number]: Lizabeth Bingham on 07/11/18 7:[address] KRYSTAL spoke with [facility] in [place] ([facility]). She stated that all their Vent beds are full at this time and they could put the patient on a waiting list for a bed. CM gave information to put patient on waiting list. KRYSTAL then contacted [facility] in [place] ([facility]) she stated they might could accept patient. CM faxed over information and later got denial from [facility] that patient required too high of level of care. KRYSTAL contacted [facility] division correction care to see if they could give any insight on facilities that take ventilator patients within the [facility]. They only gave [facility] in [place]. KRYSTAL called and spoke with patients sister Lesley Domingo. KRYSTAL explained the situation that the patient was needing placement and we might have to go out of the state of [place] for placement. Lesley was concerned about patient getting back to [place] once she recovered. Lesley also stated that she would be in to see patient today that she just got into town. CM will plan to speak to her while she is here. CM received information on [facility] in [place], [place] that takes ventilator patients. CM called Meli [phone] and faxed [phone] records. CM awaiting decision from [facility]. CM will continue to follow and assist as needed with discharge planning / needs. DCP- Discharge Planning Updated by [id number]: Lizabeth Bingham on 07/08/18 4:[address] CM contacted all LTACH within state to check on Medicaid bed availability / ana bed availability. Still awaiting call back on three facilities but at this time no had stated they would accept any Medicaid patients or ana. CM will continue to follow and assist as needed with discharge planning / needs. DCP- Discharge Planning Updated by [id number]: Lizabeth Bingham on 06/20/18 11:[address] Patient Name: EVY ART Admission Status: Elective Accout number: [id number] Admission Date: 06-07-2018 : 1960 Admission Diagnosis:MALIGNANT NEOPLASM OF CARDIA Attending: WILLIAM TUCKER Current LOS: 13 Anticipated DC Date: Planned Disposition: Home or Self Care Primary Insurance: MEDICAID [place] Discharge Planning Comments: CM called and spoke with sister Lesley Domingo [phone]. Patient is still on vent and sedated. Lesley (lives in [place]) informed CM that patient doesn't have any family that lives in the [facility] of [place]. She stated that the patient had been incarcerated and had been released approximately 8 weeks prior to admission. Sister states that patient had found out while incarcerated that she had cancer. Patient had been getting radiation / chemo prior to admit. Lesley states that she has custody of patients youngest child and that her oldest child is in [facility] in [place]. Lesley states that her goal is for patient to finish her cancer treatments then come to her home in [place]. Lesley also states that patient has a roommate Nadine that comes to visit patient in the evenings. CM will continue to follow and assist as needed with discharge planning/ needs. Soft Mud Molder: Lizabeth Bingham DCP- Discharge Planning Updated by [id number]: Lizabeth Bingham on 06/14/18 7:[address] Patient on Vent / sedated. No family available for discharge planning.CM will continue to follow and assist as needed with discharge planning / needs. Last DP export: 08/15/18 12:35 p Patient Name: EVY ART Page [id number] at 1212 All edits/amendments must be made on the electronic document DICTATION DATE: 08/16/18 1211 PRODUCT TRANSFER PUMPER: ANA ROSA 08/16/18 1211 RPT#: [id number] DC DATE: STATUS: ADM IN [facility] [address] [place] [address] END OF REPORT
--- NOTE | ~2018-06-07 | MORECARE ---
CASE MANAGEMENT DISCHARGE SUMMARY PATIENT: ESDRAS ART UNIT: [id number] ADM DATE: 06/07/18 AGE: 57 : 62 SEX: F ROOM/BED: D.2307 AUTHOR: ZAID,DOC PHYSICIAN: REFERRING PHYSICIAN: WILLIAM TUCKER MD DATE OF SERVICE: 07/08/18 Discharge Plan Patient Name: ESDRAS ART Facility: [facility]:[place] : 1960 Planned Disposition: Home or Self Care Anticipated Discharge Date: Discharge Date: Expected LOS: Initial Reviewer: [email or web address] Initial Review Date: 06/07/2018 Generated: 07/08/18 5:54 pm Comments DCP- Discharge Planning Updated by [id number]: Lizabeth Bingham on 07/08/18 3:[address] CM contacted all LTACH within state to check on Medicaid bed availability / ana bed availability. Still awaiting call back on three facilities but at this time no had stated they would accept any Medicaid patients or ana. CM will continue to follow and assist as needed with discharge planning / needs. DCP- Discharge Planning Updated by [id number]: Lizabeth Bingham on 06/20/18 10:[address] Patient Name: ESDRAS ART Admission Status: Elective Accout number: [id number] Admission Date: 06-07-2018 : 1960 Admission Diagnosis:MALIGNANT NEOPLASM OF CARDIA Attending: WILLIAM TUCKER Current LOS: 13 Anticipated DC Date: Planned Disposition: Home or Self Care Primary Insurance: MEDICAID [place] Discharge Planning Comments: CM called and spoke with sister Lesley Domingo [phone]. Patient is still on vent and sedated. Lesley (lives in [place]) informed CM that patient doesn't have any family that lives in the state of [place]. She stated that the patient had been incarcerated and had been released approximately 8 weeks prior to admission. Sister states that patient had found out while incarcerated that she had cancer. Patient had been getting radiation / chemo prior to admit. Lesley states that she has custody of patients youngest child and that her oldest child is in [facility] in [place]. Lesley states that her goal is for patient to finish her cancer treatments then come to her home in [place]. Lesley also states that patient has a roommate Nadine that comes to visit patient in the evenings. CM will continue to follow and assist as needed with discharge planning/ needs. Transcribing Machine Operator: Lizabeth Bingham DCP- Discharge Planning Updated by [id number]: Lizabeth Bingham on 06/14/18 6:[address] Patient on Vent / sedated. No family available for discharge planning.CM will continue to follow and assist as needed with discharge planning / needs. Last DP export: 06/20/18 10:31 Patient Name: ESDRAS ART Page [id number] at 1654 All edits/amendments must be made on the electronic document DICTATION DATE: 07/08/181652 STEEL LAYER: ANA ROSA 07/08/181652 RPT#: [id number] [place] DATE: STATUS: ADM IN [facility] [address] [place] [address] END OF REPORT
--- NOTE | ~2018-06-07 | MORECARE ---
CASE MANAGEMENT DISCHARGE SUMMARY PATIENT: EVY ART UNIT: [id number] ADM DATE: 06/07/18 AGE: 57 : 62 SEX: F ROOM/BED: D.2224 AUTHOR: DARCI MAR PHYSICIAN: REFERRING PHYSICIAN: WILLIAM TUCKER MD DATE OF SERVICE: 09/05/18 Discharge Plan Patient Name: EVY ART Facility: [facility]:[place] : 1960 Planned Disposition: Home or Self Care Anticipated Discharge Date: Discharge Date: 09/05/2018 Expected LOS: 0 Initial Reviewer: [email or web address] Initial Review Date: 06/07/2018 Generated: 09/05/18 4:51 pm Comments DCP- Discharge Planning Updated by [id number]: Edita Quinonez on 09/05/18 10:[address] Received confirmation from Maricel at [facility]) that they will accept her today. I faxed discharge orders/MAR. NursePenelope to call report. She will go to a longterm bed at [facility] via ambulance in [place], [place]. I called her sister, Lesley. Lesley agrees with discharge. DCP- Discharge Planning Updated by [id number]: Edita Quinonez on 09/04/18 2:[address] I received a call from [facility] that they can accept the patient tomorrow via ambulance. They would like her transported via ambulance due to inability to sit that long in a van. I called Dr. Tucker and informed him that she can be discharged to [facility] tomorrow. I also notified Dr. Smith and Dr. Jose and they are in agreement. CM will continue to follow and assist with discharge planning/needs. DCP- Discharge Planning Updated by [id number]: Edita Quinonez on 09/04/18 11:[address] I spoke with [facility] today with [facility], they are still awaiting bank statements for placement. I spoke with Lesley (Patient's sister) she just received patient's PIN number and is setting up on line banking to retrieve bank statements and will fax them to me. I gave her case managements fax number. CM will continue to follow and assist with discharge planning/needs. DCP- Discharge Planning Updated by [id number]: Edita Quinonez on 08/30/18 2:[address] RECEIVED A CALL FROM [facility] FROM [facility]. THEY ARE WILLING TO ACCEPT HER NEXT WEEK IF THEY ARE ABLE TO GET HER 3 MONTHS BANK STATEMENTS FROM [employer]. I WILL F/U NEXT WEEK. DCP- Discharge Planning Updated by [id number]: Edita Quinonez on 08/30/18 8:[address] I spoke with Shaniqua in [facility] in [place]. She states she is waiting on 3 months of bank statements from the sister. She is also going to check on when her supplier can get her osmolyte and concentrator to them. I called her sister, Lesley, and gave her the update. She states she has sent Shaniqua the [employer] account number and information. States she cannot get the bank statements until Medicaid sends her the payee territory sales representative approval. Karyn from [facility] called and they have declined patient due to no Medicaid beds available. CM will continue to follow and assist with discharge planning/needs. DCP- Discharge Planning Updated by [id number]: Edita Mckeonangelita on 08/29/18 10:[address] Referral sent to [facility] in [place], [facility] faxed. I was unable to speak with the dining services director, but left a message with my phone number to return call. CM will continue to follow and assist with discharge planning/needs. DCP- Discharge Planning Updated by [id number]: Edita Mckeonangelita on 08/29/18 8:[address] I spoke with Quan at [facility] and faxed clinical. I also spoke with Shaniqua at [facility] and faxed clinical. Shaniqua states they do have a restorative plan for therapy there for physical therapy for Medicaid patients. States she will come to [place] and see her today. CM will continue to follow and assist with discharge planning/needs. DCP- Discharge Planning Updated by [id number]: Edita Mckeonangelita on 08/28/18 2:[address] Received a call from Evi that they are not going to meet her needs for rehab at their facility and will deny her coming to [facility] in [place]. I spoke with the patient and explained. I called [facility] and asked if she could look again for a place for her. Her tracheostomy has a plug and she is now on a nasal cannula. She is taking in ice chips. I will continue to work on finding placement, she only has Medicaid, so she does not have any rehab benefits. DCP- Discharge Planning Updated by [id number]: Edita Quinonez on 08/28/18 7:[address] Spoke with Evi at [facility] in [place] and sent requested clinical. She states she and the DON are reviewing clinical for admission. I did inform her candlemaking laborer is working toward decannulation. I spoke again with [facility] and she met with the patient and at this time she is unable to get her placed with any of her facilities. CM will continue to follow and assist with discharge planning/needs. DCP- Discharge Planning Updated by [id number]: Edita Quinonez on 08/27/18 10:[address] Updated clinical sent to [facility] in [facility] and I notified David Byrne that I sent them. I left a message with David about status of transfer to the facility. CM will continue to follow and assist with discharge planning/needs. DCP- Discharge Planning Updated by [id number]: Edita Quinonez on 08/26/18 1:[address] KYLIE paper work and clinical faxed to [facility]. CM will continue to follow and assist with discharge planning/needs. DCP- Discharge Planning Updated by [id number]: Edita Quinonez on 08/26/18 12:[address] Met with patient to discuss discharge planning, she would like to go to her brother's [facility]. She states that she needs to get stronger prior to going there. I informed her I was trying to get her in a rehab in [place], which is [facility]. She agrees to going to [place] for rehab if they will accept her. I have filled a [employer] form out and she signed. I will need to contact Dr. Tucker for his signature. He is in surgery at this time. DCP- Discharge Planning Updated by [id number]: Edita Quinonez on 08/23/18 3:[address] Received a call from Evi at [facility] in [facility] for more information for possible admission. I faxed her clinical to [phone]. She will also need a KYLIE before admission completed. CM will continue to follow and assist with discharge planning/needs. DCP- Discharge Planning Updated by [id number]: Edita Quinonez on 08/23/18 11:[address] I spoke with [facility] today for an update. She states she does not have an accepting facility at this time. I sent referral to David Byrne. CM will continue to follow and assist with discharge planning/needs. DCP- Discharge Planning Updated by [id number]: Lizabeth Bingham on 08/21/18 9:[address] CM received a call from patients sister Lesley Domingo that [employer] has notified her that she should be receiving her paperwork in the next 2 weeks. Paperwork that she can act in Evy behalf for Medicaid. CM will continue to follow and assist with discharge planning. DCP- Discharge Planning Updated by [id number]: Lizabeth Bingham on 08/16/18 11:[address] CM continuing to follow up with [facility] about placement for female vent bed availability. If patient can be off vent for 72hrs then CM can seek placement locally. CM will continue to follow and assist as needed with discharge planning / needs. DCP- Discharge Planning Updated by [id number]: Winter Randolph on 08/15/18 12:[address] Patient Name: EVY ART Admission Status: Elective Accout number: [id number] Admission Date: 06-07-2018 : 1960 Admission Diagnosis:MALIGNANT NEOPLASM OF CARDIA Attending: WILLIAM TUCKER Current LOS: 69 Anticipated DC Date: Planned Disposition: Home or Self Care Primary Insurance: [place]ID [place] Discharge Planning Comments: CM CALLED [facility] TO SPEAK WITH JULY REGARDING A VENT BED. THEY STATE JULY IS OUT SICK AND WON'T BE BACK UNTIL NEXT WEEK. STATES WILL HAVE TO CALL BACK ON SUNDAY. B2B Managed Service Sales Exec: Winter Randolph DCP- Discharge Planning Updated by [id number]: Lizabeth Bingham on 08/14/18 4:[address] CM called [facility] and spoke with Jennyfer RANDLE. Jennyfer stated that she wasn't able to answer questions regarding how soon for bed availability. July was out sick and she had no information on placement. CM will call back tomorrow and attempt to speak with July. DCP- Discharge Planning Updated by [id number]: Lizabeth Bingham on 08/13/18 2:[address] CM called [facility] in [place] and left message for VIVIAN (July) to return call regarding placement and how long until placement. CM still awaiting call back @ this time. DCP- Discharge Planning Updated by [email or web address]: Lizabeth Bingham on 08/12/18 5:[address] CM called and spoke with Meli @ [facility] [phone]. Meli stated that at this time they do not have a female vent bed available. She stated that she doesn't know when one may be available or if patient is at the top of the list or not. Meli stated that CM would need to speak with July PARK for that information and she isn't there today. CM will continue to follow and assist as needed with discharge planning / needs. DCP- Discharge Planning Updated by [id number]: Lizabeth Bingham on 08/09/18 6:[address] KRYSTAL spoke with Wei Delatorre in [employer] she got in touch with SS for me and got in touch with the appropriate person at [employer] [facility]. Was able to fax form in and get the appropriate information to Meli @ [facility] in [place]. CM later contacted Meli and she stated that everything was good as far as financials. They currently do not have any female vent beds available. Meli stated she would keep us posted on availability. Wei notified me that [employer] security had put in the necessary information so that Lesley diaz sister can be her payor source. Lesley is to go to social security in [place] next week.CM will continue to follow and assist as needed with discharge planning / needs. DCP- Discharge Planning Updated by [id number]: Lizabeth Bingham on 08/08/18 7:[address] CM attempted to call local SS office to see if CM could fax form into them and get patients disability number. CM was on hold for over 30 mins and never got to speak to a territory sales representative. CM spoke with Meli at [facility]. She stated that she hasn't heard anything yet. Meli stated that once the financials was cleared then we will need to send updated clinicals and then would go through medical review for acceptance. CM will continue to follow and assist with discharge planning/ needs DCP- Discharge Planning Updated by [id number]: Lizabeth Bingham on 08/06/18 5:[address] Late Entry 08/06/18 @ [address] Webb office to see if they have received a fax from Social Security. Omaira stated that they have not received anything for her. CM will try to get back in touch with Lesley Jose L patients sister and Wei in [facility] to see what our next step is. CM contacted Meli at [facility] to let her know we are still working on placement. CM will continue to follow and assist with discharge planning / needs. DCP- Discharge Planning Updated by [id number]: Lizabeth Bingham on 07/31/18 4:[address] CM received notification that the social security office in [place] would not accept form that was sent to Lesley Domingo to get authorization to manage patients finances. They said they would have to directly send it to Dr. Tucker and then have him to send it back. [facility] has to have some proof of income before they can accept patient. We are having to wait to see if we can get Lesley approved to manage social security benefits in patients behalf. CM will continue to follow and assist with discharge planning / needs. DCP- Discharge Planning Updated by [id number]: Lizabeth Bingham on 07/26/18 6:[address] Late Entry 07/26/18 @ [address] Tucker and got form signed for [facility]. CM took form to Wei in [facility]. CM will continue to follow and assist as needed with discharge planning / needs DCP- Discharge Planning Updated by [id number]: Lizabeth Bingham on 07/25/18 4:[address] CM spoke with Wei Delatorre this am. Wei spoke with patients sister Lesley Domingo trying to find out information needed to get patient placement. KRYSTAL was later notified that a form from [facility] needed to be filled out by physician. CM attempted to get in touch with paged him several times but was unsuccessful. Called his office but no response at this time. CM will continue to follow and assist as needed with discharge planning / needs. DCP- Discharge Planning Updated by [id number]: Lizabeth Bingham on 07/24/18 4:[address] CM called and spoke with Meli at [facility] in [place]. [phone]. CM asked if family was able to provide information needed. Meli stated that she hasn't heard from anyone since she had spoke to me last week. Meli is requesting proof that patient has applied for SSI and she needs proof of income. CM attempted to call bulb farmworker Ailyn Read [phone] or [phone] to see if she might could assist with obtaining this information. CM was unsuccessful in contacting Ailyn. CM called and spoke with Wei Delatorre and gave her Meli phone number to see if she could assist with information. Wei will contact Meli and her cytology supervisor to see if they can assist with information needed. Wei will contact CM after she gets in contact with others. CM will continue to follow and assist as needed with discharge planning / needs. DCP- Discharge Planning Updated by [id number]: Lizabeth Bingham on 07/18/18 5:[address] Late Entry 07/18/18 @ 1020 CM called and left a message for July PARK @ [facility]. CM awaiting response.CM will continue to follow and assist as needed with discharge planning / needs. Late Entry 07/18/18 @ 1330 CM received call from Meli with [facility]. Meli was wanting to know if patient was getting SSI or SSA. KRYSTAL was unaware of this information and referred Meli to call patients sister Lesley Domingo. CM called and spoke with Wei Delatorre regarding Medicaid. Wei stated patient had SSI Medicaid until 07/10/18 and regular Medicaid started 07/11/18. CM called Meli back to give this information to her and also gave Wei's number if she has questions regarding this. Meli stated that she also needed to know if the patient had applied for SSI and how much she had in her bank account. KRYSTAL explained that we would try to find out this information. CM will check with sister and possibly patient nurse case manager whom assisted patient with housing when released from [facility]dc. CM will continue to follow and assist as needed with discharge planning / needs. DCP- Discharge Planning Updated by [id number]: Lizabeth Bingham on 07/18/18 5:[address] Late Entry 07/17/18 @ 1600 CM called and left message x 2 for July PARK from [facility]. CM awaiting response. CM will continue to follow and assist as needed with discharge planning / needs. DCP- Discharge Planning Updated by [id number]: Lizabeth Zachery on 07/15/18 12:[address] CM spoke with patient's sister Lesley Domingo this am. She stated that the patient doesn't have Medicare. She asked when patient would transfer to [place]. CM explained that we are awaiting on acceptance to [facility] at this point. CM called [facility] for update July told CM to fax updated clinical and that it would be tomorrow 07/16/18 before they may have a determination. July requested CM not to call back tomorrow until after noon. CM will update family. CM also contacted [facility] in [place], [place]. [phone] CM spoke with Za she stated at this time they are not accepting out of state Medicaid at their facility. CM will continue to follow and assist as needed with discharge planning / needs. DCP- Discharge Planning Updated by [id number]: Lizabeth Bingham on 07/12/18 7:[address] CM was notified patient sister Lesley Domingo was here and requested to speak with me. KRYSTAL explained that the current plan was that we was looking into placement with [facility] in [place], [place]. CM had spoke to Zoila with [facility] prior to coming to speak with Lesley. KRYSTAL had answered questions that Zoila had. Zoila stated the next process that they would send patients information to Executive offices and would be awaiting financial approval. Zoila stated for CM to call back to check on this at anytime next week. KRYSTAL explained all this to sister Lesley. Lesley asked why she was having to be transferred out of state. KRYSTAL explained that LTACH facilities within the state do not take Medicaid and that ferry terminal supervisor chcf facilities in the state do not accept ventilator patients. Lesley states that she had received information that the patient is and receiving Medicare through her . KRYSTAL explained that we had no record of that only Medicaid. Lesley requested that [facility] find this information out. KRYSTAL explained that if it was through the patients spouse then it would need to be his information used to look it up. Lesley states that she has a letter at her home that has this information on it.(Because she has custody of patients son and he receiving his benefits also). The conversation ended that Lesley was going to get the information to KRYSTAL. KRYSTAL received call from Lesley around 4:45pm requesting information on online Social Security office hours. Lesley also wanted to know what would happen if they didn't consent to transfer. KRYSTAL explained that I wasn't sure and Lesley requested for CM to find out this information. KRYSTAL spoke with other transplant case manager within the facility. KRYSTAL then called Lesley back and explained that if the patient was stable for transfer and they still refusing transfer then it would most likely go to ethics board and [facility] could be notified. Lesley then starting raising her voice that" the hospital and staff was not giving her accurate updates over the phone. She had no idea that Evy was almost in a comatose state." Lesley requested for us to wait on transfer until after she could show proof that she has Medicare. KRYSTAL explained that nothing would be happening until next week. She was still upset that she was going to have to stay longer than she had planned to get this taken care of. KRYSTAL told her that I would be happy to let her speak to someone else on Sunday. CM will continue to follow and assist as needed will discharge planning/ needs. DCP- Discharge Planning Updated by [id number]: Lizabeth Bingham on 07/11/18 7:[address] KRYSTAL spoke with [facility] in [place] ([facility] She stated that all their Vent beds are full at this time and they could put the patient on a waiting list for a bed. CM gave information to put patient on waiting list. CM then contacted [facility] in [place] ([facility]) she stated they might could accept patient. CM faxed over information and later got denial from [facility] that patient required too high of level of care. CM contacted [facility] division ferry terminal supervisor care to see if they could give any insight on facilities that take ventilator patients within the [facility]. They only gave [facility] in [place]. KRYSTAL called and spoke with patients sister Lesley Domingo. KRYSTAL explained the situation that the patient was needing placement and we might have to go out of the state of [place] for placement. Lesley was concerned about patient getting back to [place] once she recovered. Lesley also stated that she would be in to see patient today that she just got into town. CM will plan to speak to her while she is here. CM received information on [facility] in [place], [place] that takes ventilator patients. CM called Meli [phone] and faxed [phone] records. CM awaiting decision from [facility]. CM will continue to follow and assist as needed with discharge planning / needs. DCP- Discharge Planning Updated by [id number]: Lizabeth Bingham on 07/08/18 4:[address] CM contacted all LTACH within state to check on Medicaid bed availability / ana bed availability. Still awaiting call back on three facilities but at this time no had stated they would accept any Medicaid patients or ana. CM will continue to follow and assist as needed with discharge planning / needs. DCP- Discharge Planning Updated by [id number]: Lizabeth Bingham on 06/20/18 11:[address] Patient Name: EVY ART Admission Status: Elective Accout number: [id number] Admission Date: 06-07-2018 : 1960 Admission Diagnosis:MALIGNANT NEOPLASM OF CARDIA Attending: WILLIAM TUCKER Current LOS: 13 Anticipated DC Date: Planned Disposition: Home or Self Care Primary Insurance: [place]ID [place] Discharge Planning Comments: CM called and spoke with sister Lesley Domingo [phone]. Patient is still on vent and sedated. Lesley (lives in [place]) informed CM that patient doesn't have any family that lives in the [facility]. She stated that the patient had been incarcerated and had been released approximately 8 weeks prior to admission. Sister states that patient had found out while incarcerated that she had cancer. Patient had been getting radiation / chemo prior to admit. Lesley states that she has custody of patients youngest child and that her oldest child is in fdc in [place]. Lesley states that her goal is for patient to finish her cancer treatments then come to her home in [place]. Lesley also states that patient has a roommate Nadine that comes to visit patient in the evenings. CM will continue to follow and assist as needed with discharge planning/ needs. B2B Managed Service Sales Exec: Lizabeth Bingham DCP- Discharge Planning Updated by [id number]: Lizabeth Bingham on 06/14/18 7:[address] Patient on Vent / sedated. No family available for discharge planning.CM will continue to follow and assist as needed with discharge planning / needs. Last DP export: 09/05/18 10:37 Patient Name: EVY ART Page [id number] at 1551 All edits/amendments must be made on the electronic document DICTATION DATE: 09/05/18 1550 LINING FELLER: ANA ROSA 09/05/18 1550 RPT#: [id number] [place] DATE:09/05/18 STATUS: DIS IN [facility] [address] [place] [address] END OF REPORT
--- NOTE | ~2018-06-07 | MORECARE ---
CASE MANAGEMENT DISCHARGE SUMMARY PATIENT: ESDRAS ART UNIT: [id number] ADM DATE: 06/07/18 AGE: 57 : 62 SEX: F ROOM/BED: D.2307 AUTHOR: ZAID,DOC PHYSICIAN: REFERRING PHYSICIAN: WILLIAM TUCKER MD DATE OF SERVICE: 07/18/18 Discharge Plan Patient Name: ESDRAS ART Facility: [facility]:[place] : 1960 Planned Disposition: Home or Self Care Anticipated Discharge Date: Discharge Date: Expected LOS: Initial Reviewer: [id number] Initial Review Date: 06/07/2018 Generated: 07/18/18 7:16 pm Comments DCP- Discharge Planning Updated by [email or web address]: Lizabeth Bingham on 07/18/18 5:[address] Late Entry 07/17/18 @ 1600 CM called and left message x 2 for July PARK from [facility]. CM awaiting response. CM will continue to follow and assist as needed with discharge planning / needs. DCP- Discharge Planning Updated by [email or web address]: Lizabeth Bingham on 07/15/18 12:[address] CM spoke with patient's sister Lesley Domingo this am. She stated that the patient doesn't have Medicare. She asked when patient would transfer to [place]. CM explained that we are awaiting on acceptance to [facility] at this point. CM called [facility] for update July told CM to fax updated clinical and that it would be tomorrow 07/16/18 before they may have a determination. July requested CM not to call back tomorrow until after noon. CM will update family. CM also contacted [facility] in [place], [place]. [phone] CM spoke with Za she stated at this time they are not accepting out of state Medicaid at their facility. CM will continue to follow and assist as needed with discharge planning / needs. DCP- Discharge Planning Updated by [email or web address]: Lizabeth Bingham on 07/12/18 7:[address] CM was notified patient sister Lesley Domingo was here and requested to speak with me. CM explained that the current plan was that we was looking into placement with [facility] in [place], [place]. KRYSTAL had spoke to Zoila with [facility] prior to coming to speak with Lesley. KRYSTAL had answered questions that Zoila had. Zoila stated the next process that they would send patients information to [facility] offices and would be awaiting financial approval. Zoila stated for CM to call back to check on this at anytime next week. KRYSTAL explained all this to sister Lesley. Lesley asked why she was having to be transferred out of state. KRYSTAL explained that LTACH facilities within the state do not take Medicaid and that [facility] halfway facilities in the state do not accept ventilator patients. Lesley states that she had received information that the patient is and receiving Medicare through her . KRYSTAL explained that we had no record of that only Medicaid. Lesley requested that [facility] find this information out. KRYSTAL explained that if it was through the patients spouse then it would need to be his information used to look it up. Lesley states that she has a letter at her home that has this information on it.(Because she has custody of patients son and he receiving his benefits also). The conversation ended that Lesley was going to get the information to [facility]. KRYSTAL received call from Lesley around 4:45pm requesting information on online Social Security office hours. Lesley also wanted to know what would happen if they didn't consent to transfer. KRYSTAL explained that I wasn't sure and Lesley requested for CM to find out this information. KRYSTAL spoke with other therapeutic case manager within the facility. KRYSTAL then called Lesley back and explained that if the patient was stable for transfer and they still refusing transfer then it would most likely go to ethics board and DHS could be notified. Lesley then starting raising her voice that" the hospital and staff was not giving her accurate updates over the phone. She had no idea that Esdras was almost in a comatose state." Lesley requested for us to wait on transfer until after she could show proof that she has Medicare. KRYSTAL explained that nothing would be happening until next week. She was still upset that she was going to have to stay longer than she had planned to get this taken care of. KRYSTAL told her that I would be happy to let her speak to someone else on Sunday. CM will continue to follow and assist as needed will discharge planning/ needs. DCP- Discharge Planning Updated by [email or web address]: Lizabeth Bingham on 07/11/18 7:[address] CM spoke with [facility] in [place] ([place]). She stated that all their Vent beds are full at this time and they could put the patient on a waiting list for a bed. CM gave information to put patient on waiting list. CM then contacted [facility] in [place] ([facility]) she stated they might could accept patient. CM faxed over information and later got denial from [facility] that patient required too high of level of care. CM contacted [facility] to see if they could give any insight on facilities that take ventilator patients within the [facility]. They only gave [facility] in [place]. CM called and spoke with patients sister Lesley Domingo. CM explained the situation that the patient was needing placement and we might have to go out of the state of [place] for placement. Lesley was concerned about patient getting back to [place] once she recovered. Lesley also stated that she would be in to see patient today that she just got into town. CM will plan to speak to her while she is here. CM received information on [facility] in [place], [place] that takes ventilator patients. CM called [facility] [phone] and faxed [phone] records. CM awaiting decision from [facility]. CM will continue to follow and assist as needed with discharge planning / needs. DCP- Discharge Planning Updated by [email or web address]: Lizabeth Bingham on 07/08/18 4:[address] CM contacted all [facility] within [facility] to check on Medicaid bed availability / ana bed availability. Still awaiting call back on three facilities but at this time no had stated they would accept any Medicaid patients or ana. CM will continue to follow and assist as needed with discharge planning / needs. DCP- Discharge Planning Updated by [id number]: Lizabeth Bingham on 06/20/18 11:[address] Patient Name: ESDRAS ART Admission Status: Elective Accout number: [id number] Admission Date: 06-07-2018 : 1960 Admission Diagnosis:MALIGNANT NEOPLASM OF CARDIA Attending: WILLIAM TUCKER Current LOS: 13 Anticipated DC Date: Planned Disposition: Home or Self Care Primary Insurance: [place] Discharge Planning Comments: CM called and spoke with sister Lesley Domingo [phone]. Patient is still on vent and sedated. Lesley (lives in [place]) informed CM that patient doesn't have any family that lives in the state of [place]. She stated that the patient had been incarcerated and had been released approximately 8 weeks prior to admission. Sister states that patient had found out while incarcerated that she had cancer. Patient had been getting radiation / chemo prior to admit. Lesley states that she has custody of patients youngest child and that her oldest child is in correction in [place]. Lesley states that her goal is for patient to finish her cancer treatments then come to her home in [place]. Lesley also states that patient has a roommate Nadine that comes to visit patient in the evenings. CM will continue to follow and assist as needed with discharge planning/ needs. Hadoop Administrator: Lizabeth Bingham DCP- Discharge Planning Updated by [email or web address]: Lizabeth Bingham on 06/14/18 7:[address] Patient on Vent / sedated. No family available for discharge planning.CM will continue to follow and assist as needed with discharge planning / needs. Last DP export: 07/15/18 12:05 p Patient Name: ESDRAS ART Page [id number] at [id number] All edits/amendments must be made on the electronic document DICTATION DATE: 07/18/181814 GARBAGE TRUCK HELPER: ANA ROSA 07/18/181814 RPT#: [id number] DC DATE: STATUS: ADM IN [facility] [address] [place] [address] END OF REPORT
--- NOTE | ~2018-06-07 | MORECARE ---
CASE MANAGEMENT DISCHARGE SUMMARY PATIENT: EVY ART UNIT: [id number] ADM DATE: 06/07/18 AGE: 57 : 62 SEX: F ROOM/BED: D.2224 AUTHOR: ZAID,DOC PHYSICIAN: REFERRING PHYSICIAN: WILLIAM TUCKER MD DATE OF SERVICE: 08/30/18 Discharge Plan Patient Name: EVY ART Facility: [facility]:[place] : 1960 Planned Disposition: Home or Self Care Anticipated Discharge Date: Discharge Date: Expected LOS: Initial Reviewer: [email or web address] Initial Review Date: 06/07/2018 Generated: 08/30/18 10:29 am Comments DCP- Discharge Planning Updated by [email or web address]: Edita Quinonez on 08/29/18 10:[address] Referral sent to [facility] in [place], [facility]ed. I was unable to speak with the admissions clinician, but left a message with my phone number to return call. CM will continue to follow and assist with discharge planning/needs. DCP- Discharge Planning Updated by [id number]: Edita Quinonez on 08/29/18 8:[address] I spoke with Quan at [facility] and faxed clinical. I also spoke with Shaniqua at [facility] and faxed clinical. Shaniqua states they do have a restorative plan for therapy there for physical therapy for Medicaid patients. States she will come to [place] and see her today. CM will continue to follow and assist with discharge planning/needs. DCP- Discharge Planning Updated by [id number]: Edita Quinonez on 08/28/18 2:[address] Received a call from Evi that they are not going to meet her needs for rehab at their facility and will deny her coming to [facility] in [place]. I spoke with the patient and explained. I called [facility] and asked if she could look again for a place for her. Her tracheostomy has a plug and she is now on a nasal cannula. She is taking in ice chips. I will continue to work on finding placement, she only has Medicaid, so she does not have any rehab benefits. DCP- Discharge Planning Updated by [id number]: Edita Quinonez on 08/28/18 7:[address] Spoke with Evi at [facility] in [place] and sent requested clinical. She states she and the DON are reviewing clinical for admission. I did inform her construction millwright is working toward decannulation. I spoke again with [facility] and she met with the patient and at this time she is unable to get her placed with any of her facilities. CM will continue to follow and assist with discharge planning/needs. DCP- Discharge Planning Updated by [email or web address]: Edita Mckeonangelita on 08/27/18 10:[address] Updated clinical sent to [facility] in [facility] and I notified David Byrne that I sent them. I left a message with David about status of transfer to the facility. CM will continue to follow and assist with discharge planning/needs. DCP- Discharge Planning Updated by [id number]: Edita Mckeonangelita on 08/26/18 1:[address] KYLIE paper work and clinical faxed to [employer]. CM will continue to follow and assist with discharge planning/needs. DCP- Discharge Planning Updated by [id number]: Edita Quinonez on 08/26/18 12:[address] Met with patient to discuss discharge planning, she would like to go to her brother's [facility]. She states that she needs to get stronger prior to going there. I informed her I was trying to get her in a rehab in [place], which is [facility]. She agrees to going to [place] for rehab if they will accept her. I have filled a [place] form out and she signed. I will need to contact Dr. Tucker for his signature. He is in surgery at this time. DCP- Discharge Planning Updated by [id number]: Edita Quinonez on 08/23/18 3:[address] Received a call from Evi at [facility] in [facility] for more information for possible admission. I faxed her clinical to [phone]. She will also need a KYLIE before admission completed. CM will continue to follow and assist with discharge planning/needs. DCP- Discharge Planning Updated by [id number]: Edita Mckeonangelita on 08/23/18 11:[address] I spoke with [facility] today for an update. She states she does not have an accepting facility at this time. I sent referral to David Byrne. CM will continue to follow and assist with discharge planning/needs. DCP- Discharge Planning Updated by [id number]: Lizabeth Bingham on 08/21/18 9:[address] CM received a call from patients sister Lesley Domingo that [employer] has notified her that she should be receiving her paperwork in the next 2 weeks. Paperwork that she can act in Evy behalf for Medicaid. CM will continue to follow and assist with discharge planning. DCP- Discharge Planning Updated by [id number]: Lizabeth Bingham on 08/16/18 11:[address] CM continuing to follow up with [facility] about placement for female vent bed availability. If patient can be off vent for 72hrs then CM can seek placement locally. CM will continue to follow and assist as needed with discharge planning / needs. DCP- Discharge Planning Updated by [id number]: Winter Randolph on 08/15/18 12:[address] Patient Name: EVY ART Admission Status: Elective Accout number: [id number] Admission Date: 06-07-2018 : 1960 Admission Diagnosis:MALIGNANT NEOPLASM OF CARDIA Attending: WILLIAM TUCKER Current LOS: 69 Anticipated DC Date: Planned Disposition: Home or Self Care Primary Insurance: [place] Discharge Planning Comments: CM CALLED [facility] TO SPEAK WITH JULY REGARDING A VENT BED. THEY STATE JULY IS OUT SICK AND WON'T BE BACK UNTIL NEXT WEEK. STATES WILL HAVE TO CALL BACK ON SUNDAY. Farm Product Purchaser: Winter Randolph DCP- Discharge Planning Updated by [id number]: Lizabeth Bingham on 08/14/18 4:[address] CM called [facility] and spoke with Jennyfer RANDLE. Jennyfer stated that she wasn't able to answer questions regarding how soon for bed availability. July was out sick and she had no information on placement. CM will call back tomorrow and attempt to speak with July. DCP- Discharge Planning Updated by [id number]: Lizabeth Bingham on 08/13/18 2:[address] CM called [facility] in [place] and left message for DON (July) to return call regarding placement and how long until placement. CM still awaiting call back @ this time. DCP- Discharge Planning Updated by [id number]: Lizabeth Bingham on 08/12/18 5:[address] CM called and spoke with Meli @ [facility] [phone]. Meli stated that at this time they do not have a female vent bed available. She stated that she doesn't know when one may be available or if patient is at the top of the list or not. Meli stated that CM would need to speak with July PARK for that information and she isn't there today. CM will continue to follow and assist as needed with discharge planning / needs. DCP- Discharge Planning Updated by [id number]: Lizabeth Bingham on 08/09/18 6:[address] CM spoke with Wei Delatorre in [employer] she got in touch with for me and got in touch with the appropriate person at [employer]. Was able to fax form in and get the appropriate information to Meli @ [facility] in [place]. CM later contacted Meli and she stated that everything was good as far as financials. They currently do not have any female vent beds available. Meli stated she would keep us posted on availability. Wei notified me that [employer] had put in the necessary information so that Lesley diaz sister can be her payor source. Lesley is to go to social security in [place] next week.CM will continue to follow and assist as needed with discharge planning / needs. DCP- Discharge Planning Updated by [id number]: Lizabeth Bingham on 08/08/18 7:[address] CM attempted to call local SS office to see if CM could fax form into them and get patients disability number. CM was on hold for over 30 mins and never got to speak to a medicare sales representative. CM spoke with Meli at [facility]. She stated that she hasn't heard anything yet. Meli stated that once the financials was cleared then we will need to send updated clinicals and then would go through medical review for acceptance. CM will continue to follow and assist with discharge planning/ needs DCP- Discharge Planning Updated by [id number]: Lizabeth Bingham on 08/06/18 5:[address] Late Entry 08/06/18 @ [address] Webb office to see if they have received a fax from Social Security. Omaira stated that they have not received anything for her. CM will try to get back in touch with Lesley Jose L patients sister and Wei in [facility] to see what our next step is. CM contacted Meli at [facility] to let her know we are still working on placement. CM will continue to follow and assist with discharge planning / needs. DCP- Discharge Planning Updated by [id number]: Lizabeth Bingham on 07/31/18 4:[address] CM received notification that the social security office in [place] would not accept form that was sent to Lesley Domingo to get authorization to manage patients finances. They said they would have to directly send it to Dr. Tucker and then have him to send it back. [facility] has to have some proof of income before they can accept patient. We are having to wait to see if we can get Lesley approved to manage social security benefits in patients behalf. CM will continue to follow and assist with discharge planning / needs. DCP- Discharge Planning Updated by [id number]: Lizabeth Bingham on 07/26/18 6:[address] Late Entry 07/26/18 @ [address] Tucker and got form signed for [facility]. CM took form to Wei in [facility]. CM will continue to follow and assist as needed with discharge planning / needs DCP- Discharge Planning Updated by [id number]: Lizabeth Bingham on 07/25/18 4:[address] CM spoke with Wei Delatorre this am. Wei spoke with patients sister Lesley Domingo trying to find out information needed to get patient placement. KRYSTAL was later notified that a form from [facility] needed to be filled out by physician. CM attempted to get in touch with paged him several times but was unsuccessful. Called his office but no response at this time. CM will continue to follow and assist as needed with discharge planning / needs. DCP- Discharge Planning Updated by [id number]: Lizabeth Bingham on 07/24/18 4:[address] CM called and spoke with Meli at [facility] in [place]. [phone]. CM asked if family was able to provide information needed. Meli stated that she hasn't heard from anyone since she had spoke to me last week. Meli is requesting proof that patient has applied for SSI and she needs proof of income. KRYSTAL attempted to call steelworker Ailyn Read [phone] or [phone] to see if she might could assist with obtaining this information. CM was unsuccessful in contacting Ailyn. KRYSTAL called and spoke with Wei Juan Ramon and gave her Meli phone number to see if she could assist with information. Wei will contact Meli and her filtration supervisor to see if they can assist with information needed. Wei will contact KRYSTAL after she gets in contact with others. CM will continue to follow and assist as needed with discharge planning / needs. DCP- Discharge Planning Updated by [id number]: Lizabeth Bingham on 07/18/18 5:[address] Late Entry 07/18/18 @ 1020 CM called and left a message for July PARK @ [facility]. CM awaiting response.CM will continue to follow and assist as needed with discharge planning / needs. Late Entry 07/18/18 @ 1330 CM received call from Meli with [facility]. Meli was wanting to know if patient was getting SSI or SSA. KRYSTAL was unaware of this information and referred Meli to call patients sister Lesley Domingo. KRYSTAL called and spoke with Wei Delatorre regarding Medicaid. Wei stated patient had SSI Medicaid until 07/10/18 and regular Medicaid started 07/11/18. KRYSTAL called Meli back to give this information to her and also gave Wei's number if she has questions regarding this. Meli stated that she also needed to know if the patient had applied for SSI and how much she had in her bank account. KRYSTAL explained that we would try to find out this information. CM will check with sister and possibly patient correctional case manager whom assisted patient with housing when released from senior living. CM will continue to follow and assist as needed with discharge planning / needs. DCP- Discharge Planning Updated by [id number]: Lizabeth Bingham on 07/18/18 5:[address] Late Entry 07/17/18 @ 1600 CM called and left message x 2 for July PARK from [facility]. CM awaiting response. CM will continue to follow and assist as needed with discharge planning / needs. DCP- Discharge Planning Updated by [email or web address]: Lizabeth Bingham on 07/15/18 12:[address] KRYSTAL spoke with patient's sister Lesley Domingo this am. She stated that the patient doesn't have Medicare. She asked when patient would transfer to [place]. KRYSTAL explained that we are awaiting on acceptance to [facility] at this point. KRYSTAL called [facility] for update July told CM to fax updated clinical and that it would be tomorrow 07/16/18 before they may have a determination. July requested CM not to call back tomorrow until after noon. CM will update family. CM also contacted [facility] in [place], [place]. [phone] CM spoke with Za she stated at this time they are not accepting out of state Medicaid at their facility. CM will continue to follow and assist as needed with discharge planning / needs. DCP- Discharge Planning Updated by [id number]: Lizabeth Bingham on 07/12/18 7:[address] CM was notified patient sister Lesley Domingo was here and requested to speak with me. KRYSTAL explained that the current plan was that we was looking into placement with [facility] in [place], [place]. KRYSTAL had spoke to Zoila with [facility] prior to coming to speak with Lesley. KRYSTAL had answered questions that Zoila had. Zoila stated the next process that they would send patients information to Executive offices and would be awaiting financial approval. Zoila stated for CM to call back to check on this at anytime next week. KRYSTAL explained all this to sister Lesley. Lesley asked why she was having to be transferred out of state. KRYSTAL explained that LTACH facilities within the state do not take Medicaid and that [facility] facilities in the [facility] do not accept ventilator patients. Lesley states that she had received information that the patient is and receiving Medicare through her . KRYSTAL explained that we had no record of that only Medicaid. Lesley requested that [facility] find this information out. KRYSTAL explained that if it was through the patients spouse then it would need to be his information used to look it up. Lesley states that she has a letter at her home that has this information on it.(Because she has custody of patients son and he receiving his benefits also). The conversation ended that Lesley was going to get the information to KRYSTAL. KRYSTAL received call from Lesley around 4:45pm requesting information on online Social Security office hours. Lesley also wanted to know what would happen if they didn't consent to transfer. KRYSTAL explained that I wasn't sure and Lesley requested for KRYSTAL to find out this information. KRYSTAL spoke with other insurance case manager within the facility. KRYSTAL then called Lesley back and explained that if the patient was stable for transfer and they still refusing transfer then it would most likely go to ethics board and [facility] could be notified. Lesley then starting raising her voice that" the hospital and staff was not giving her accurate updates over the phone. She had no idea that Evy was almost in a comatose state." Lesley requested for us to wait on transfer until after she could show proof that she has Medicare. KRYSTAL explained that nothing would be happening until next week. She was still upset that she was going to have to stay longer than she had planned to get this taken care of. KRYSTAL told her that I would be happy to let her speak to someone else on Sunday. CM will continue to follow and assist as needed will discharge planning/ needs. DCP- Discharge Planning Updated by [id number]: Lizabeth Bingham on 07/11/18 7:[address] CM spoke with [facility] in [place] ([facility] She stated that all their Vent beds are full at this time and they could put the patient on a waiting list for a bed. CM gave information to put patient on waiting list. CM then contacted city hospital in [place] ([facility]) she stated they might could accept patient. CM faxed over information and later got denial from [facility] that patient required too high of level of care. CM contacted [facility] division fdc care to see if they could give any insight on facilities that take ventilator patients within the [facility]. They only gave [facility] in [place]. KRYSTAL called and spoke with patients sister Lesley Domingo. KRYSTAL explained the situation that the patient was needing placement and we might have to go out of the state of [place] for placement. Lesley was concerned about patient getting back to [place] once she recovered. Lesley also stated that she would be in to see patient today that she just got into town. CM will plan to speak to her while she is here. CM received information on [facility] in [place], [place] that takes ventilator patients. CM called Meli [phone] and faxed [phone] records. CM awaiting decision from [facility]. CM will continue to follow and assist as needed with discharge planning / needs. DCP- Discharge Planning Updated by [id number]: Lizabeth Bingham on 07/08/18 4:[address] CM contacted all LTACH within state to check on Medicaid bed availability / ana bed availability. Still awaiting call back on three facilities but at this time no had stated they would accept any Medicaid patients or ana. CM will continue to follow and assist as needed with discharge planning / needs. DCP- Discharge Planning Updated by [id number]: Lizabeth Bingham on 06/20/18 11:[address] Patient Name: EVY ART Admission Status: Elective Accout number: [id number] Admission Date: 06-07-2018 : 1960 Admission Diagnosis:MALIGNANT NEOPLASM OF CARDIA Attending: WILLIAM TUCKER Current LOS: 13 Anticipated DC Date: Planned Disposition: Home or Self Care Primary Insurance: [place] Discharge Planning Comments: CM called and spoke with sister Lesley Domingo [phone]. Patient is still on vent and sedated. Lesley (lives in [place]) informed CM that patient doesn't have any family that lives in the [facility]. She stated that the patient had been incarcerated and had been released approximately 8 weeks prior to admission. Sister states that patient had found out while incarcerated that she had cancer. Patient had been getting radiation / chemo prior to admit. Lesley states that she has custody of patients youngest child and that her oldest child is in senior living in [place]. Lesley states that her goal is for patient to finish her cancer treatments then come to her home in [place]. Lesley also states that patient has a roommate Nadine that comes to visit patient in the evenings. CM will continue to follow and assist as needed with discharge planning/ needs. Farm Product Purchaser: Lizabeth Bingham DCP- Discharge Planning Updated by [id number]: Lizabeth Bingham on 06/14/18 7:[address] Patient on Vent / sedated. No family available for discharge planning.CM will continue to follow and assist as needed with discharge planning / needs. Last DP export: 08/29/18 10:15 Patient Name: EVY ART Page [id number] at 0930 All edits/amendments must be made on the electronic document DICTATION DATE: 08/30/18928 NURSE WOUND: ANA ROSA 08/30/18928 RPT#: [id number] DC DATE: STATUS: ADM IN [facility] [address] [place] [address] END OF REPORT
--- NOTE | ~2018-06-07 | MORECARE ---
CASE MANAGEMENT DISCHARGE SUMMARY PATIENT: ESDRAS ART UNIT: [id number] ADM DATE: 06/07/18 AGE: 57 : 62 SEX: F ROOM/BED: D.2307 AUTHOR: ZAID,DARCI PHYSICIAN: REFERRING PHYSICIAN: WILLIAM TUCKER MD DATE OF SERVICE: 08/06/18 Discharge Plan Patient Name: ESDRAS ART Facility: [facility]:[place] : 1960 Planned Disposition: Home or Self Care Anticipated Discharge Date: Discharge Date: Expected LOS: Initial Reviewer: [id number] Initial Review Date: 06/07/2018 Generated: 08/06/18 7:55 pm Comments DCP- Discharge Planning Updated by [id number]: Lizabeth Bingham on 08/06/18 5:[address] Late Entry 08/06/18 @ [address] Webb office to see if they have received a fax from [employer]. Omaira stated that they have not received anything for her. CM will try to get back in touch with Lesley Domingo patients sister and Wei in [facility] to see what our next step is. CM contacted Meli at [facility] to let her know we are still working on placement. CM will continue to follow and assist with discharge planning / needs. DCP- Discharge Planning Updated by [email or web address]: Lizabeth Bingham on 07/31/18 4:[address] CM received notification that the social security office in [place] would not accept form that was sent to Lesley Domingo to get authorization to manage patients finances. They said they would have to directly send it to Dr. Tucker and then have him to send it back. [facility] has to have some proof of income before they can accept patient. We are having to wait to see if we can get Lesley approved to manage social security benefits in patients behalf. CM will continue to follow and assist with discharge planning / needs. DCP- Discharge Planning Updated by [email or web address]: Lizabeth Bingham on 07/26/18 6:[address] Late Entry 07/26/18 @ [address] Tucker and got form signed for [facility]. CM took form to Wei in [employer]. CM will continue to follow and assist as needed with discharge planning / needs DCP- Discharge Planning Updated by [email or web address]: Lizabeth Bingham on 07/25/18 4:[address] CM spoke with Wei Delatorre this am. Wei spoke with patients sister Lesley Domingo trying to find out information needed to get patient placement. KRYSTAL was later notified that a form from [employer] needed to be filled out by physician. CM attempted to get in touch with paged him several times but was unsuccessful. Called his office but no response at this time. CM will continue to follow and assist as needed with discharge planning / needs. DCP- Discharge Planning Updated by [id number]: Lizabeth Bingham on 07/24/18 4:[address] CM called and spoke with Meli at [facility] in [place]. [phone]. KRYSTAL asked if family was able to provide information needed. Meli stated that she hasn't heard from anyone since she had spoke to me last week. Meli is requesting proof that patient has applied for SSI and she needs proof of income. KRYSTAL attempted to call trailhead maintenance worker Ailyn Read [phone] or [phone] to see if she might could assist with obtaining this information. KRYSTAL was unsuccessful in contacting Ailyn. CM called and spoke with Wei Delatorre and gave her Meli phone number to see if she could assist with information. Wei will contact Meli and her supervisor buffing and pasting to see if they can assist with information needed. Wei will contact KRYSTAL after she gets in contact with others. CM will continue to follow and assist as needed with discharge planning / needs. DCP- Discharge Planning Updated by [email or web address]: Lizabeth Bingham on 07/18/18 5:[address] Late Entry 07/18/18 @ 1020 CM called and left a message for July PARK @ [facility]. CM awaiting response.CM will continue to follow and assist as needed with discharge planning / needs. Late Entry 07/18/18 @ 1330 CM received call from Meli with [facility]. Meli was wanting to know if patient was getting SSI or SSA. KRYSTAL was unaware of this information and referred Meli to call patients sister Lesley Domingo. KRYSTAL called and spoke with Wei Delatorre regarding Medicaid. Wei stated patient had SSI Medicaid until 07/10/18 and regular Medicaid started 07/11/18. CM called Meli back to give this information to her and also gave Wei's number if she has questions regarding this. Meli stated that she also needed to know if the patient had applied for SSI and how much she had in her bank account. CM explained that we would try to find out this information. CM will check with sister and possibly patient case preparer and liner whom assisted patient with housing when released from detention. CM will continue to follow and assist as needed with discharge planning / needs. DCP- Discharge Planning Updated by [id number]: Lizabeth Bingham on 07/18/18 5:[address] Late Entry 07/17/18 @ 1600 CM called and left message x 2 for July PARK from [facility]. CM awaiting response. CM will continue to follow and assist as needed with discharge planning / needs. DCP- Discharge Planning Updated by [id number]: Lizabeth Bingham on 07/15/18 12:[address] CM spoke with patient's sister Lesley Domingo this am. She stated that the patient doesn't have Medicare. She asked when patient would transfer to [place]. CM explained that we are awaiting on acceptance to [facility] at this point. CM called [facility] for update July told CM to fax updated clinical and that it would be tomorrow 07/16/18 before they may have a determination. July requested CM not to call back tomorrow until after noon. CM will update family. CM also contacted [facility] in [place], [place]. [phone] CM spoke with Za she stated at this time they are not accepting out of state Medicaid at their facility. CM will continue to follow and assist as needed with discharge planning / needs. DCP- Discharge Planning Updated by [email or web address]: Lizabeth Bingham on 07/12/18 7:[address] CM was notified patient sister Lesley Domingo was here and requested to speak with me. KRYSTAL explained that the current plan was that we was looking into placement with [facility] in [place], [place]. CM had spoke to Zoila with [facility] prior to coming to speak with Lesley. KRYSTAL had answered questions that Zoila had. Zoila stated the next process that they would send patients information to [facility] offices and would be awaiting financial approval. Zoila stated for CM to call back to check on this at anytime next week. KRYSTAL explained all this to sister Lesley. Lesley asked why she was having to be transferred out of state. KRYSTAL explained that LTACH facilities within the state do not take Medicaid and that intermediate snf facilities in the state do not accept ventilator patients. Lesley states that she had received information that the patient is and receiving Medicare through her . KRYSTAL explained that we had no record of that only Medicaid. Lesley requested that [facility] find this information out. KRYSTAL explained that if it was through the patients spouse then it would need to be his information used to look it up. Lesley states that she has a letter at her home that has this information on it.(Because she has custody of patients son and he receiving his benefits also). The conversation ended that Lesley was going to get the information to . KRYSTAL received call from Lesley around 4:45pm requesting information on online Social Security office hours. Lesley also wanted to know what would happen if they didn't consent to transfer. KRYSTAL explained that I wasn't sure and Lesley requested for CM to find out this information. KRYSTAL spoke with other disease case manager within the facility. KRYSTAL then called Lesley back and explained that if the patient was stable for transfer and they still refusing transfer then it would most likely go to ethics board and DHS could be notified. Lesley then starting raising her voice that" the hospital and staff was not giving her accurate updates over the phone. She had no idea that Esdras was almost in a comatose state." Lesley requested for us to wait on transfer until after she could show proof that she has Medicare. KRYSTAL explained that nothing would be happening until next week. She was still upset that she was going to have to stay longer than she had planned to get this taken care of. KRYSTAL told her that I would be happy to let her speak to someone else on Sunday. CM will continue to follow and assist as needed will discharge planning/ needs. DCP- Discharge Planning Updated by [id number]: Lizabeth Bingham on 07/11/18 7:[address] KRYSTAL spoke with [facility] in [place] ([facility]). She stated that all their Vent beds are full at this time and they could put the patient on a waiting list for a bed. CM gave information to put patient on waiting list. CM then contacted [facility] in [place] ([facility]) she stated they might could accept patient. CM faxed over information and later got denial from [facility] that patient required too high of level of care. CM contacted [facility] intermediate school teacher care to see if they could give any insight on facilities that take ventilator patients within the [facility]. They only gave [facility] in [place]. CM called and spoke with patients sister Lesley Domingo. CM explained the situation that the patient was needing placement and we might have to go out of the state of [place] for placement. Lesley was concerned about patient getting back to [place] once she recovered. Lesley also stated that she would be in to see patient today that she just got into town. CM will plan to speak to her while she is here. CM received information on [facility] in [place], [place] that takes ventilator patients. CM called [facility] [phone] and faxed [phone] records. CM awaiting decision from [facility]. CM will continue to follow and assist as needed with discharge planning / needs. DCP- Discharge Planning Updated by [id number]: Lizabeth Bingham on 07/08/18 4:[address] CM contacted all LTACH within [facility] to check on Medicaid bed availability / ana bed availability. Still awaiting call back on three facilities but at this time no had stated they would accept any Medicaid patients or ana. CM will continue to follow and assist as needed with discharge planning / needs. DCP- Discharge Planning Updated by [id number]: Lizabeth Bingham on 06/20/18 11:[address] Patient Name: ESDRAS ART Admission Status: Elective Accout number: [id number] Admission Date: 06-07-2018 : 1960 Admission Diagnosis:MALIGNANT NEOPLASM OF CARDIA Attending: WILLIAM TUCKER Current LOS: 13 Anticipated DC Date: Planned Disposition: Home or Self Care Primary Insurance: MEDICAID [place] Discharge Planning Comments: CM called and spoke with sister Lesley Domingo [phone]. Patient is still on vent and sedated. Lesley (lives in [place]) informed CM that patient doesn't have any family that lives in the state of [place]. She stated that the patient had been incarcerated and had been released approximately 8 weeks prior to admission. Sister states that patient had found out while incarcerated that she had cancer. Patient had been getting radiation / chemo prior to admit. Lesley states that she has custody of patients youngest child and that her oldest child is in detention in [place]. Lesley states that her goal is for patient to finish her cancer treatments then come to her home in [place]. Lesley also states that patient has a roommate Nadine that comes to visit patient in the evenings. CM will continue to follow and assist as needed with discharge planning/ needs. Food And Nutrition Teacher: Lizabeth Bingham DCP- Discharge Planning Updated by [id number]: Lizabeth Bingham on 06/14/18 7:[address] Patient on Vent / sedated. No family available for discharge planning.CM will continue to follow and assist as needed with discharge planning / needs. Last DP export: 07/31/18 4:40 Patient Name: ESDRAS ART Page [id number] at 1855 All edits/amendments must be made on the electronic document DICTATION DATE: 08/06/181854 CARDROOM MANAGER: ANA ROSA 08/06/181854 RPT#: [id number] DC DATE: STATUS: ADM IN [facility] [address] [place] [address] END OF REPORT
--- NOTE | ~2018-06-07 | MORECARE ---
CASE MANAGEMENT DISCHARGE SUMMARY PATIENT: EVY ART UNIT: [id number] ADM DATE: 06/07/18 AGE: 57 : 62 SEX: F ROOM/BED: D.2307 AUTHOR: DARCI MAR PHYSICIAN: REFERRING PHYSICIAN: WILLIAM TUCKER MD DATE OF SERVICE: 08/15/18 Discharge Plan Patient Name: EVY ART Facility: [facility]:[place] : 1960 Planned Disposition: Home or Self Care Anticipated Discharge Date: Discharge Date: Expected LOS: Initial Reviewer: [id number] Initial Review Date: 06/07/2018 Generated: 08/15/18 2:35 pm Comments DCP- Discharge Planning Updated by [id number]: Winter Randolph on 08/15/18 12:[address] Patient Name: EVY ART Admission Status: Elective Accout number: [id number] Admission Date: 06-07-2018 : 1960 Admission Diagnosis:MALIGNANT NEOPLASM OF CARDIA Attending: WILLIAM TUCKER Current LOS: 69 Anticipated DC Date: Planned Disposition: Home or Self Care Primary Insurance: [place] Discharge Planning Comments: CM CALLED [facility] TO SPEAK WITH JULY REGARDING A VENT BED. THEY STATE JULY IS OUT SICK AND WON'T BE BACK UNTIL NEXT WEEK. STATES WILL HAVE TO CALL BACK ON SUNDAY. Labor Relations Analyst: Winter Randolph DCP- Discharge Planning Updated by [id number]: Lizabeth Bingham on 08/14/18 4:[address] CM called [facility] and spoke with Jennyfer RANDLE. Jennyfer stated that she wasn't able to answer questions regarding how soon for bed availability. July was out sick and she had no information on placement. CM will call back tomorrow and attempt to speak with July. DCP- Discharge Planning Updated by [id number]: Lizabeth Bingham on 08/13/18 2:[address] CM called [facility] in [place] and left message for DON (July) to return call regarding placement and how long until placement. CM still awaiting call back @ this time. DCP- Discharge Planning Updated by [id number]: Lizabeth Bingham on 08/12/18 5:[address] CM called and spoke with Meli @ [facility] [phone]. Meli stated that at this time they do not have a female vent bed available. She stated that she doesn't know when one may be available or if patient is at the top of the list or not. Meli stated that CM would need to speak with July VIVIAN for that information and she isn't there today. CM will continue to follow and assist as needed with discharge planning / needs. DCP- Discharge Planning Updated by [id number]: Lizabeth Bingham on 08/09/18 6:[address] CM spoke with Wei Delatorre in [facility] she got in touch with for me and got in touch with the appropriate person at [employer] Was able to fax form in and get the appropriate information to Meli @ [facility] in [place]. CM later contacted Meli and she stated that everything was good as far as financials. They currently do not have any female vent beds available. Meli stated she would keep us posted on availability. Wei notified me that [employer] had put in the necessary information so that Lesley Domingo patients sister can be her payor source. Lesley is to go to [employer] in [place] next week.CM will continue to follow and assist as needed with discharge planning / needs. DCP- Discharge Planning Updated by [id number]: Lizabeth Bingham on 08/08/18 7:[address] CM attempted to call local SS office to see if CM could fax form into them and get patients disability number. CM was on hold for over 30 mins and never got to speak to a student services representative. CM spoke with Meli at [facility]. She stated that she hasn't heard anything yet. Meli stated that once the financials was cleared then we will need to send updated clinicals and then would go through medical review for acceptance. CM will continue to follow and assist with discharge planning/ needs DCP- Discharge Planning Updated by [email or web address]: Lizabeth Bingham on 08/06/18 5:[address] Late Entry 08/06/18 @ [address] Webb office to see if they have received a fax from [employer]. Omaira stated that they have not received anything for her. CM will try to get back in touch with Lesley Domingo patients sister [facility] to see what our next step is. CM contacted Meli at [facility] to let her know we are still working on placement. CM will continue to follow and assist with discharge planning / needs. DCP- Discharge Planning Updated by [id number]: Lizabeth Bingham on 07/31/18 4:[address] CM received notification that the social security office in [place] would not accept form that was sent to Lesley Domingo to get authorization to manage patients finances. They said they would have to directly send it to Dr. Tucker and then have him to send it back. [facility] has to have some proof of income before they can accept patient. We are having to wait to see if we can get Lesley approved to manage social security benefits in patients behalf. CM will continue to follow and assist with discharge planning / needs. DCP- Discharge Planning Updated by [id number]: Lizabeth Bingham on 07/26/18 6:[address] Late Entry 07/26/18 @ [address] Tucker and got form signed for [facility]. CM took form to Wei in [facility]. CM will continue to follow and assist as needed with discharge planning / needs DCP- Discharge Planning Updated by [id number]: Lizabeth Bingham on 07/25/18 4:[address] CM spoke with Wei Delatorre this . Wei spoke with patients sister Lesley Domingo trying to find out information needed to get patient placement. KRYSTAL was later notified that a form from [facility] needed to be filled out by physician. CM attempted to get in touch with paged him several times but was unsuccessful. Called his office but no response at this time. CM will continue to follow and assist as needed with discharge planning / needs. DCP- Discharge Planning Updated by [id number]: Lizabeth Bingham on 07/24/18 4:[address] CM called and spoke with Meli at [facility] in [place]. [phone]. CM asked if family was able to provide information needed. Meli stated that she hasn't heard from anyone since she had spoke to me last week. Meli is requesting proof that patient has applied for SSI and she needs proof of income. CM attempted to call extension worker Ailyn Read [phone] or [phone] to see if she might could assist with obtaining this information. CM was unsuccessful in contacting Ailyn. CM called and spoke with Wei Delatorre and gave her Meli phone number to see if she could assist with information. Wei will contact Meli and her mixing place supervisor to see if they can assist with information needed. Wei will contact CM after she gets in contact with others. CM will continue to follow and assist as needed with discharge planning / needs. DCP- Discharge Planning Updated by [id number]: Lizabeth Furr on 07/18/18 5:[address] Late Entry 07/18/18 @ 1020 CM called and left a message for July PARK @ [facility]. CM awaiting response.CM will continue to follow and assist as needed with discharge planning / needs. Late Entry 07/18/18 @ 1330 CM received call from Meli with [facility]. Meli was wanting to know if patient was getting SSI or SSA. KRYSTAL was unaware of this information and referred Meli to call patients sister Lesley Domingo. KRYSTAL called and spoke with Wei Delatorre regarding Medicaid. Wei stated patient had SSI Medicaid until 07/10/18 and regular Medicaid started 07/11/18. KRYSTAL called Meli back to give this information to her and also gave Wei's number if she has questions regarding this. Meli stated that she also needed to know if the patient had applied for SSI and how much she had in her bank account. KRYSTAL explained that we would try to find out this information. CM will check with sister and possibly patient caser in whom assisted patient with housing when released from long-term. CM will continue to follow and assist as needed with discharge planning / needs. DCP- Discharge Planning Updated by [id number]: Lizabeth Zachery on 07/18/18 5:[address] Late Entry 07/17/18 @ 1600 CM called and left message x 2 for July PARK from [facility]. CM awaiting response. CM will continue to follow and assist as needed with discharge planning / needs. DCP- Discharge Planning Updated by [id number]: Lizabeth Furr on 07/15/18 12:[address] CM spoke with patient's sister Lesley Domingo this am. She stated that the patient doesn't have Medicare. She asked when patient would transfer to [place]. KRYSTAL explained that we are awaiting on acceptance to [facility] at this point. KRYSTAL called [facility] for update July told CM to fax updated clinical and that it would be tomorrow 07/16/18 before they may have a determination. July requested CM not to call back tomorrow until after noon. CM will update family. KRYSTAL also contacted [facility] in [place], [place]. [phone] CM spoke with Za she stated at this time they are not accepting out of state Medicaid at their facility. CM will continue to follow and assist as needed with discharge planning / needs. DCP- Discharge Planning Updated by [id number]: Lizabeth Bingham on 07/12/18 7:[address] CM was notified patient sister Lesley Domingo was here and requested to speak with me. KRYSTAL explained that the current plan was that we was looking into placement with [facility] in [place], [place]. KRYSTAL had spoke to Zoila with [facility] prior to coming to speak with Lesley. KRYSTAL had answered questions that Zoila had. Zoila stated the next process that they would send patients information to Executive offices and would be awaiting financial approval. Zoila stated for CM to call back to check on this at anytime next week. KRYSTAL explained all this to sister Lesley. Lesley asked why she was having to be transferred out of state. KRYSTAL explained that LTACH facilities within the state do not take Medicaid and that intermediate group home facilities in the [facility] do not accept ventilator patients. Lesley states that she had received information that the patient is and receiving Medicare through her . KRYSTAL explained that we had no record of that only Medicaid. Lesley requested that [facility] find this information out. KRYSTAL explained that if it was through the patients spouse then it would need to be his information used to look it up. Lesley states that she has a letter at her home that has this information on it.(Because she has custody of patients son and he receiving his benefits also). The conversation ended that Lesley was going to get the information to . KRYSTAL received call from Lesley around 4:45pm requesting information on online Social Security office hours. Lesley also wanted to know what would happen if they didn't consent to transfer. KRYSTAL explained that I wasn't sure and Lesley requested for KRYSTAL to find out this information. KRYSTAL spoke with other case loader operator within the facility. KRYSTAL then called Lesley back and explained that if the patient was stable for transfer and they still refusing transfer then it would most likely go to ethics board and [facility] could be notified. Lesley then starting raising her voice that" the hospital and staff was not giving her accurate updates over the phone. She had no idea that Evy was almost in a comatose state." Lesley requested for us to wait on transfer until after she could show proof that she has Medicare. KRYSTAL explained that nothing would be happening until next week. She was still upset that she was going to have to stay longer than she had planned to get this taken care of. CM told her that I would be happy to let her speak to someone else on Sunday. CM will continue to follow and assist as needed will discharge planning/ needs. DCP- Discharge Planning Updated by [id number]: Lizabeth Bingham on 07/11/18 7:[address] KRYSTAL spoke with [facility] in [place] ([facility] She stated that all their Vent beds are full at this time and they could put the patient on a waiting list for a bed. CM gave information to put patient on waiting list. KRYSTAL then contacted [facility] in [place] ([facility]) she stated they might could accept patient. CM faxed over information and later got denial from [facility] that patient required too high of level of care. CM contacted [facility] division termite technician care to see if they could give any insight on facilities that take ventilator patients within the [facility]. They only gave [facility] in [place]. KRYSTAL called and spoke with patients sister Lesley Domingo. KRYSTAL explained the situation that the patient was needing placement and we might have to go out of the state of [place] for placement. Lesley was concerned about patient getting back to [place] once she recovered. Lesley also stated that she would be in to see patient today that she just got into town. CM will plan to speak to her while she is here. KRYSTAL received information on [facility] in [place], [place] that takes ventilator patients. KRYSTAL called Meli [phone] and faxed [phone] records. CM awaiting decision from [facility]. CM will continue to follow and assist as needed with discharge planning / needs. DCP- Discharge Planning Updated by [id number]: Lizabeth Bingham on 07/08/18 4:[address] CM contacted all LTACH within state to check on Medicaid bed availability / ana bed availability. Still awaiting call back on three facilities but at this time no had stated they would accept any Medicaid patients or ana. CM will continue to follow and assist as needed with discharge planning / needs. DCP- Discharge Planning Updated by [id number]: Lizabeth Bingham on 06/20/18 11:[address] Patient Name: EVY ART Admission Status: Elective Accout number: [id number] Admission Date: 06-07-2018 : 1960 Admission Diagnosis:MALIGNANT NEOPLASM OF CARDIA Attending: WILLIAM TUCKER Current LOS: 13 Anticipated DC Date: Planned Disposition: Home or Self Care Primary Insurance: [place]ID [place] Discharge Planning Comments: CM called and spoke with sister Lesley Domingo [phone]. Patient is still on vent and sedated. Lesley (lives in [place]) informed CM that patient doesn't have any family that lives in the [facility] [place]. She stated that the patient had been incarcerated and had been released approximately 8 weeks prior to admission. Sister states that patient had found out while incarcerated that she had cancer. Patient had been getting radiation / chemo prior to admit. Lesley states that she has custody of patients youngest child and that her oldest child is in long-term in [place]. Lesley states that her goal is for patient to finish her cancer treatments then come to her home in [place]. Lesley also states that patient has a roommate Nadine that comes to visit patient in the evenings. CM will continue to follow and assist as needed with discharge planning/ needs. Labor Relations Analyst: Lizabeth Bingham DCP- Discharge Planning Updated by [id number]: Lizabeth Bingham on 06/14/18 7:[address] Patient on Vent / sedated. No family available for discharge planning.CM will continue to follow and assist as needed with discharge planning / needs. Last DP export: 08/14/18 4:17 p Patient Name: EVY ART Page [id number] at 1335 All edits/amendments must be made on the electronic document DICTATION DATE: 08/15/181333 BOTTOM PRECIPITATOR OPERATOR: ANA ROSA 08/15/181333 RPT#: [id number] DC DATE: STATUS: ADM IN [facility] [address] [place] [address] END OF REPORT
--- NOTE | ~2018-06-07 | MORECARE ---
CASE MANAGEMENT DISCHARGE SUMMARY PATIENT: EVY ART UNIT: [id number] ADM DATE: 06/07/18 AGE: 57 : 62 SEX: F ROOM/BED: D.2307 AUTHOR: ZAID,DOC PHYSICIAN: REFERRING PHYSICIAN: WILLIAM TUCKER MD DATE OF SERVICE: 08/14/18 Discharge Plan Patient Name: EVY ART Facility: [facility]:[place] : 1960 Planned Disposition: Home or Self Care Anticipated Discharge Date: Discharge Date: Expected LOS: Initial Reviewer: [email or web address] Initial Review Date: 06/07/2018 Generated: 08/14/18 6:17 pm Comments DCP- Discharge Planning Updated by [id number]: Lizabeth Bingham on 08/14/18 4:[address] CM called [facility] and spoke with Jennyfer RANDLE. Jennyfer stated that she wasn't able to answer questions regarding how soon for bed availability. July was out sick and she had no information on placement. CM will call back tomorrow and attempt to speak with July. DCP- Discharge Planning Updated by [email or web address]: Lizabeht Bingham on 08/13/18 2:[address] CM called [facility] in [place] and left message for VIVIAN (July) to return call regarding placement and how long until placement. CM still awaiting call back @ this time. DCP- Discharge Planning Updated by [id number]: Lizabeth Bingham on 08/12/18 5:[address] CM called and spoke with Meli @ [facility] [phone]. Meli stated that at this time they do not have a female vent bed available. She stated that she doesn't know when one may be available or if patient is at the top of the list or not. Meli stated that CM would need to speak with July PARK for that information and she isn't there today. CM will continue to follow and assist as needed with discharge planning / needs. DCP- Discharge Planning Updated by [id number]: Lizabeth Bingham on 08/09/18 6:[address] CM spoke with Wei Delatorre in [facility] she got in touch with for me and got in touch with the appropriate person at [facility]. Was able to fax form in and get the appropriate information to Meli @ [facility] in [place]. KRYSTAL later contacted Meli and she stated that everything was good as far as financials. They currently do not have any female vent beds available. Meli stated she would keep us posted on availability. Wei notified me that [facility] had put in the necessary information so that Lesley Domingo emily sister can be her payor source. Lesley is to go to social security in [place] next week.KRYSTAL will continue to follow and assist as needed with discharge planning / needs. DCP- Discharge Planning Updated by [id number]: Lizabeth Bingham on 08/08/18 7:[address] CM attempted to call local SS office to see if CM could fax form into them and get patients disability number. KRYSTAL was on hold for over 30 mins and never got to speak to a automotive sales representative. KRYSTAL spoke with Meli at [facility]. She stated that she hasn't heard anything yet. Meli stated that once the financials was cleared then we will need to send updated clinicals and then would go through medical review for acceptance. CM will continue to follow and assist with discharge planning/ needs DCP- Discharge Planning Updated by [id number]: Lizabeth Bingham on 08/06/18 5:[address] Late Entry 08/06/18 @ [address] Webb office to see if they have received a fax from [employer] [facility] [employer] Omaira stated that they have not received anything for her. KRYSTAL will try to get back in touch with Lesley Domingo patients sister and Wei in [facility] to see what our next step is. KRYSTAL contacted Meli at [facility] to let her know we are still working on placement. CM will continue to follow and assist with discharge planning / needs. DCP- Discharge Planning Updated by [id number]: Lizabeth Bingham on 07/31/18 4:[address] CM received notification that the social security office in [place] would not accept form that was sent to Lesley Domingo to get authorization to manage patients finances. They said they would have to directly send it to Dr. Tucker and then have him to send it back. [facility] has to have some proof of income before they can accept patient. We are having to wait to see if we can get Lesley approved to manage social security benefits in patients behalf. CM will continue to follow and assist with discharge planning / needs. DCP- Discharge Planning Updated by [id number]: Lizabeth Bingham on 07/26/18 6:[address] Late Entry 07/26/18 @ [address] Tucker and got form signed for [facility]. CM took form to Wei in [facility]. CM will continue to follow and assist as needed with discharge planning / needs DCP- Discharge Planning Updated by [id number]: Lizabeth Bingham on 07/25/18 4:[address] CM spoke with Wei Delatorre this am. Wei spoke with patients sister Lesley Domingo trying to find out information needed to get patient placement. KRYSTAL was later notified that a form from [facility] needed to be filled out by physician. CM attempted to get in touch with paged him several times but was unsuccessful. Called his office but no response at this time. CM will continue to follow and assist as needed with discharge planning / needs. DCP- Discharge Planning Updated by [id number]: Lizabeth Bingham on 07/24/18 4:[address] CM called and spoke with Meli at [facility] in [place]. [phone]. KRYSTAL asked if family was able to provide information needed. Meli stated that she hasn't heard from anyone since she had spoke to me last week. Meli is requesting proof that patient has applied for SSI and she needs proof of income. KRYSTAL attempted to call shell worker Ailyn Read [phone] or [phone] to see if she might could assist with obtaining this information. KRYSTAL was unsuccessful in contacting Ailyn. KRYSTAL called and spoke with Wei Delatorre and gave her Meli phone number to see if she could assist with information. Wei will contact Meli and her library supervisor to see if they can assist with information needed. Wei will contact KRYSTAL after she gets in contact with others. CM will continue to follow and assist as needed with discharge planning / needs. DCP- Discharge Planning Updated by [id number]: Lizabeth Bingham on 07/18/18 5:[address] Late Entry 07/18/18 @ 1020 CM called and left a message for July PARK @ [facility]. CM awaiting response.CM will continue to follow and assist as needed with discharge planning / needs. Late Entry 07/18/18 @ 1330 CM received call from Meli with [facility]. Meli was wanting to know if patient was getting SSI or SSA. CM was unaware of this information and referred Meli to call patients sister Lesley Domingo. CM called and spoke with Wei Delatorre regarding Medicaid. Wei stated patient had SSI Medicaid until 07/10/18 and regular Medicaid started 07/11/18. CM called Meli back to give this information to her and also gave Wei's number if she has questions regarding this. Meli stated that she also needed to know if the patient had applied for SSI and how much she had in her bank account. CM explained that we would try to find out this information. CM will check with sister and possibly patient hospice case manager whom assisted patient with housing when released from longterm. CM will continue to follow and assist as needed with discharge planning / needs. DCP- Discharge Planning Updated by [id number]: Lizabeth Bingham on 07/18/18 5:[address] Late Entry 07/17/18 @ 1600 CM called and left message x 2 for July PARK from [facility]. CM awaiting response. CM will continue to follow and assist as needed with discharge planning / needs. DCP- Discharge Planning Updated by [id number]: Lizabeth Bingham on 07/15/18 12:[address] CM spoke with patient's sister Lesley Domingo this am. She stated that the patient doesn't have Medicare. She asked when patient would transfer to [place]. CM explained that we are awaiting on acceptance to [facility] at this point. KRYSTAL called [facility] for update July told CM to fax updated clinical and that it would be tomorrow 07/16/18 before they may have a determination. July requested CM not to call back tomorrow until after noon. CM will update family. CM also contacted [facility] in [place], [place]. [phone] CM spoke with Za she stated at this time they are not accepting out of state Medicaid at their facility. CM will continue to follow and assist as needed with discharge planning / needs. DCP- Discharge Planning Updated by [email or web address]: Lizabeth Bingham on 07/12/18 7:[address] KRYSTAL was notified patient sister Lesley Domingo was here and requested to speak with me. KRYSTAL explained that the current plan was that we was looking into placement with [facility] in [place], [place]. KRYSTAL had spoke to Zoila with [facility] prior to coming to speak with Lesley. KRYSTAL had answered questions that Zoila had. Zoila stated the next process that they would send patients information to Executive offices and would be awaiting financial approval. Zoila stated for CM to call back to check on this at anytime next week. KRYSTAL explained all this to sister Lesley. Lesley asked why she was having to be transferred out of state. KRYSTAL explained that LTACH facilities within the state do not take Medicaid and that jail prison facilities in the [facility] do not accept ventilator patients. Lesley states that she had received information that the patient is and receiving Medicare through her . KRYSTAL explained that we had no record of that only Medicaid. Lesley requested that [facility] find this information out. KRYSTAL explained that if it was through the patients spouse then it would need to be his information used to look it up. Lesley states that she has a letter at her home that has this information on it.(Because she has custody of patients son and he receiving his benefits also). The conversation ended that Lesley was going to get the information to KRYSTAL. KRYSTAL received call from Lesley around 4:45pm requesting information on online Social Security office hours. Lesley also wanted to know what would happen if they didn't consent to transfer. KRYSTAL explained that I wasn't sure and Lesley requested for KRYSTAL to find out this information. KRYSTAL spoke with other telephonic case manager within the facility. KRYSTAL then called Lesley back and explained that if the patient was stable for transfer and they still refusing transfer then it would most likely go to ethics board and DHS could be notified. Lesley then starting raising her voice that" the hospital and staff was not giving her accurate updates over the phone. She had no idea that Evy was almost in a comatose state." Lesley requested for us to wait on transfer until after she could show proof that she has Medicare. KRYSTAL explained that nothing would be happening until next week. She was still upset that she was going to have to stay longer than she had planned to get this taken care of. CM told her that I would be happy to let her speak to someone else on Sunday. CM will continue to follow and assist as needed will discharge planning/ needs. DCP- Discharge Planning Updated by [id number]: Lizabeth Bingham on 07/11/18 7:[address] CM spoke with [facility] in [place] ([place]). She stated that all their Vent beds are full at this time and they could put the patient on a waiting list for a bed. CM gave information to put patient on waiting list. CM then contacted [facility] in [place] ([facility]) she stated they might could accept patient. CM faxed over information and later got denial from [facility] that patient required too high of level of care. CM contacted [facility] jail care to see if they could give any insight on facilities that take ventilator patients within the [facility]. They only gave [facility] in [place]. CM called and spoke with patients sister Lesley Domingo. CM explained the situation that the patient was needing placement and we might have to go out of the state of [place] for placement. Lesley was concerned about patient getting back to [place] once she recovered. Lesley also stated that she would be in to see patient today that she just got into town. CM will plan to speak to her while she is here. CM received information on [facility] in [place], [place] that takes ventilator patients. CM called [facility] [phone] and faxed [phone] records. CM awaiting decision from [facility]. CM will continue to follow and assist as needed with discharge planning / needs. DCP- Discharge Planning Updated by [id number]: Lizabeth Bingham on 07/08/18 4:[address] CM contacted all LTACH within [facility] to check on Medicaid bed availability / ana bed availability. Still awaiting call back on three facilities but at this time no had stated they would accept any Medicaid patients or ana. CM will continue to follow and assist as needed with discharge planning / needs. DCP- Discharge Planning Updated by [id number]: Lizabeth Bingham on 06/20/18 11:[address] Patient Name: EVY ART Admission Status: Elective Accout number: [id number] Admission Date: 06-07-2018 : 1960 Admission Diagnosis:MALIGNANT NEOPLASM OF CARDIA Attending: WILLIAM TUCKER Current LOS: 13 Anticipated DC Date: Planned Disposition: Home or Self Care Primary Insurance: MEDICAID [place] Discharge Planning Comments: CM called and spoke with sister Lesley Domingo [phone]. Patient is still on vent and sedated. Lesley (lives in [place]) informed CM that patient doesn't have any family that lives in the state of [place]. She stated that the patient had been incarcerated and had been released approximately 8 weeks prior to admission. Sister states that patient had found out while incarcerated that she had cancer. Patient had been getting radiation / chemo prior to admit. Lesley states that she has custody of patients youngest child and that her oldest child is in longterm in [place]. Lesley states that her goal is for patient to finish her cancer treatments then come to her home in [place]. Lesley also states that patient has a roommate Nadine that comes to visit patient in the evenings. CM will continue to follow and assist as needed with discharge planning/ needs. Customer Account Coordinator: Lizabeth Bingham DCP- Discharge Planning Updated by [id number]: Lizabeth Bingham on 06/14/18 7:[address] Patient on Vent / sedated. No family available for discharge planning.CM will continue to follow and assist as needed with discharge planning / needs. Last DP export: 08/13/18 2:49 p Patient Name: EVY ART Page [id number] at 1717 All edits/amendments must be made on the electronic document DICTATION DATE: 08/14/181716 WIRING INSPECTOR: ANA ROSA 08/14/181716 RPT#: [id number] DC DATE: STATUS: ADM IN [address] [place] [address] END OF REPORT
--- NOTE | ~2018-06-07 | MORECARE ---
CASE MANAGEMENT DISCHARGE SUMMARY PATIENT: EVY ART UNIT: [id number] ADM DATE: 06/07/18 AGE: 57 : 62 SEX: F ROOM/BED: D.2224 AUTHOR: DARCI MAR PHYSICIAN: REFERRING PHYSICIAN: WILLIAM TUCKER MD DATE OF SERVICE: 08/23/18 Discharge Plan Patient Name: EVY ART Facility: [facility]:[place] : 1960 Planned Disposition: Home or Self Care Anticipated Discharge Date: Discharge Date: Expected LOS: Initial Reviewer: [id number] Initial Review Date: 06/07/2018 Generated: 08/23/18 12:43 pm Comments DCP- Discharge Planning Updated by [id number]: Lizabeth Bingham on 08/21/18 9:[address] CM received a call from patients sister Lesley Domingo that [employer] has notified her that she should be receiving her paperwork in the next 2 weeks. Paperwork that she can act in Evy behalf for Medicaid. CM will continue to follow and assist with discharge planning. DCP- Discharge Planning Updated by [id number]: Lizabeth Bingham on 08/16/18 11:[address] CM continuing to follow up with [facility] about placement for female vent bed availability. If patient can be off vent for 72hrs then CM can seek placement locally. CM will continue to follow and assist as needed with discharge planning / needs. DCP- Discharge Planning Updated by [email or web address]: Winter Randolph on 08/15/18 12:[address] Patient Name: EVY RAT Admission Status: Elective Accout number: [id number] Admission Date: 06-07-2018 : 1960 Admission Diagnosis:MALIGNANT NEOPLASM OF CARDIA Attending: WILLIAM TUCKER Current LOS: 69 Anticipated DC Date: Planned Disposition: Home or Self Care Primary Insurance: [place]ID [place] Discharge Planning Comments: CM CALLED [facility] TO SPEAK WITH JULY REGARDING A VENT BED. THEY STATE JULY IS OUT SICK AND WON'T BE BACK UNTIL NEXT WEEK. STATES WILL HAVE TO CALL BACK ON SUNDAY. Director Of Student Financial Aid: Winter Randolph DCP- Discharge Planning Updated by [id number]: Lizabeth Bingham on 08/14/18 4:[address] CM called [facility] and spoke with Jennyfer RANDLE. Jennyfer stated that she wasn't able to answer questions regarding how soon for bed availability. July was out sick and she had no information on placement. CM will call back tomorrow and attempt to speak with July. DCP- Discharge Planning Updated by [id number]: Lizabeth Bingham on 08/13/18 2:[address] CM called [facility] in [place] and left message for VIVIAN (July) to return call regarding placement and how long until placement. CM still awaiting call back @ this time. DCP- Discharge Planning Updated by [id number]: Lizabeth Bingham on 08/12/18 5:[address] CM called and spoke with Meli @ [facility] [phone]. Meli stated that at this time they do not have a female vent bed available. She stated that she doesn't know when one may be available or if patient is at the top of the list or not. Meli stated that CM would need to speak with July DON for that information and she isn't there today. CM will continue to follow and assist as needed with discharge planning / needs. DCP- Discharge Planning Updated by [id number]: Lizabeth Bingham on 08/09/18 6:[address] CM spoke with Wei Delatorre in [facility] she got in touch with for me and got in touch with the appropriate person at [employer]. Was able to fax form in and get the appropriate information to Meli @ [facility] in [place]. CM later contacted Meli and she stated that everything was good as far as financials. They currently do not have any female vent beds available. Meli stated she would keep us posted on availability. Wei notified me that [employer] had put in the necessary information so that Lesley Domingo patients sister can be her payor source. Lesley is to go to social security in [place] next week.CM will continue to follow and assist as needed with discharge planning / needs. DCP- Discharge Planning Updated by [id number]: Lizabeth Bingham on 08/08/18 7:[address] CM attempted to call local SS office to see if CM could fax form into them and get patients disability number. CM was on hold for over 30 mins and never got to speak to a underwriting service representative. CM spoke with Meli at [facility]. She stated that she hasn't heard anything yet. Meli stated that once the financials was cleared then we will need to send updated clinicals and then would go through medical review for acceptance. CM will continue to follow and assist with discharge planning/ needs DCP- Discharge Planning Updated by [id number]: Lizabeth Bingham on 08/06/18 5:[address] Late Entry 08/06/18 @ [address] Webb office to see if they have received a fax from Social Security. Omaira stated that they have not received anything for her. CM will try to get back in touch with Lesley Jose L patients sister and Wei in [facility] to see what our next step is. CM contacted Meli at [facility] to let her know we are still working on placement. CM will continue to follow and assist with discharge planning / needs. DCP- Discharge Planning Updated by [id number]: Lizabeth Bingham on 07/31/18 4:[address] CM received notification that the social security office in [place] would not accept form that was sent to Lesley Domingo to get authorization to manage patients finances. They said they would have to directly send it to Dr. Tucker and then have him to send it back. [place] facility has to have some proof of income before they can accept patient. We are having to wait to see if we can get Lesley approved to manage social security benefits in patients behalf. CM will continue to follow and assist with discharge planning / needs. DCP- Discharge Planning Updated by [email or web address]: Lizabeth Bingham on 07/26/18 6:[address] Late Entry 07/26/18 @ [address] Tucker and got form signed for [facility]. CM took form to Wei in [facility]. CM will continue to follow and assist as needed with discharge planning / needs DCP- Discharge Planning Updated by [id number]: Lizabeth Bingham on 07/25/18 4:[address] CM spoke with Wei Delatorre this am. Wei spoke with patients sister Lesley Domingo trying to find out information needed to get patient placement. CM was later notified that a form from [facility] needed to be filled out by physician. KRYSTAL attempted to get in touch with paged him several times but was unsuccessful. Called his office but no response at this time. CM will continue to follow and assist as needed with discharge planning / needs. DCP- Discharge Planning Updated by [id number]: Lizabeth Bingham on 07/24/18 4:[address] CM called and spoke with Meli at [facility] in [place]. [phone]. KRYSTAL asked if family was able to provide information needed. Meli stated that she hasn't heard from anyone since she had spoke to me last week. Meli is requesting proof that patient has applied for SSI and she needs proof of income. KRYSTAL attempted to call [employer] [phone] or [phone] to see if she might could assist with obtaining this information. CM was unsuccessful in contacting Aily[employer]. KRYSTAL called and spoke with Wei Delatorre and gave her Meli phone number to see if she could assist with information. Wei will contact Meli and her ultrasound supervisor to see if they can assist with information needed. Wei will contact KRYSTAL after she gets in contact with others. CM will continue to follow and assist as needed with discharge planning / needs. DCP- Discharge Planning Updated by [id number]: Lizabeth Bingham on 07/18/18 5:[address] Late Entry 07/18/18 @ 1020 CM called and left a message for July PARK @ [facility]. CM awaiting response.CM will continue to follow and assist as needed with discharge planning / needs. Late Entry 07/18/18 @ 1330 CM received call from Meli with [facility]. Meli was wanting to know if patient was getting SSI or SSA. KRYSTAL was unaware of this information and referred Meli to call patients sister Lesley Domingo. KRYSTAL called and spoke with Wei Delatrore regarding Medicaid. Wei stated patient had SSI Medicaid until 07/10/18 and regular Medicaid started 07/11/18. KRYSTAL called Meli back to give this information to her and also gave Wei's number if she has questions regarding this. Meli stated that she also needed to know if the patient had applied for SSI and how much she had in her bank account. KRYSTAL explained that we would try to find out this information. CM will check with sister and possibly patient gearcase assembler whom assisted patient with housing when released from residential. CM will continue to follow and assist as needed with discharge planning / needs. DCP- Discharge Planning Updated by [id number]: Lizabeth Bingham on 07/18/18 5:[address] Late Entry 07/17/18 @ 1600 CM called and left message x 2 for July VIVIAN from [facility]. CM awaiting response. CM will continue to follow and assist as needed with discharge planning / needs. DCP- Discharge Planning Updated by [id number]: Lizabeth Bingham on 07/15/18 12:[address] CM spoke with patient's sister Lesley Domingo this am. She stated that the patient doesn't have Medicare. She asked when patient would transfer to [place]. CM explained that we are awaiting on acceptance to [facility] at this point. CM called [facility] for update July told CM to fax updated clinical and that it would be tomorrow 07/16/18 before they may have a determination. July requested CM not to call back tomorrow until after noon. CM will update family. CM also contacted [facility] in [place], [place]. [phone] CM spoke with Za she stated at this time they are not accepting out of state Medicaid at their facility. CM will continue to follow and assist as needed with discharge planning / needs. DCP- Discharge Planning Updated by [email or web address]: Lizabeth Bingham on 07/12/18 7:[address] CM was notified patient sister Lesley Domingo was here and requested to speak with me. KRYSTAL explained that the current plan was that we was looking into placement with [facility] in [place], [place]. CM had spoke to Zoila with [facility] prior to coming to speak with Lesley. KRYSTAL had answered questions that Zolia had. Zoila stated the next process that they would send patients information to Executive offices and would be awaiting financial approval. Zoila stated for CM to call back to check on this at anytime next week. KRYSTAL explained all this to sister Lesley. Lesley asked why she was having to be transferred out of state. KRYSTAL explained that [facility] facilities [facility] the [facility] do not take Medicaid and that [facility] facilities in the [facility] do not accept ventilator patients. Lesley states that she had received information that the patient is and receiving Medicare through her . KRYSTAL explained that we had no record of that only Medicaid. Lesley requested that [facility] find this information out. KRYSTAL explained that if it was through the patients spouse then it would need to be his information used to look it up. Lesley states that she has a letter at her home that has this information on it.(Because she has custody of patients son and he receiving his benefits also). The conversation ended that Lesley was going to get the information to KRYSTAL. KRYSTAL received call from Lesley around 4:45pm requesting information on online Social Security office hours. Lesley also wanted to know what would happen if they didn't consent to transfer. KRYSTAL explained that I wasn't sure and Lesley requested for CM to find out this information. KRYSTAL spoke with other casework manager within the facility. KRYSTAL then called Lesley back and explained that if the patient was stable for transfer and they still refusing transfer then it would most likely go to ethics board and [facility] could be notified. Lesley then starting raising her voice that" the hospital and staff was not giving her accurate updates over the phone. She had no idea that Evy was almost in a comatose state." Lesley requested for us to wait on transfer until after she could show proof that she has Medicare. KRYSTAL explained that nothing would be happening until next week. She was still upset that she was going to have to stay longer than she had planned to get this taken care of. KRYSTAL told her that I would be happy to let her speak to someone else on Sunday. CM will continue to follow and assist as needed will discharge planning/ needs. DCP- Discharge Planning Updated by [id number]: Lizabeth Bingham on 07/11/18 7:[address] KRYSTAL spoke with [facility] in [place] ([facility] She stated that all their Vent beds are full at this time and they could put the patient on a waiting list for a bed. CM gave information to put patient on waiting list. KRYSTAL then contacted [facility] [place] ([facility]) she stated they might could accept patient. KRYSTAL faxed over information and later got denial from [facility] that patient required too high of level of care. CM contacted [facility] to see if they could give any insight on facilities that take ventilator patients within the [facility]. They only gave [facility] in [place]. CM called and spoke with patients sister Lesley Domingo. CM explained the situation that the patient was needing placement and we might have to go out of the state of [place] for placement. Lesley was concerned about patient getting back to [place] once she recovered. Lesley also stated that she would be in to see patient today that she just got into town. CM will plan to speak to her while she is here. CM received information on [facility] in [place], [place] that takes ventilator patients. CM called [facility] [phone] and faxed [phone] records. CM awaiting decision from [facility]. CM will continue to follow and assist as needed with discharge planning / needs. DCP- Discharge Planning Updated by [email or web address]: Lizabeth Bingham on 07/08/18 4:[address] CM contacted all [facility] to check on Medicaid bed availability / ana bed availability. Still awaiting call back on three facilities but at this time no had stated they would accept any Medicaid patients or ana. CM will continue to follow and assist as needed with discharge planning / needs. DCP- Discharge Planning Updated by [id number]: Lizabeth Bingham on 06/20/18 11:[address] Patient Name: EVY ART Admission Status: Elective Accout number: [id number] Admission Date: 06-07-2018 : 1960 Admission Diagnosis:MALIGNANT NEOPLASM OF CARDIA Attending: WILLIAM TUCKER Current LOS: 13 Anticipated DC Date: Planned Disposition: Home or Self Care Primary Insurance: [place]ID [place] Discharge Planning Comments: CM called and spoke with sister Lesley Domingo [phone]. Patient is still on vent and sedated. Lesley (lives in [place]) informed CM that patient doesn't have any family that lives in the state of [place]. She stated that the patient had been incarcerated and had been released approximately 8 weeks prior to admission. Sister states that patient had found out while incarcerated that she had cancer. Patient had been getting radiation / chemo prior to admit. Lesley states that she has custody of patients youngest child and that her oldest child is in residential in [place]. Lesley states that her goal is for patient to finish her cancer treatments then come to her home in [place]. Lesley also states that patient has a roommate Nadine that comes to visit patient in the evenings. CM will continue to follow and assist as needed with discharge planning/ needs. Director Of Student Financial Aid: Lizabeth Bingham DCP- Discharge Planning Updated by [email or web address]: Lizabeth Bingham on 06/14/18 7:[address] Patient on Vent / sedated. No family available for discharge planning.CM will continue to follow and assist as needed with discharge planning / needs. External Providers External Provider: OTHER-OTHER Next Contact Date: Service Request Date: Service Type: Resolution: Reviewer: Comments: Last DP export: 08/21/18 10:02 Patient Name: EVY ART Page [id number] at 1143 All edits/amendments must be made on the electronic document DICTATION DATE: 08/23/18 114 ECMO SPECIALIST: ANA ROSA 08/23/18 1142 RPT#: [id number] DC DATE: STATUS: ADM IN [facility] [address] [place] [address] END OF REPORT
--- NOTE | ~2018-06-07 | MORECARE ---
CASE MANAGEMENT DISCHARGE SUMMARY PATIENT: EVY ART UNIT: [id number] ADM DATE: 06/07/18 AGE: 57 : 62 SEX: F ROOM/BED: D.2224 AUTHOR: DARCI MAR PHYSICIAN: REFERRING PHYSICIAN: WILLIAM TUCKER MD DATE OF SERVICE: 08/26/18 Discharge Plan Patient Name: EVY ART Facility: [facility]:[place] : 1960 Planned Disposition: Home or Self Care Anticipated Discharge Date: Discharge Date: Expected LOS: Initial Reviewer: [id number] Initial Review Date: 06/07/2018 Generated: 08/26/18 2:54 pm Comments DCP- Discharge Planning Updated by [id number]: Edita Quinonez on 08/26/18 12:[address] Met with patient to discuss discharge planning, she would like to go to her brother's [facility]. She states that she needs to get stronger prior to going there. I informed her I was trying to get her in a rehab in [place], which is [facility]. She agrees to going to [place] for rehab if they will accept her. I have filled a Kylie form out and she signed. I will need to contact Dr. Tucker for his signature. He is in surgery at this time. DCP- Discharge Planning Updated by [id number]: Edita Quinonez on 08/23/18 3:[address] Received a call from Evi bernardo Smithmill in [facility] for more information for possible admission. I faxed her clinical to [phone]. She will also need a KYLIE before admission completed. CM will continue to follow and assist with discharge planning/needs. DCP- Discharge Planning Updated by [id number]: Edita Quinonez on 08/23/18 11:[address] I spoke with Alba Baker today for an update. She states she does not have an accepting facility at this time. I sent referral to [facility]. CM will continue to follow and assist with discharge planning/needs. DCP- Discharge Planning Updated by [id number]: Lizabeth Bingham on 08/21/18 9:[address] CM received a call from patients sister Lesley Domingo that [facility] has notified her that she should be receiving her paperwork in the next 2 weeks. Paperwork that she can act in Evy behalf for Medicaid. CM will continue to follow and assist with discharge planning. DCP- Discharge Planning Updated by [id number]: Lizabeth Bingham on 08/16/18 11:[address] CM continuing to follow up with [facility] about placement for female vent bed availability. If patient can be off vent for 72hrs then CM can seek placement locally. CM will continue to follow and assist as needed with discharge planning / needs. DCP- Discharge Planning Updated by [id number]: Winter Randolph on 08/15/18 12:[address] Patient Name: EVY ART Admission Status: Elective Accout number: [id number] Admission Date: 06-07-2018 : 1960 Admission Diagnosis:MALIGNANT NEOPLASM OF CARDIA Attending: WILLIAM TUCKER Current LOS: 69 Anticipated DC Date: Planned Disposition: Home or Self Care Primary Insurance: [place]ID [place] Discharge Planning Comments: CM CALLED [facility] TO SPEAK WITH JULY REGARDING A VENT BED. THEY STATE JULY IS OUT SICK AND WON'T BE BACK UNTIL NEXT WEEK. STATES WILL HAVE TO CALL BACK ON SUNDAY. Lubricating Specialist: Winter Randolph DCP- Discharge Planning Updated by [id number]: Lizabeth Bingham on 08/14/18 4:[address] CM called [facility] and spoke with Jennyfer RANDLE. Jennyfer stated that she wasn't able to answer questions regarding how soon for bed availability. July was out sick and she had no information on placement. CM will call back tomorrow and attempt to speak with July. DCP- Discharge Planning Updated by [id number]: Lizabeth Bingham on 08/13/18 2:[address] CM called [facility] in [place] and left message for DON (July) to return call regarding placement and how long until placement. CM still awaiting call back @ this time. DCP- Discharge Planning Updated by [id number]: Lizabeth Bingham on 08/12/18 5:[address] CM called and spoke with Meli @ [facility] [phone]. Meli stated that at this time they do not have a female vent bed available. She stated that she doesn't know when one may be available or if patient is at the top of the list or not. Meli stated that CM would need to speak with July PARK for that information and she isn't there today. CM will continue to follow and assist as needed with discharge planning / needs. DCP- Discharge Planning Updated by [id number]: Lizabeth Bingham on 08/09/18 6:[address] CM spoke with Wei Delatorre in [facility] she got in touch with for me and got in touch with the appropriate person at [facility]. Was able to fax form in and get the appropriate information to Meli @ [facility] in [place]. KRYSTAL later contacted Meli and she stated that everything was good as far as financials. They currently do not have any female vent beds available. Meli stated she would keep us posted on availability. Wei notified me that [facility] had put in the necessary information so that Lesley Domingo patients sister can be her payor source. Lesley is to go to [facility] in [place] next week.CM will continue to follow and assist as needed with discharge planning / needs. DCP- Discharge Planning Updated by [id number]: Lizabeth Bingham on 08/08/18 7:[address] CM attempted to call local office to see if CM could fax form into them and get patients disability number. KRYSTAL was on hold for over 30 mins and never got to speak to a commissary representative. KRYSTAL spoke with Meli at [facility]. She stated that she hasn't heard anything yet. Meli stated that once the financials was cleared then we will need to send updated clinicals and then would go through medical review for acceptance. CM will continue to follow and assist with discharge planning/ needs DCP- Discharge Planning Updated by [email or web address]: Lizabeth Bingham on 08/06/18 5:[address] Late Entry 08/06/18 @ [address] Webb office to see if they have received a fax from [employer] Omaira stated that they have not received anything for her. KRYSTAL will try to get back in touch with Lesley Domingo patients sister and Wei in [facility] to see what our next step is. KRYSTAL contacted Meli at [facility] to let her know we are still working on placement. CM will continue to follow and assist with discharge planning / needs. DCP- Discharge Planning Updated by [id number]: Lizabeth Bingham on 07/31/18 4:[address] CM received notification that the social security office in [place] would not accept form that was sent to Lesley Domingo to get authorization to manage patients finances. They said they would have to directly send it to Dr. Tucker and then have him to send it back. [facility] has to have some proof of income before they can accept patient. We are having to wait to see if we can get Lesley approved to manage social security benefits in patients behalf. CM will continue to follow and assist with discharge planning / needs. DCP- Discharge Planning Updated by [id number]: Lizabeth Bingham on 07/26/18 6:[address] Late Entry 07/26/18 @ [address] Tucker and got form signed for [facility]. CM took form to Wei in [facility]. CM will continue to follow and assist as needed with discharge planning / needs DCP- Discharge Planning Updated by [id number]: Lizabeth Bingham on 07/25/18 4:[address] CM spoke with Wei Delatorre this am. Wei spoke with patients sister Lesley Domingo trying to find out information needed to get patient placement. KRYSTAL was later notified that a form from [facility] needed to be filled out by physician. KRYSTAL attempted to get in touch with paged him several times but was unsuccessful. Called his office but no response at this time. CM will continue to follow and assist as needed with discharge planning / needs. DCP- Discharge Planning Updated by [id number]: Lizabeth Bingham on 07/24/18 4:[address] CM called and spoke with Meli at [facility] in [place]. [phone]. CM asked if family was able to provide information needed. Meli stated that she hasn't heard from anyone since she had spoke to me last week. Meli is requesting proof that patient has applied for SSI and she needs proof of income. KRYSTAL attempted to call television maintenance worker Ailyn Read [phone] or [phone] to see if she might could assist with obtaining this information. CM was unsuccessful in contacting Ailyn. CM called and spoke with Wei Juan Ramon and gave her Meli phone number to see if she could assist with information. Wei will contact Meli and her car wash supervisor to see if they can assist with information needed. Wei will contact CM after she gets in contact with others. CM will continue to follow and assist as needed with discharge planning / needs. DCP- Discharge Planning Updated by [id number]: Lizabeth Bingham on 07/18/18 5:[address] Late Entry 07/18/18 @ 1020 CM called and left a message for July VIVIAN @ [facility]. CM awaiting response.CM will continue to follow and assist as needed with discharge planning / needs. Late Entry 07/18/18 @ 1330 CM received call from Meli with [facility]. Meli was wanting to know if patient was getting SSI or SSA. KRYSTAL was unaware of this information and referred Meli to call patients sister Lesley Domingo. CM called and spoke with Wei Delatorre regarding Medicaid. Wei stated patient had SSI Medicaid until 07/10/18 and regular Medicaid started 07/11/18. CM called Meli back to give this information to her and also gave Wei's number if she has questions regarding this. Meli stated that she also needed to know if the patient had applied for SSI and how much she had in her bank account. KRYSTAL explained that we would try to find out this information. CM will check with sister and possibly patient cyanide case hardener whom assisted patient with housing when released from [facility]. CM will continue to follow and assist as needed with discharge planning / needs. DCP- Discharge Planning Updated by [id number]: Lizabeth Bingham on 07/18/18 5:[address] Late Entry 07/17/18 @ 1600 CM called and left message x 2 for July PARK from [facility]. CM awaiting response. CM will continue to follow and assist as needed with discharge planning / needs. DCP- Discharge Planning Updated by [id number]: Lizabeth Bingham on 07/15/18 12:[address] CM spoke with patient's sister Lesley Domingo this am. She stated that the patient doesn't have Medicare. She asked when patient would transfer to [place]. CM explained that we are awaiting on acceptance to [facility] at this point. KRYSTAL called [facility] for update July told CM to fax updated clinical and that it would be tomorrow 07/16/18 before they may have a determination. July requested CM not to call back tomorrow until after noon. CM will update family. KRYSTAL also contacted [facility] in [place], [place]. [phone] KRYSTAL spoke with Za she stated at this time they are not accepting out of state Medicaid at their facility. CM will continue to follow and assist as needed with discharge planning / needs. DCP- Discharge Planning Updated by [id number]: Lizabeth Bingham on 07/12/18 7:[address] CM was notified patient sister Lesley Domingo was here and requested to speak with me. KRYSTAL explained that the current plan was that we was looking into placement with [facility] in [place], [place]. KRYSTAL had spoke to Zoila with [facility] prior to coming to speak with Lesley. KRYSTAL had answered questions that Zoila had. Zoila stated the next process that they would send patients information to Executive offices and would be awaiting financial approval. Zoila stated for CM to call back to check on this at anytime next week. KRYSTAL explained all this to sister Lesley. Lesley asked why she was having to be transferred out of state. KRYSTAL explained that LTACH facilities within the state do not take Medicaid and that termite treater half-way facilities in the state do not accept ventilator patients. Lesley states that she had received information that the patient is and receiving Medicare through her . KRYSTAL explained that we had no record of that only Medicaid. Lesley requested that [facility] find this information out. KRYSTAL explained that if it was through the patients spouse then it would need to be his information used to look it up. Lesley states that she has a letter at her home that has this information on it.(Because she has custody of patients son and he receiving his benefits also). The conversation ended that Lesley was going to get the information to KRYSTAL. KRYSTAL received call from Lesley around 4:45pm requesting information on online Social Security office hours. Lesley also wanted to know what would happen if they didn't consent to transfer. KRYSTAL explained that I wasn't sure and Lesley requested for KRYSTAL to find out this information. KRYSTAL spoke with other immigration case manager within the facility. KRYSTAL then called Lesley back and explained that if the patient was stable for transfer and they still refusing transfer then it would most likely go to ethics board and [facility] could be notified. Lesley then starting raising her voice that" the hospital and staff was not giving her accurate updates over the phone. She had no idea that Evy was almost in a comatose state." Lesley requested for us to wait on transfer until after she could show proof that she has Medicare. CM explained that nothing would be happening until next week. She was still upset that she was going to have to stay longer than she had planned to get this taken care of. CM told her that I would be happy to let her speak to someone else on Sunday. CM will continue to follow and assist as needed will discharge planning/ needs. DCP- Discharge Planning Updated by [id number]: Lizabeth Bingham on 07/11/18 7:[address] CM spoke with [facility] in [place] ([facility]). She stated that all their Vent beds are full at this time and they could put the patient on a waiting list for a bed. CM gave information to put patient on waiting list. CM then contacted [facility] in [place] ([facility]) she stated they might could accept patient. CM faxed over information and later got denial from [facility] that patient required too high of level of care. CM contacted [facility] division custodial care to see if they could give any insight on facilities that take ventilator patients within the [facility]. They only gave [facility] in [place]. CM called and spoke with patients sister Lesley Domingo. CM explained the situation that the patient was needing placement and we might have to go out of the state of [place] for placement. Lesley was concerned about patient getting back to [place] once she recovered. Lesley also stated that she would be in to see patient today that she just got into town. CM will plan to speak to her while she is here. CM received information on [facility] in [place], [place] that takes ventilator patients. KRYSTAL called Meli [phone] and faxed [phone] records. CM awaiting decision from [facility]. CM will continue to follow and assist as needed with discharge planning / needs. DCP- Discharge Planning Updated by [id number]: Lizabeth Bingham on 07/08/18 4:[address] CM contacted all LTACH within state to check on Medicaid bed availability / ana bed availability. Still awaiting call back on three facilities but at this time no had stated they would accept any Medicaid patients or ana. CM will continue to follow and assist as needed with discharge planning / needs. DCP- Discharge Planning Updated by [id number]: Lizabeth Bingham on 06/20/18 11:[address] Patient Name: EVY ART Admission Status: Elective Accout number: [id number] Admission Date: 06-07-2018 : 1960 Admission Diagnosis:MALIGNANT NEOPLASM OF CARDIA Attending: WILLIAM TUCKER Current LOS: 13 Anticipated DC Date: Planned Disposition: Home or Self Care Primary Insurance: MEDICAID [place] Discharge Planning Comments: CM called and spoke with sister Lesley Domingo [phone]. Patient is still on vent and sedated. Lesley (lives in [place]) informed CM that patient doesn't have any family that lives in the state of [place]. She stated that the patient had been incarcerated and had been released approximately 8 weeks prior to admission. Sister states that patient had found out while incarcerated that she had cancer. Patient had been getting radiation / chemo prior to admit. Lesley states that she has custody of patients youngest child and that her oldest child is in fdc in [place]. Lesley states that her goal is for patient to finish her cancer treatments then come to her home in [place]. Lesley also states that patient has a roommate Nadine that comes to visit patient in the evenings. CM will continue to follow and assist as needed with discharge planning/ needs. Lubricating Specialist: Lizabeth Bingham DCP- Discharge Planning Updated by [id number]: Lizabeth Bingham on 06/14/18 7:[address] Patient on Vent / sedated. No family available for discharge planning.CM will continue to follow and assist as needed with discharge planning / needs. Last DP export: 08/23/18 3:54 Patient Name: EVY ART Page [id number] at 1354 All edits/amendments must be made on the electronic document DICTATION DATE: 08/26/18 1359 ANIMAL KEEPER: ANA ROSA 08/26/18 1354 RPT#: [id number] MT DATE: STATUS: ADM IN [facility] [address] [place] [address] END OF REPORT
--- NOTE | ~2018-06-07 | MORECARE ---
CASE MANAGEMENT DISCHARGE SUMMARY PATIENT: EVY ART UNIT: [id number] ADM DATE: 06/07/18 AGE: 57 : 62 SEX: F ROOM/BED: D.2307 AUTHOR: ZAID,DOC PHYSICIAN: REFERRING PHYSICIAN: WILLIAM TUCKER MD DATE OF SERVICE: 08/12/18 Discharge Plan Patient Name: EVY ART Facility: [facility]:[place] : 1960 Planned Disposition: Home or Self Care Anticipated Discharge Date: Discharge Date: Expected LOS: Initial Reviewer: [id number] Initial Review Date: 06/07/2018 Generated: 08/12/18 7:16 pm Comments DCP- Discharge Planning Updated by [id number]: Lizabeth Bingham on 08/12/18 5:[address] CM called and spoke with Meli @ [facility] [phone]. Meli stated that at this time they do not have a female vent bed available. She stated that she doesn't know when one may be available or if patient is at the top of the list or not. Meli stated that CM would need to speak with July PARK for that information and she isn't there today. CM will continue to follow and assist as needed with discharge planning / needs. DCP- Discharge Planning Updated by [email or web address]: Lizabeth Bingham on 08/09/18 6:[address] CM spoke with Wei Delatorre in [facility] she got in touch with for me and got in touch with the appropriate person at [facility]. Was able to fax form in and get the appropriate information to Meli @ [facility] in [place]. KRYSTAL later contacted Meli and she stated that everything was good as far as financials. They currently do not have any female vent beds available. Meli stated she would keep us posted on availability. Wei notified me that [facility] had put in the necessary information so that Lesley diaz sister can be her payor source. Lesley is to go to [employer] security in [place] next week.CM will continue to follow and assist as needed with discharge planning / needs. DCP- Discharge Planning Updated by [id number]: Lizabeth Bingham on 08/08/18 7:[address] CM attempted to call local office to see if CM could fax form into them and get patients disability number. CM was on hold for over 30 mins and never got to speak to a credit and collections representative. CM spoke with Meli at [facility]. She stated that she hasn't heard anything yet. Meli stated that once the financials was cleared then we will need to send updated clinicals and then would go through medical review for acceptance. CM will continue to follow and assist with discharge planning/ needs DCP- Discharge Planning Updated by [id number]: Lizabeth Bingham on 08/06/18 5:[address] Late Entry 08/06/18 @ [address] Webb office to see if they have received a fax from Social Security. Omaira stated that they have not received anything for her. CM will try to get back in touch with Lesley Domingo patients sister and Wei in [facility] to see what our next step is. KRYSTAL contacted Meli at [facility] to let her know we are still working on placement. CM will continue to follow and assist with discharge planning / needs. DCP- Discharge Planning Updated by [email or web address]: Lizabeth Bingham on 07/31/18 4:[address] CM received notification that the social security office in [place] would not accept form that was sent to Lesley Domingo to get authorization to manage patients finances. They said they would have to directly send it to Dr. Tucker and then have him to send it back. [facility] has to have some proof of income before they can accept patient. We are having to wait to see if we can get Lesley approved to manage social security benefits in patients behalf. CM will continue to follow and assist with discharge planning / needs. DCP- Discharge Planning Updated by [email or web address]: Lizabeth Bingham on 07/26/18 6:[address] Late Entry 07/26/18 @ [address] Tucker and got form signed for [facility]. CM took form to Wei in [facility]. CM will continue to follow and assist as needed with discharge planning / needs DCP- Discharge Planning Updated by [email or web address]: Lizabeth Bingham on 07/25/18 4:[address] CM spoke with Wei Delatorre this am. Wei spoke with patients sister Lesley Domingo trying to find out information needed to get patient placement. KRYSTAL was later notified that a form from [employer] needed to be filled out by physician. KRYSTAL attempted to get in touch with paged him several times but was unsuccessful. Called his office but no response at this time. CM will continue to follow and assist as needed with discharge planning / needs. DCP- Discharge Planning Updated by [email or web address]: Lizabeth Bingham on 07/24/18 4:[address] CM called and spoke with Meli at [facility] in [place]. [phone]. KRYSTAL asked if family was able to provide information needed. Meli stated that she hasn't heard from anyone since she had spoke to me last week. Meli is requesting proof that patient has applied for SSI and she needs proof of income. KRYSTAL attempted to call personal care worker Ailyn Read [phone] or [phone] to see if she might could assist with obtaining this information. CM was unsuccessful in contacting Ailyn. KRYSTAL called and spoke with Wei Delatorre and gave her Meli phone number to see if she could assist with information. Wei will contact Meli and her supervisor felling bucking to see if they can assist with information needed. Wei will contact KRYSTAL after she gets in contact with others. CM will continue to follow and assist as needed with discharge planning / needs. DCP- Discharge Planning Updated by [email or web address]: Lizabeth Zachery on 07/18/18 5:[address] Late Entry 07/18/18 @ 1020 CM called and left a message for July PARK @ [facility]. CM awaiting response.CM will continue to follow and assist as needed with discharge planning / needs. Late Entry 07/18/18 @ 1330 CM received call from Meli with [facility]. Meli was wanting to know if patient was getting SSI or SSA. KRYSTAL was unaware of this information and referred Meli to call patients sister Lesley Domingo. KRYSTAL called and spoke with Wei Delatorre regarding Medicaid. Wei stated patient had SSI Medicaid until 07/10/18 and regular Medicaid started 07/11/18. KRYSTAL called Meli back to give this information to her and also gave Wei's number if she has questions regarding this. Meli stated that she also needed to know if the patient had applied for SSI and how much she had in her bank account. CM explained that we would try to find out this information. CM will check with sister and possibly patient dependency case manager whom assisted patient with housing when released from half-way. CM will continue to follow and assist as needed with discharge planning / needs. DCP- Discharge Planning Updated by [email or web address]: Lizabeth Bingham on 07/18/18 5:[address] Late Entry 07/17/18 @ 1600 CM called and left message x 2 for July PARK from [facility]. CM awaiting response. CM will continue to follow and assist as needed with discharge planning / needs. DCP- Discharge Planning Updated by [email or web address]: Lizabeth Bingham on 07/15/18 12:[address] CM spoke with patient's sister Lesley Domingo this am. She stated that the patient doesn't have Medicare. She asked when patient would transfer to [place]. CM explained that we are awaiting on acceptance to [facility] at this point. CM called [facility] for update July told CM to fax updated clinical and that it would be tomorrow 07/16/18 before they may have a determination. July requested CM not to call back tomorrow until after noon. CM will update family. CM also contacted [facility] in [place], [place]. [phone] CM spoke with Za she stated at this time they are not accepting out of state Medicaid at their facility. CM will continue to follow and assist as needed with discharge planning / needs. DCP- Discharge Planning Updated by [email or web address]: Lizabeth Bingham on 07/12/18 7:[address] CM was notified patient sister Lesley Domingo was here and requested to speak with me. KRYSTAL explained that the current plan was that we was looking into placement with [facility] in [place], [place]. CM had spoke to Zoila with [facility] prior to coming to speak with Lesley. KRYSTAL had answered questions that Zoila had. Zoila stated the next process that they would send patients information to Executive offices and would be awaiting financial approval. Zoila stated for CM to call back to check on this at anytime next week. KRYSTAL explained all this to sister Lesley. Lesley asked why she was having to be transferred out of state. KRYSTAL explained that LTACH facilities within the state do not take Medicaid and that [facility] facilities in the state do not accept ventilator patients. Lesley states that she had received information that the patient is and receiving Medicare through her . KRYSTAL explained that we had no record of that only Medicaid. Lesley requested that [facility] find this information out. KRYSTAL explained that if it was through the patients spouse then it would need to be his information used to look it up. Lesley states that she has a letter at her home that has this information on it.(Because she has custody of patients son and he receiving his benefits also). The conversation ended that Lesley was going to get the information to KRYSTAL. KRYSTAL received call from Lesley around 4:45pm requesting information on online Social Security office hours. Lesley also wanted to know what would happen if they didn't consent to transfer. KRYSTAL explained that I wasn't sure and Lesley requested for CM to find out this information. KRYSTAL spoke with other therapeutic case manager within the facility. KRYSTAL then called Lesley back and explained that if the patient was stable for transfer and they still refusing transfer then it would most likely go to ethics board and DHS could be notified. Lesley then starting raising her voice that" the hospital and staff was not giving her accurate updates over the phone. She had no idea that Evy was almost in a comatose state." Lesley requested for us to wait on transfer until after she could show proof that she has Medicare. KRYSTAL explained that nothing would be happening until next week. She was still upset that she was going to have to stay longer than she had planned to get this taken care of. KRYSTAL told her that I would be happy to let her speak to someone else on Sunday. CM will continue to follow and assist as needed will discharge planning/ needs. DCP- Discharge Planning Updated by [id number]: Lizabeth Bingham on 07/11/18 7:[address] KRYSTAL spoke with [facility] in [place] ([facility]). She stated that all their Vent beds are full at this time and they could put the patient on a waiting list for a bed. CM gave information to put patient on waiting list. KRYSTAL then contacted [facility] in [place] ([facility]) she stated they might could accept patient. CM faxed over information and later got denial from [facility] that patient required too high of level of care. CM contacted [facility] division custodial care to see if they could give any insight on facilities that take ventilator patients within the [facility]. They only gave [facility] in [place]. CM called and spoke with patients sister Lesley Domingo. CM explained the situation that the patient was needing placement and we might have to go out of the state of [place] for placement. Lesley was concerned about patient getting back to [place] once she recovered. Lesley also stated that she would be in to see patient today that she just got into town. CM will plan to speak to her while she is here. CM received information on [facility] in [place], [place] that takes ventilator patients. CM called Meli [phone] and faxed [phone] records. CM awaiting decision from [facility]. CM will continue to follow and assist as needed with discharge planning / needs. DCP- Discharge Planning Updated by [id number]: Lizabeth Bingham on 07/08/18 4:[address] CM contacted all LTACH within [facility] to check on Medicaid bed availability / ana bed availability. Still awaiting call back on three facilities but at this time no had stated they would accept any Medicaid patients or ana. CM will continue to follow and assist as needed with discharge planning / needs. DCP- Discharge Planning Updated by [email or web address]: Lizabeth Bingham on 06/20/18 11:[address] Patient Name: EVY ART Admission Status: Elective Accout number: [id number] Admission Date: 06-07-2018 : 1960 Admission Diagnosis:MALIGNANT NEOPLASM OF CARDIA Attending: WILLIAM TUCKER Current LOS: 13 Anticipated DC Date: Planned Disposition: Home or Self Care Primary Insurance: [place] Discharge Planning Comments: CM called and spoke with sister eLsley Domingo [phone]. Patient is still on vent and sedated. Lesley (lives in [place]) informed CM that patient doesn't have any family that lives in the state of [place]. She stated that the patient had been incarcerated and had been released approximately 8 weeks prior to admission. Sister states that patient had found out while incarcerated that she had cancer. Patient had been getting radiation / chemo prior to admit. Lesley states that she has custody of patients youngest child and that her oldest child is in half-way in [place]. Lesley states that her goal is for patient to finish her cancer treatments then come to her home in [place]. Lesley also states that patient has a roommate Nadine that comes to visit patient in the evenings. CM will continue to follow and assist as needed with discharge planning/ needs. Continuity Person: Lizabeth Bingham DCP- Discharge Planning Updated by [id number]: Lizabeth Bingham on 06/14/18 7:[address] Patient on Vent / sedated. No family available for discharge planning.CM will continue to follow and assist as needed with discharge planning / needs. Last DP export: 08/09/18 6:18 Patient Name: EVY ART Page [id number] at 1816 All edits/amendments must be made on the electronic document DICTATION DATE: 08/12/181814 PHYSICAL THERAPIST: ANA ROSA 08/12/181814 RPT#: [id number] DC DATE: STATUS: ADM IN [facility] [address] [place] [address] END OF REPORT
--- NOTE | ~2018-06-07 | MORECARE ---
CASE MANAGEMENT DISCHARGE SUMMARY PATIENT: EVY ART UNIT: [id number] ADM DATE: 06/07/18 AGE: 57 : 62 SEX: F ROOM/BED: D.2224 AUTHOR: DARCI MAR PHYSICIAN: REFERRING PHYSICIAN: WILLIAM TUCKER MD DATE OF SERVICE: 08/26/18 Discharge Plan Patient Name: EVY ART Facility: [facility]:[place] : 1960 Planned Disposition: Home or Self Care Anticipated Discharge Date: Discharge Date: Expected LOS: Initial Reviewer: [email or web address] Initial Review Date: 06/07/2018 Generated: 08/26/18 3:09 pm Comments DCP- Discharge Planning Updated by [id number]: Edita Mckeonangelita on 08/26/18 1:[address] KYLIE paper work and clinical faxed to [facility]. CM will continue to follow and assist with discharge planning/needs. DCP- Discharge Planning Updated by [id number]: Edita Quinonez on 08/26/18 12:[address] Met with patient to discuss discharge planning, she would like to go to her brother's [facility]. She states that she needs to get stronger prior to going there. I informed her I was trying to get her in a rehab in [place], which is [facility]. She agrees to going to [place] for rehab if they will accept her. I have filled a [place] form out and she signed. I will need to contact Dr. Tucker for his signature. He is in surgery at this time. DCP- Discharge Planning Updated by [email or web address]: Edita Mckeonangelita on 08/23/18 3:[address] Received a call from Evi at [place] [facility] in [facility] for more information for possible admission. I faxed her clinical to [phone]. She will also need a KYLIE before admission completed. CM will continue to follow and assist with discharge planning/needs. DCP- Discharge Planning Updated by [id number]: Edita Mckeonangelita on 08/23/18 11:[address] I spoke with Alba Baker today for an update. She states she does not have an accepting facility at this time. I sent referral to [facility]. CM will continue to follow and assist with discharge planning/needs. DCP- Discharge Planning Updated by [id number]: Lizabeth Bingham on 08/21/18 9:[address] CM received a call from patients sister Lesley Domingo that [facility] has notified her that she should be receiving her paperwork in the next 2 weeks. Paperwork that she can act in Evy behalf for Medicaid. CM will continue to follow and assist with discharge planning. DCP- Discharge Planning Updated by [email or web address]: Lizabeth Bingham on 08/16/18 11:[address] CM continuing to follow up with [facility] about placement for female vent bed availability. If patient can be off vent for 72hrs then CM can seek placement locally. CM will continue to follow and assist as needed with discharge planning / needs. DCP- Discharge Planning Updated by [id number]: Winter Randolph on 08/15/18 12:[address] Patient Name: EVY ART Admission Status: Elective Accout number: [id number] Admission Date: 06-07-2018 : 1960 Admission Diagnosis:MALIGNANT NEOPLASM OF CARDIA Attending: WILLIAM TUCKER Current LOS: 69 Anticipated DC Date: Planned Disposition: Home or Self Care Primary Insurance: MEDICAID [place] Discharge Planning Comments: CM CALLED [facility] TO SPEAK WITH JULY REGARDING A VENT BED. THEY STATE JULY IS OUT SICK AND WON'T BE BACK UNTIL NEXT WEEK. STATES WILL HAVE TO CALL BACK ON SUNDAY. Membership Counselor: Winter Randolph DCP- Discharge Planning Updated by [id number]: Lizabeth Bingham on 08/14/18 4:[address] CM called [facility] and spoke with Jennyfer RANDLE. Jennyfer stated that she wasn't able to answer questions regarding how soon for bed availability. July was out sick and she had no information on placement. CM will call back tomorrow and attempt to speak with July. DCP- Discharge Planning Updated by [id number]: Lizabeth Bingham on 08/13/18 2:[address] CM called [facility] in [place] and left message for DON (July) to return call regarding placement and how long until placement. CM still awaiting call back @ this time. DCP- Discharge Planning Updated by [id number]: Lizabeth Bingham on 08/12/18 5:[address] CM called and spoke with Meli @ [facility] [phone]. Meli stated that at this time they do not have a female vent bed available. She stated that she doesn't know when one may be available or if patient is at the top of the list or not. Meli stated that CM would need to speak with July PARK for that information and she isn't there today. CM will continue to follow and assist as needed with discharge planning / needs. DCP- Discharge Planning Updated by [id number]: Lizabeth Bingham on 08/09/18 6:[address] CM spoke with Wei Delatorre in [facility] she got in touch with for me and got in touch with the appropriate person at [facility]. Was able to fax form in and get the appropriate information to Meli @ [facility] in [place]. KRYSTAL later contacted Meli and she stated that everything was good as far as financials. They currently do not have any female vent beds available. Meli stated she would keep us posted on availability. Wei notified me that [facility] had put in the necessary information so that Lesley diaz sister can be her payor source. Lesley is to go to [facility] in [place] next week.CM will continue to follow and assist as needed with discharge planning / needs. DCP- Discharge Planning Updated by [id number]: Lizabeth Bingham on 08/08/18 7:[address] CM attempted to call local SS office to see if CM could fax form into them and get patients disability number. CM was on hold for over 30 mins and never got to speak to a sales and service representative. CM spoke with eMli at [facility]. She stated that she hasn't heard anything yet. Meli stated that once the financials was cleared then we will need to send updated clinicals and then would go through medical review for acceptance. CM will continue to follow and assist with discharge planning/ needs DCP- Discharge Planning Updated by [id number]: Lizabeth Bingham on 08/06/18 5:[address] Late Entry 08/06/18 @ [address] Webb office to see if they have received a fax from [facility]. Omaira stated that they have not received anything for her. CM will try to get back in touch with Lesley Domingo patients sister and Wei in [facility] to see what our next step is. CM contacted Meli at [facility] to let her know we are still working on placement. CM will continue to follow and assist with discharge planning / needs. DCP- Discharge Planning Updated by [id number]: Lizabeth Bingham on 07/31/18 4:[address] CM received notification that the social security office in [place] would not accept form that was sent to Lesley Domingo to get authorization to manage patients finances. They said they would have to directly send it to Dr. Tucker and then have him to send it back. [facility] has to have some proof of income before they can accept patient. We are having to wait to see if we can get Lesley approved to manage social security benefits in patients behalf. CM will continue to follow and assist with discharge planning / needs. DCP- Discharge Planning Updated by [email or web address]: Lizabeth Bingham on 07/26/18 6:[address] Late Entry 07/26/18 @ [address] Tucker and got form signed for [facility]. CM took form to Wei in [facility]. CM will continue to follow and assist as needed with discharge planning / needs DCP- Discharge Planning Updated by [id number]: Lizabeth Bingham on 07/25/18 4:[address] CM spoke with Wei Delatorre this . Wei spoke with patients sister Lesley Domingo trying to find out information needed to get patient placement. KRYSTAL was later notified that a form from [facility] needed to be filled out by physician. CM attempted to get in touch with paged him several times but was unsuccessful. Called his office but no response at this time. CM will continue to follow and assist as needed with discharge planning / needs. DCP- Discharge Planning Updated by [id number]: Lizabeth Bingham on 07/24/18 4:[address] CM called and spoke with Meli at [facility] in [place]. [phone]. KRYSTAL asked if family was able to provide information needed. Meli stated that she hasn't heard from anyone since she had spoke to me last week. Meli is requesting proof that patient has applied for SSI and she needs proof of income. CM attempted to call beater worker helper Ailyn Johnsone [phone] or [phone] to see if she might could assist with obtaining this information. CM was unsuccessful in contacting Ailyn. CM called and spoke with Wei Delatorre and gave her Meli phone number to see if she could assist with information. Wei will contact Meli and her supervisor pigment making to see if they can assist with information needed. Wei will contact CM after she gets in contact with others. CM will continue to follow and assist as needed with discharge planning / needs. DCP- Discharge Planning Updated by [id number]: Lizabeth Bingham on 07/18/18 5:[address] Late Entry 07/18/18 @ 1020 CM called and left a message for July PARK @ [facility]. CM awaiting response.CM will continue to follow and assist as needed with discharge planning / needs. Late Entry 07/18/18 @ 1330 CM received call from Meli with [facility]. Meli was wanting to know if patient was getting SSI or SSA. KRYSTAL was unaware of this information and referred Meli to call patients sister Lesley Domingo. KRYSTAL called and spoke with Wei Juan Ramon regarding Medicaid. Wei stated patient had SSI Medicaid until 07/10/18 and regular Medicaid started 07/11/18. KRYSTAL called Meli back to give this information to her and also gave Wei's number if she has questions regarding this. Meli stated that she also needed to know if the patient had applied for SSI and how much she had in her bank account. KRYSTAL explained that we would try to find out this information. CM will check with sister and possibly patient case planner whom assisted patient with housing when [facility] from [facility]. CM will continue to follow and assist as needed with discharge planning / needs. DCP- Discharge Planning Updated by [id number]: Lizabeth Bingham on 07/18/18 5:[address] Late Entry 07/17/18 @ 1600 CM called and left message x 2 for July PARK from [facility]. CM awaiting response. CM will continue to follow and assist as needed with discharge planning / needs. DCP- Discharge Planning Updated by [id number]: Lizabeth Bingham on 07/15/18 12:[address] CM spoke with patient's sister Lesley Domingo this am. She stated that the patient doesn't have Medicare. She asked when patient would transfer to [place]. KRYSTAL explained that we are awaiting on acceptance to [facility] at this point. KRYSTAL called [facility] for update July told CM to fax updated clinical and that it would be tomorrow 07/16/18 before they may have a determination. July requested CM not to call back tomorrow until after noon. CM will update family. KRYSTAL also contacted [facility] in [place], [place]. [phone] KRYSTAL spoke with Za she stated at this time they are not accepting out of state Medicaid at their facility. CM will continue to follow and assist as needed with discharge planning / needs. DCP- Discharge Planning Updated by [id number]: Lizabeth Bingham on 07/12/18 7:[address] CM was notified patient sister Lesley Domingo was here and requested to speak with me. KRYSTAL explained that the current plan was that we was looking into placement with [facility] in [place], [place]. KRYSTAL had spoke to Zoila with [facility] prior to coming to speak with Lesley. KRYSTAL had answered questions that Zoila had. Zoila stated the next process that they would send patients information to Executive offices and would be awaiting financial approval. Zoila stated for KRYSTAL to call back to check on this at anytime next week. KRYSTAL explained all this to sister Lesley. Lesley asked why she was having to be transferred out of state. KRYSTAL explained that LTACH facilities within the state do not take Medicaid and that [facility] operator [facility] facilities in the [facility] do not accept ventilator patients. Lesley states that she had received information that the patient is and receiving Medicare through her . KRYSTAL explained that we had no record of that only Medicaid. Lesley requested that [facility] find this information out. KRYSTAL explained that if it was through the patients spouse then it would need to be his information used to look it up. Lesley states that she has a letter at her home that has this information on it.(Because she has custody of patients son and he receiving his benefits also). The conversation ended that Lesley was going to get the information to KRYSTAL. KRYSTAL received call from Lesley around 4:45pm requesting information on online Social Security office hours. Lesley also wanted to know what would happen if they didn't consent to transfer. KRYSTAL explained that I wasn't sure and Lesley requested for KRYSTAL to find out this information. KRYSTAL spoke with other telehealth case manager within the facility. KRYSTAL then called Lesley back and explained that if the patient was stable for transfer and they still refusing transfer then it would most likely go to ethics board and [facility] could be notified. Lesley then starting raising her voice that" the hospital and staff was not giving her accurate updates over the phone. She had no idea that Evy was almost in a comatose state." Lesley requested for us to wait on transfer until after she could show proof that she has Medicare. KRYSTAL explained that nothing would be happening until next week. She was still upset that she was going to have to stay longer than she had planned to get this taken care of. KRYSTAL told her that I would be happy to let her speak to someone else on Sunday. CM will continue to follow and assist as needed will discharge planning/ needs. DCP- Discharge Planning Updated by [id number]: Lizabeth Bingham on 07/11/18 7:[address] CM spoke with [facility] in [place] ([facility]). She stated that all their Vent beds are full at this time and they could put the patient on a waiting list for a bed. CM gave information to put patient on waiting list. KRYSTAL then contacted [facility] [place] ([facility]) she stated they might could accept patient. CM faxed over information and later got denial from [facility] that patient required too high of level of care. CM contacted [facility] division precision machine operator care to see if they could give any insight on facilities that take ventilator patients within the [facility]. They only gave [facility] in [place]. KRYSTAL called and spoke with patients sister Lesley Domingo. KRYSTAL explained the situation that the patient was needing placement and we might have to go out of the state of [place] for placement. Lesley was concerned about patient getting back to [place] once she recovered. Lesley also stated that she would be in to see patient today that she just got into town. CM will plan to speak to her while she is here. KRYSTAL received information on [facility] in [place], [place] that takes ventilator patients. CM called Meli [phone] and faxed [phone] records. CM awaiting decision from [facility]. CM will continue to follow and assist as needed with discharge planning / needs. DCP- Discharge Planning Updated by [id number]: Lizabeth Bingham on 07/08/18 4:[address] CM contacted all LTACH within state to check on Medicaid bed availability / ana bed availability. Still awaiting call back on three facilities but at this time no had stated they would accept any Medicaid patients or ana. CM will continue to follow and assist as needed with discharge planning / needs. DCP- Discharge Planning Updated by [id number]: Lizabeth Bingham on 06/20/18 11:[address] Patient Name: EVY ART Admission Status: Elective Accout number: [id number] Admission Date: 06-07-2018 : 1960 Admission Diagnosis:MALIGNANT NEOPLASM OF CARDIA Attending: WILLIAM TUCKER Current LOS: 13 Anticipated DC Date: Planned Disposition: Home or Self Care Primary Insurance: MEDICAID [place] Discharge Planning Comments: CM called and spoke with sister Lesley Domingo [phone]. Patient is still on vent and sedated. Lesley (lives in [place]) informed CM that patient doesn't have any family that lives in the [facility]. She stated that the patient had been incarcerated and had been released approximately 8 weeks prior to admission. Sister states that patient had found out while incarcerated that she had cancer. Patient had been getting radiation / chemo prior to admit. Lesley states that she has custody of patients youngest child and that her oldest child is in [facility] in [place]. Lesley states that her goal is for patient to finish her cancer treatments then come to her home in [place]. Lesley also states that patient has a roommate Nadine that comes to visit patient in the evenings. CM will continue to follow and assist as needed with discharge planning/ needs. Membership Counselor: Lizabeth Bingham DCP- Discharge Planning Updated by [id number]: Lizabeth Bingham on 06/14/18 7:[address] Patient on Vent / sedated. No family available for discharge planning.CM will continue to follow and assist as needed with discharge planning / needs. Last DP export: 08/26/18 12:54 Patient Name: EVY ART Page [id number] at 1409 All edits/amendments must be made on the electronic document DICTATION DATE: 08/26/181408 KETTLE ROOM HELPER: ANA ROSA 08/26/181408 RPT#: [id number] DC DATE: STATUS: ADM IN [facility] [address] [place] [address] END OF REPORT
--- NOTE | ~2018-06-07 | MORECARE ---
CASE MANAGEMENT DISCHARGE SUMMARY PATIENT: EVY ART UNIT: [id number] ADM DATE: 06/07/18 AGE: 57 : 62 SEX: F ROOM/BED: D.2224 AUTHOR: ADRCI MAR PHYSICIAN: REFERRING PHYSICIAN: WILLIAM TUCKER MD DATE OF SERVICE: 08/21/18 Discharge Plan Patient Name: EVY ART Facility: [facility]:[place] : 1960 Planned Disposition: Home or Self Care Anticipated Discharge Date: Discharge Date: Expected LOS: Initial Reviewer: [email or web address] Initial Review Date: 06/07/2018 Generated: 08/21/18 12:01 pm Comments DCP- Discharge Planning Updated by [id number]: Lizabeth Bingham on 08/21/18 9:[address] CM received a call from patients sister Lesley Domingo that [employer] has notified her that she should be receiving her paperwork in the next 2 weeks. Paperwork that she can act in Evy behalf for Medicaid. CM will continue to follow and assist with discharge planning. DCP- Discharge Planning Updated by [id number]: Lizabeth Bingham on 08/16/18 11:[address] CM continuing to follow up with [facility] about placement for female vent bed availability. If patient can be off vent for 72hrs then CM can seek placement locally. CM will continue to follow and assist as needed with discharge planning / needs. DCP- Discharge Planning Updated by [id number]: Winter Randolph on 08/15/18 12:[address] Patient Name: EVY ART Admission Status: Elective Accout number: [id number] Admission Date: 06-07-2018 : 1960 Admission Diagnosis:MALIGNANT NEOPLASM OF CARDIA Attending: WILLIAM TUCKER Current LOS: 69 Anticipated DC Date: Planned Disposition: Home or Self Care Primary Insurance: MEDICAID [place] Discharge Planning Comments: CM CALLED [facility] TO SPEAK WITH JULY REGARDING A VENT BED. THEY STATE JULY IS OUT SICK AND WON'T BE BACK UNTIL NEXT WEEK. STATES WILL HAVE TO CALL BACK ON SUNDAY. Cook Roast: Winter Randolph DCP- Discharge Planning Updated by [id number]: Lizabeth Bingham on 08/14/18 4:[address] CM called [facility] and spoke with Jennyfer RANDLE. Jennyfer stated that she wasn't able to answer questions regarding how soon for bed availability. July was out sick and she had no information on placement. CM will call back tomorrow and attempt to speak with July. DCP- Discharge Planning Updated by [id number]: Lizabeth Bingham on 08/13/18 2:[address] CM called [facility] in [place] and left message for VIVIAN (July) to return call regarding placement and how long until placement. CM still awaiting call back @ this time. DCP- Discharge Planning Updated by [id number]: Lizabeth Bingham on 08/12/18 5:[address] CM called and spoke with Meli @ [facility] [phone]. Meli stated that at this time they do not have a female vent bed available. She stated that she doesn't know when one may be available or if patient is at the top of the list or not. Meli stated that CM would need to speak with July DON for that information and she isn't there today. CM will continue to follow and assist as needed with discharge planning / needs. DCP- Discharge Planning Updated by [id number]: Lizabeth Bingham on 08/09/18 6:[address] CM spoke with Wei Delatorre in [facility] she got in touch with for me and got in touch with the appropriate person at [employer]. Was able to fax form in and get the appropriate information to Meli @ [facility] in [place]. CM later contacted Meli and she stated that everything was good as far as financials. They currently do not have any female vent beds available. Meli stated she would keep us posted on availability. Wei notified me that [employer] had put in the necessary information so that Lesley Domingo patients sister can be her payor source. Lesley is to go to social security in [place] next week.CM will continue to follow and assist as needed with discharge planning / needs. DCP- Discharge Planning Updated by [id number]: Lizabeth Bingham on 08/08/18 7:[address] CM attempted to call local SS office to see if CM could fax form into them and get patients disability number. CM was on hold for over 30 mins and never got to speak to a guest experience representative. CM spoke with Meli at [facility]. She stated that she hasn't heard anything yet. Meli stated that once the financials was cleared then we will need to send updated clinicals and then would go through medical review for acceptance. CM will continue to follow and assist with discharge planning/ needs DCP- Discharge Planning Updated by [email or web address]: Lizabeth Bingham on 08/06/18 5:[address] Late Entry 08/06/18 @ [address] Webb office to see if they have received a fax from [employer]. Omaira stated that they have not received anything for her. CM will try to get back in touch with Lesley Jose L patients sister and Wei in [facility] to see what our next step is. CM contacted Meli at [facility] to let her know we are still working on placement. CM will continue to follow and assist with discharge planning / needs. DCP- Discharge Planning Updated by [id number]: Lizabeth Bingham on 07/31/18 4:[address] CM received notification that the social security office in [place] would not accept form that was sent to Lesley Domigno to get authorization to manage patients finances. They said they would have to directly send it to Dr. Tucker and then have him to send it back. [place] facility has to have some proof of income before they can accept patient. We are having to wait to see if we can get Lesley approved to manage social security benefits in patients behalf. CM will continue to follow and assist with discharge planning / needs. DCP- Discharge Planning Updated by [id number]: Lizabeth Bingham on 07/26/18 6:[address] Late Entry 07/26/18 @ [address] Tucker and got form signed for [facility]. CM took form to Wei in [facility]. CM will continue to follow and assist as needed with discharge planning / needs DCP- Discharge Planning Updated by [id number]: Lizabeth Bingham on 07/25/18 4:[address] CM spoke with Wei eDlatorre this am. Wei spoke with patients sister Lesley Domingo trying to find out information needed to get patient placement. CM was later notified that a form from [facility] needed to be filled out by physician. KRYSTAL attempted to get in touch with paged him several times but was unsuccessful. Called his office but no response at this time. CM will continue to follow and assist as needed with discharge planning / needs. DCP- Discharge Planning Updated by [id number]: Lizabeth Bingham on 07/24/18 4:[address] CM called and spoke with Meli at [facility] in [place]. [phone]. KRYSTAL asked if family was able to provide information needed. Meli stated that she hasn't heard from anyone since she had spoke to me last week. Meli is requesting proof that patient has applied for SSI and she needs proof of income. KRYSTAL attempted to call plastic worker Ailyn Jacek [phone] or [phone] to see if she might could assist with obtaining this information. CM was unsuccessful in contacting Ailyn. KRYSTAL called and spoke with Wei Delatorre and gave her Meli phone number to see if she could assist with information. Wei will contact Meli and her food and nutrition services supervisor to see if they can assist with information needed. Wei will contact KRYSTAL after she gets in contact with others. CM will continue to follow and assist as needed with discharge planning / needs. DCP- Discharge Planning Updated by [id number]: Lizabeth Bingham on 07/18/18 5:[address] Late Entry 07/18/18 @ 1020 CM called and left a message for July PARK @ [facility]. CM awaiting response.CM will continue to follow and assist as needed with discharge planning / needs. Late Entry 07/18/18 @ 1330 CM received call from Meli with [facility]. Meli was wanting to know if patient was getting SSI or SSA. KRYSTAL was unaware of this information and referred Meli to call patients sister Lesley Domingo. KRYSTAL called and spoke with Wei Delatorre regarding Medicaid. Wei stated patient had SSI Medicaid until 07/10/18 and regular Medicaid started 07/11/18. KRYSTAL called Meli back to give this information to her and also gave Wei's number if she has questions regarding this. Meli stated that she also needed to know if the patient had applied for SSI and how much she had in her bank account. KRYSTAL explained that we would try to find out this information. CM will check with sister and possibly patient caseworker protective services whom assisted patient with housing when released from care home. CM will continue to follow and assist as needed with discharge planning / needs. DCP- Discharge Planning Updated by [email or web address]: Lizabeth Bingham on 07/18/18 5:[address] Late Entry 07/17/18 @ 1600 CM called and left message x 2 for July VIVIAN from [facility]. CM awaiting response. CM will continue to follow and assist as needed with discharge planning / needs. DCP- Discharge Planning Updated by [id number]: Lizabeth Bingham on 07/15/18 12:[address] CM spoke with patient's sister Lesley Domingo this am. She stated that the patient doesn't have Medicare. She asked when patient would transfer to [place]. CM explained that we are awaiting on acceptance to [facility] at this point. CM called [facility] for update July told CM to fax updated clinical and that it would be tomorrow 07/16/18 before they may have a determination. July requested CM not to call back tomorrow until after noon. CM will update family. CM also contacted [facility] in [place], [place]. [phone] CM spoke with Za she stated at this time they are not accepting out of state Medicaid at their facility. CM will continue to follow and assist as needed with discharge planning / needs. DCP- Discharge Planning Updated by [id number]: Lizabeth Bingham on 07/12/18 7:[address] CM was notified patient sister Lesley Domingo was here and requested to speak with me. KRYSTAL explained that the current plan was that we was looking into placement with [facility] in [place], [place]. CM had spoke to Zoila with [facility] prior to coming to speak with Lesley. KRYSTAL had answered questions that Zoila had. Zoila stated the next process that they would send patients information to [employer] offices and would be awaiting financial approval. Zoila stated for CM to call back to check on this at anytime next week. KRYSTAL explained all this to sister Lesley. Lesley asked why she was having to be transferred out of state. KRYSTAL explained that [facility] facilities [facility] do not take Medicaid and that assisted alf facilities in the [facility] do not accept ventilator patients. Lesley states that she had received information that the patient is and receiving Medicare through her . KRYSTAL explained that we had no record of that only Medicaid. Lesley requested that [facility] find this information out. KRYSTAL explained that if it was through the patients spouse then it would need to be his information used to look it up. Lesley states that she has a letter at her home that has this information on it.(Because she has custody of patients son and he receiving his benefits also). The conversation ended that Lesley was going to get the information to KRYSTAL. KRYSTAL received call from Lesley around 4:45pm requesting information on online Social Security office hours. Lesley also wanted to know what would happen if they didn't consent to transfer. KRYSTAL explained that I wasn't sure and Lesley requested for CM to find out this information. KRYSTAL spoke with other caseworker protective services within the facility. KRYSTAL then called Lesley back and explained that if the patient was stable for transfer and they still refusing transfer then it would most likely go to ethics board and [facility] could be notified. Lesley then starting raising her voice that" the hospital and staff was not giving her accurate updates over the phone. She had no idea that Evy was almost in a comatose state." Lesley requested for us to wait on transfer until after she could show proof that she has Medicare. KRYSTAL explained that nothing would be happening until next week. She was still upset that she was going to have to stay longer than she had planned to get this taken care of. KRYSTAL told her that I would be happy to let her speak to someone else on Sunday. CM will continue to follow and assist as needed will discharge planning/ needs. DCP- Discharge Planning Updated by [id number]: Lizabeth Bingham on 07/11/18 7:[address] KRYSTAL spoke with [facility] in [place] ([facility]). She stated that all their Vent beds are full at this time and they could put the patient on a waiting list for a bed. CM gave information to put patient on waiting list. KRYSTAL then contacted [facility] [place] [facility]) she stated they might could accept patient. KRYSTAL faxed over information and later got denial from [facility] that patient required too high of level of care. CM contacted [facility] division computer terminal operator care to see if they could give any insight on facilities that take ventilator patients [facility]. They only gave [facility] in [place]. CM called and spoke with patients sister Lesley Domingo. CM explained the situation that the patient was needing placement and we might have to go out of the state of [place] for placement. Lesley was concerned about patient getting back to [place] once she recovered. Lesley also stated that she would be in to see patient today that she just got into town. CM will plan to speak to her while she is here. CM received information on [facility] in [place], [place] that takes ventilator patients. CM called [facility] [phone] and faxed [phone] records. CM awaiting decision from [facility]. CM will continue to follow and assist as needed with discharge planning / needs. DCP- Discharge Planning Updated by [id number]: Lizabeth Bingham on 07/08/18 4:[address] CM contacted all [facility] to check on Medicaid bed availability / ana bed availability. Still awaiting call back on three facilities but at this time no had stated they would accept any Medicaid patients or ana. CM will continue to follow and assist as needed with discharge planning / needs. DCP- Discharge Planning Updated by [id number]: Lizabeth Bingham on 06/20/18 11:[address] Patient Name: EVY ART Admission Status: Elective Accout number: [id number] Admission Date: 06-07-2018 : 1960 Admission Diagnosis:MALIGNANT NEOPLASM OF CARDIA Attending: WILLIAM TUCKER Current LOS: 13 Anticipated DC Date: Planned Disposition: Home or Self Care Primary Insurance: MEDICAID [place] Discharge Planning Comments: CM called and spoke with sister Lesley Domingo [phone]. Patient is still on vent and sedated. Lesley (lives in [place]) informed CM that patient doesn't have any family that lives in the state of [place]. She stated that the patient had been incarcerated and had been released approximately 8 weeks prior to admission. Sister states that patient had found out while incarcerated that she had cancer. Patient had been getting radiation / chemo prior to admit. Lesley states that she has custody of patients youngest child and that her oldest child is in care home in [place]. Lesley states that her goal is for patient to finish her cancer treatments then come to her home in [place]. Lesley also states that patient has a roommate Nadine that comes to visit patient in the evenings. CM will continue to follow and assist as needed with discharge planning/ needs. Cook Roast: Lizabeth Bingham DCP- Discharge Planning Updated by [id number]: Lizabeth Bingham on 06/14/18 7:[address] Patient on Vent / sedated. No family available for discharge planning.CM will continue to follow and assist as needed with discharge planning / needs. Last DP export: 08/16/18 11:11 a Patient Name: EVY ART Page [id number] at 1102 All edits/amendments must be made on the electronic document DICTATION DATE: 08/21/18 110 FERN PICKER: ANA ROSA 08/21/18 1101 RPT#: [id number] DC DATE: STATUS: ADM IN [facility] [address] [place] [address] END OF REPORT
--- NOTE | ~2018-06-07 | OP ---
PATIENT NAME: ESDRAS ART MEDICAL RECORD: [id number] :[birth year] LOCATION:D.[facility] D.2307 ADMISSION DATE:06/07/18 SURGEON: KARLOS TUCKER MD DATE OF OPERATION: 07/30/2018 PREOPERATIVE DIAGNOSES: 1. Acute malnutrition. 2. Dislodged jejunostomy tube. POSTOPERATIVE DIAGNOSES: 1. Acute malnutrition. 2. Dislodged jejunostomy tube. PROCEDURE: Jejunostomy tube replacement at the bedside. SURGEON: Karlos Tucker MD CEMENT TESTER ASSISTANT: None. BLOOD LOSS: Zero. COMPLICATIONS: None. DESCRIPTION OF PROCEDURE: The procedure was performed with the presence of a female nurse. The indwelling jejunostomy tube, which was only partially inserted in through the enterocutaneous stoma was removed. The abdomen was sterilely prepped and draped. I advanced a red rubber Reyes catheter that was well lubricated. It was advanced into the jejunum. The jejunostomy tube was then sutured in place with a 3-0 nylon. A followup x-ray dye study revealed adequate placement of the enteric tube. We will start tube feedings. TRANSINT:[id number] Voice Confirmation ID: [id number] DOCUMENT ID: [id number] KARLOS TUCKER MD at 1653 CC: [id number] DICTATION DATE: 07/31/18 1106 TRAINING AND DOCUMENTATION SPECIALIST: 07/31/18 1223 ADM IN [place] [id number] [place] [address]
--- NOTE | ~2018-06-07 | MORECARE ---
CASE MANAGEMENT DISCHARGE SUMMARY PATIENT: EVY ART UNIT: [id number] ADM DATE: 06/07/18 AGE: 57 : 62 SEX: F ROOM/BED: D.2224 AUTHOR: DARCI MAR PHYSICIAN: REFERRING PHYSICIAN: WILLIAM TUCKER MD DATE OF SERVICE: 08/29/18 Discharge Plan Patient Name: EVY ART Facility: [facility]:[place] : 1960 Planned Disposition: Home or Self Care Anticipated Discharge Date: Discharge Date: Expected LOS: Initial Reviewer: [id number] Initial Review Date: 06/07/2018 Generated: 08/29/18 12:06 pm Comments DCP- Discharge Planning Updated by [id number]: Edita Quinonez on 08/29/18 8:[address] I spoke with Quan at [facility] and faxed clinical. I also spoke with Shaniqua at [facility] and faxed clinical. Shaniqua states they do have a restorative plan for therapy there for physical therapy for Medicaid patients. States she will come to [place] and see her today. CM will continue to follow and assist with discharge planning/needs. DCP- Discharge Planning Updated by [id number]: Edita Devi on 08/28/18 2:[address] Received a call from Evi that they are not going to meet her needs for rehab at their facility and will deny her coming to [facility]. I spoke with the patient and explained. I called [facility] and asked if she could look again for a place for her. Her tracheostomy has a plug and she is now on a nasal cannula. She is taking in ice chips. I will continue to work on finding placement, she only has Medicaid, so she does not have any rehab benefits. DCP- Discharge Planning Updated by [id number]: Edita Quinonez on 08/28/18 7:[address] Spoke with Evi at [facility] in [place] and sent requested clinical. She states she and the DON are reviewing clinical for admission. I did inform her arboreal scientist is working toward decannulation. I spoke again with [facility] and she met with the patient and at this time she is unable to get her placed with any of her facilities. CM will continue to follow and assist with discharge planning/needs. DCP- Discharge Planning Updated by [id number]: Edita Quinonez on 08/27/18 10:[address] Updated clinical sent to [facility] in [facility] and I notified David Byrne that I sent them. I left a message with David about status of transfer to the facility. CM will continue to follow and assist with discharge planning/needs. DCP- Discharge Planning Updated by [id number]: Edita Quinonez on 08/26/18 1:[address] [facility] paper work and clinical faxed to [facility]. CM will continue to follow and assist with discharge planning/needs. DCP- Discharge Planning Updated by [id number]: Edita Quinonez on 08/26/18 12:[address] Met with patient to discuss discharge planning, she would like to go to her brother's [facility]. She states that she needs to get stronger prior to going there. I informed her I was trying to get her in a rehab in [place], which is [facility]. She agrees to going to [place] for rehab if they will accept her. I have filled a [facility] form out and she signed. I will need to contact Dr. Tucker for his signature. He is in surgery at this time. DCP- Discharge Planning Updated by [id number]: Edita Quinonez on 08/23/18 3:[address] Received a call from Evi at [facility] in [facility] for more information for possible admission. I faxed her clinical to [phone]. She will also need a KYLIE before admission completed. CM will continue to follow and assist with discharge planning/needs. DCP- Discharge Planning Updated by [id number]: Edita Quinonez on 08/23/18 11:[address] I spoke with Alba Baker today for an update. She states she does not have an accepting facility at this time. I sent referral to David Byrne. CM will continue to follow and assist with discharge planning/needs. DCP- Discharge Planning Updated by [id number]: Lizabeth Bingham on 08/21/18 9:[address] CM received a call from patients sister Lesley Domingo that [employer] has notified her that she should be receiving her paperwork in the next 2 weeks. Paperwork that she can act in Evy behalf for Medicaid. CM will continue to follow and assist with discharge planning. DCP- Discharge Planning Updated by [id number]: Lizabeth Bingham on 08/16/18 11:[address] CM continuing to follow up with [facility] about placement for female vent bed availability. If patient can be off vent for 72hrs then CM can seek placement locally. CM will continue to follow and assist as needed with discharge planning / needs. DCP- Discharge Planning Updated by [id number]: Winter Randolph on 08/15/18 12:[address] Patient Name: EVY ART Admission Status: Elective Accout number: [id number] Admission Date: 06-07-2018 : 1960 Admission Diagnosis:MALIGNANT NEOPLASM OF CARDIA Attending: WILLIAM TUCKER Current LOS: 69 Anticipated DC Date: Planned Disposition: Home or Self Care Primary Insurance: [place]ID [place] Discharge Planning Comments: CM CALLED [facility] TO SPEAK WITH JULY REGARDING A VENT BED. THEY STATE JULY IS OUT SICK AND WON'T BE BACK UNTIL NEXT WEEK. STATES WILL HAVE TO CALL BACK ON SUNDAY. Jewelry Sales Associate: Winter Tomasa DCP- Discharge Planning Updated by [id number]: Lizabeth Bingham on 08/14/18 4:[address] CM called [facility] and spoke with Jennyfer RANDLE. Jennyfer stated that she wasn't able to answer questions regarding how soon for bed availability. July was out sick and she had no information on placement. CM will call back tomorrow and attempt to speak with July. DCP- Discharge Planning Updated by [id number]: Lizabeth Bingham on 08/13/18 2:[address] CM called [facility] in [place] and left message for DON (July) to return call regarding placement and how long until placement. CM still awaiting call back @ this time. DCP- Discharge Planning Updated by [id number]: Lizabeth Bingham on 08/12/18 5:[address] CM called and spoke with Meli @ [facility] [phone]. Meli stated that at this time they do not have a female vent bed available. She stated that she doesn't know when one may be available or if patient is at the top of the list or not. Meli stated that CM would need to speak with July PARK for that information and she isn't there today. CM will continue to follow and assist as needed with discharge planning / needs. DCP- Discharge Planning Updated by [email or web address]: Lizabeth Bingham on 08/09/18 6:[address] CM spoke with Wei Delatorre in [facility] she got in touch with for me and got in touch with the appropriate person at [employer]. Was able to fax form in and get the appropriate information to Meli @ [facility] in [place]. KRYSTAL later contacted Meli and she stated that everything was good as far as financials. They currently do not have any female vent beds available. Meli stated she would keep us posted on availability. Wei notified me that [employer] had put in the necessary information so that Lesley Domingo patients sister can be her payor source. Lesley is to go to [employer] in [place] next week.CM will continue to follow and assist as needed with discharge planning / needs. DCP- Discharge Planning Updated by [id number]: Lizabeth Bingham on 08/08/18 7:[address] CM attempted to call local SS office to see if CM could fax form into them and get patients disability number. KRYSTAL was on hold for over 30 mins and never got to speak to a claim service representative. CM spoke with Meli at [facility]. She stated that she hasn't heard anything yet. Meli stated that once the financials was cleared then we will need to send updated clinicals and then would go through medical review for acceptance. CM will continue to follow and assist with discharge planning/ needs DCP- Discharge Planning Updated by [email or web address]: Lizabeth Bingham on 08/06/18 5:[address] Late Entry 08/06/18 @ [address] Webb office to see if they have received a fax from [employer]. Omaira stated that they have not received anything for her. CM will try to get back in touch with Lesley Domingo patients sister and Wei in [facility] to see what our next step is. KRYSTAL contacted Meli at [facility] to let her know we are still working on placement. CM will continue to follow and assist with discharge planning / needs. DCP- Discharge Planning Updated by [id number]: Lizabeth Bingham on 07/31/18 4:[address] CM received notification that the social security office in [place] would not accept form that was sent to Lesley Domingo to get authorization to manage patients finances. They said they would have to directly send it to Dr. Tucker and then have him to send it back. [facility] has to have some proof of income before they can accept patient. We are having to wait to see if we can get Lesley approved to manage social security benefits in patients behalf. CM will continue to follow and assist with discharge planning / needs. DCP- Discharge Planning Updated by [id number]: Lizabeth Bingham on 07/26/18 6:[address] Late Entry 07/26/18 @ [address] Tucker and got form signed for [facility]. CM took form to Wei in [facility]. CM will continue to follow and assist as needed with discharge planning / needs DCP- Discharge Planning Updated by [id number]: Lizabeth Bingham on 07/25/18 4:[address] CM spoke with Wei Delatorre this am. Wei spoke with patients sister Lesley Domingo trying to find out information needed to get patient placement. KRYSTAL was later notified that a form from [facility] needed to be filled out by physician. CM attempted to get in touch with paged him several times but was unsuccessful. Called his office but no response at this time. CM will continue to follow and assist as needed with discharge planning / needs. DCP- Discharge Planning Updated by [id number]: Lizabeth Bingham on 07/24/18 4:[address] CM called and spoke with Meli at [facility] in [place]. [phone]. CM asked if family was able to provide information needed. Meli stated that she hasn't heard from anyone since she had spoke to me last week. Meli is requesting proof that patient has applied for SSI and she needs proof of income. KRYSTAL attempted to call passementerie worker Ailyn Read [phone] or [phone] to see if she might could assist with obtaining this information. CM was unsuccessful in contacting Ailyn. KRYSTAL called and spoke with Wei Delatorre and gave her Meli phone number to see if she could assist with information. Wei will contact Meli and her calender supervisor to see if they can assist with information needed. Wei will contact CM after she gets in contact with others. CM will continue to follow and assist as needed with discharge planning / needs. DCP- Discharge Planning Updated by [id number]: Lizabethlarry Bingham on 07/18/18 5:[address] Late Entry 07/18/18 @ 1020 CM called and left a message for July PARK @ [facility]. CM awaiting response.CM will continue to follow and assist as needed with discharge planning / needs. Late Entry 07/18/18 @ 1330 CM received call from Meli with [facility]. Meli was wanting to know if patient was getting SSI or SSA. KRYSTAL was unaware of this information and referred Meli to call patients sister Lesley Domingo. CM called and spoke with Wei Delatorre regarding Medicaid. Wei stated patient had SSI Medicaid until 07/10/18 and regular Medicaid started 07/11/18. KRYSTAL called Meli back to give this information to her and also gave Wei's number if she has questions regarding this. Meli stated that she also needed to know if the patient had applied for SSI and how much she had in her bank account. KRYSTAL explained that we would try to find out this information. CM will check with sister and possibly patient piano case maker whom assisted patient with housing when released from retirement. CM will continue to follow and assist as needed with discharge planning / needs. DCP- Discharge Planning Updated by [id number]: Lizabethlarry Bingham on 07/18/18 5:[address] Late Entry 07/17/18 @ 1600 CM called and left message x 2 for July PARK from [facility]. CM awaiting response. CM will continue to follow and assist as needed with discharge planning / needs. DCP- Discharge Planning Updated by [id number]: Lizabeth Bingham on 07/15/18 12:[address] CM spoke with patient's sister Lesley Domingo this am. She stated that the patient doesn't have Medicare. She asked when patient would transfer to [place]. CM explained that we are awaiting on acceptance to [facility] at this point. KRYSTAL called [facility] for update July told CM to fax updated clinical and that it would be tomorrow 11/06/18 before they may have a determination. July requested CM not to call back tomorrow until after noon. CM will update family. KRYSTAL also contacted [facility] in [place], [place]. [phone] KRYSTAL spoke with Za she stated at this time they are not accepting out of state Medicaid at their facility. CM will continue to follow and assist as needed with discharge planning / needs. DCP- Discharge Planning Updated by [id number]: Lizabeth Bingham on 07/12/18 7:[address] CM was notified patient sister Lesley Domingo was here and requested to speak with me. KRYSTAL explained that the current plan was that we was looking into placement with [facility] in [place], [place]. KRYSTAL had spoke to Zoila with [facility] prior to coming to speak with Lesley. KRYSTAL had answered questions that Zoila had. Zoila stated the next process that they would send patients information to Executive offices and would be awaiting financial approval. Zoila stated for CM to call back to check on this at anytime next week. KRYSTAL explained all this to sister Lesley. Lesley asked why she was having to be transferred out of state. KRYSTAL explained that LTACH facilities within the state do not take Medicaid and that fpc alf facilities in the state do not accept ventilator patients. Lesley states that she had received information that the patient is and receiving Medicare through her . KRYSTAL explained that we had no record of that only Medicaid. Lesley requested that [facility] find this information out. KRYSTAL explained that if it was through the patients spouse then it would need to be his information used to look it up. Lesley states that she has a letter at her home that has this information on it.(Because she has custody of patients son and he receiving his benefits also). The conversation ended that Lesley was going to get the information to KRYSTAL. KRYSTAL received call from Lesley around 4:45pm requesting information on online Social Security office hours. Lesley also wanted to know what would happen if they didn't consent to transfer. KRYSTAL explained that I wasn't sure and Lesley requested for KRYSTAL to find out this information. KRYSTAL spoke with other director case within the facility. KRYSTAL then called Lesley back and explained that if the patient was stable for transfer and they still refusing transfer then it would most likely go to ethics board and [facility] could be notified. Lesley then starting raising her voice that" the hospital and staff was not giving her accurate updates over the phone. She had no idea that Evy was almost in a comatose state." Lesley requested for us to wait on transfer until after she could show proof that she has Medicare. KRYSTAL explained that nothing would be happening until next week. She was still upset that she was going to have to stay longer than she had planned to get this taken care of. CM told her that I would be happy to let her speak to someone else on Sunday. CM will continue to follow and assist as needed will discharge planning/ needs. DCP- Discharge Planning Updated by [id number]: Lizabeth Bingham on 07/11/18 7:[address] CM spoke with [facility] in [place] ([facility] She stated that all their Vent beds are full at this time and they could put the patient on a waiting list for a bed. CM gave information to put patient on waiting list. CM then contacted [facility] in [place] ([facility]) she stated they might could accept patient. CM faxed over information and later got denial from [facility] that patient required too high of level of care. CM contacted [facility] fpc care to see if they could give any insight on facilities that take ventilator patients within the [facility]. They only gave [facility] in [place]. CM called and spoke with patients sister Lesley Domingo. CM explained the situation that the patient was needing placement and we might have to go out of the state of [place] for placement. Lesley was concerned about patient getting back to [place] once she recovered. Lesley also stated that she would be in to see patient today that she just got into town. CM will plan to speak to her while she is here. KRYSTAL received information on [facility] in [place], [place] that takes ventilator patients. KRYSTAL called Meli [phone] and faxed [phone] records. CM awaiting decision from [facility]. CM will continue to follow and assist as needed with discharge planning / needs. DCP- Discharge Planning Updated by [id number]: Lizabeth Bingham on 07/08/18 4:[address] CM contacted all LTACH within state to check on Medicaid bed availability / ana bed availability. Still awaiting call back on three facilities but at this time no had stated they would accept any Medicaid patients or ana. CM will continue to follow and assist as needed with discharge planning / needs. DCP- Discharge Planning Updated by [id number]: Lizabeth Bingham on 06/20/18 11:[address] Patient Name: EVY ART Admission Status: Elective Accout number: [id number] Admission Date: 06-07-2018 : 1960 Admission Diagnosis:MALIGNANT NEOPLASM OF CARDIA Attending: WILLIAM TUCKER Current LOS: 13 Anticipated DC Date: Planned Disposition: Home or Self Care Primary Insurance: MEDICAID [place] Discharge Planning Comments: CM called and spoke with sister Lesley Domingo [phone]. Patient is still on vent and sedated. Lesley (lives in [place]) informed CM that patient doesn't have any family that lives in the [facility]. She stated that the patient had been incarcerated and had been released approximately 8 weeks prior to admission. Sister states that patient had found out while incarcerated that she had cancer. Patient had been getting radiation / chemo prior to admit. Lesley states that she has custody of patients youngest child and that her oldest child is in retirement in [place]. Lesley states that her goal is for patient to finish her cancer treatments then come to her home in [place]. Lesley also states that patient has a roommate Nadine that comes to visit patient in the evenings. CM will continue to follow and assist as needed with discharge planning/ needs. Jewelry Sales Associate: Lizabeth Bingham DCP- Discharge Planning Updated by [id number]: Lizabeth Bingham on 06/14/18 7:[address] Patient on Vent / sedated. No family available for discharge planning.CM will continue to follow and assist as needed with discharge planning / needs. External Providers External Provider: [facility] and [facility] Next Contact Date: Service Request Date: Service Type: Resolution: Reviewer: Comments: Last DP export: 08/29/18 8:44 Patient Name: EVY ART Page [id number] at 1107 All edits/amendments must be made on the electronic document DICTATION DATE: 08/29/181105 SUPERVISOR REMELT: ANA ROSA 08/29/181105 RPT#: [id number] DC DATE: STATUS: ADM IN [facility] [address] [place] [address] END OF REPORT
--- NOTE | ~2018-06-07 | MORECARE ---
CASE MANAGEMENT DISCHARGE SUMMARY PATIENT: EVY ART UNIT: [id number] ADM DATE: 06/07/18 AGE: 57 : 62 SEX: F ROOM/BED: D.2307 AUTHOR: ZAID,DOC PHYSICIAN: REFERRING PHYSICIAN: WILLIAM TUCKER MD DATE OF SERVICE: 08/09/18 Discharge Plan Patient Name: EVY ART Facility: [facility]:[place] : 1960 Planned Disposition: Home or Self Care Anticipated Discharge Date: Discharge Date: Expected LOS: Initial Reviewer: [id number] Initial Review Date: 06/07/2018 Generated: 08/09/18 8:18 pm Comments DCP- Discharge Planning Updated by [id number]: Lizabeth Bingham on 08/09/18 6:[address] KRYSTAL spoke with Wei Delatorre in [facility] [employer] she got in touch with for me and got in touch with the appropriate person at [facility]. Was able to fax form in and get the appropriate information to Meli @ [facility] in [place]. KRYSTAL later contacted Meli and she stated that everything was good as far as financials. They currently do not have any female vent beds available. Meli stated she would keep us posted on availability. Wei notified me that [employer] had put in the necessary information so that Lesley diaz sister can be her payor source. Lesley is to go to [employer] in [place] next week.KRYSTAL will continue to follow and assist as needed with discharge planning / needs. DCP- Discharge Planning Updated by [id number]: Lizabeth Bingham on 08/08/18 7:[address] CM attempted to call local office to see if CM could fax form into them and get patients disability number. KRYSTAL was on hold for over 30 mins and never got to speak to a registered representative. KRYSTAL spoke with Meli at [facility]. She stated that she hasn't heard anything yet. Meli stated that once the financials was cleared then we will need to send updated clinicals and then would go through medical review for acceptance. KRYSTAL will continue to follow and assist with discharge planning/ needs DCP- Discharge Planning Updated by [id number]: Lizabeth Bingham on 08/06/18 5:[address] Late Entry 08/06/18 @ [address] Webb office to see if they have received a fax from Social Security. Omaira stated that they have not received anything for her. CM will try to get back in touch with Lesley Jose L patients sister and Wei in [facility] to see what our next step is. CM contacted Meli at [facility] to let her know we are still working on placement. CM will continue to follow and assist with discharge planning / needs. DCP- Discharge Planning Updated by [email or web address]: Lizabeth Bingham on 07/31/18 4:[address] CM received notification that the social security office in [place] would not accept form that was sent to Lesley Domingo to get authorization to manage patients finances. They said they would have to directly send it to Dr. Tucker and then have him to send it back. [facility] has to have some proof of income before they can accept patient. We are having to wait to see if we can get Lesley approved to manage social security benefits in patients behalf. CM will continue to follow and assist with discharge planning / needs. DCP- Discharge Planning Updated by [id number]: Lizabeth Bingham on 07/26/18 6:[address] Late Entry 07/26/18 @ [address] Tucker and got form signed for [facility]. CM took form to Wei in [facility]. CM will continue to follow and assist as needed with discharge planning / needs DCP- Discharge Planning Updated by [email or web address]: Lizabeth Bingham on 07/25/18 4:[address] CM spoke with Wei Delatorre this . Wei spoke with patients sister Lesley Domingo trying to find out information needed to get patient placement. KRYSTAL was later notified that a form from [facility] needed to be filled out by physician. KRYSTAL attempted to get in touch with paged him several times but was unsuccessful. Called his office but no response at this time. CM will continue to follow and assist as needed with discharge planning / needs. DCP- Discharge Planning Updated by [id number]: Lizabeth Bingham on 07/24/18 4:[address] CM called and spoke with Meli at [facility] in [place]. [phone]. CM asked if family was able to provide information needed. Meli stated that she hasn't heard from anyone since she had spoke to me last week. Meli is requesting proof that patient has applied for SSI and she needs proof of income. KRYSTAL attempted to call castables worker Ailyn Read [phone] or [phone] to see if she might could assist with obtaining this information. CM was unsuccessful in contacting Ailyn. KRYSTAL called and spoke with Wei Delatorre and gave her Meli phone number to see if she could assist with information. Wei will contact Meli and her school transportation supervisor to see if they can assist with information needed. Wei will contact KRYSTAL after she gets in contact with others. CM will continue to follow and assist as needed with discharge planning / needs. DCP- Discharge Planning Updated by [email or web address]: Lizabeth Bingham on 07/18/18 5:[address] Late Entry 07/18/18 @ 1020 CM called and left a message for July PARK @ [facility]. CM awaiting response.CM will continue to follow and assist as needed with discharge planning / needs. Late Entry 07/18/18 @ 1330 CM received call from Meli with [facility]. Meli was wanting to know if patient was getting SSI or SSA. KRYSTAL was unaware of this information and referred Meli to call patients sister Lesley Domingo. CM called and spoke with Wei Delatorre regarding Medicaid. Wei stated patient had SSI Medicaid until 07/10/18 and regular Medicaid started 07/11/18. CM called Meli back to give this information to her and also gave Wei's number if she has questions regarding this. Meli stated that she also needed to know if the patient had applied for SSI and how much she had in her bank account. KRYSTAL explained that we would try to find out this information. CM will check with sister and possibly patient dependency case manager whom assisted patient with housing when released from nursing home. CM will continue to follow and assist as needed with discharge planning / needs. DCP- Discharge Planning Updated by [id number]: Lizabeth Bingham on 07/18/18 5:[address] Late Entry 07/17/18 @ 1600 CM called and left message x 2 for July PARK from [facility]. CM awaiting response. CM will continue to follow and assist as needed with discharge planning / needs. DCP- Discharge Planning Updated by [id number]: Lizabeth Zachery on 07/15/18 12:[address] CM spoke with patient's sister Lesley Domingo this am. She stated that the patient doesn't have Medicare. She asked when patient would transfer to [place]. KRYSTAL explained that we are awaiting on acceptance to [facility] at this point. KRYSTAL called [facility] for update July told CM to fax updated clinical and that it would be tomorrow 07/16/18 before they may have a determination. July requested CM not to call back tomorrow until after noon. CM will update family. CM also contacted [facility] in [place], [place]. [phone] CM spoke with Za she stated at this time they are not accepting out of state Medicaid at their facility. CM will continue to follow and assist as needed with discharge planning / needs. DCP- Discharge Planning Updated by [id number]: Lizabeth Bingham on 07/12/18 7:[address] CM was notified patient sister Lesley Domingo was here and requested to speak with me. KRYSTAL explained that the current plan was that we was looking into placement with [facility] in [place], [place]. KRYSTAL had spoke to Zoila with [facility] prior to coming to speak with Lesley. KRYSTAL had answered questions that Zoila had. Zoila stated the next process that they would send patients information to [facility] offices and would be awaiting financial approval. Zoila stated for CM to call back to check on this at anytime next week. KRYSTAL explained all this to sister Lesley. Lesley asked why she was having to be transferred out of state. KRYSTAL explained that LTACH facilities within the state do not take Medicaid and that computer terminal operator senior living facilities in the [facility] do not accept ventilator patients. Lesley states that she had received information that the patient is and receiving Medicare through her . KRYSTAL explained that we had no record of that only Medicaid. Lesley requested that [facility] find this information out. KRYSTAL explained that if it was through the patients spouse then it would need to be his information used to look it up. Lesley states that she has a letter at her home that has this information on it.(Because she has custody of patients son and he receiving his benefits also). The conversation ended that Lesley was going to get the information to KRYSTAL. KRYSTAL received call from Lesley around 4:45pm requesting information on online Social Security office hours. Lesley also wanted to know what would happen if they didn't consent to transfer. KRYSTAL explained that I wasn't sure and Lesley requested for KRYSTAL to find out this information. KRYSTAL spoke with other watch caser within the facility. KRYSTAL then called Lesley back and explained that if the patient was stable for transfer and they still refusing transfer then it would most likely go to ethics board and [facility] could be notified. Lesley then starting raising her voice that" the hospital and staff was not giving her accurate updates over the phone. She had no idea that Evy was almost in a comatose state." Lesley requested for us to wait on transfer until after she could show proof that she has Medicare. KRYSTAL explained that nothing would be happening until next week. She was still upset that she was going to have to stay longer than she had planned to get this taken care of. KRYSTAL told her that I would be happy to let her speak to someone else on Sunday. CM will continue to follow and assist as needed will discharge planning/ needs. DCP- Discharge Planning Updated by [id number]: Lizabeth Bingham on 07/11/18 7:[address] KRYSTAL spoke with [facility] in [place] ([facility]). She stated that all their Vent beds are full at this time and they could put the patient on a waiting list for a bed. CM gave information to put patient on waiting list. KRYSTAL then contacted [facility] in [place] ([facility]) she stated they might could accept patient. CM faxed over information and later got denial from [facility] that patient required too high of level of care. CM contacted [facility] division long-term care to see if they could give any insight on facilities that take ventilator patients within the [facility]. They only gave [facility] in [place]. KRYSTAL called and spoke with patients sister Lesley Domingo. KRYSTAL explained the situation that the patient was needing placement and we might have to go out of the state of [place] for placement. Lesley was concerned about patient getting back to [place] once she recovered. Lesley also stated that she would be in to see patient today that she just got into town. CM will plan to speak to her while she is here. CM received information on [facility] in [place], [place] that takes ventilator patients. CM called Meli [phone] and faxed [phone] records. CM awaiting decision from [facility]. CM will continue to follow and assist as needed with discharge planning / needs. DCP- Discharge Planning Updated by [id number]: Lizabeth Bingham on 07/08/18 4:[address] CM contacted all LTACH within state to check on Medicaid bed availability / ana bed availability. Still awaiting call back on three facilities but at this time no had stated they would accept any Medicaid patients or ana. CM will continue to follow and assist as needed with discharge planning / needs. DCP- Discharge Planning Updated by [id number]: Lizabeth Bingham on 06/20/18 11:[address] Patient Name: EVY ART Admission Status: Elective Accout number: [id number] Admission Date: 06-07-2018 : 1960 Admission Diagnosis:MALIGNANT NEOPLASM OF CARDIA Attending: WILLIAM TUCKER Current LOS: 13 Anticipated DC Date: Planned Disposition: Home or Self Care Primary Insurance: MEDICAID [place] Discharge Planning Comments: CM called and spoke with sister Lesley Domingo [phone]. Patient is still on vent and sedated. Lesley (lives in [place]) informed CM that patient doesn't have any family that lives in the state of [place]. She stated that the patient had been incarcerated and had been released approximately 8 weeks prior to admission. Sister states that patient had found out while incarcerated that she had cancer. Patient had been getting radiation / chemo prior to admit. Lesley states that she has custody of patients youngest child and that her oldest child is in nursing home in [place]. Lesley states that her goal is for patient to finish her cancer treatments then come to her home in [place]. Lesley also states that patient has a roommate Nadine that comes to visit patient in the evenings. CM will continue to follow and assist as needed with discharge planning/ needs. Commercial Development Manager: Lizabeth Bingham DCP- Discharge Planning Updated by [id number]: Lizabeth Bingham on 06/14/18 7:[address] Patient on Vent / sedated. No family available for discharge planning.CM will continue to follow and assist as needed with discharge planning / needs. Last DP export: 08/08/18 7:45 Patient Name: EVY ART Page [id number] at 1918 All edits/amendments must be made on the electronic document DICTATION DATE: 08/09/181916 KENNEL MANAGER DOG TRACK: ANA ROSA 08/09/181916 RPT#: [id number] DC DATE: STATUS: ADM IN [facility] [address] [place] [address] END OF REPORT
--- NOTE | ~2018-06-07 | MORECARE ---
CASE MANAGEMENT DISCHARGE SUMMARY PATIENT: EVY ART UNIT: [id number] ADM DATE: 06/07/18 AGE: 57 : 62 SEX: F ROOM/BED: D.2224 AUTHOR: DARCI MAR PHYSICIAN: REFERRING PHYSICIAN: WILLIAM TUCKER MD DATE OF SERVICE: 09/05/18 Discharge Plan Patient Name: EVY ART Facility: [facility]:[place] : 1960 Planned Disposition: Home or Self Care Anticipated Discharge Date: Discharge Date: Expected LOS: Initial Reviewer: [email or web address] Initial Review Date: 06/07/2018 Generated: 09/05/18 12:37 pm Comments DCP- Discharge Planning Updated by [id number]: Edita Quinoenz on 09/05/18 10:[address] Received confirmation from Maricel at [facility] (formerly [facility]) that they will accept her today. I faxed discharge orders/MAR. NursePenelope to call report. She will go to a long-term bed at [facility] via ambulance in [place], [place]. I called her sister, Lesley. Lesley agrees with discharge. DCP- Discharge Planning Updated by [id number]: Edita Quinonez on 09/04/18 2:[address] I received a call from [facility] that they can accept the patient tomorrow via ambulance. They would like her transported via ambulance due to inability to sit that long in a van. I called Dr. Tucker and informed him that she can be discharged to [facility] tomorrow. I also notified Dr. Smith and Dr. Jose and they are in agreement. CM will continue to follow and assist with discharge planning/needs. DCP- Discharge Planning Updated by [id number]: Edita Quinonez on 09/04/18 11:[address] I spoke with [facility] today with [facility], they are still awaiting bank statements for placement. I spoke with Lesley (Patient's sister) she just received patient's PIN number and is setting up on line banking to retrieve bank statements and will fax them to me. I gave her case managements fax number. CM will continue to follow and assist with discharge planning/needs. DCP- Discharge Planning Updated by [id number]: Edita Quinonez on 08/30/18 2:[address] RECEIVED A CALL FROM [facility] FROM [facility]. THEY ARE WILLING TO ACCEPT HER NEXT WEEK IF THEY ARE ABLE TO GET HER 3 MONTHS BANK STATEMENTS FROM [facility] [employer]. I WILL F/U NEXT WEEK. DCP- Discharge Planning Updated by [id number]: Edita Quinonez on 08/30/18 8:[address] I spoke with Shaniqua in [facility] in [place]. She states she is waiting on 3 months of bank statements from the sister. She is also going to check on when her supplier can get her osmolyte and concentrator to them. I called her sister, Lesley, and gave her the update. She states she has sent Shaniqua the [employer] account number and information. States she cannot get the bank statements until Medicaid sends her the payee entry level sales representative approval. Karyn from [facility] called and they have declined patient due to no Medicaid beds available. CM will continue to follow and assist with discharge planning/needs. DCP- Discharge Planning Updated by [email or web address]: Edita Quinonez on 08/29/18 10:[address] Referral sent to [facility] in [facility] faxed. I was unable to speak with the assistant director, but left a message with my phone number to return call. CM will continue to follow and assist with discharge planning/needs. DCP- Discharge Planning Updated by [id number]: Edita Quinonez on 08/29/18 8:[address] I spoke with Quan at [facility] and faxed clinical. I also spoke with Shaniqua at [facility] and faxed clinical. Shaniqua states they do have a restorative plan for therapy there for physical therapy for Medicaid patients. States she will come to [place] and see her today. CM will continue to follow and assist with discharge planning/needs. DCP- Discharge Planning Updated by [id number]: Edita Quinonez on 08/28/18 2:[address] Received a call from [facility] that they are not going to meet her needs for rehab at their facility and will deny her coming to [facility] [place]. I spoke with the patient and explained. I called [facility] and asked if she could look again for a place for her. Her tracheostomy has a plug and she is now on a nasal cannula. She is taking in ice chips. I will continue to work on finding placement, she only has Medicaid, so she does not have any rehab benefits. DCP- Discharge Planning Updated by [id number]: Edita Quinonez on 08/28/18 7:[address] Spoke with Evi at [facility] in [place] and sent requested clinical. She states she and the DON are reviewing clinical for admission. I did inform her senior ssis developer is working toward decannulation. I spoke again with [facility] and she met with the patient and at this time she is unable to get her placed with any of her facilities. CM will continue to follow and assist with discharge planning/needs. DCP- Discharge Planning Updated by [id number]: Edita Quinonez on 08/27/18 10:[address] Updated clinical sent to [facility] in [facility] and I notified David Byrne that I sent them. I left a message with David about status of transfer to the facility. CM will continue to follow and assist with discharge planning/needs. DCP- Discharge Planning Updated by [id number]: Edita Quinonez on 08/26/18 1:[address] KYLIE paper work and clinical faxed to [employer]. CM will continue to follow and assist with discharge planning/needs. DCP- Discharge Planning Updated by [id number]: Edita Quinonez on 08/26/18 12:[address] Met with patient to discuss discharge planning, she would like to go to her brother's [facility]. She states that she needs to get stronger prior to going there. I informed her I was trying to get her in a rehab in [place], which is [facility]. She agrees to going to [place] for rehab if they will accept her. I have filled a [place] form out and she signed. I will need to contact Dr. Tucker for his signature. He is in surgery at this time. DCP- Discharge Planning Updated by [id number]: Edita Mckeonangelita on 08/23/18 3:[address] Received a call from Evi at [facility] for more information for possible admission. I faxed her clinical to [phone]. She will also need a KYLIE before admission completed. CM will continue to follow and assist with discharge planning/needs. DCP- Discharge Planning Updated by [id number]: Edita Quinonez on 08/23/18 11:[address] I spoke with [facility] today for an update. She states she does not have an accepting facility at this time. I sent referral to David Byrne. CM will continue to follow and assist with discharge planning/needs. DCP- Discharge Planning Updated by [id number]: Lizabeth Bingham on 08/21/18 9:[address] CM received a call from patients sister Lesley Domingo that [employer] has notified her that she should be receiving her paperwork in the next 2 weeks. Paperwork that she can act in Evy behalf for Medicaid. CM will continue to follow and assist with discharge planning. DCP- Discharge Planning Updated by [id number]: iLzabeth Bingham on 08/16/18 11:[address] CM continuing to follow up with Jef Flannery about placement for female vent bed availability. If patient can be off vent for 72hrs then CM can seek placement locally. CM will continue to follow and assist as needed with discharge planning / needs. DCP- Discharge Planning Updated by [id number]: Winter Randolph on 08/15/18 12:[address] Patient Name: EVY ART Admission Status: Elective Accout number: [id number] Admission Date: 06-07-2018 : 1960 Admission Diagnosis:MALIGNANT NEOPLASM OF CARDIA Attending: WILLIAM TUCKER Current LOS: 69 Anticipated DC Date: Planned Disposition: Home or Self Care Primary Insurance: [place] Discharge Planning Comments: CM CALLED [facility] TO SPEAK WITH JULY REGARDING A VENT BED. THEY STATE JULY IS OUT SICK AND WON'T BE BACK UNTIL NEXT WEEK. STATES WILL HAVE TO CALL BACK ON SUNDAY. Clinical Asst: Winter Randolph DCP- Discharge Planning Updated by [id number]: Lizabeth Bingham on 08/14/18 4:[address] CM called [facility] and spoke with Jennyfer RANDLE. Jennyfer stated that she wasn't able to answer questions regarding how soon for bed availability. July was out sick and she had no information on placement. CM will call back tomorrow and attempt to speak with July. DCP- Discharge Planning Updated by [id number]: Lizabeth Bingham on 08/13/18 2:[address] CM called [facility] in [place] and left message for VIVIAN (July) to return call regarding placement and how long until placement. CM still awaiting call back @ this time. DCP- Discharge Planning Updated by [id number]: Lizabeth Bingham on 08/12/18 5:[address] CM called and spoke with Meli @ [facility] [phone]. Meli stated that at this time they do not have a female vent bed available. She stated that she doesn't know when one may be available or if patient is at the top of the list or not. Meli stated that CM would need to speak with July PARK for that information and she isn't there today. CM will continue to follow and assist as needed with discharge planning / needs. DCP- Discharge Planning Updated by [id number]: Lizabeth Bingham on 08/09/18 6:[address] KRYSTAL spoke with Wei Delatorre in [employer] she got in touch with SS for me and got in touch with the appropriate person at [facility]. Was able to fax form in and get the appropriate information to Meli @ [facility] in [place]. CM later contacted Meli and she stated that everything was good as far as financials. They currently do not have any female vent beds available. Meli stated she would keep us posted on availability. Wei notified me that [employer] [employer] had put in the necessary information so that Lesley diaz sister can be her payor source. Lesley is to go to social security in [place] next week.CM will continue to follow and assist as needed with discharge planning / needs. DCP- Discharge Planning Updated by [id number]: Lizabeth Bingham on 08/08/18 7:[address] CM attempted to call local SS office to see if CM could fax form into them and get patients disability number. CM was on hold for over 30 mins and never got to speak to a entry level sales representative. CM spoke with Meli at [facility]. She stated that she hasn't heard anything yet. Meli stated that once the financials was cleared then we will need to send updated clinicals and then would go through medical review for acceptance. CM will continue to follow and assist with discharge planning/ needs DCP- Discharge Planning Updated by [id number]: Lizabeth Bingham on 08/06/18 5:[address] Late Entry 08/06/18 @ [address] Webb office to see if they have received a fax from Social Security. Omaira stated that they have not received anything for her. CM will try to get back in touch with Lesley Jose L patients sister and Wei in [facility] to see what our next step is. CM contacted Meli at [facility] to let her know we are still working on placement. CM will continue to follow and assist with discharge planning / needs. DCP- Discharge Planning Updated by [id number]: Lizabeth Bingham on 07/31/18 4:[address] CM received notification that the social security office in [place] would not accept form that was sent to Lesley Domingo to get authorization to manage patients finances. They said they would have to directly send it to Dr. Tucker and then have him to send it back. [facility] has to have some proof of income before they can accept patient. We are having to wait to see if we can get Lesley approved to manage social security benefits in patients behalf. CM will continue to follow and assist with discharge planning / needs. DCP- Discharge Planning Updated by [id number]: Lizabeth Bingham on 07/26/18 6:[address] Late Entry 07/26/18 @ [address] Tucker and got form signed for [facility]. CM took form to Wei in [facility]. CM will continue to follow and assist as needed with discharge planning / needs DCP- Discharge Planning Updated by [id number]: Lizabeth Bingham on 07/25/18 4:[address] CM spoke with Wei Delatorre this am. Wei spoke with patients sister Lesley Domingo trying to find out information needed to get patient placement. KRYSTAL was later notified that a form from [facility] needed to be filled out by physician. CM attempted to get in touch with paged him several times but was unsuccessful. Called his office but no response at this time. CM will continue to follow and assist as needed with discharge planning / needs. DCP- Discharge Planning Updated by [id number]: Lizabeth Bingham on 07/24/18 4:[address] CM called and spoke with Meli at [facility] in [place]. [phone]. CM asked if family was able to provide information needed. Meli stated that she hasn't heard from anyone since she had spoke to me last week. Meli is requesting proof that patient has applied for SSI and she needs proof of income. CM attempted to call construction pit worker Ailyn Read [phone] or [phone] to see if she might could assist with obtaining this information. CM was unsuccessful in contacting Ailyn. CM called and spoke with Wei Delatorre and gave her Meli phone number to see if she could assist with information. Wei will contact Meli and her security supervisor to see if they can assist with information needed. Wei will contact CM after she gets in contact with others. CM will continue to follow and assist as needed with discharge planning / needs. DCP- Discharge Planning Updated by [id number]: Lizabeth Bingham on 07/18/18 5:[address] Late Entry 07/18/18 @ 1020 CM called and left a message for July VIVIAN @ [facility]. CM awaiting response.CM will continue to follow and assist as needed with discharge planning / needs. Late Entry 07/18/18 @ 1330 CM received call from Meli with [facility]. Meli was wanting to know if patient was getting SSI or SSA. KRYSTAL was unaware of this information and referred Meli to call patients sister Lesley Domingo. CM called and spoke with Wei Delatorre regarding Medicaid. Wei stated patient had SSI Medicaid until 07/10/18 and regular Medicaid started 07/11/18. CM called Meli back to give this information to her and also gave Wei's number if she has questions regarding this. Meli stated that she also needed to know if the patient had applied for SSI and how much she had in her bank account. KRYSTAL explained that we would try to find out this information. CM will check with sister and possibly patient case hardener whom assisted patient with housing when released from shelter. CM will continue to follow and assist as needed with discharge planning / needs. DCP- Discharge Planning Updated by [id number]: Lizabeth Bingham on 07/18/18 5:[address] Late Entry 07/17/18 @ 1600 CM called and left message x 2 for July PARK from [facility]. CM awaiting response. CM will continue to follow and assist as needed with discharge planning / needs. DCP- Discharge Planning Updated by [id number]: Lizabeth Bingham on 07/15/18 12:[address] CM spoke with patient's sister Lesley Domingo this am. She stated that the patient doesn't have Medicare. She asked when patient would transfer to [place]. CM explained that we are awaiting on acceptance to [facility] at this point. CM called [facility] for update July told CM to fax updated clinical and that it would be tomorrow 07/16/18 before they may have a determination. July requested CM not to call back tomorrow until after noon. CM will update family. CM also contacted [facility] in [place], [place]. [phone] CM spoke with Za she stated at this time they are not accepting out of state Medicaid at their facility. CM will continue to follow and assist as needed with discharge planning / needs. DCP- Discharge Planning Updated by [id number]: Lizabeth Bingham on 07/12/18 7:[address] CM was notified patient sister Lesley Domingo was here and requested to speak with me. KRYSTAL explained that the current plan was that we was looking into placement with [facility] in [place], [place]. KRYSTAL had spoke to Zoila with [facility] prior to coming to speak with Lesley. KRYSTAL had answered questions that Zoila had. Zoila stated the next process that they would send patients information to Executive offices and would be awaiting financial approval. Zoila stated for CM to call back to check on this at anytime next week. KRYSTAL explained all this to sister Leslye. Lesley asked why she was having to be transferred out of state. KRYSTAL explained that LTACH facilities within the state do not take Medicaid and that long-term mcfp facilities in the state do not accept ventilator patients. Lesley states that she had received information that the patient is and receiving Medicare through her . KRYSTAL explained that we had no record of that only Medicaid. Lesley requested that [facility] find this information out. KRYSTAL explained that if it was through the patients spouse then it would need to be his information used to look it up. Lesley states that she has a letter at her home that has this information on it.(Because she has custody of patients son and he receiving his benefits also). The conversation ended that Lesley was going to get the information to KRYSTAL. KRYSTAL received call from Lesley around 4:45pm requesting information on online Social Security office hours. Lesley also wanted to know what would happen if they didn't consent to transfer. KRYSTAL explained that I wasn't sure and Lesley requested for CM to find out this information. KRYSTAL spoke with other telephonic case manager within the facility. KRYSTAL then called Lesley back and explained that if the patient was stable for transfer and they still refusing transfer then it would most likely go to ethics board and [facility] could be notified. Lesley then starting raising her voice that" the hospital and staff was not giving her accurate updates over the phone. She had no idea that Evy was almost in a comatose state." Lesley requested for us to wait on transfer until after she could show proof that she has Medicare. KRYSTAL explained that nothing would be happening until next week. She was still upset that she was going to have to stay longer than she had planned to get this taken care of. KRYSTAL told her that I would be happy to let her speak to someone else on Sunday. CM will continue to follow and assist as needed will discharge planning/ needs. DCP- Discharge Planning Updated by [id number]: Lizabeth Bingham on 07/11/18 7:[address] KRYSTAL spoke with [facility] in [place] ([facility]). She stated that all their Vent beds are full at this time and they could put the patient on a waiting list for a bed. CM gave information to put patient on waiting list. KRYSTAL then contacted [facility] [place] [facility]) she stated they might could accept patient. CM faxed over information and later got denial from [facility] that patient required too high of level of care. KRYSTAL contacted [facility] division long-term care to see if they could give any insight on facilities that take ventilator patients within the [facility]. They only gave [facility] in [place]. KRYSTAL called and spoke with patients sister Lesley Domingo. KRYSTAL explained the situation that the patient was needing placement and we might have to go out of the [facility] for placement. Lesley was concerned about patient getting back to [place] once she recovered. Lesley also stated that she would be in to see patient today that she just got into town. CM will plan to speak to her while she is here. CM received information on [facility] in [place], [place] that takes ventilator patients. CM called Meli [phone] and faxed [phone] records. CM awaiting decision from [facility]. CM will continue to follow and assist as needed with discharge planning / needs. DCP- Discharge Planning Updated by [id number]: Lizabeth Bingham on 07/08/18 4:[address] CM contacted all LTACH within state to check on Medicaid bed availability / ana bed availability. Still awaiting call back on three facilities but at this time no had stated they would accept any Medicaid patients or ana. CM will continue to follow and assist as needed with discharge planning / needs. DCP- Discharge Planning Updated by [id number]: Lizabeth Bingham on 06/20/18 11:[address] Patient Name: EVY ART Admission Status: Elective Accout number: [id number] Admission Date: 06-07-2018 : 1960 Admission Diagnosis:MALIGNANT NEOPLASM OF CARDIA Attending: WILLIAM TUCKER Current LOS: 13 Anticipated DC Date: Planned Disposition: Home or Self Care Primary Insurance: [place] Discharge Planning Comments: CM called and spoke with sister Lesley Domingo [phone]. Patient is still on vent and sedated. Lesley (lives in [place]) informed CM that patient doesn't have any family that lives in the [facility]. She stated that the patient had been incarcerated and had been released approximately 8 weeks prior to admission. Sister states that patient had found out while incarcerated that she had cancer. Patient had been getting radiation / chemo prior to admit. Lesley states that she has custody of patients youngest child and that her oldest child is in shelter in [place]. Lesley states that her goal is for patient to finish her cancer treatments then come to her home in [place]. Lesley also states that patient has a roommate Nadine that comes to visit patient in the evenings. CM will continue to follow and assist as needed with discharge planning/ needs. Clinical Asst: Lizabeth Bingham DCP- Discharge Planning Updated by [id number]: Lizabeth Bingham on 06/14/18 7:[address] Patient on Vent / sedated. No family available for discharge planning.CM will continue to follow and assist as needed with discharge planning / needs. Last DP export: 09/04/18 2:35 Patient Name: EVY ART Page [id number] at 1137 All edits/amendments must be made on the electronic document DICTATION DATE: 09/05/18 1136 CUSTOMER ASSOCIATE: ANA ROSA 09/05/18 1136 RPT#: [id number] [place] DATE: STATUS: ADM IN [facility] [address] [place] [address] END OF REPORT
--- NOTE | ~2018-06-07 | OP ---
PATIENT NAME: ESDRAS ART MEDICAL RECORD: [id number] LOCATION:[id number] ADMISSION DATE:06/07/18 SURGEON: KARLOS TUCKER MD DATE OF OPERATION: 08/23/2018 PREOPERATIVE DIAGNOSIS: Dislodged jejunostomy tube. POSTOPERATIVE DIAGNOSES: Dislodged jejunostomy tube. PROCEDURES: Replacement of the dislodged jejunostomy tube with a 16-gauge red rubber Reyes catheter to be used as a jejunostomy tube. This procedure was performed at the bedside. SURGEON: Karlos Tucker MD AIR CONDITIONING TECHNICIAN: None. BLOOD LOSS: Minimal. ANESTHESIA: Local. COMPLICATIONS: None. OPERATIVE COURSE: The patient was seen at the bedside. The area around the left lower quadrant jejunostomy tube exit site was sterilely prepped. The area was infiltrated with local anesthetic. I tried to advance a 22-Zimbabwean red rubber Reyes catheter and was unable to do so. The enterocutaneous stoma was smaller than this. I then advanced a 16-Zimbabwean catheter easily. It was sutured to skin with a single 2-0 nylon suture. A sterile dressing was applied. I then obtained a KUB. There was some either contrast extravasation or some contrast perhaps on the patient's or skin. We are going to obtain a new KUB. However, the Gastrografin that was injected did opacify the small bowel, so the tip of the catheter appears to be well within the small bowel. TRANSINT:[id number] Voice Confirmation ID: [id number] DOCUMENT ID: [id number] KARLOS TUCKER MD at 2213 CC: [id number] DICTATION DATE: 08/23/18 1502 SURVEYOR: 08/23/[address] [facility] [address] [id number]
[~2018-06-07 05:42] MED LIST changes: +XANAX0.5 MG PO
[2018-06-07] MEDS ORDERED: OXYCODONE-APAP1 TAB PO (06:24)
[2018-06-07 19:49] LABS: ALBUMIN 2.1 g/dL (3.4-5.0); ALKALINE PHOSPHATASE 76 U/L (46-116); BILIRUBIN - TOTAL 0.98 mg/dL (0.2-1.3); CALCIUM 7.5 mg/dL (8.5-10.1); CHLORIDE - SERUM 104 mmol/L (98-107); CREATININE - SERUM 0.7 mg/dL (0.6-1.3); PROTEIN - SERUM 6.3 g/dL (6.4-8.2); SODIUM 137 mmol/L (136-145); UREA NITROGEN 14 mg/dL (7-18); WBC 23.3 10x3/uL (4.8-10.8); eGFR NON AFRICAN AMERICAN > 90 mL/min (90-120)
[2018-06-07 19:50] LABS: HEMATOCRIT 45.7 % (36.0-48.0); HEMOGLOBIN 15.5 g/dL (12-16); MCH 31.7 pg (26.0-34.0); MCHC 33.9 g/dL (31.0-37.0); MCV 93.5 fL (80.0-100.0); MEAN PLATELET VOLUME 8.8 fL (7.4-10.4); PLATELET COUNT 234 10x3/uL (130-400); RBC 4.89 10x6/uL (4.00-5.40); RDW 14.3 % (11.5-14.5)
[2018-06-07 19:54] LABS: ALT (SGPT) 43 U/L (10-68); CALC OSMOLALITY 280 mosm/kg (275-300); CARBON DIOXIDE 21.8 mmol/L (21.0-32.0); GLUCOSE 205 mg/dL (74-106); POTASSIUM - SERUM 3.1 mmol/L (3.5-5.1)
[2018-06-07 20:35] LABS: LYMPHOCYTES 6 % (15-50); MONOCYTES 5 % (2-11); NEUTROPHILS 86 % (40-80)
[2018-06-07 20:39] LABS: PLATELET ESTIMATE NORMAL
[2018-06-07 20:40] LABS: PLATELET MORPHOLOGY PLT CLUMPS PRESENT
[2018-06-08] VITALS (94 sets, daily range): BP systolic 88–137; BP diastolic 66–102; BMI 19.4
[2018-06-08 05:07] LABS: APTT 30.2 SECONDS (22.8-39.4); INR 1.03 (0.85-1.17); PROTIME 13.1 SECONDS (11.6-15.0)
[2018-06-08 05:13] LABS: MAGNESIUM - SERUM 1.5 mg/dL (1.8-2.4); TROPONIN-I 0.02 ng/mL (0.000-0.060)
[2018-06-08 06:55] LABS: ALBUMIN 1.9 g/dL (3.4-5.0); ALKALINE PHOSPHATASE 66 U/L (46-116); ALT (SGPT) 39 U/L (10-68); BILIRUBIN - TOTAL 0.48 mg/dL (0.2-1.3); CALC OSMOLALITY 277 mosm/kg (275-300); CALCIUM 8.2 mg/dL (8.5-10.1); CARBON DIOXIDE 16.9 mmol/L (21.0-32.0); CHLORIDE - SERUM 106 mmol/L (98-107); CREATININE - SERUM 0.7 mg/dL (0.6-1.3); GLUCOSE 186 mg/dL (74-106); MAGNESIUM - SERUM 1.4 mg/dL (1.8-2.4); PHOSPHOROUS 3.6 mg/dL (2.5-4.9); POTASSIUM - SERUM 4.2 mmol/L (3.5-5.1); PRE-ALBUMIN 16.6 mg/dL (18.0-35.7); PROTEIN - SERUM 6.3 g/dL (6.4-8.2); SODIUM 136 mmol/L (136-145); UREA NITROGEN 14 mg/dL (7-18); eGFR NON AFRICAN AMERICAN > 90 mL/min (90-120)
[2018-06-08 07:00] LABS: TROPONIN-I < 0.017 ng/mL (0.000-0.060)
[2018-06-08 07:01] LABS: BASOPHILS 0.1 % (0-2); EOSINOPHILS 0 % (0-7); HEMOGLOBIN 14.8 g/dL (12-16); IMMATURE GRANULOCYTES 0.4 % (0-5); LYMPHOCYTES 6.9 % (15-50); MCH 31.9 pg (26.0-34.0); MCHC 34.4 g/dL (31.0-37.0); MCV 92.7 fL (80.0-100.0); MEAN PLATELET VOLUME 9.5 fL (7.4-10.4); MONOCYTES 6.2 % (2-11); NEUTROPHILS 86.4 % (40-80); PLATELET COUNT 309 10x3/uL (130-400); RBC 4.64 10x6/uL (4.00-5.40); WBC 24.7 10x3/uL (4.8-10.8)
[2018-06-09] VITALS (45 sets, daily range): BP systolic 102–161; BP diastolic 0–106
[2018-06-09 05:38] LABS: BASOPHILS 0.1 % (0-2); EOSINOPHILS 0 % (0-7); HEMATOCRIT 34.1 % (36.0-48.0); HEMOGLOBIN 11.3 g/dL (12-16); IMMATURE GRANULOCYTES 0.4 % (0-5); MCH 31.2 pg (26.0-34.0); MCHC 33.1 g/dL (31.0-37.0); MCV 94.2 fL (80.0-100.0); MONOCYTES 11.9 % (2-11); NEUTROPHILS 81.6 % (40-80); PLATELET COUNT 288 10x3/uL (130-400); RBC 3.62 10x6/uL (4.00-5.40); RDW 15.4 % (11.5-14.5); WBC 28.3 10x3/uL (4.8-10.8)
[2018-06-09 06:03] LABS: CHLORIDE - SERUM 106 mmol/L (98-107); MAGNESIUM - SERUM 1.6 mg/dL (1.8-2.4); POTASSIUM - SERUM 3.6 mmol/L (3.5-5.1); SODIUM 138 mmol/L (136-145)
[2018-06-09 06:14] LABS: CALC OSMOLALITY 276 mosm/kg (275-300); CREATININE - SERUM 0.5 mg/dL (0.6-1.3); GLUCOSE 131 mg/dL (74-106); PHOSPHOROUS 1.9 mg/dL (2.5-4.9); UREA NITROGEN 10 mg/dL (7-18); eGFR NON AFRICAN AMERICAN > 90 mL/min (90-120)
[2018-06-10] VITALS (18 sets, daily range): BP systolic 103–159; BP diastolic 79–102; Ht 157.5 cm; Wt 39.2 kg
[2018-06-10 04:05] LABS: BASOPHILS 0 % (0-2); EOSINOPHILS 0.1 % (0-7); HEMATOCRIT 31.6 % (36.0-48.0); HEMOGLOBIN 10.4 g/dL (12-16); IMMATURE GRANULOCYTES 0.4 % (0-5); LYMPHOCYTES 6.7 % (15-50); MCH 31.3 pg (26.0-34.0); MCHC 32.9 g/dL (31.0-37.0); MCV 95.2 fL (80.0-100.0); MEAN PLATELET VOLUME 8.9 fL (7.4-10.4); MONOCYTES 9.8 % (2-11); PLATELET COUNT 293 10x3/uL (130-400); RBC 3.32 10x6/uL (4.00-5.40); RDW 15.1 % (11.5-14.5)
[2018-06-10 04:24] LABS: ALKALINE PHOSPHATASE 62 U/L (46-116); BILIRUBIN - TOTAL 0.73 mg/dL (0.2-1.3); CALC OSMOLALITY 284 mosm/kg (275-300); CALCIUM 7.8 mg/dL (8.5-10.1); CARBON DIOXIDE 27.5 mmol/L (21.0-32.0); CHLORIDE - SERUM 109 mmol/L (98-107); CREATININE - SERUM 0.4 mg/dL (0.6-1.3); GLUCOSE 100 mg/dL (74-106); MAGNESIUM - SERUM 1.9 mg/dL (1.8-2.4); PROTEIN - SERUM 5.5 g/dL (6.4-8.2); SODIUM 144 mmol/L (136-145); UREA NITROGEN 8 mg/dL (7-18); eGFR NON AFRICAN AMERICAN > 90 mL/min (90-120)
[2018-06-10 04:39] LABS: ALT (SGPT) 26 U/L (10-68); PHOSPHOROUS 2.7 mg/dL (2.5-4.9)
[2018-06-11] VITALS (24 sets, daily range): BP systolic 92–1687; BP diastolic 10–139
[2018-06-11 06:15] LABS: BASOPHILS 0.2 % (0-2); EOSINOPHILS 1.3 % (0-7); HEMATOCRIT 31.2 % (36.0-48.0); HEMOGLOBIN 9.9 g/dL (12-16); IMMATURE GRANULOCYTES 0.6 % (0-5); LYMPHOCYTES 7.9 % (15-50); MCH 30.7 pg (26.0-34.0); MCHC 31.7 g/dL (31.0-37.0); MCV 96.6 fL (80.0-100.0); MONOCYTES 11.5 % (2-11); NEUTROPHILS 78.5 % (40-80); PLATELET COUNT 351 10x3/uL (130-400); RBC 3.23 10x6/uL (4.00-5.40)
[2018-06-11 06:26] LABS: CALC OSMOLALITY 284 mosm/kg (275-300); CALCIUM 7.9 mg/dL (8.5-10.1); CARBON DIOXIDE 28.6 mmol/L (21.0-32.0); CHLORIDE - SERUM 109 mmol/L (98-107); CREATININE - SERUM 0.4 mg/dL (0.6-1.3); GLUCOSE 81 mg/dL (74-106); MAGNESIUM - SERUM 1.8 mg/dL (1.8-2.4); PHOSPHOROUS 3.3 mg/dL (2.5-4.9); POTASSIUM - SERUM 3.4 mmol/L (3.5-5.1); SODIUM 143 mmol/L (136-145); eGFR NON AFRICAN AMERICAN > 90 mL/min (90-120)
[2018-06-11 06:28] LABS: UREA NITROGEN 15 mg/dL (7-18)
[2018-06-11 08:18] LABS: HEPATITIS C ANTIBODY >11.0 (0.0-0.9)
[2018-06-12] VITALS (25 sets, daily range): BP systolic 71–168; BP diastolic 46–102
[2018-06-12 05:09] LABS: BASOPHILS 0.2 % (0-2); EOSINOPHILS 1.4 % (0-7); HEMATOCRIT 32.4 % (36.0-48.0); HEMOGLOBIN 10.7 g/dL (12-16); IMMATURE GRANULOCYTES 1.2 % (0-5); LYMPHOCYTES 9.1 % (15-50); MCH 31.7 pg (26.0-34.0); MCV 95.9 fL (80.0-100.0); MEAN PLATELET VOLUME 9.1 fL (7.4-10.4); NEUTROPHILS 78.1 % (40-80); PLATELET COUNT 409 10x3/uL (130-400); RBC 3.38 10x6/uL (4.00-5.40); RDW 14.9 % (11.5-14.5); WBC 24.9 10x3/uL (4.8-10.8)
[2018-06-12 05:33] LABS: CALC OSMOLALITY 284 mosm/kg (275-300); CALCIUM 8.2 mg/dL (8.5-10.1); CHLORIDE - SERUM 108 mmol/L (98-107); CREATININE - SERUM 0.5 mg/dL (0.6-1.3); GLUCOSE 143 mg/dL (74-106); PHOSPHOROUS 3.3 mg/dL (2.5-4.9); POTASSIUM - SERUM 4.2 mmol/L (3.5-5.1); SODIUM 141 mmol/L (136-145); UREA NITROGEN 19 mg/dL (7-18); eGFR NON AFRICAN AMERICAN > 90 mL/min (90-120)
[2018-06-12 16:08] LABS: CKMB 0.6 U/L (0.0-3.6); CREATINE KINASE 441 UL (21-215)
[2018-06-12 16:13] LABS: TROPONIN-I < 0.017 ng/mL (0.000-0.060)
[2018-06-13] VITALS (25 sets, daily range): BP systolic 87–148; BP diastolic 51–97
[2018-06-13 05:30] LABS: BASOPHILS 0.1 % (0-2); EOSINOPHILS 0 % (0-7); HEMATOCRIT 32.5 % (36.0-48.0); HEMOGLOBIN 10.6 g/dL (12-16); IMMATURE GRANULOCYTES 1.2 % (0-5); LYMPHOCYTES 1.7 % (15-50); MCH 31.3 pg (26.0-34.0); MCHC 32.6 g/dL (31.0-37.0); MCV 95.9 fL (80.0-100.0); MEAN PLATELET VOLUME 9.6 fL (7.4-10.4); MONOCYTES 7.7 % (2-11); NEUTROPHILS 89.3 % (40-80); PLATELET COUNT 478 10x3/uL (130-400); RBC 3.39 10x6/uL (4.00-5.40); RDW 14.7 % (11.5-14.5); WBC 39.6 10x3/uL (4.8-10.8)
[2018-06-13 05:39] LABS: CARBON DIOXIDE 26.3 mmol/L (21.0-32.0); CHLORIDE - SERUM 104 mmol/L (98-107); CREATININE - SERUM 0.5 mg/dL (0.6-1.3); MAGNESIUM - SERUM 1.8 mg/dL (1.8-2.4); PHOSPHOROUS 2.5 mg/dL (2.5-4.9); SODIUM 137 mmol/L (136-145); eGFR NON AFRICAN AMERICAN > 90 mL/min (90-120)
[2018-06-13 05:45] LABS: CALC OSMOLALITY 279 mosm/kg (275-300); GLUCOSE 203 mg/dL (74-106); POTASSIUM - SERUM 3.5 mmol/L (3.5-5.1); UREA NITROGEN 12 mg/dL (7-18)
[2018-06-13 19:11] LABS: AFB SPECIMEN PROCESSING Concentration (())
[2018-06-14] VITALS (35 sets, daily range): BP systolic 95–140; BP diastolic 57–91
[2018-06-14 05:59] LABS: BASOPHILS 0.1 % (0-2); EOSINOPHILS 1.5 % (0-7); HEMATOCRIT 29.2 % (36.0-48.0); HEMOGLOBIN 9.5 g/dL (12-16); IMMATURE GRANULOCYTES 1.1 % (0-5); LYMPHOCYTES 3.8 % (15-50); MCH 30.9 pg (26.0-34.0); MCHC 32.5 g/dL (31.0-37.0); MCV 95.1 fL (80.0-100.0); MEAN PLATELET VOLUME 9.5 fL (7.4-10.4); MONOCYTES 7.7 % (2-11); NEUTROPHILS 85.8 % (40-80); PLATELET COUNT 508 10x3/uL (130-400); RBC 3.07 10x6/uL (4.00-5.40); RDW 14.8 % (11.5-14.5); WBC 36.7 10x3/uL (4.8-10.8)
[2018-06-14 06:02] LABS: CALC OSMOLALITY 277 mosm/kg (275-300); CALCIUM 7.8 mg/dL (8.5-10.1); CARBON DIOXIDE 25.5 mmol/L (21.0-32.0); CHLORIDE - SERUM 106 mmol/L (98-107); CREATININE - SERUM 0.5 mg/dL (0.6-1.3); MAGNESIUM - SERUM 1.7 mg/dL (1.8-2.4); PHOSPHOROUS 2.4 mg/dL (2.5-4.9); POTASSIUM - SERUM 3.2 mmol/L (3.5-5.1); SODIUM 138 mmol/L (136-145); UREA NITROGEN 9 mg/dL (7-18); eGFR NON AFRICAN AMERICAN > 90 mL/min (90-120)
[2018-06-14 06:04] LABS: GLUCOSE 148 mg/dL (74-106)
[2018-06-14 14:23] LABS: FUNGUS STAIN Final report (())
[2018-06-15] VITALS (25 sets, daily range): BP systolic 90–138; BP diastolic 50–97
[2018-06-15 05:32] LABS: BASOPHILS 0.2 % (0-2); HEMATOCRIT 27.4 % (36.0-48.0); HEMOGLOBIN 8.8 g/dL (12-16); IMMATURE GRANULOCYTES 2.1 % (0-5); LYMPHOCYTES 3.9 % (15-50); MCH 30.4 pg (26.0-34.0); MCHC 32.1 g/dL (31.0-37.0); MCV 94.8 fL (80.0-100.0); MEAN PLATELET VOLUME 9.6 fL (7.4-10.4); MONOCYTES 7.6 % (2-11); NEUTROPHILS 84.2 % (40-80); PLATELET COUNT 556 10x3/uL (130-400); RBC 2.89 10x6/uL (4.00-5.40); RDW 15.2 % (11.5-14.5)
[2018-06-15 05:50] LABS: CALC OSMOLALITY 280 mosm/kg (275-300); CARBON DIOXIDE 23.8 mmol/L (21.0-32.0); CHLORIDE - SERUM 107 mmol/L (98-107); CREATININE - SERUM 0.4 mg/dL (0.6-1.3); GLUCOSE 159 mg/dL (74-106); MAGNESIUM - SERUM 1.9 mg/dL (1.8-2.4); POTASSIUM - SERUM 3.8 mmol/L (3.5-5.1); SODIUM 140 mmol/L (136-145); UREA NITROGEN 11 mg/dL (7-18); eGFR NON AFRICAN AMERICAN > 90 mL/min (90-120)
[2018-06-15 05:52] LABS: PHOSPHOROUS 3.1 mg/dL (2.5-4.9)
[2018-06-16] VITALS (25 sets, daily range): BP systolic 52–129; BP diastolic 5–76
[2018-06-16 05:19] LABS: HEMATOCRIT 25.3 % (36.0-48.0); HEMOGLOBIN 8.5 g/dL (12-16); LYMPHOCYTES 2.3 % (15-50); MCH 31.8 pg (26.0-34.0); MCHC 33.6 g/dL (31.0-37.0); MCV 94.8 fL (80.0-100.0); MEAN PLATELET VOLUME 9.2 fL (7.4-10.4); NEUTROPHILS 88.7 % (40-80); PLATELET COUNT 620 10x3/uL (130-400); RBC 2.67 10x6/uL (4.00-5.40); RDW 14.9 % (11.5-14.5); WBC 46.8 10x3/uL (4.8-10.8)
[2018-06-16 05:29] LABS: CALC OSMOLALITY 278 mosm/kg (275-300); CALCIUM 7.8 mg/dL (8.5-10.1); CARBON DIOXIDE 26.8 mmol/L (21.0-32.0); CHLORIDE - SERUM 106 mmol/L (98-107); CREATININE - SERUM 0.5 mg/dL (0.6-1.3); GLUCOSE 118 mg/dL (74-106); MAGNESIUM - SERUM 1.8 mg/dL (1.8-2.4); POTASSIUM - SERUM 3.9 mmol/L (3.5-5.1); SODIUM 139 mmol/L (136-145); UREA NITROGEN 13 mg/dL (7-18); eGFR NON AFRICAN AMERICAN > 90 mL/min (90-120)
[2018-06-16 05:31] LABS: PHOSPHOROUS 4.5 mg/dL (2.5-4.9)
[2018-06-17] VITALS (25 sets, daily range): BP systolic 81–126; BP diastolic 42–76
[2018-06-17 04:51] LABS: HEMATOCRIT 26.1 % (36.0-48.0); HEMOGLOBIN 8.6 g/dL (12-16); LYMPHOCYTES 2.2 % (15-50); MCH 31.4 pg (26.0-34.0); MCV 95.3 fL (80.0-100.0); MEAN PLATELET VOLUME 9.4 fL (7.4-10.4); NEUTROPHILS 84.6 % (40-80); PLATELET COUNT 666 10x3/uL (130-400); RBC 2.74 10x6/uL (4.00-5.40); RDW 14.9 % (11.5-14.5); WBC 51.5 10x3/uL (4.8-10.8)
[2018-06-17 05:12] LABS: CALC OSMOLALITY 277 mosm/kg (275-300); CALCIUM 7.9 mg/dL (8.5-10.1); CARBON DIOXIDE 26.8 mmol/L (21.0-32.0); CHLORIDE - SERUM 106 mmol/L (98-107); CREATININE - SERUM 0.4 mg/dL (0.6-1.3); GLUCOSE 140 mg/dL (74-106); MAGNESIUM - SERUM 1.8 mg/dL (1.8-2.4); PHOSPHOROUS 4.6 mg/dL (2.5-4.9); POTASSIUM - SERUM 3.8 mmol/L (3.5-5.1); SODIUM 138 mmol/L (136-145); UREA NITROGEN 12 mg/dL (7-18); eGFR NON AFRICAN AMERICAN > 90 mL/min (90-120)
[2018-06-18] VITALS (25 sets, daily range): BP systolic 87–143; BP diastolic 48–85
[2018-06-18 06:39] LABS: ALBUMIN 1.4 g/dL (3.4-5.0); ALKALINE PHOSPHATASE 133 U/L (46-116); ALT (SGPT) 12 U/L (10-68); BILIRUBIN - DIRECT 1.19 mg/dL (0.00-0.30); BILIRUBIN - INDIRECT 0.28 mg/dL (0.00-1.00); BILIRUBIN - TOTAL 1.47 mg/dL (0.2-1.3); CALC OSMOLALITY 281 mosm/kg (275-300); CALCIUM 8.1 mg/dL (8.5-10.1); CARBON DIOXIDE 22.9 mmol/L (21.0-32.0); CHLORIDE - SERUM 107 mmol/L (98-107); CREATININE - SERUM 0.5 mg/dL (0.6-1.3); GLUCOSE 115 mg/dL (74-106); HEMATOCRIT 23.3 % (36.0-48.0); MCH 30.2 pg (26.0-34.0); MCHC 31.3 g/dL (31.0-37.0); MCV 96.3 fL (80.0-100.0); MEAN PLATELET VOLUME 10.9 fL (7.4-10.4); PHOSPHOROUS 4.2 mg/dL (2.5-4.9); PLATELET COUNT 616 10x3/uL (130-400); POTASSIUM - SERUM 3.6 mmol/L (3.5-5.1); PROTEIN - SERUM 5.3 g/dL (6.4-8.2); RBC 2.42 10x6/uL (4.00-5.40); RDW 16.3 % (11.5-14.5); SODIUM 141 mmol/L (136-145); UREA NITROGEN 13 mg/dL (7-18); WBC 40.1 10x3/uL (4.8-10.8); eGFR NON AFRICAN AMERICAN > 90 mL/min (90-120)
[2018-06-18 06:41] LABS: HEMOGLOBIN 7.3 g/dL (12-16)
[2018-06-18 07:10] LABS: EOSINOPHILS 4 % (0-7); LYMPHOCYTES 10 % (15-50); MONOCYTES 16 % (2-11); NEUTROPHILS 54 % (40-80)
[2018-06-18 07:11] LABS: PLATELET ESTIMATE INCREASED
[2018-06-18 07:12] LABS: ANISOCYTOSIS OCC; HYPOCHROMASIA OCC; SMUDGE CELLS OCC
[2018-06-19] VITALS (25 sets, daily range): BP systolic 105–151; BP diastolic 60–92
[2018-06-19 05:33] LABS: CALC OSMOLALITY 283 mosm/kg (275-300); CALCIUM 7.8 mg/dL (8.5-10.1); CARBON DIOXIDE 24.4 mmol/L (21.0-32.0); CHLORIDE - SERUM 109 mmol/L (98-107); CREATININE - SERUM 0.4 mg/dL (0.6-1.3); GLUCOSE 131 mg/dL (74-106); MAGNESIUM - SERUM 1.9 mg/dL (1.8-2.4); PHOSPHOROUS 3.9 mg/dL (2.5-4.9); POTASSIUM - SERUM 3.5 mmol/L (3.5-5.1); SODIUM 142 mmol/L (136-145); UREA NITROGEN 11 mg/dL (7-18); eGFR NON AFRICAN AMERICAN > 90 mL/min (90-120)
[2018-06-19 05:55] LABS: HEMATOCRIT 30.6 % (36.0-48.0); HEMOGLOBIN 10.1 g/dL (12-16); MCH 30.1 pg (26.0-34.0); MCV 91.1 fL (80.0-100.0); MEAN PLATELET VOLUME 10.8 fL (7.4-10.4); PLATELET COUNT 587 10x3/uL (130-400); RBC 3.36 10x6/uL (4.00-5.40); WBC 34.5 10x3/uL (4.8-10.8)
[2018-06-19 06:46] LABS: EOSINOPHILS 1 % (0-7); LYMPHOCYTES 5 % (15-50); MONOCYTES 16 % (2-11); NEUTROPHILS 64 % (40-80); PLATELET ESTIMATE INCREASED
[2018-06-19 06:48] LABS: ANISOCYTOSIS OCC; HYPOCHROMASIA OCC
[2018-06-19 13:18] LABS: FUNGUS CULTURE RESULT 1 Candida dubliniensis (()); FUNGUS MYCOLOGY CULTURE Final report (())
[2018-06-20] VITALS (23 sets, daily range): BP systolic 100–171; BP diastolic 56–111
[2018-06-20 04:50] LABS: CALC OSMOLALITY 289 mosm/kg (275-300); CARBON DIOXIDE 24.9 mmol/L (21.0-32.0); CHLORIDE - SERUM 111 mmol/L (98-107); CREATININE - SERUM 0.4 mg/dL (0.6-1.3); GLUCOSE 143 mg/dL (74-106); MAGNESIUM - SERUM 2.1 mg/dL (1.8-2.4); POTASSIUM - SERUM 3.5 mmol/L (3.5-5.1); SODIUM 145 mmol/L (136-145); UREA NITROGEN 11 mg/dL (7-18); eGFR NON AFRICAN AMERICAN > 90 mL/min (90-120)
[2018-06-20 04:51] LABS: PHOSPHOROUS 4.9 mg/dL (2.5-4.9)
[2018-06-20 05:32] LABS: BASOPHILS 1.1 % (0-2); EOSINOPHILS 1.7 % (0-7); HEMATOCRIT 33.2 % (36.0-48.0); HEMOGLOBIN 10.7 g/dL (12-16); IMMATURE GRANULOCYTES 9.8 % (0-5); LYMPHOCYTES 2.5 % (15-50); MCH 29.9 pg (26.0-34.0); MCHC 32.2 g/dL (31.0-37.0); MCV 92.7 fL (80.0-100.0); MEAN PLATELET VOLUME 10.4 fL (7.4-10.4); MONOCYTES 12.3 % (2-11); NEUTROPHILS 72.6 % (40-80); PLATELET COUNT 739 10x3/uL (130-400); RBC 3.58 10x6/uL (4.00-5.40); RDW 16.8 % (11.5-14.5)
[2018-06-21] VITALS (24 sets, daily range): BP systolic 88–123; BP diastolic 46–95
[2018-06-21 04:16] LABS: HEMATOCRIT 29.2 % (36.0-48.0); HEMOGLOBIN 9.8 g/dL (12-16); LYMPHOCYTES 3.7 % (15-50); MCH 30.7 pg (26.0-34.0); MCHC 33.6 g/dL (31.0-37.0); MCV 91.5 fL (80.0-100.0); MEAN PLATELET VOLUME 9.9 fL (7.4-10.4); PLATELET COUNT 730 10x3/uL (130-400); RBC 3.19 10x6/uL (4.00-5.40); RDW 16.2 % (11.5-14.5); WBC 29.1 10x3/uL (4.8-10.8)
[2018-06-21 04:18] LABS: ALBUMIN 1.8 g/dL (3.4-5.0); CALC OSMOLALITY 283 mosm/kg (275-300); CARBON DIOXIDE 26.4 mmol/L (21.0-32.0); CHLORIDE - SERUM 108 mmol/L (98-107); CREATININE - SERUM 0.5 mg/dL (0.6-1.3); GLUCOSE 106 mg/dL (74-106); PHOSPHOROUS 4.9 mg/dL (2.5-4.9); POTASSIUM - SERUM 3.9 mmol/L (3.5-5.1); SODIUM 142 mmol/L (136-145); eGFR NON AFRICAN AMERICAN > 90 mL/min (90-120)
[2018-06-21 04:19] LABS: UREA NITROGEN 15 mg/dL (7-18)
[2018-06-22] VITALS (24 sets, daily range): BP systolic 85–131; BP diastolic 48–80
[2018-06-22 05:27] LABS: HEMATOCRIT 29.7 % (36.0-48.0); HEMOGLOBIN 9.9 g/dL (12-16); LYMPHOCYTES 2.7 % (15-50); MCH 30.7 pg (26.0-34.0); MCHC 33.3 g/dL (31.0-37.0); MCV 92.2 fL (80.0-100.0); MEAN PLATELET VOLUME 10.1 fL (7.4-10.4); NEUTROPHILS 83.7 % (40-80); PLATELET COUNT 772 10x3/uL (130-400); RBC 3.22 10x6/uL (4.00-5.40); RDW 15.6 % (11.5-14.5); WBC 30.7 10x3/uL (4.8-10.8)
[2018-06-22 05:37] LABS: CALC OSMOLALITY 281 mosm/kg (275-300); CALCIUM 7.9 mg/dL (8.5-10.1); CARBON DIOXIDE 26.3 mmol/L (21.0-32.0); CHLORIDE - SERUM 107 mmol/L (98-107); CREATININE - SERUM 0.5 mg/dL (0.6-1.3); GLUCOSE 110 mg/dL (74-106); POTASSIUM - SERUM 3.8 mmol/L (3.5-5.1); SODIUM 141 mmol/L (136-145); UREA NITROGEN 13 mg/dL (7-18); eGFR NON AFRICAN AMERICAN > 90 mL/min (90-120)
[2018-06-22 19:08] LABS: AFB SPECIMEN PROCESSING Concentration (())
[2018-06-23] VITALS (23 sets, daily range): BP systolic 97–117; BP diastolic 54–74
[2018-06-23 05:46] LABS: BASOPHILS 0.3 % (0-2); EOSINOPHILS 2.8 % (0-7); HEMATOCRIT 32.3 % (36.0-48.0); HEMOGLOBIN 10.3 g/dL (12-16); IMMATURE GRANULOCYTES 6.7 % (0-5); LYMPHOCYTES 7.3 % (15-50); MCH 29.7 pg (26.0-34.0); MCHC 31.9 g/dL (31.0-37.0); MCV 93.1 fL (80.0-100.0); MEAN PLATELET VOLUME 10.4 fL (7.4-10.4); MONOCYTES 9.2 % (2-11); NEUTROPHILS 73.7 % (40-80); PLATELET COUNT 837 10x3/uL (130-400); RBC 3.47 10x6/uL (4.00-5.40); RDW 16.1 % (11.5-14.5); WBC 32.5 10x3/uL (4.8-10.8)
[2018-06-23 06:12] LABS: CALC OSMOLALITY 278 mosm/kg (275-300); CARBON DIOXIDE 30.2 mmol/L (21.0-32.0); CHLORIDE - SERUM 106 mmol/L (98-107); CREATININE - SERUM 0.4 mg/dL (0.6-1.3); GLUCOSE 128 mg/dL (74-106); PHOSPHOROUS 4.8 mg/dL (2.5-4.9); POTASSIUM - SERUM 4.1 mmol/L (3.5-5.1); SODIUM 139 mmol/L (136-145); UREA NITROGEN 11 mg/dL (7-18); eGFR NON AFRICAN AMERICAN > 90 mL/min (90-120)
[2018-06-24] VITALS (24 sets, daily range): BP systolic 99–140; BP diastolic 54–83
[2018-06-24 06:28] LABS: CALC OSMOLALITY 278 mosm/kg (275-300); CALCIUM 8.2 mg/dL (8.5-10.1); CARBON DIOXIDE 30.8 mmol/L (21.0-32.0); CHLORIDE - SERUM 106 mmol/L (98-107); CREATININE - SERUM 0.5 mg/dL (0.6-1.3); GLUCOSE 114 mg/dL (74-106); PHOSPHOROUS 4.8 mg/dL (2.5-4.9); SODIUM 139 mmol/L (136-145); UREA NITROGEN 12 mg/dL (7-18); eGFR NON AFRICAN AMERICAN > 90 mL/min (90-120)
[2018-06-24 07:42] LABS: HEMATOCRIT 31.4 % (36.0-48.0); HEMOGLOBIN 9.9 g/dL (12-16); MCH 29.6 pg (26.0-34.0); MCHC 31.5 g/dL (31.0-37.0); MEAN PLATELET VOLUME 10.6 fL (7.4-10.4); PLATELET COUNT 809 10x3/uL (130-400); RBC 3.34 10x6/uL (4.00-5.40); RDW 16.2 % (11.5-14.5); WBC 28.3 10x3/uL (4.8-10.8)
[2018-06-24 08:08] LABS: EOSINOPHILS 1 % (0-7); LYMPHOCYTES 8 % (15-50); MONOCYTES 15 % (2-11); NEUTROPHILS 62 % (40-80); PLATELET ESTIMATE INCREASED
[2018-06-24 08:09] LABS: ANISOCYTOSIS OCC; HYPOCHROMASIA OCC; ROULEAUX OCC; TARGET CELLS OCC
[2018-06-24 11:13] LABS: FUNGUS STAIN Final report (())
[2018-06-25] VITALS (24 sets, daily range): BP systolic 87–120; BP diastolic 53–84
[2018-06-25 05:03] LABS: BASOPHILS 0.3 % (0-2); EOSINOPHILS 3.1 % (0-7); HEMATOCRIT 31.9 % (36.0-48.0); HEMOGLOBIN 10.1 g/dL (12-16); IMMATURE GRANULOCYTES 5.3 % (0-5); MCH 29.7 pg (26.0-34.0); MCHC 31.7 g/dL (31.0-37.0); MCV 93.8 fL (80.0-100.0); MEAN PLATELET VOLUME 10.4 fL (7.4-10.4); MONOCYTES 13.1 % (2-11); NEUTROPHILS 69.2 % (40-80); PLATELET COUNT 792 10x3/uL (130-400); RDW 15.8 % (11.5-14.5); WBC 26.2 10x3/uL (4.8-10.8)
[2018-06-25 05:10] LABS: CALC OSMOLALITY 279 mosm/kg (275-300); CALCIUM 8.2 mg/dL (8.5-10.1); CARBON DIOXIDE 29.4 mmol/L (21.0-32.0); CHLORIDE - SERUM 105 mmol/L (98-107); CREATININE - SERUM 0.4 mg/dL (0.6-1.3); GLUCOSE 115 mg/dL (74-106); MAGNESIUM - SERUM 1.8 mg/dL (1.8-2.4); PHOSPHOROUS 4.8 mg/dL (2.5-4.9); POTASSIUM - SERUM 3.9 mmol/L (3.5-5.1); SODIUM 140 mmol/L (136-145); UREA NITROGEN 12 mg/dL (7-18); eGFR NON AFRICAN AMERICAN > 90 mL/min (90-120)
[2018-06-26] VITALS (25 sets, daily range): BP systolic 86–132; BP diastolic 53–73
[2018-06-26 05:15] LABS: BASOPHILS 0.3 % (0-2); EOSINOPHILS 3.1 % (0-7); HEMATOCRIT 31.6 % (36.0-48.0); HEMOGLOBIN 9.9 g/dL (12-16); IMMATURE GRANULOCYTES 4.3 % (0-5); LYMPHOCYTES 10.7 % (15-50); MCH 29.3 pg (26.0-34.0); MCHC 31.3 g/dL (31.0-37.0); MCV 93.5 fL (80.0-100.0); MEAN PLATELET VOLUME 10.4 fL (7.4-10.4); MONOCYTES 14.3 % (2-11); NEUTROPHILS 67.3 % (40-80); PLATELET COUNT 779 10x3/uL (130-400); RBC 3.38 10x6/uL (4.00-5.40); RDW 15.9 % (11.5-14.5); WBC 25.8 10x3/uL (4.8-10.8)
[2018-06-26 05:40] LABS: CALC OSMOLALITY 280 mosm/kg (275-300); CALCIUM 8.3 mg/dL (8.5-10.1); CARBON DIOXIDE 28.5 mmol/L (21.0-32.0); CHLORIDE - SERUM 106 mmol/L (98-107); CREATININE - SERUM 0.5 mg/dL (0.6-1.3); GLUCOSE 115 mg/dL (74-106); MAGNESIUM - SERUM 1.9 mg/dL (1.8-2.4); PHOSPHOROUS 4.8 mg/dL (2.5-4.9); POTASSIUM - SERUM 3.8 mmol/L (3.5-5.1); SODIUM 141 mmol/L (136-145); UREA NITROGEN 10 mg/dL (7-18); eGFR NON AFRICAN AMERICAN > 90 mL/min (90-120)
[2018-06-26 19:10] LABS: AEROBE ID Final report (())
[2018-06-27] VITALS (21 sets, daily range): BP systolic 90–139; BP diastolic 50–88
[2018-06-27 05:05] LABS: CALC OSMOLALITY 278 mosm/kg (275-300); CALCIUM 8.4 mg/dL (8.5-10.1); CARBON DIOXIDE 26.4 mmol/L (21.0-32.0); CHLORIDE - SERUM 105 mmol/L (98-107); CREATININE - SERUM 0.4 mg/dL (0.6-1.3); GLUCOSE 103 mg/dL (74-106); MAGNESIUM - SERUM 1.8 mg/dL (1.8-2.4); PHOSPHOROUS 4.4 mg/dL (2.5-4.9); POTASSIUM - SERUM 3.9 mmol/L (3.5-5.1); SODIUM 140 mmol/L (136-145); UREA NITROGEN 12 mg/dL (7-18); eGFR NON AFRICAN AMERICAN > 90 mL/min (90-120)
[2018-06-27 05:22] LABS: HEMATOCRIT 29.5 % (36.0-48.0); HEMOGLOBIN 9.6 g/dL (12-16); LYMPHOCYTES 5.2 % (15-50); MCH 29.8 pg (26.0-34.0); MCHC 32.5 g/dL (31.0-37.0); MCV 91.6 fL (80.0-100.0); MEAN PLATELET VOLUME 9.9 fL (7.4-10.4); NEUTROPHILS 71.7 % (40-80); PLATELET COUNT 636 10x3/uL (130-400); RBC 3.22 10x6/uL (4.00-5.40); RDW 15.1 % (11.5-14.5)
[2018-06-27 09:17] LABS: FUNGUS CULTURE RESULT 1 Candida dubliniensis (())
[2018-06-28] VITALS (24 sets, daily range): BP systolic 91–117; BP diastolic 49–74
[2018-06-28 04:57] LABS: HEMATOCRIT 27.1 % (36.0-48.0); LYMPHOCYTES 2.9 % (15-50); MCH 30.4 pg (26.0-34.0); MCHC 33.2 g/dL (31.0-37.0); MCV 91.6 fL (80.0-100.0); MEAN PLATELET VOLUME 9.5 fL (7.4-10.4); NEUTROPHILS 81.9 % (40-80); PLATELET COUNT 721 10x3/uL (130-400); RBC 2.96 10x6/uL (4.00-5.40); RDW 15.2 % (11.5-14.5); WBC 39.4 10x3/uL (4.8-10.8)
[2018-06-28 04:59] LABS: CALC OSMOLALITY 278 mosm/kg (275-300); CALCIUM 8.3 mg/dL (8.5-10.1); CARBON DIOXIDE 24.4 mmol/L (21.0-32.0); CHLORIDE - SERUM 105 mmol/L (98-107); CREATININE - SERUM 0.4 mg/dL (0.6-1.3); GLUCOSE 144 mg/dL (74-106); MAGNESIUM - SERUM 1.8 mg/dL (1.8-2.4); PHOSPHOROUS 3.8 mg/dL (2.5-4.9); POTASSIUM - SERUM 3.8 mmol/L (3.5-5.1); SODIUM 138 mmol/L (136-145); UREA NITROGEN 13 mg/dL (7-18); eGFR NON AFRICAN AMERICAN > 90 mL/min (90-120)
[2018-06-29] VITALS (24 sets, daily range): BP systolic 90–151; BP diastolic 52–90
[2018-06-29 04:15] LABS: HEMATOCRIT 24.5 % (36.0-48.0); LYMPHOCYTES 3.9 % (15-50); MCHC 32.7 g/dL (31.0-37.0); MCV 91.8 fL (80.0-100.0); MEAN PLATELET VOLUME 9.8 fL (7.4-10.4); NEUTROPHILS 76.5 % (40-80); PLATELET COUNT 646 10x3/uL (130-400); RBC 2.67 10x6/uL (4.00-5.40); WBC 31.5 10x3/uL (4.8-10.8)
[2018-06-29 04:19] LABS: CALC OSMOLALITY 281 mosm/kg (275-300); CALCIUM 8.4 mg/dL (8.5-10.1); CARBON DIOXIDE 26.6 mmol/L (21.0-32.0); CHLORIDE - SERUM 106 mmol/L (98-107); CREATININE - SERUM 0.4 mg/dL (0.6-1.3); GLUCOSE 130 mg/dL (74-106); POTASSIUM - SERUM 3.7 mmol/L (3.5-5.1); SODIUM 140 mmol/L (136-145); UREA NITROGEN 15 mg/dL (7-18); eGFR NON AFRICAN AMERICAN > 90 mL/min (90-120)
[2018-06-29 09:08] LABS: MAGNESIUM - SERUM 1.9 mg/dL (1.8-2.4); PHOSPHOROUS 3.7 mg/dL (2.5-4.9)
[2018-06-30] VITALS (23 sets, daily range): BP systolic 87–144; BP diastolic 49–91
[2018-06-30 04:16] LABS: CALC OSMOLALITY 281 mosm/kg (275-300); CALCIUM 8.7 mg/dL (8.5-10.1); CARBON DIOXIDE 26.4 mmol/L (21.0-32.0); CHLORIDE - SERUM 106 mmol/L (98-107); CREATININE - SERUM 0.4 mg/dL (0.6-1.3); GLUCOSE 110 mg/dL (74-106); MAGNESIUM - SERUM 1.8 mg/dL (1.8-2.4); PHOSPHOROUS 4.6 mg/dL (2.5-4.9); SODIUM 141 mmol/L (136-145); UREA NITROGEN 12 mg/dL (7-18); eGFR NON AFRICAN AMERICAN > 90 mL/min (90-120)
[2018-06-30 07:06] LABS: BASOPHILS 0.3 % (0-2); EOSINOPHILS 2.5 % (0-7); HEMATOCRIT 26.9 % (36.0-48.0); HEMOGLOBIN 8.3 g/dL (12-16); IMMATURE GRANULOCYTES 1.4 % (0-5); LYMPHOCYTES 6.4 % (15-50); MCH 29.2 pg (26.0-34.0); MCHC 30.9 g/dL (31.0-37.0); MCV 94.7 fL (80.0-100.0); MEAN PLATELET VOLUME 10.2 fL (7.4-10.4); MONOCYTES 22.7 % (2-11); NEUTROPHILS 66.7 % (40-80); PLATELET COUNT 698 10x3/uL (130-400); RBC 2.84 10x6/uL (4.00-5.40); RDW 16.2 % (11.5-14.5); WBC 26.7 10x3/uL (4.8-10.8)
[2018-07-01] VITALS (22 sets, daily range): BP systolic 83–134; BP diastolic 34–93
[2018-07-01 05:20] LABS: CALC OSMOLALITY 277 mosm/kg (275-300); CALCIUM 7.8 mg/dL (8.5-10.1); CARBON DIOXIDE 25.4 mmol/L (21.0-32.0); CHLORIDE - SERUM 106 mmol/L (98-107); CREATININE - SERUM 0.4 mg/dL (0.6-1.3); GLUCOSE 85 mg/dL (74-106); MAGNESIUM - SERUM 1.7 mg/dL (1.8-2.4); PHOSPHOROUS 4.4 mg/dL (2.5-4.9); SODIUM 140 mmol/L (136-145); UREA NITROGEN 13 mg/dL (7-18); eGFR NON AFRICAN AMERICAN > 90 mL/min (90-120)
[2018-07-02] VITALS (23 sets, daily range): BP systolic 87–185; BP diastolic 47–87
[2018-07-02 05:10] LABS: CALC OSMOLALITY 280 mosm/kg (275-300); CALCIUM 8.3 mg/dL (8.5-10.1); CARBON DIOXIDE 27.4 mmol/L (21.0-32.0); CHLORIDE - SERUM 106 mmol/L (98-107); CREATININE - SERUM 0.4 mg/dL (0.6-1.3); GLUCOSE 104 mg/dL (74-106); MAGNESIUM - SERUM 1.9 mg/dL (1.8-2.4); PHOSPHOROUS 4.2 mg/dL (2.5-4.9); POTASSIUM - SERUM 4.3 mmol/L (3.5-5.1); SODIUM 141 mmol/L (136-145); UREA NITROGEN 13 mg/dL (7-18); eGFR NON AFRICAN AMERICAN > 90 mL/min (90-120)
[2018-07-03] VITALS (24 sets, daily range): BP systolic 83–115; BP diastolic 46–66
[2018-07-03 06:05] LABS: CALC OSMOLALITY 278 mosm/kg (275-300); CALCIUM 8.3 mg/dL (8.5-10.1); CARBON DIOXIDE 26.6 mmol/L (21.0-32.0); CHLORIDE - SERUM 105 mmol/L (98-107); CREATININE - SERUM 0.4 mg/dL (0.6-1.3); GLUCOSE 98 mg/dL (74-106); MAGNESIUM - SERUM 1.8 mg/dL (1.8-2.4); PHOSPHOROUS 4.1 mg/dL (2.5-4.9); POTASSIUM - SERUM 3.9 mmol/L (3.5-5.1); SODIUM 139 mmol/L (136-145); UREA NITROGEN 14 mg/dL (7-18); eGFR NON AFRICAN AMERICAN > 90 mL/min (90-120)
[2018-07-03 07:11] LABS: BASOPHILS 0.2 % (0-2); EOSINOPHILS 4.7 % (0-7); HEMATOCRIT 25.4 % (36.0-48.0); HEMOGLOBIN 7.9 g/dL (12-16); IMMATURE GRANULOCYTES 2.5 % (0-5); LYMPHOCYTES 6.8 % (15-50); MCH 28.9 pg (26.0-34.0); MCHC 31.1 g/dL (31.0-37.0); MEAN PLATELET VOLUME 10.4 fL (7.4-10.4); MONOCYTES 22.1 % (2-11); NEUTROPHILS 63.7 % (40-80); PLATELET COUNT 555 10x3/uL (130-400); RBC 2.73 10x6/uL (4.00-5.40); RDW 16.4 % (11.5-14.5)
[2018-07-04] VITALS (24 sets, daily range): BP systolic 85–150; BP diastolic 5–78
[2018-07-04 06:37] LABS: CALC OSMOLALITY 272 mosm/kg (275-300); CALCIUM 8.3 mg/dL (8.5-10.1); CARBON DIOXIDE 24.9 mmol/L (21.0-32.0); CHLORIDE - SERUM 102 mmol/L (98-107); CREATININE - SERUM 0.3 mg/dL (0.6-1.3); GLUCOSE 135 mg/dL (74-106); MAGNESIUM - SERUM 1.5 mg/dL (1.8-2.4); PHOSPHOROUS 3.2 mg/dL (2.5-4.9); POTASSIUM - SERUM 3.5 mmol/L (3.5-5.1); SODIUM 136 mmol/L (136-145); eGFR NON AFRICAN AMERICAN > 90 mL/min (90-120)
[2018-07-04 06:43] LABS: UREA NITROGEN 9 mg/dL (7-18)
[2018-07-04 06:44] LABS: BASOPHILS 0.1 % (0-2); HEMATOCRIT 27.7 % (36.0-48.0); HEMOGLOBIN 8.6 g/dL (12-16); IMMATURE GRANULOCYTES 1.6 % (0-5); LYMPHOCYTES 5.9 % (15-50); MCH 29.1 pg (26.0-34.0); MCV 93.6 fL (80.0-100.0); MEAN PLATELET VOLUME 10.9 fL (7.4-10.4); MONOCYTES 4.4 % (2-11); PLATELET COUNT 584 10x3/uL (130-400); RBC 2.96 10x6/uL (4.00-5.40); RDW 16.4 % (11.5-14.5); WBC 33.5 10x3/uL (4.8-10.8)
[2018-07-05] VITALS (23 sets, daily range): BP systolic 75–166; BP diastolic 49–96
[2018-07-05 06:28] LABS: HEMATOCRIT 24.4 % (36.0-48.0); HEMOGLOBIN 7.8 g/dL (12-16); MCH 29.7 pg (26.0-34.0); MCV 92.8 fL (80.0-100.0); MEAN PLATELET VOLUME 10.1 fL (7.4-10.4); PLATELET COUNT 555 10x3/uL (130-400); RBC 2.63 10x6/uL (4.00-5.40)
[2018-07-05 06:30] LABS: APTT 44.1 SECONDS (22.8-39.4); INR 1.43 (0.85-1.17)
[2018-07-05 06:37] LABS: ALBUMIN 2.8 g/dL (3.4-5.0); ALKALINE PHOSPHATASE 86 U/L (46-116); ALT (SGPT) 9 U/L (10-68); BILIRUBIN - TOTAL 1.69 mg/dL (0.2-1.3); CALCIUM 7.7 mg/dL (8.5-10.1); CARBON DIOXIDE 25.7 mmol/L (21.0-32.0); CHLORIDE - SERUM 105 mmol/L (98-107); GLUCOSE 113 mg/dL (74-106); LDH 275 U/L (81-234); POTASSIUM - SERUM 3.2 mmol/L (3.5-5.1); PROTEIN - SERUM 6.9 g/dL (6.4-8.2); SODIUM 138 mmol/L (136-145)
[2018-07-05 06:39] LABS: CALC OSMOLALITY 276 mosm/kg (275-300); CREATININE - SERUM 0.4 mg/dL (0.6-1.3); UREA NITROGEN 12 mg/dL (7-18); eGFR NON AFRICAN AMERICAN > 90 mL/min (90-120)
[2018-07-05 06:58] LABS: LYMPHOCYTES 10 % (15-50); MONOCYTES 6 % (2-11); NEUTROPHILS 84 % (40-80); PLATELET ESTIMATE INCREASED
[2018-07-05 07:00] LABS: PLATELET MORPHOLOGY NORMAL PLT MORPH
[2018-07-05 07:01] LABS: BASOPHILS 0 % (0-2)
[2018-07-06] VITALS (23 sets, daily range): BP systolic 66–142; BP diastolic 47–107
[2018-07-06 04:04] LABS: HEMATOCRIT 25.5 % (36.0-48.0); HEMOGLOBIN 7.8 g/dL (12-16); MCH 29.1 pg (26.0-34.0); MCHC 30.6 g/dL (31.0-37.0); MCV 95.1 fL (80.0-100.0); MEAN PLATELET VOLUME 10.5 fL (7.4-10.4); PLATELET COUNT 606 10x3/uL (130-400); RBC 2.68 10x6/uL (4.00-5.40); RDW 16.5 % (11.5-14.5); WBC 34.6 10x3/uL (4.8-10.8)
[2018-07-06 04:25] LABS: ALBUMIN 3.3 g/dL (3.4-5.0); ALKALINE PHOSPHATASE 86 U/L (46-116); BILIRUBIN - TOTAL 2.12 mg/dL (0.2-1.3); CALCIUM 8.4 mg/dL (8.5-10.1); CARBON DIOXIDE 20.7 mmol/L (21.0-32.0); CHLORIDE - SERUM 106 mmol/L (98-107); GLUCOSE 101 mg/dL (74-106); PROTEIN - SERUM 7.5 g/dL (6.4-8.2); SODIUM 139 mmol/L (136-145)
[2018-07-06 04:27] LABS: EOSINOPHILS 1 % (0-7); LYMPHOCYTES 8 % (15-50); MONOCYTES 7 % (2-11); NEUTROPHILS 81 % (40-80); PLATELET ESTIMATE INCREASED
[2018-07-06 04:30] LABS: ALT (SGPT) 14 U/L (10-68); CALC OSMOLALITY 280 mosm/kg (275-300); CREATININE - SERUM 0.8 mg/dL (0.6-1.3); POTASSIUM - SERUM 5.1 mmol/L (3.5-5.1); UREA NITROGEN 22 mg/dL (7-18); eGFR NON AFRICAN AMERICAN 78 mL/min (90-120)
[2018-07-07] VITALS (23 sets, daily range): BP systolic 92–144; BP diastolic 52–683
[2018-07-07 04:08] LABS: HEMATOCRIT 25.3 % (36.0-48.0); LYMPHOCYTES 6.2 % (15-50); MCH 29.2 pg (26.0-34.0); MCHC 31.6 g/dL (31.0-37.0); MCV 92.3 fL (80.0-100.0); MEAN PLATELET VOLUME 10.5 fL (7.4-10.4); NEUTROPHILS 77.8 % (40-80); PLATELET COUNT 621 10x3/uL (130-400); RBC 2.74 10x6/uL (4.00-5.40); RDW 16.6 % (11.5-14.5); WBC 32.1 10x3/uL (4.8-10.8)
[2018-07-07 04:35] LABS: ALBUMIN 3.7 g/dL (3.4-5.0); ANION GAP 15.9 mmol/L (8-16); BILIRUBIN - TOTAL 1.75 mg/dL (0.2-1.3); CALCIUM 8.1 mg/dL (8.5-10.1); MAGNESIUM - SERUM 1.9 mg/dL (1.8-2.4); PHOSPHOROUS 4.1 mg/dL (2.5-4.9); POTASSIUM - SERUM 3.9 mmol/L (3.5-5.1); PROTEIN - SERUM 7.9 g/dL (6.4-8.2)
[2018-07-08] VITALS (24 sets, daily range): BP systolic 76–147; BP diastolic 46–103
[2018-07-08 05:44] LABS: ALBUMIN 3.1 g/dL (3.4-5.0); ANION GAP 13.2 mmol/L (8-16); BILIRUBIN - TOTAL 1.61 mg/dL (0.2-1.3); CALCIUM 7.8 mg/dL (8.5-10.1); CARBON DIOXIDE 24.4 mmol/L (21.0-32.0); POTASSIUM - SERUM 3.6 mmol/L (3.5-5.1)
[2018-07-09] VITALS (24 sets, daily range): BP systolic 76–131; BP diastolic 49–93
[2018-07-09 06:05] LABS: ALBUMIN 3.2 g/dL (3.4-5.0); BILIRUBIN - TOTAL 1.82 mg/dL (0.2-1.3); CALCIUM 8.3 mg/dL (8.5-10.1); CARBON DIOXIDE 25.1 mmol/L (21.0-32.0); CREATININE - SERUM 0.9 mg/dL (0.6-1.3); PROTEIN - SERUM 7.2 g/dL (6.4-8.2)
[2018-07-09 06:13] LABS: ANION GAP 15.4 mmol/L (8-16); POTASSIUM - SERUM 4.5 mmol/L (3.5-5.1)
[2018-07-09 06:17] LABS: BASOPHILS 0.2 % (0-2); EOSINOPHILS 0.9 % (0-7); HEMATOCRIT 25.7 % (36.0-48.0); IMMATURE GRANULOCYTES 3.4 % (0-5); LYMPHOCYTES 9.1 % (15-50); MCH 29.6 pg (26.0-34.0); MCHC 31.1 g/dL (31.0-37.0); MCV 95.2 fL (80.0-100.0); MEAN PLATELET VOLUME 11.5 fL (7.4-10.4); NEUTROPHILS 70.4 % (40-80); PLATELET COUNT 632 10x3/uL (130-400)
[2018-07-09 15:23] LABS: AFB SPECIMEN PROCESSING Concentration (())
[2018-07-10] VITALS (24 sets, daily range): BP systolic 81–142; BP diastolic 54–113
[2018-07-10 05:51] LABS: BASOPHILS 0.1 % (0-2); EOSINOPHILS 0.5 % (0-7); HEMATOCRIT 25.2 % (36.0-48.0); HEMOGLOBIN 7.9 g/dL (12-16); IMMATURE GRANULOCYTES 2.1 % (0-5); LYMPHOCYTES 7.2 % (15-50); MCHC 31.3 g/dL (31.0-37.0); MCV 95.8 fL (80.0-100.0); MEAN PLATELET VOLUME 11.3 fL (7.4-10.4); MONOCYTES 16.7 % (2-11); NEUTROPHILS 73.4 % (40-80); PLATELET COUNT 606 10x3/uL (130-400); RBC 2.63 10x6/uL (4.00-5.40); RDW 19.9 % (11.5-14.5); WBC 24.4 10x3/uL (4.8-10.8)
[2018-07-10 06:27] LABS: ALBUMIN 2.8 g/dL (3.4-5.0); ALKALINE PHOSPHATASE 109 U/L (46-116); BILIRUBIN - TOTAL 1.59 mg/dL (0.2-1.3); CALC OSMOLALITY 283 mosm/kg (275-300); CARBON DIOXIDE 25.1 mmol/L (21.0-32.0); CHLORIDE - SERUM 104 mmol/L (98-107); CREATININE - SERUM 0.8 mg/dL (0.6-1.3); GLUCOSE 149 mg/dL (74-106); PROTEIN - SERUM 6.9 g/dL (6.4-8.2); SODIUM 139 mmol/L (136-145); UREA NITROGEN 22 mg/dL (7-18); VANCOMYCIN - TROUGH 12.2 ug/mL (10.0-20.0); eGFR NON AFRICAN AMERICAN 78 mL/min (90-120)
[2018-07-10 06:28] LABS: ALT (SGPT) 35 U/L (10-68); POTASSIUM - SERUM 3.8 mmol/L (3.5-5.1)
[2018-07-10 12:17] LABS: FUNGUS STAIN Final report (())
[2018-07-11] VITALS (22 sets, daily range): BP systolic 15–140; BP diastolic 52–107
[2018-07-11 05:50] LABS: ALBUMIN 3.1 g/dL (3.4-5.0); ALKALINE PHOSPHATASE 108 U/L (46-116); ALT (SGPT) 30 U/L (10-68); BASOPHILS 0.3 % (0-2); BILIRUBIN - TOTAL 1.52 mg/dL (0.2-1.3); CALC OSMOLALITY 281 mosm/kg (275-300); CARBON DIOXIDE 24.4 mmol/L (21.0-32.0); CHLORIDE - SERUM 103 mmol/L (98-107); CREATININE - SERUM 0.8 mg/dL (0.6-1.3); EOSINOPHILS 0.8 % (0-7); GLUCOSE 150 mg/dL (74-106); HEMATOCRIT 27.2 % (36.0-48.0); HEMOGLOBIN 8.4 g/dL (12-16); LYMPHOCYTES 5.9 % (15-50); MCH 29.6 pg (26.0-34.0); MCHC 30.9 g/dL (31.0-37.0); MCV 95.8 fL (80.0-100.0); MEAN PLATELET VOLUME 11.4 fL (7.4-10.4); MONOCYTES 18.4 % (2-11); NEUTROPHILS 72.6 % (40-80); PLATELET COUNT 590 10x3/uL (130-400); POTASSIUM - SERUM 4.2 mmol/L (3.5-5.1); PROTEIN - SERUM 7.6 g/dL (6.4-8.2); RBC 2.84 10x6/uL (4.00-5.40); RDW 19.6 % (11.5-14.5); SODIUM 138 mmol/L (136-145); UREA NITROGEN 20 mg/dL (7-18); WBC 26.2 10x3/uL (4.8-10.8); eGFR NON AFRICAN AMERICAN 78 mL/min (90-120)
[2018-07-12] VITALS (18 sets, daily range): BP systolic 95–148; BP diastolic 64–91
[2018-07-12 05:07] LABS: BASOPHILS 0.2 % (0-2); EOSINOPHILS 2.4 % (0-7); HEMATOCRIT 29.4 % (36.0-48.0); HEMOGLOBIN 8.7 g/dL (12-16); IMMATURE GRANULOCYTES 1.8 % (0-5); LYMPHOCYTES 9.2 % (15-50); MCH 29.5 pg (26.0-34.0); MCHC 29.6 g/dL (31.0-37.0); MCV 99.7 fL (80.0-100.0); MEAN PLATELET VOLUME 11.2 fL (7.4-10.4); MONOCYTES 21.8 % (2-11); NEUTROPHILS 64.6 % (40-80); PLATELET COUNT 562 10x3/uL (130-400); RBC 2.95 10x6/uL (4.00-5.40); RDW 21.7 % (11.5-14.5); WBC 21.6 10x3/uL (4.8-10.8)
[2018-07-12 05:16] LABS: ANION GAP 11.6 mmol/L (8-16); BILIRUBIN - TOTAL 1.54 mg/dL (0.2-1.3); CARBON DIOXIDE 26.7 mmol/L (21.0-32.0); CREATININE - SERUM 0.9 mg/dL (0.6-1.3); POTASSIUM - SERUM 4.3 mmol/L (3.5-5.1); PROTEIN - SERUM 7.6 g/dL (6.4-8.2)
[2018-07-13] VITALS (24 sets, daily range): BP systolic 88–159; BP diastolic 53–102
[2018-07-13 05:18] LABS: BASOPHILS 0.2 % (0-2); EOSINOPHILS 2.7 % (0-7); HEMATOCRIT 27.3 % (36.0-48.0); HEMOGLOBIN 8.4 g/dL (12-16); MCH 30.5 pg (26.0-34.0); MCHC 30.8 g/dL (31.0-37.0); MCV 99.3 fL (80.0-100.0); MEAN PLATELET VOLUME 11.2 fL (7.4-10.4); MONOCYTES 10.5 % (2-11); NEUTROPHILS 68.6 % (40-80); PLATELET COUNT 512 10x3/uL (130-400); RBC 2.75 10x6/uL (4.00-5.40); RDW 21.6 % (11.5-14.5); WBC 18.4 10x3/uL (4.8-10.8)
[2018-07-13 05:37] LABS: ALBUMIN 2.7 g/dL (3.4-5.0); ALKALINE PHOSPHATASE 110 U/L (46-116); ALT (SGPT) 19 U/L (10-68); BILIRUBIN - TOTAL 1.25 mg/dL (0.2-1.3); CALC OSMOLALITY 282 mosm/kg (275-300); CALCIUM 8.1 mg/dL (8.5-10.1); CARBON DIOXIDE 26.7 mmol/L (21.0-32.0); CHLORIDE - SERUM 105 mmol/L (98-107); CREATININE - SERUM 0.8 mg/dL (0.6-1.3); GLUCOSE 126 mg/dL (74-106); SODIUM 139 mmol/L (136-145); UREA NITROGEN 20 mg/dL (7-18); eGFR NON AFRICAN AMERICAN 78 mL/min (90-120)
[2018-07-13 05:39] LABS: POTASSIUM - SERUM 3.5 mmol/L (3.5-5.1)
[2018-07-14] VITALS (24 sets, daily range): BP systolic 81–133; BP diastolic 52–83
[2018-07-14 04:55] LABS: BASOPHILS 0.1 % (0-2); EOSINOPHILS 2.5 % (0-7); HEMATOCRIT 24.9 % (36.0-48.0); IMMATURE GRANULOCYTES 0.7 % (0-5); MCHC 30.1 g/dL (31.0-37.0); MCV 99.6 fL (80.0-100.0); MEAN PLATELET VOLUME 11.4 fL (7.4-10.4); MONOCYTES 12.1 % (2-11); NEUTROPHILS 73.6 % (40-80); PLATELET COUNT 469 10x3/uL (130-400); RDW 21.7 % (11.5-14.5); WBC 17.5 10x3/uL (4.8-10.8)
[2018-07-14 05:06] LABS: HEMOGLOBIN 7.6 g/dL (12-16)
[2018-07-14 05:08] LABS: CALC OSMOLALITY 280 mosm/kg (275-300); CALCIUM 7.6 mg/dL (8.5-10.1); CARBON DIOXIDE 25.7 mmol/L (21.0-32.0); CHLORIDE - SERUM 107 mmol/L (98-107); CREATININE - SERUM 0.8 mg/dL (0.6-1.3); GLUCOSE 103 mg/dL (74-106); POTASSIUM - SERUM 3.1 mmol/L (3.5-5.1); SODIUM 140 mmol/L (136-145); UREA NITROGEN 19 mg/dL (7-18); eGFR NON AFRICAN AMERICAN 78 mL/min (90-120)
[2018-07-15] VITALS (25 sets, daily range): BP systolic 86–141; BP diastolic 48–93
[2018-07-15 04:52] LABS: BASOPHILS 0.1 % (0-2); EOSINOPHILS 2.1 % (0-7); HEMATOCRIT 24.5 % (36.0-48.0); IMMATURE GRANULOCYTES 0.4 % (0-5); LYMPHOCYTES 13.1 % (15-50); MCHC 30.2 g/dL (31.0-37.0); MCV 99.2 fL (80.0-100.0); MEAN PLATELET VOLUME 11.1 fL (7.4-10.4); MONOCYTES 10.8 % (2-11); NEUTROPHILS 73.5 % (40-80); PLATELET COUNT 471 10x3/uL (130-400); RBC 2.47 10x6/uL (4.00-5.40); WBC 17.9 10x3/uL (4.8-10.8)
[2018-07-15 04:55] LABS: HEMOGLOBIN 7.4 g/dL (12-16)
[2018-07-15 05:14] LABS: CALC OSMOLALITY 280 mosm/kg (275-300); CALCIUM 7.6 mg/dL (8.5-10.1); CARBON DIOXIDE 29.8 mmol/L (21.0-32.0); CHLORIDE - SERUM 105 mmol/L (98-107); CREATININE - SERUM 0.8 mg/dL (0.6-1.3); GLUCOSE 102 mg/dL (74-106); POTASSIUM - SERUM 3.4 mmol/L (3.5-5.1); SODIUM 140 mmol/L (136-145); UREA NITROGEN 19 mg/dL (7-18); eGFR NON AFRICAN AMERICAN 78 mL/min (90-120)
[2018-07-16] VITALS (24 sets, daily range): BP systolic 103–152; BP diastolic 55–99
[2018-07-16 06:15] LABS: BASOPHILS 0.1 % (0-2); EOSINOPHILS 1.9 % (0-7); HEMATOCRIT 24.6 % (36.0-48.0); IMMATURE GRANULOCYTES 0.4 % (0-5); MCH 30.3 pg (26.0-34.0); MCHC 30.1 g/dL (31.0-37.0); MCV 100.8 fL (80.0-100.0); MEAN PLATELET VOLUME 11.4 fL (7.4-10.4); MONOCYTES 11.2 % (2-11); NEUTROPHILS 75.4 % (40-80); PLATELET COUNT 452 10x3/uL (130-400); RBC 2.44 10x6/uL (4.00-5.40); RDW 22.1 % (11.5-14.5); WBC 19.3 10x3/uL (4.8-10.8)
[2018-07-16 06:19] LABS: HEMOGLOBIN 7.4 g/dL (12-16)
[2018-07-16 06:37] LABS: ANION GAP 14.2 mmol/L (8-16); CALCIUM 7.8 mg/dL (8.5-10.1); CARBON DIOXIDE 25.4 mmol/L (21.0-32.0); CREATININE - SERUM 0.9 mg/dL (0.6-1.3); MAGNESIUM - SERUM 1.5 mg/dL (1.8-2.4); POTASSIUM - SERUM 3.6 mmol/L (3.5-5.1)
[2018-07-17] VITALS (24 sets, daily range): BP systolic 90–175; BP diastolic 51–114
[2018-07-17 04:59] LABS: BASOPHILS 0.1 % (0-2); EOSINOPHILS 2.7 % (0-7); IMMATURE GRANULOCYTES 0.5 % (0-5); LYMPHOCYTES 9.7 % (15-50); MCH 30.2 pg (26.0-34.0); MCHC 30.7 g/dL (31.0-37.0); MONOCYTES 17.6 % (2-11); NEUTROPHILS 69.4 % (40-80); PLATELET COUNT 433 10x3/uL (130-400); RDW 20.4 % (11.5-14.5)
[2018-07-17 05:01] LABS: HEMATOCRIT 33.5 % (36.0-48.0); HEMOGLOBIN 10.3 g/dL (12-16); RBC 3.41 10x6/uL (4.00-5.40)
[2018-07-17 05:02] LABS: MCV 98.2 fL (80.0-100.0)
[2018-07-17 05:11] LABS: CALC OSMOLALITY 272 mosm/kg (275-300); CALCIUM 7.9 mg/dL (8.5-10.1); CARBON DIOXIDE 28.1 mmol/L (21.0-32.0); CHLORIDE - SERUM 101 mmol/L (98-107); CREATININE - SERUM 0.8 mg/dL (0.6-1.3); GLUCOSE 113 mg/dL (74-106); POTASSIUM - SERUM 3.7 mmol/L (3.5-5.1); SODIUM 135 mmol/L (136-145); UREA NITROGEN 18 mg/dL (7-18); eGFR NON AFRICAN AMERICAN 78 mL/min (90-120)
[2018-07-17 12:17] LABS: FUNGUS MYCOLOGY CULTURE Final report (())
[2018-07-18] VITALS (24 sets, daily range): BP systolic 96–161; BP diastolic 56–112
[2018-07-18 05:19] LABS: BASOPHILS 0.1 % (0-2); EOSINOPHILS 1.5 % (0-7); HEMATOCRIT 31.1 % (36.0-48.0); HEMOGLOBIN 9.6 g/dL (12-16); IMMATURE GRANULOCYTES 0.4 % (0-5); LYMPHOCYTES 13.7 % (15-50); MCH 30.2 pg (26.0-34.0); MCHC 30.9 g/dL (31.0-37.0); MCV 97.8 fL (80.0-100.0); MEAN PLATELET VOLUME 11.6 fL (7.4-10.4); MONOCYTES 14.4 % (2-11); NEUTROPHILS 69.9 % (40-80); PLATELET COUNT 414 10x3/uL (130-400); RBC 3.18 10x6/uL (4.00-5.40); RDW 19.5 % (11.5-14.5); WBC 19.3 10x3/uL (4.8-10.8)
[2018-07-18 05:23] LABS: CALC OSMOLALITY 273 mosm/kg (275-300); CALCIUM 7.8 mg/dL (8.5-10.1); CHLORIDE - SERUM 102 mmol/L (98-107); CREATININE - SERUM 0.8 mg/dL (0.6-1.3); GLUCOSE 108 mg/dL (74-106); POTASSIUM - SERUM 3.5 mmol/L (3.5-5.1); SODIUM 136 mmol/L (136-145); UREA NITROGEN 15 mg/dL (7-18); eGFR NON AFRICAN AMERICAN 78 mL/min (90-120)
[2018-07-19] VITALS (24 sets, daily range): BP systolic 96–187; BP diastolic 54–125
[2018-07-19 06:58] LABS: BASOPHILS 0.1 % (0-2); EOSINOPHILS 1.3 % (0-7); HEMATOCRIT 29.5 % (36.0-48.0); IMMATURE GRANULOCYTES 0.3 % (0-5); LYMPHOCYTES 10.9 % (15-50); MCH 30.3 pg (26.0-34.0); MCHC 30.5 g/dL (31.0-37.0); MCV 99.3 fL (80.0-100.0); MEAN PLATELET VOLUME 11.8 fL (7.4-10.4); MONOCYTES 15.7 % (2-11); NEUTROPHILS 71.7 % (40-80); PLATELET COUNT 383 10x3/uL (130-400); RBC 2.97 10x6/uL (4.00-5.40); RDW 19.2 % (11.5-14.5); WBC 18.9 10x3/uL (4.8-10.8)
[2018-07-19 07:21] LABS: CALC OSMOLALITY 274 mosm/kg (275-300); CALCIUM 7.6 mg/dL (8.5-10.1); CARBON DIOXIDE 30.1 mmol/L (21.0-32.0); CHLORIDE - SERUM 102 mmol/L (98-107); CREATININE - SERUM 0.8 mg/dL (0.6-1.3); GLUCOSE 117 mg/dL (74-106); POTASSIUM - SERUM 3.6 mmol/L (3.5-5.1); SODIUM 136 mmol/L (136-145); UREA NITROGEN 17 mg/dL (7-18); eGFR NON AFRICAN AMERICAN 78 mL/min (90-120)
[2018-07-20] VITALS (24 sets, daily range): BP systolic 97–145; BP diastolic 50–93
[2018-07-20 05:53] LABS: BASOPHILS 0.1 % (0-2); HEMOGLOBIN 9.1 g/dL (12-16); IMMATURE GRANULOCYTES 0.4 % (0-5); LYMPHOCYTES 16.3 % (15-50); MCH 30.3 pg (26.0-34.0); MCHC 30.3 g/dL (31.0-37.0); MEAN PLATELET VOLUME 11.5 fL (7.4-10.4); MONOCYTES 11.8 % (2-11); NEUTROPHILS 69.4 % (40-80); PLATELET COUNT 380 10x3/uL (130-400); RDW 18.6 % (11.5-14.5); WBC 17.3 10x3/uL (4.8-10.8)
[2018-07-20 06:01] LABS: CALC OSMOLALITY 277 mosm/kg (275-300); CALCIUM 7.8 mg/dL (8.5-10.1); CARBON DIOXIDE 32.4 mmol/L (21.0-32.0); CHLORIDE - SERUM 102 mmol/L (98-107); CREATININE - SERUM 0.7 mg/dL (0.6-1.3); GLUCOSE 99 mg/dL (74-106); POTASSIUM - SERUM 3.5 mmol/L (3.5-5.1); SODIUM 138 mmol/L (136-145); UREA NITROGEN 19 mg/dL (7-18); eGFR NON AFRICAN AMERICAN > 90 mL/min (90-120)
[2018-07-20 19:08] LABS: AFB SPECIMEN PROCESSING Concentration (())
[2018-07-21] VITALS (24 sets, daily range): BP systolic 95–165; BP diastolic 61–102
[2018-07-21 06:27] LABS: BASOPHILS 0.2 % (0-2); EOSINOPHILS 1.9 % (0-7); HEMATOCRIT 30.5 % (36.0-48.0); HEMOGLOBIN 9.5 g/dL (12-16); IMMATURE GRANULOCYTES 0.3 % (0-5); LYMPHOCYTES 12.6 % (15-50); MCH 30.8 pg (26.0-34.0); MCHC 31.1 g/dL (31.0-37.0); MONOCYTES 17.5 % (2-11); NEUTROPHILS 67.5 % (40-80); PLATELET COUNT 391 10x3/uL (130-400); RBC 3.08 10x6/uL (4.00-5.40); RDW 18.6 % (11.5-14.5); WBC 16.1 10x3/uL (4.8-10.8)
[2018-07-21 07:07] LABS: CALC OSMOLALITY 278 mosm/kg (275-300); CALCIUM 7.6 mg/dL (8.5-10.1); CARBON DIOXIDE 29.7 mmol/L (21.0-32.0); CHLORIDE - SERUM 101 mmol/L (98-107); CREATININE - SERUM 0.7 mg/dL (0.6-1.3); GLUCOSE 90 mg/dL (74-106); POTASSIUM - SERUM 3.2 mmol/L (3.5-5.1); SODIUM 139 mmol/L (136-145); UREA NITROGEN 15 mg/dL (7-18); eGFR NON AFRICAN AMERICAN > 90 mL/min (90-120)
[2018-07-22] VITALS (24 sets, daily range): BP systolic 99–156; BP diastolic 54–99
[2018-07-22 05:22] LABS: BASOPHILS 0.1 % (0-2); EOSINOPHILS 2.3 % (0-7); HEMATOCRIT 28.2 % (36.0-48.0); HEMOGLOBIN 8.7 g/dL (12-16); IMMATURE GRANULOCYTES 0.3 % (0-5); LYMPHOCYTES 12.9 % (15-50); MCH 30.5 pg (26.0-34.0); MCHC 30.9 g/dL (31.0-37.0); MCV 98.9 fL (80.0-100.0); MEAN PLATELET VOLUME 11.3 fL (7.4-10.4); MONOCYTES 13.2 % (2-11); NEUTROPHILS 71.2 % (40-80); PLATELET COUNT 324 10x3/uL (130-400); RBC 2.85 10x6/uL (4.00-5.40); RDW 18.1 % (11.5-14.5); WBC 16.5 10x3/uL (4.8-10.8)
[2018-07-22 05:55] LABS: ALBUMIN 1.8 g/dL (3.4-5.0); ALKALINE PHOSPHATASE 102 U/L (46-116); ALT (SGPT) 7 U/L (10-68); BILIRUBIN - TOTAL 0.87 mg/dL (0.2-1.3); CALC OSMOLALITY 276 mosm/kg (275-300); CALCIUM 7.4 mg/dL (8.5-10.1); CARBON DIOXIDE 31.6 mmol/L (21.0-32.0); CHLORIDE - SERUM 102 mmol/L (98-107); CREATININE - SERUM 0.7 mg/dL (0.6-1.3); GLUCOSE 107 mg/dL (74-106); MAGNESIUM - SERUM 1.3 mg/dL (1.8-2.4); PHOSPHOROUS 3.4 mg/dL (2.5-4.9); PROTEIN - SERUM 6.7 g/dL (6.4-8.2); SODIUM 138 mmol/L (136-145); UREA NITROGEN 14 mg/dL (7-18); eGFR NON AFRICAN AMERICAN > 90 mL/min (90-120)
[2018-07-22 05:56] LABS: POTASSIUM - SERUM 3.5 mmol/L (3.5-5.1)
[2018-07-22 13:13] LABS: FUNGUS STAIN Final report (())
[2018-07-23] VITALS (24 sets, daily range): BP systolic 92–168; BP diastolic 45–95
[2018-07-23 04:39] LABS: CALC OSMOLALITY 274 mosm/kg (275-300); CALCIUM 7.8 mg/dL (8.5-10.1); CARBON DIOXIDE 33.2 mmol/L (21.0-32.0); CHLORIDE - SERUM 100 mmol/L (98-107); CREATININE - SERUM 0.6 mg/dL (0.6-1.3); GLUCOSE 118 mg/dL (74-106); POTASSIUM - SERUM 3.4 mmol/L (3.5-5.1); SODIUM 137 mmol/L (136-145); UREA NITROGEN 13 mg/dL (7-18); eGFR NON AFRICAN AMERICAN > 90 mL/min (90-120)
[2018-07-23 04:49] LABS: HEMATOCRIT 31.2 % (36.0-48.0); HEMOGLOBIN 9.9 g/dL (12-16); MCH 31.4 pg (26.0-34.0); MCHC 31.7 g/dL (31.0-37.0); NEUTROPHILS 75.9 % (40-80); PLATELET COUNT 279 10x3/uL (130-400); RBC 3.15 10x6/uL (4.00-5.40); RDW 18.3 % (11.5-14.5)
[2018-07-24] VITALS (24 sets, daily range): BP systolic 90–167; BP diastolic 47–98
[2018-07-24 05:01] LABS: CALC OSMOLALITY 274 mosm/kg (275-300); CALCIUM 7.4 mg/dL (8.5-10.1); CARBON DIOXIDE 32.6 mmol/L (21.0-32.0); CHLORIDE - SERUM 101 mmol/L (98-107); CREATININE - SERUM 0.6 mg/dL (0.6-1.3); GLUCOSE 115 mg/dL (74-106); POTASSIUM - SERUM 3.4 mmol/L (3.5-5.1); SODIUM 137 mmol/L (136-145); UREA NITROGEN 13 mg/dL (7-18); eGFR NON AFRICAN AMERICAN > 90 mL/min (90-120)
[2018-07-25] VITALS (23 sets, daily range): BP systolic 91–210; BP diastolic 54–122
[2018-07-25 05:29] LABS: CALC OSMOLALITY 278 mosm/kg (275-300); CALCIUM 7.5 mg/dL (8.5-10.1); CHLORIDE - SERUM 102 mmol/L (98-107); CREATININE - SERUM 0.6 mg/dL (0.6-1.3); GLUCOSE 135 mg/dL (74-106); POTASSIUM - SERUM 3.7 mmol/L (3.5-5.1); SODIUM 139 mmol/L (136-145); UREA NITROGEN 11 mg/dL (7-18); eGFR NON AFRICAN AMERICAN > 90 mL/min (90-120)
[2018-07-25 06:13] LABS: HEMATOCRIT 32.1 % (36.0-48.0); HEMOGLOBIN 9.8 g/dL (12-16); MCH 30.3 pg (26.0-34.0); MCHC 30.5 g/dL (31.0-37.0); MCV 99.4 fL (80.0-100.0); MEAN PLATELET VOLUME 12.1 fL (7.4-10.4); PLATELET COUNT 408 10x3/uL (130-400); RBC 3.23 10x6/uL (4.00-5.40); RDW 17.7 % (11.5-14.5); WBC 22.4 10x3/uL (4.8-10.8)
[2018-07-25 07:43] LABS: ANISOCYTOSIS OCC; LYMPHOCYTES 5 % (15-50); MONOCYTES 9 % (2-11); NEUTROPHILS 81 % (40-80); PLATELET ESTIMATE INCREASED
[2018-07-26] VITALS (24 sets, daily range): BP systolic 94–194; BP diastolic 61–120
[2018-07-26 06:25] LABS: CALC OSMOLALITY 271 mosm/kg (275-300); CALCIUM 7.7 mg/dL (8.5-10.1); CHLORIDE - SERUM 100 mmol/L (98-107); CREATININE - SERUM 0.7 mg/dL (0.6-1.3); GLUCOSE 141 mg/dL (74-106); POTASSIUM - SERUM 3.9 mmol/L (3.5-5.1); SODIUM 135 mmol/L (136-145); UREA NITROGEN 12 mg/dL (7-18); eGFR NON AFRICAN AMERICAN > 90 mL/min (90-120)
[2018-07-26 06:28] LABS: BASOPHILS 0.2 % (0-2); EOSINOPHILS 0.5 % (0-7); HEMATOCRIT 34.2 % (36.0-48.0); HEMOGLOBIN 10.3 g/dL (12-16); IMMATURE GRANULOCYTES 0.4 % (0-5); LYMPHOCYTES 8.7 % (15-50); MCH 30.1 pg (26.0-34.0); MCHC 30.1 g/dL (31.0-37.0); MEAN PLATELET VOLUME 11.9 fL (7.4-10.4); MONOCYTES 15.6 % (2-11); NEUTROPHILS 74.6 % (40-80); PLATELET COUNT 429 10x3/uL (130-400); RBC 3.42 10x6/uL (4.00-5.40); RDW 17.3 % (11.5-14.5); WBC 20.6 10x3/uL (4.8-10.8)
[2018-07-27] VITALS (24 sets, daily range): BP systolic 95–217; BP diastolic 52–114
[2018-07-27 04:34] LABS: BASOPHILS 0.1 % (0-2); EOSINOPHILS 0 % (0-7); HEMATOCRIT 30.1 % (36.0-48.0); HEMOGLOBIN 9.1 g/dL (12-16); IMMATURE GRANULOCYTES 0.6 % (0-5); LYMPHOCYTES 6.8 % (15-50); MCH 30.2 pg (26.0-34.0); MCHC 30.2 g/dL (31.0-37.0); MEAN PLATELET VOLUME 11.5 fL (7.4-10.4); MONOCYTES 10.3 % (2-11); NEUTROPHILS 82.2 % (40-80); PLATELET COUNT 415 10x3/uL (130-400); RBC 3.01 10x6/uL (4.00-5.40); RDW 16.8 % (11.5-14.5); WBC 19.9 10x3/uL (4.8-10.8)
[2018-07-27 05:05] LABS: CALC OSMOLALITY 268 mosm/kg (275-300); CALCIUM 7.4 mg/dL (8.5-10.1); CHLORIDE - SERUM 98 mmol/L (98-107); GLUCOSE 146 mg/dL (74-106); POTASSIUM - SERUM 3.6 mmol/L (3.5-5.1); SODIUM 133 mmol/L (136-145); UREA NITROGEN 12 mg/dL (7-18)
[2018-07-27 05:06] LABS: CREATININE - SERUM 0.5 mg/dL (0.6-1.3); eGFR NON AFRICAN AMERICAN > 90 mL/min (90-120)
[2018-07-28] VITALS (23 sets, daily range): BP systolic 90–183; BP diastolic 46–126
[2018-07-28 04:51] LABS: BASOPHILS 0.1 % (0-2); EOSINOPHILS 0.1 % (0-7); HEMATOCRIT 30.9 % (36.0-48.0); HEMOGLOBIN 9.2 g/dL (12-16); IMMATURE GRANULOCYTES 0.4 % (0-5); LYMPHOCYTES 6.3 % (15-50); MCH 29.6 pg (26.0-34.0); MCHC 29.8 g/dL (31.0-37.0); MCV 99.4 fL (80.0-100.0); MEAN PLATELET VOLUME 11.5 fL (7.4-10.4); MONOCYTES 8.4 % (2-11); NEUTROPHILS 84.7 % (40-80); PLATELET COUNT 459 10x3/uL (130-400); RBC 3.11 10x6/uL (4.00-5.40); RDW 16.7 % (11.5-14.5); WBC 24.3 10x3/uL (4.8-10.8)
[2018-07-28 05:05] LABS: CALC OSMOLALITY 267 mosm/kg (275-300); CALCIUM 7.7 mg/dL (8.5-10.1); CARBON DIOXIDE 35.5 mmol/L (21.0-32.0); CHLORIDE - SERUM 99 mmol/L (98-107); CREATININE - SERUM 0.6 mg/dL (0.6-1.3); GLUCOSE 131 mg/dL (74-106); POTASSIUM - SERUM 3.8 mmol/L (3.5-5.1); SODIUM 133 mmol/L (136-145); UREA NITROGEN 13 mg/dL (7-18); eGFR NON AFRICAN AMERICAN > 90 mL/min (90-120)
[2018-07-29] VITALS (23 sets, daily range): BP systolic 79–142; BP diastolic 42–85
[2018-07-29 06:23] LABS: BASOPHILS 0.1 % (0-2); EOSINOPHILS 0.9 % (0-7); HEMATOCRIT 24.8 % (36.0-48.0); HEMOGLOBIN 7.6 g/dL (12-16); IMMATURE GRANULOCYTES 0.5 % (0-5); LYMPHOCYTES 3.2 % (15-50); MCH 29.9 pg (26.0-34.0); MCHC 30.6 g/dL (31.0-37.0); MCV 97.6 fL (80.0-100.0); MEAN PLATELET VOLUME 11.4 fL (7.4-10.4); MONOCYTES 12.4 % (2-11); NEUTROPHILS 82.9 % (40-80); PLATELET COUNT 444 10x3/uL (130-400); RBC 2.54 10x6/uL (4.00-5.40); WBC 23.9 10x3/uL (4.8-10.8)
[2018-07-29 06:35] LABS: CALC OSMOLALITY 276 mosm/kg (275-300); CARBON DIOXIDE 34.7 mmol/L (21.0-32.0); CHLORIDE - SERUM 102 mmol/L (98-107); CREATININE - SERUM 0.4 mg/dL (0.6-1.3); GLUCOSE 85 mg/dL (74-106); SODIUM 140 mmol/L (136-145); UREA NITROGEN 11 mg/dL (7-18); eGFR NON AFRICAN AMERICAN > 90 mL/min (90-120)
[2018-07-29 06:36] LABS: CALCIUM 6.9 mg/dL (8.5-10.1); POTASSIUM - SERUM 2.8 mmol/L (3.5-5.1)
[2018-07-30] VITALS (24 sets, daily range): BP systolic 91–148; BP diastolic 50–82
[2018-07-30 05:44] LABS: BASOPHILS 0.1 % (0-2); EOSINOPHILS 0.4 % (0-7); HEMOGLOBIN 7.9 g/dL (12-16); IMMATURE GRANULOCYTES 0.5 % (0-5); LYMPHOCYTES 3.8 % (15-50); MCH 29.6 pg (26.0-34.0); MCHC 30.4 g/dL (31.0-37.0); MCV 97.4 fL (80.0-100.0); MEAN PLATELET VOLUME 11.2 fL (7.4-10.4); MONOCYTES 10.6 % (2-11); NEUTROPHILS 84.6 % (40-80); PLATELET COUNT 465 10x3/uL (130-400); RBC 2.67 10x6/uL (4.00-5.40); RDW 17.3 % (11.5-14.5); WBC 22.6 10x3/uL (4.8-10.8)
[2018-07-30 05:59] LABS: CARBON DIOXIDE 34.3 mmol/L (21.0-32.0); CHLORIDE - SERUM 103 mmol/L (98-107); GLUCOSE 99 mg/dL (74-106); MAGNESIUM - SERUM 1.4 mg/dL (1.8-2.4); PHOSPHOROUS 1.8 mg/dL (2.5-4.9); PRO BNP 19009 pg/mL (0-125); SODIUM 142 mmol/L (136-145)
[2018-07-30 06:04] LABS: CALC OSMOLALITY 280 mosm/kg (275-300); CREATININE - SERUM 0.6 mg/dL (0.6-1.3); UREA NITROGEN 8 mg/dL (7-18)
[2018-07-30 06:05] LABS: eGFR NON AFRICAN AMERICAN > 90 mL/min (90-120)
[2018-07-30 07:26] LABS: INR 1.68 (0.85-1.17); PROTIME 19.4 SECONDS (11.6-15.0)
[2018-07-30 21:07] LABS: ACID FAST SMEAR Negative (()); AFB SPECIMEN PROCESSING Concentration (())
[2018-07-31] VITALS (23 sets, daily range): BP systolic 93–141; BP diastolic 56–90
[2018-07-31 05:06] LABS: BASOPHILS 0 % (0-2); EOSINOPHILS 0 % (0-7); HEMATOCRIT 26.9 % (36.0-48.0); HEMOGLOBIN 8.2 g/dL (12-16); IMMATURE GRANULOCYTES 0.5 % (0-5); LYMPHOCYTES 2.9 % (15-50); MCH 29.7 pg (26.0-34.0); MCHC 30.5 g/dL (31.0-37.0); MCV 97.5 fL (80.0-100.0); MONOCYTES 4.7 % (2-11); NEUTROPHILS 91.9 % (40-80); PLATELET COUNT 502 10x3/uL (130-400); RBC 2.76 10x6/uL (4.00-5.40); RDW 17.7 % (11.5-14.5); WBC 23.7 10x3/uL (4.8-10.8)
[2018-07-31 05:19] LABS: CALCIUM 7.9 mg/dL (8.5-10.1); CARBON DIOXIDE 34.3 mmol/L (21.0-32.0); CHLORIDE - SERUM 106 mmol/L (98-107); CREATININE - SERUM 0.5 mg/dL (0.6-1.3); MAGNESIUM - SERUM 1.6 mg/dL (1.8-2.4); PHOSPHOROUS 1.9 mg/dL (2.5-4.9); SODIUM 143 mmol/L (136-145); eGFR NON AFRICAN AMERICAN > 90 mL/min (90-120)
[2018-07-31 05:49] LABS: CALC OSMOLALITY 289 mosm/kg (275-300); GLUCOSE 192 mg/dL (74-106); UREA NITROGEN 13 mg/dL (7-18)
[2018-07-31 05:53] LABS: POTASSIUM - SERUM 2.8 mmol/L (3.5-5.1)
[2018-07-31 13:17] LABS: FUNGUS STAIN Final report (())
[2018-08-01] VITALS (24 sets, daily range): BP systolic 105–154; BP diastolic 68–100
[2018-08-01 06:19] LABS: CALC OSMOLALITY 291 mosm/kg (275-300); CALCIUM 7.7 mg/dL (8.5-10.1); CARBON DIOXIDE 32.7 mmol/L (21.0-32.0); CHLORIDE - SERUM 104 mmol/L (98-107); CREATININE - SERUM 0.5 mg/dL (0.6-1.3); GLUCOSE 152 mg/dL (74-106); MAGNESIUM - SERUM 1.5 mg/dL (1.8-2.4); PHOSPHOROUS 2.9 mg/dL (2.5-4.9); SODIUM 144 mmol/L (136-145); UREA NITROGEN 18 mg/dL (7-18); eGFR NON AFRICAN AMERICAN > 90 mL/min (90-120)
[2018-08-01 06:46] LABS: BASOPHILS 0 % (0-2); EOSINOPHILS 0 % (0-7); HEMATOCRIT 29.1 % (36.0-48.0); HEMOGLOBIN 8.9 g/dL (12-16); IMMATURE GRANULOCYTES 0.6 % (0-5); LYMPHOCYTES 2.4 % (15-50); MCH 29.8 pg (26.0-34.0); MCHC 30.6 g/dL (31.0-37.0); MCV 97.3 fL (80.0-100.0); MEAN PLATELET VOLUME 11.4 fL (7.4-10.4); MONOCYTES 9.5 % (2-11); NEUTROPHILS 87.5 % (40-80); PLATELET COUNT 582 10x3/uL (130-400); RBC 2.99 10x6/uL (4.00-5.40); RDW 17.6 % (11.5-14.5); WBC 25.4 10x3/uL (4.8-10.8)
[2018-08-02] VITALS (24 sets, daily range): BP systolic 123–170; BP diastolic 76–109
[2018-08-02 06:19] LABS: BASOPHILS 0 % (0-2); EOSINOPHILS 0 % (0-7); HEMATOCRIT 30.5 % (36.0-48.0); HEMOGLOBIN 9.3 g/dL (12-16); IMMATURE GRANULOCYTES 1.4 % (0-5); LYMPHOCYTES 2.5 % (15-50); MCH 29.8 pg (26.0-34.0); MCHC 30.5 g/dL (31.0-37.0); MCV 97.8 fL (80.0-100.0); MONOCYTES 6.9 % (2-11); NEUTROPHILS 89.2 % (40-80); PLATELET COUNT 610 10x3/uL (130-400); RBC 3.12 10x6/uL (4.00-5.40); RDW 17.7 % (11.5-14.5)
[2018-08-02 06:34] LABS: CALC OSMOLALITY 288 mosm/kg (275-300); CALCIUM 8.1 mg/dL (8.5-10.1); CARBON DIOXIDE 32.2 mmol/L (21.0-32.0); CHLORIDE - SERUM 105 mmol/L (98-107); CREATININE - SERUM 0.5 mg/dL (0.6-1.3); GLUCOSE 155 mg/dL (74-106); PHOSPHOROUS 3.1 mg/dL (2.5-4.9); POTASSIUM - SERUM 4.1 mmol/L (3.5-5.1); SODIUM 142 mmol/L (136-145); UREA NITROGEN 22 mg/dL (7-18); eGFR NON AFRICAN AMERICAN > 90 mL/min (90-120)
[2018-08-02 06:35] LABS: MAGNESIUM - SERUM 2.1 mg/dL (1.8-2.4)
[2018-08-03] VITALS (23 sets, daily range): BP systolic 113–156; BP diastolic 75–100
[2018-08-03 05:01] LABS: BASOPHILS 0.1 % (0-2); EOSINOPHILS 0 % (0-7); HEMOGLOBIN 9.4 g/dL (12-16); IMMATURE GRANULOCYTES 2.3 % (0-5); MCH 29.6 pg (26.0-34.0); MCHC 30.3 g/dL (31.0-37.0); MCV 97.5 fL (80.0-100.0); MEAN PLATELET VOLUME 11.1 fL (7.4-10.4); MONOCYTES 9.2 % (2-11); NEUTROPHILS 76.4 % (40-80); PLATELET COUNT 637 10x3/uL (130-400); RBC 3.18 10x6/uL (4.00-5.40); RDW 17.3 % (11.5-14.5); WBC 20.5 10x3/uL (4.8-10.8)
[2018-08-03 05:12] LABS: CALC OSMOLALITY 289 mosm/kg (275-300); CARBON DIOXIDE 33.1 mmol/L (21.0-32.0); CHLORIDE - SERUM 106 mmol/L (98-107); CREATININE - SERUM 0.4 mg/dL (0.6-1.3); GLUCOSE 125 mg/dL (74-106); POTASSIUM - SERUM 4.2 mmol/L (3.5-5.1); SODIUM 143 mmol/L (136-145); UREA NITROGEN 25 mg/dL (7-18); eGFR NON AFRICAN AMERICAN > 90 mL/min (90-120)
[2018-08-04] VITALS (24 sets, daily range): BP systolic 129–153; BP diastolic 77–99
[2018-08-04 05:09] LABS: BASOPHILS 0.1 % (0-2); EOSINOPHILS 0 % (0-7); HEMATOCRIT 28.9 % (36.0-48.0); HEMOGLOBIN 8.8 g/dL (12-16); IMMATURE GRANULOCYTES 1.6 % (0-5); LYMPHOCYTES 11.2 % (15-50); MCH 29.5 pg (26.0-34.0); MCHC 30.4 g/dL (31.0-37.0); MONOCYTES 5.1 % (2-11); PLATELET COUNT 630 10x3/uL (130-400); RBC 2.98 10x6/uL (4.00-5.40); RDW 17.5 % (11.5-14.5); WBC 22.7 10x3/uL (4.8-10.8)
[2018-08-04 05:25] LABS: CALC OSMOLALITY 290 mosm/kg (275-300); CARBON DIOXIDE 33.7 mmol/L (21.0-32.0); CHLORIDE - SERUM 106 mmol/L (98-107); CREATININE - SERUM 0.4 mg/dL (0.6-1.3); GLUCOSE 131 mg/dL (74-106); POTASSIUM - SERUM 4.3 mmol/L (3.5-5.1); SODIUM 142 mmol/L (136-145); UREA NITROGEN 29 mg/dL (7-18); eGFR NON AFRICAN AMERICAN > 90 mL/min (90-120)
[2018-08-05] VITALS (21 sets, daily range): BP systolic 121–152; BP diastolic 74–98
[2018-08-05 04:38] LABS: BASOPHILS 0.1 % (0-2); EOSINOPHILS 0 % (0-7); HEMATOCRIT 27.5 % (36.0-48.0); HEMOGLOBIN 8.4 g/dL (12-16); LYMPHOCYTES 7.9 % (15-50); MCHC 30.5 g/dL (31.0-37.0); MCV 98.2 fL (80.0-100.0); MEAN PLATELET VOLUME 10.8 fL (7.4-10.4); MONOCYTES 4.7 % (2-11); NEUTROPHILS 84.3 % (40-80); PLATELET COUNT 660 10x3/uL (130-400); RDW 18.3 % (11.5-14.5); WBC 22.8 10x3/uL (4.8-10.8)
[2018-08-05 04:48] LABS: CALC OSMOLALITY 292 mosm/kg (275-300); CALCIUM 8.2 mg/dL (8.5-10.1); CARBON DIOXIDE 31.7 mmol/L (21.0-32.0); CHLORIDE - SERUM 105 mmol/L (98-107); CREATININE - SERUM 0.4 mg/dL (0.6-1.3); GLUCOSE 160 mg/dL (74-106); POTASSIUM - SERUM 4.3 mmol/L (3.5-5.1); SODIUM 142 mmol/L (136-145); UREA NITROGEN 33 mg/dL (7-18); eGFR NON AFRICAN AMERICAN > 90 mL/min (90-120)
[2018-08-05 07:08] LABS: FUNGUS MYCOLOGY CULTURE Final report (())
[2018-08-05 09:08] LABS: ACID FAST CULTURE Negative (()); ACID FAST SMEAR Negative (())
[2018-08-06] VITALS (24 sets, daily range): BP systolic 126–160; BP diastolic 73–99
[2018-08-06 05:40] LABS: HEMATOCRIT 28.8 % (36.0-48.0); HEMOGLOBIN 8.8 g/dL (12-16); MCH 30.4 pg (26.0-34.0); MCHC 30.6 g/dL (31.0-37.0); MCV 99.7 fL (80.0-100.0); MEAN PLATELET VOLUME 10.9 fL (7.4-10.4); PLATELET COUNT 711 10x3/uL (130-400); RBC 2.89 10x6/uL (4.00-5.40)
[2018-08-06 05:41] LABS: CALC OSMOLALITY 296 mosm/kg (275-300); CALCIUM 8.8 mg/dL (8.5-10.1); CHLORIDE - SERUM 104 mmol/L (98-107); CREATININE - SERUM 0.4 mg/dL (0.6-1.3); GLUCOSE 150 mg/dL (74-106); POTASSIUM - SERUM 4.4 mmol/L (3.5-5.1); SODIUM 144 mmol/L (136-145); UREA NITROGEN 31 mg/dL (7-18); eGFR NON AFRICAN AMERICAN > 90 mL/min (90-120)
[2018-08-06 07:29] LABS: LYMPHOCYTES 8 % (15-50); MONOCYTES 11 % (2-11); NEUTROPHILS 75 % (40-80); PLATELET ESTIMATE INCREASED
[2018-08-06 07:30] LABS: ANISOCYTOSIS OCC; HYPOCHROMASIA 1+; STOMATOCYTES OCC
[2018-08-07] VITALS (24 sets, daily range): BP systolic 133–162; BP diastolic 81–98
[2018-08-07 04:55] LABS: BASOPHILS 0.1 % (0-2); EOSINOPHILS 0 % (0-7); HEMATOCRIT 28.8 % (36.0-48.0); HEMOGLOBIN 8.7 g/dL (12-16); IMMATURE GRANULOCYTES 0.8 % (0-5); LYMPHOCYTES 7.1 % (15-50); MCHC 30.2 g/dL (31.0-37.0); MCV 99.3 fL (80.0-100.0); MEAN PLATELET VOLUME 10.6 fL (7.4-10.4); MONOCYTES 4.9 % (2-11); NEUTROPHILS 87.1 % (40-80); PLATELET COUNT 744 10x3/uL (130-400); RDW 19.2 % (11.5-14.5); WBC 29.1 10x3/uL (4.8-10.8)
[2018-08-07 05:04] LABS: CALC OSMOLALITY 289 mosm/kg (275-300); CHLORIDE - SERUM 103 mmol/L (98-107); CREATININE - SERUM 0.4 mg/dL (0.6-1.3); GLUCOSE 144 mg/dL (74-106); POTASSIUM - SERUM 3.8 mmol/L (3.5-5.1); SODIUM 141 mmol/L (136-145); UREA NITROGEN 29 mg/dL (7-18); eGFR NON AFRICAN AMERICAN > 90 mL/min (90-120)
[2018-08-08] VITALS (24 sets, daily range): BP systolic 124–173; BP diastolic 69–108
[2018-08-08 05:50] LABS: BASOPHILS 0 % (0-2); EOSINOPHILS 0 % (0-7); HEMATOCRIT 28.3 % (36.0-48.0); HEMOGLOBIN 8.7 g/dL (12-16); IMMATURE GRANULOCYTES 0.7 % (0-5); LYMPHOCYTES 5.7 % (15-50); MCH 30.4 pg (26.0-34.0); MCHC 30.7 g/dL (31.0-37.0); MEAN PLATELET VOLUME 10.7 fL (7.4-10.4); MONOCYTES 4.3 % (2-11); NEUTROPHILS 89.3 % (40-80); PLATELET COUNT 782 10x3/uL (130-400); RBC 2.86 10x6/uL (4.00-5.40); RDW 19.5 % (11.5-14.5); WBC 24.7 10x3/uL (4.8-10.8)
[2018-08-08 06:38] LABS: CALC OSMOLALITY 298 mosm/kg (275-300); CALCIUM 9.3 mg/dL (8.5-10.1); CARBON DIOXIDE 28.5 mmol/L (21.0-32.0); CHLORIDE - SERUM 106 mmol/L (98-107); CREATININE - SERUM 0.4 mg/dL (0.6-1.3); GLUCOSE 144 mg/dL (74-106); POTASSIUM - SERUM 3.7 mmol/L (3.5-5.1); SODIUM 145 mmol/L (136-145); UREA NITROGEN 32 mg/dL (7-18); eGFR NON AFRICAN AMERICAN > 90 mL/min (90-120)
[2018-08-09] VITALS (24 sets, daily range): BP systolic 136–181; BP diastolic 83–113
[2018-08-09 05:44] LABS: CALC OSMOLALITY 292 mosm/kg (275-300); CALCIUM 9.1 mg/dL (8.5-10.1); CARBON DIOXIDE 28.7 mmol/L (21.0-32.0); CHLORIDE - SERUM 106 mmol/L (98-107); CREATININE - SERUM 0.4 mg/dL (0.6-1.3); GLUCOSE 133 mg/dL (74-106); MAGNESIUM - SERUM 1.9 mg/dL (1.8-2.4); POTASSIUM - SERUM 3.9 mmol/L (3.5-5.1); SODIUM 143 mmol/L (136-145); UREA NITROGEN 30 mg/dL (7-18); eGFR NON AFRICAN AMERICAN > 90 mL/min (90-120)
[2018-08-09 07:14] LABS: BASOPHILS 0 % (0-2); EOSINOPHILS 0 % (0-7); HEMATOCRIT 26.5 % (36.0-48.0); HEMOGLOBIN 8.1 g/dL (12-16); IMMATURE GRANULOCYTES 0.5 % (0-5); LYMPHOCYTES 6.3 % (15-50); MCH 30.3 pg (26.0-34.0); MCHC 30.6 g/dL (31.0-37.0); MCV 99.3 fL (80.0-100.0); MEAN PLATELET VOLUME 10.7 fL (7.4-10.4); MONOCYTES 3.3 % (2-11); NEUTROPHILS 89.9 % (40-80); PLATELET COUNT 752 10x3/uL (130-400); RBC 2.67 10x6/uL (4.00-5.40); RDW 19.8 % (11.5-14.5); WBC 22.2 10x3/uL (4.8-10.8)
[2018-08-10] VITALS (24 sets, daily range): BP systolic 129–183; BP diastolic 83–112
[2018-08-10 05:23] LABS: BASOPHILS 0 % (0-2); EOSINOPHILS 0 % (0-7); HEMATOCRIT 27.8 % (36.0-48.0); HEMOGLOBIN 8.5 g/dL (12-16); IMMATURE GRANULOCYTES 0.7 % (0-5); LYMPHOCYTES 3.3 % (15-50); MCH 30.2 pg (26.0-34.0); MCHC 30.6 g/dL (31.0-37.0); MCV 98.9 fL (80.0-100.0); MEAN PLATELET VOLUME 10.4 fL (7.4-10.4); MONOCYTES 2.1 % (2-11); NEUTROPHILS 93.9 % (40-80); PLATELET COUNT 730 10x3/uL (130-400); RBC 2.81 10x6/uL (4.00-5.40); RDW 19.1 % (11.5-14.5); WBC 36.2 10x3/uL (4.8-10.8)
[2018-08-10 05:37] LABS: CALC OSMOLALITY 292 mosm/kg (275-300); CALCIUM 9.3 mg/dL (8.5-10.1); CARBON DIOXIDE 30.1 mmol/L (21.0-32.0); CHLORIDE - SERUM 103 mmol/L (98-107); CREATININE - SERUM 0.4 mg/dL (0.6-1.3); GLUCOSE 167 mg/dL (74-106); MAGNESIUM - SERUM 1.8 mg/dL (1.8-2.4); POTASSIUM - SERUM 3.4 mmol/L (3.5-5.1); SODIUM 142 mmol/L (136-145); UREA NITROGEN 30 mg/dL (7-18); eGFR NON AFRICAN AMERICAN > 90 mL/min (90-120)
[2018-08-11] VITALS (24 sets, daily range): BP systolic 104–145; BP diastolic 60–98
[2018-08-11 05:07] LABS: BASOPHILS 0 % (0-2); EOSINOPHILS 0 % (0-7); HEMATOCRIT 27.2 % (36.0-48.0); HEMOGLOBIN 8.3 g/dL (12-16); IMMATURE GRANULOCYTES 0.5 % (0-5); LYMPHOCYTES 5.1 % (15-50); MCH 30.1 pg (26.0-34.0); MCHC 30.5 g/dL (31.0-37.0); MCV 98.6 fL (80.0-100.0); MEAN PLATELET VOLUME 10.5 fL (7.4-10.4); MONOCYTES 2.8 % (2-11); NEUTROPHILS 91.6 % (40-80); PLATELET COUNT 715 10x3/uL (130-400); RBC 2.76 10x6/uL (4.00-5.40); RDW 19.2 % (11.5-14.5); WBC 26.2 10x3/uL (4.8-10.8)
[2018-08-11 05:14] LABS: CALC OSMOLALITY 288 mosm/kg (275-300); CALCIUM 9.2 mg/dL (8.5-10.1); CARBON DIOXIDE 31.2 mmol/L (21.0-32.0); CHLORIDE - SERUM 101 mmol/L (98-107); CREATININE - SERUM 0.3 mg/dL (0.6-1.3); GLUCOSE 162 mg/dL (74-106); MAGNESIUM - SERUM 1.7 mg/dL (1.8-2.4); SODIUM 139 mmol/L (136-145); UREA NITROGEN 32 mg/dL (7-18); eGFR NON AFRICAN AMERICAN > 90 mL/min (90-120)
[2018-08-12] VITALS (24 sets, daily range): BP systolic 104–151; BP diastolic 62–112
[2018-08-12 06:00] LABS: BASOPHILS 0 % (0-2); EOSINOPHILS 0 % (0-7); HEMATOCRIT 27.4 % (36.0-48.0); HEMOGLOBIN 8.4 g/dL (12-16); IMMATURE GRANULOCYTES 0.5 % (0-5); LYMPHOCYTES 9.3 % (15-50); MCH 30.2 pg (26.0-34.0); MCHC 30.7 g/dL (31.0-37.0); MCV 98.6 fL (80.0-100.0); MEAN PLATELET VOLUME 10.2 fL (7.4-10.4); MONOCYTES 5.7 % (2-11); NEUTROPHILS 84.5 % (40-80); PLATELET COUNT 700 10x3/uL (130-400); RBC 2.78 10x6/uL (4.00-5.40); RDW 18.9 % (11.5-14.5); WBC 22.9 10x3/uL (4.8-10.8)
[2018-08-12 06:37] LABS: CALC OSMOLALITY 280 mosm/kg (275-300); CALCIUM 9.4 mg/dL (8.5-10.1); CARBON DIOXIDE 30.6 mmol/L (21.0-32.0); CHLORIDE - SERUM 98 mmol/L (98-107); CREATININE - SERUM 0.3 mg/dL (0.6-1.3); GLUCOSE 130 mg/dL (74-106); POTASSIUM - SERUM 4.2 mmol/L (3.5-5.1); SODIUM 136 mmol/L (136-145); UREA NITROGEN 33 mg/dL (7-18); eGFR NON AFRICAN AMERICAN > 90 mL/min (90-120)
[2018-08-12 14:20] LABS: ACID FAST CULTURE Negative (()); ACID FAST SMEAR Negative (())
[2018-08-13] VITALS (24 sets, daily range): BP systolic 106–146; BP diastolic 51–97
[2018-08-13 03:54] LABS: BASOPHILS 0 % (0-2); EOSINOPHILS 0 % (0-7); HEMATOCRIT 26.9 % (36.0-48.0); HEMOGLOBIN 8.4 g/dL (12-16); IMMATURE GRANULOCYTES 0.5 % (0-5); LYMPHOCYTES 5.2 % (15-50); MCH 30.5 pg (26.0-34.0); MCHC 31.2 g/dL (31.0-37.0); MCV 97.8 fL (80.0-100.0); MEAN PLATELET VOLUME 10.2 fL (7.4-10.4); MONOCYTES 4.1 % (2-11); NEUTROPHILS 90.2 % (40-80); PLATELET COUNT 698 10x3/uL (130-400); RBC 2.75 10x6/uL (4.00-5.40); RDW 18.4 % (11.5-14.5); WBC 20.7 10x3/uL (4.8-10.8)
[2018-08-13 04:05] LABS: ALBUMIN 4.6 g/dL (3.4-5.0); CALC OSMOLALITY 282 mosm/kg (275-300); CALCIUM 9.6 mg/dL (8.5-10.1); CARBON DIOXIDE 32.9 mmol/L (21.0-32.0); CHLORIDE - SERUM 98 mmol/L (98-107); CREATININE - SERUM 0.3 mg/dL (0.6-1.3); GLUCOSE 138 mg/dL (74-106); POTASSIUM - SERUM 4.2 mmol/L (3.5-5.1); SODIUM 136 mmol/L (136-145); UREA NITROGEN 37 mg/dL (7-18); eGFR NON AFRICAN AMERICAN > 90 mL/min (90-120)
[2018-08-14] VITALS (23 sets, daily range): BP systolic 111–154; BP diastolic 59–96
[2018-08-14 04:08] LABS: CALC OSMOLALITY 288 mosm/kg (275-300); CALCIUM 9.2 mg/dL (8.5-10.1); CARBON DIOXIDE 33.7 mmol/L (21.0-32.0); CHLORIDE - SERUM 100 mmol/L (98-107); GLUCOSE 152 mg/dL (74-106); POTASSIUM - SERUM 4.1 mmol/L (3.5-5.1); SODIUM 139 mmol/L (136-145); UREA NITROGEN 34 mg/dL (7-18)
[2018-08-14 04:10] LABS: BASOPHILS 0 % (0-2); EOSINOPHILS 0 % (0-7); HEMATOCRIT 28.4 % (36.0-48.0); HEMOGLOBIN 8.8 g/dL (12-16); IMMATURE GRANULOCYTES 0.5 % (0-5); LYMPHOCYTES 3.8 % (15-50); MCH 30.7 pg (26.0-34.0); MEAN PLATELET VOLUME 10.1 fL (7.4-10.4); NEUTROPHILS 92.7 % (40-80); PLATELET COUNT 669 10x3/uL (130-400); RBC 2.87 10x6/uL (4.00-5.40); RDW 18.8 % (11.5-14.5); WBC 27.4 10x3/uL (4.8-10.8)
[2018-08-14 04:17] LABS: CREATININE - SERUM 0.4 mg/dL (0.6-1.3); eGFR NON AFRICAN AMERICAN > 90 mL/min (90-120)
[2018-08-15] VITALS (25 sets, daily range): BP systolic 105–151; BP diastolic 63–102
[2018-08-15 04:36] LABS: BASOPHILS 0 % (0-2); EOSINOPHILS 0 % (0-7); HEMATOCRIT 30.1 % (36.0-48.0); HEMOGLOBIN 9.4 g/dL (12-16); IMMATURE GRANULOCYTES 0.5 % (0-5); MCH 30.9 pg (26.0-34.0); MCHC 31.2 g/dL (31.0-37.0); MEAN PLATELET VOLUME 10.7 fL (7.4-10.4); MONOCYTES 2.2 % (2-11); NEUTROPHILS 94.3 % (40-80); PLATELET COUNT 682 10x3/uL (130-400); RBC 3.04 10x6/uL (4.00-5.40); RDW 18.7 % (11.5-14.5); WBC 21.9 10x3/uL (4.8-10.8)
[2018-08-15 04:40] LABS: CALC OSMOLALITY 285 mosm/kg (275-300); CALCIUM 9.6 mg/dL (8.5-10.1); CARBON DIOXIDE 34.1 mmol/L (21.0-32.0); CHLORIDE - SERUM 98 mmol/L (98-107); CREATININE - SERUM 0.4 mg/dL (0.6-1.3); GLUCOSE 172 mg/dL (74-106); POTASSIUM - SERUM 3.9 mmol/L (3.5-5.1); SODIUM 137 mmol/L (136-145); UREA NITROGEN 34 mg/dL (7-18); eGFR NON AFRICAN AMERICAN > 90 mL/min (90-120)
[2018-08-15 14:27] LABS: FUNGUS MYCOLOGY CULTURE Final report (())
[2018-08-16] VITALS (24 sets, daily range): BP systolic 100–140; BP diastolic 63–102
[2018-08-16 05:04] LABS: BASOPHILS 0 % (0-2); EOSINOPHILS 0 % (0-7); HEMATOCRIT 28.5 % (36.0-48.0); HEMOGLOBIN 8.8 g/dL (12-16); IMMATURE GRANULOCYTES 0.7 % (0-5); LYMPHOCYTES 1.3 % (15-50); MCH 30.3 pg (26.0-34.0); MCHC 30.9 g/dL (31.0-37.0); MCV 98.3 fL (80.0-100.0); MEAN PLATELET VOLUME 10.1 fL (7.4-10.4); MONOCYTES 2.8 % (2-11); NEUTROPHILS 95.2 % (40-80); PLATELET COUNT 599 10x3/uL (130-400); RDW 18.4 % (11.5-14.5); WBC 22.2 10x3/uL (4.8-10.8)
[2018-08-16 05:24] LABS: CALC OSMOLALITY 277 mosm/kg (275-300); CALCIUM 9.1 mg/dL (8.5-10.1); CHLORIDE - SERUM 98 mmol/L (98-107); CREATININE - SERUM 0.3 mg/dL (0.6-1.3); GLUCOSE 155 mg/dL (74-106); MAGNESIUM - SERUM 1.7 mg/dL (1.8-2.4); POTASSIUM - SERUM 4.4 mmol/L (3.5-5.1); SODIUM 135 mmol/L (136-145); UREA NITROGEN 27 mg/dL (7-18); eGFR NON AFRICAN AMERICAN > 90 mL/min (90-120)
[2018-08-17] VITALS (24 sets, daily range): BP systolic 89–147; BP diastolic 33–94
[2018-08-17 05:27] LABS: BASOPHILS 0 % (0-2); EOSINOPHILS 0 % (0-7); HEMATOCRIT 29.5 % (36.0-48.0); HEMOGLOBIN 9.3 g/dL (12-16); IMMATURE GRANULOCYTES 0.6 % (0-5); LYMPHOCYTES 3.3 % (15-50); MCH 30.8 pg (26.0-34.0); MCHC 31.5 g/dL (31.0-37.0); MCV 97.7 fL (80.0-100.0); MONOCYTES 2.2 % (2-11); NEUTROPHILS 93.9 % (40-80); PLATELET COUNT 575 10x3/uL (130-400); RBC 3.02 10x6/uL (4.00-5.40); RDW 18.2 % (11.5-14.5)
[2018-08-17 05:39] LABS: CALC OSMOLALITY 277 mosm/kg (275-300); CALCIUM 9.2 mg/dL (8.5-10.1); CARBON DIOXIDE 33.6 mmol/L (21.0-32.0); CHLORIDE - SERUM 98 mmol/L (98-107); CREATININE - SERUM 0.3 mg/dL (0.6-1.3); GLUCOSE 137 mg/dL (74-106); POTASSIUM - SERUM 4.4 mmol/L (3.5-5.1); SODIUM 135 mmol/L (136-145); UREA NITROGEN 28 mg/dL (7-18); eGFR NON AFRICAN AMERICAN > 90 mL/min (90-120)
[2018-08-18] VITALS (24 sets, daily range): BP systolic 103–141; BP diastolic 61–93
[2018-08-18 04:03] LABS: CALC OSMOLALITY 279 mosm/kg (275-300); CALCIUM 9.6 mg/dL (8.5-10.1); CARBON DIOXIDE 31.8 mmol/L (21.0-32.0); CHLORIDE - SERUM 99 mmol/L (98-107); CREATININE - SERUM 0.3 mg/dL (0.6-1.3); GLUCOSE 102 mg/dL (74-106); SODIUM 137 mmol/L (136-145); UREA NITROGEN 30 mg/dL (7-18); eGFR NON AFRICAN AMERICAN > 90 mL/min (90-120)
[2018-08-18 04:05] LABS: POTASSIUM - SERUM 3.5 mmol/L (3.5-5.1)
[2018-08-18 04:11] LABS: BASOPHILS 0 % (0-2); EOSINOPHILS 0.5 % (0-7); HEMATOCRIT 31.1 % (36.0-48.0); HEMOGLOBIN 9.9 g/dL (12-16); IMMATURE GRANULOCYTES 0.6 % (0-5); LYMPHOCYTES 11.7 % (15-50); MCH 30.9 pg (26.0-34.0); MCHC 31.8 g/dL (31.0-37.0); MCV 97.2 fL (80.0-100.0); MEAN PLATELET VOLUME 10.2 fL (7.4-10.4); MONOCYTES 5.6 % (2-11); NEUTROPHILS 81.6 % (40-80); PLATELET COUNT 579 10x3/uL (130-400); WBC 25.1 10x3/uL (4.8-10.8)
[2018-08-19] VITALS (24 sets, daily range): BP systolic 90–144; BP diastolic 60–91
[2018-08-19 03:48] LABS: BASOPHILS 0.1 % (0-2); EOSINOPHILS 1.6 % (0-7); HEMATOCRIT 30.6 % (36.0-48.0); HEMOGLOBIN 9.7 g/dL (12-16); IMMATURE GRANULOCYTES 0.6 % (0-5); LYMPHOCYTES 14.4 % (15-50); MCH 30.8 pg (26.0-34.0); MCHC 31.7 g/dL (31.0-37.0); MCV 97.1 fL (80.0-100.0); MONOCYTES 3.5 % (2-11); NEUTROPHILS 79.8 % (40-80); PLATELET COUNT 525 10x3/uL (130-400); RBC 3.15 10x6/uL (4.00-5.40); RDW 18.3 % (11.5-14.5); WBC 19.2 10x3/uL (4.8-10.8)
[2018-08-19 04:01] LABS: CALC OSMOLALITY 278 mosm/kg (275-300); CALCIUM 8.8 mg/dL (8.5-10.1); CHLORIDE - SERUM 97 mmol/L (98-107); CREATININE - SERUM 0.3 mg/dL (0.6-1.3); GLUCOSE 106 mg/dL (74-106); POTASSIUM - SERUM 3.5 mmol/L (3.5-5.1); SODIUM 137 mmol/L (136-145); UREA NITROGEN 27 mg/dL (7-18); eGFR NON AFRICAN AMERICAN > 90 mL/min (90-120)
[2018-08-20] VITALS (13 sets, daily range): BP systolic 101–136; BP diastolic 65–113
[2018-08-20 05:18] LABS: BASOPHILS 0.1 % (0-2); EOSINOPHILS 0.6 % (0-7); HEMATOCRIT 28.2 % (36.0-48.0); HEMOGLOBIN 8.9 g/dL (12-16); IMMATURE GRANULOCYTES 0.9 % (0-5); LYMPHOCYTES 6.6 % (15-50); MCH 30.7 pg (26.0-34.0); MCHC 31.6 g/dL (31.0-37.0); MCV 97.2 fL (80.0-100.0); MEAN PLATELET VOLUME 10.1 fL (7.4-10.4); NEUTROPHILS 87.8 % (40-80); PLATELET COUNT 467 10x3/uL (130-400); RDW 18.3 % (11.5-14.5); WBC 30.7 10x3/uL (4.8-10.8)
[2018-08-20 05:56] LABS: CALC OSMOLALITY 283 mosm/kg (275-300); CALCIUM 8.6 mg/dL (8.5-10.1); CARBON DIOXIDE 30.3 mmol/L (21.0-32.0); CHLORIDE - SERUM 101 mmol/L (98-107); GLUCOSE 121 mg/dL (74-106); POTASSIUM - SERUM 3.4 mmol/L (3.5-5.1); SODIUM 140 mmol/L (136-145); UREA NITROGEN 25 mg/dL (7-18)
[2018-08-20 05:59] LABS: CREATININE - SERUM 0.4 mg/dL (0.6-1.3); eGFR NON AFRICAN AMERICAN > 90 mL/min (90-120)
[2018-08-21 01:39] VITALS: BP 98/50
[2018-08-21 04:28] LABS: BASOPHILS 0.1 % (0-2); EOSINOPHILS 0.5 % (0-7); HEMATOCRIT 28.8 % (36.0-48.0); IMMATURE GRANULOCYTES 0.7 % (0-5); LYMPHOCYTES 4.2 % (15-50); MCH 30.7 pg (26.0-34.0); MCHC 31.3 g/dL (31.0-37.0); MCV 98.3 fL (80.0-100.0); MEAN PLATELET VOLUME 10.5 fL (7.4-10.4); MONOCYTES 12.2 % (2-11); NEUTROPHILS 82.3 % (40-80); PLATELET COUNT 475 10x3/uL (130-400); RBC 2.93 10x6/uL (4.00-5.40); RDW 18.3 % (11.5-14.5)
[2018-08-21 04:49] LABS: CALCIUM 8.8 mg/dL (8.5-10.1); CARBON DIOXIDE 31.4 mmol/L (21.0-32.0); CHLORIDE - SERUM 101 mmol/L (98-107); CREATININE - SERUM 0.4 mg/dL (0.6-1.3); GLUCOSE 97 mg/dL (74-106); POTASSIUM - SERUM 3.2 mmol/L (3.5-5.1); SODIUM 141 mmol/L (136-145); eGFR NON AFRICAN AMERICAN > 90 mL/min (90-120)
[2018-08-21 05:12] LABS: CALC OSMOLALITY 286 mosm/kg (275-300); UREA NITROGEN 28 mg/dL (7-18)
[2018-08-21 05:58] VITALS: BP 102/52
[2018-08-21 09:38] VITALS: BP 129/78
[2018-08-21 13:03] VITALS: BP 113/71
[2018-08-21 17:15] VITALS: BP 108/69
[2018-08-21 21:13] VITALS: BP 108/69
[2018-08-22 01:17] VITALS: BP 114/67
[2018-08-22 04:33] VITALS: BP 135/83
[2018-08-22 04:40] LABS: CALC OSMOLALITY 281 mosm/kg (275-300); CALCIUM 8.8 mg/dL (8.5-10.1); CARBON DIOXIDE 31.6 mmol/L (21.0-32.0); CHLORIDE - SERUM 101 mmol/L (98-107); CREATININE - SERUM 0.4 mg/dL (0.6-1.3); GLUCOSE 84 mg/dL (74-106); POTASSIUM - SERUM 4.3 mmol/L (3.5-5.1); SODIUM 140 mmol/L (136-145); UREA NITROGEN 24 mg/dL (7-18); eGFR NON AFRICAN AMERICAN > 90 mL/min (90-120)
[2018-08-22 04:52] LABS: BASOPHILS 0.1 % (0-2); EOSINOPHILS 0.4 % (0-7); HEMATOCRIT 28.6 % (36.0-48.0); IMMATURE GRANULOCYTES 0.6 % (0-5); LYMPHOCYTES 5.1 % (15-50); MCH 30.5 pg (26.0-34.0); MCHC 31.5 g/dL (31.0-37.0); MCV 96.9 fL (80.0-100.0); MEAN PLATELET VOLUME 10.9 fL (7.4-10.4); MONOCYTES 10.2 % (2-11); NEUTROPHILS 83.6 % (40-80); PLATELET COUNT 516 10x3/uL (130-400); RBC 2.95 10x6/uL (4.00-5.40); RDW 17.8 % (11.5-14.5); WBC 18.1 10x3/uL (4.8-10.8)
[2018-08-22 08:30] VITALS: BP 119/47
[2018-08-22 16:48] VITALS: BP 100/62; BP 109/56
[2018-08-22 21:19] VITALS: BP 94/38
[2018-08-23 03:59] LABS: BASOPHILS 0 % (0-2); EOSINOPHILS 0.4 % (0-7); HEMATOCRIT 30.3 % (36.0-48.0); HEMOGLOBIN 9.5 g/dL (12-16); IMMATURE GRANULOCYTES 0.6 % (0-5); LYMPHOCYTES 14.5 % (15-50); MCH 30.1 pg (26.0-34.0); MCHC 31.4 g/dL (31.0-37.0); MCV 95.9 fL (80.0-100.0); MEAN PLATELET VOLUME 10.1 fL (7.4-10.4); MONOCYTES 6.3 % (2-11); NEUTROPHILS 78.2 % (40-80); PLATELET COUNT 481 10x3/uL (130-400); RBC 3.16 10x6/uL (4.00-5.40); RDW 17.1 % (11.5-14.5); WBC 17.4 10x3/uL (4.8-10.8)
[2018-08-23 04:15] LABS: CALC OSMOLALITY 287 mosm/kg (275-300); CALCIUM 9.3 mg/dL (8.5-10.1); CARBON DIOXIDE 29.1 mmol/L (21.0-32.0); CHLORIDE - SERUM 102 mmol/L (98-107); CREATININE - SERUM 0.4 mg/dL (0.6-1.3); GLUCOSE 72 mg/dL (74-106); POTASSIUM - SERUM 3.7 mmol/L (3.5-5.1); SODIUM 142 mmol/L (136-145); UREA NITROGEN 29 mg/dL (7-18); eGFR NON AFRICAN AMERICAN > 90 mL/min (90-120)
[2018-08-23 05:07] VITALS: BP 106/48
[2018-08-23 09:00] VITALS: BP 126/78
[2018-08-23 13:13] VITALS: BP 119/77
[2018-08-23 16:39] VITALS: BP 117/76
[2018-08-23 21:15] VITALS: BP 147/78
[2018-08-24 01:19] VITALS: BP 114/71
[2018-08-24 05:15] VITALS: BP 116/70
[2018-08-24 06:05] LABS: CALCIUM 9.2 mg/dL (8.5-10.1); CHLORIDE - SERUM 104 mmol/L (98-107); SODIUM 143 mmol/L (136-145); UREA NITROGEN 32 mg/dL (7-18)
[2018-08-24 06:06] LABS: CALC OSMOLALITY 293 mosm/kg (275-300); CREATININE - SERUM 0.6 mg/dL (0.6-1.3); GLUCOSE 135 mg/dL (74-106); eGFR NON AFRICAN AMERICAN > 90 mL/min (90-120)
[2018-08-24 06:13] LABS: HEMATOCRIT 31.1 % (36.0-48.0); HEMOGLOBIN 9.7 g/dL (12-16); MCH 30.1 pg (26.0-34.0); MCHC 31.2 g/dL (31.0-37.0); MCV 96.6 fL (80.0-100.0); MEAN PLATELET VOLUME 10.5 fL (7.4-10.4); PLATELET COUNT 513 10x3/uL (130-400); RBC 3.22 10x6/uL (4.00-5.40)
[2018-08-24 06:14] LABS: BASOPHILS 0.1 % (0-2); EOSINOPHILS 0.5 % (0-7); IMMATURE GRANULOCYTES 0.9 % (0-5); LYMPHOCYTES 14.8 % (15-50); NEUTROPHILS 77.7 % (40-80)
[2018-08-24 08:32] VITALS: BP 103/64
[2018-08-24 14:15] VITALS: BP 126/83
[2018-08-24 16:20] VITALS: BP 145/86
[2018-08-24 20:51] VITALS: BP 120/81
[2018-08-25 01:52] VITALS: BP 134/80
[2018-08-25 08:00] VITALS: BP 131/92
[2018-08-25 13:49] VITALS: BP 134/72
[2018-08-25 16:30] VITALS: BP 116/75
[2018-08-25 20:00] VITALS: BP 114/74
[2018-08-26] VITALS: BP 128/80
[2018-08-26 04:00] VITALS: BP 105/68
[2018-08-26 07:09] LABS: FUNGUS MYCOLOGY CULTURE Final report (())
[2018-08-26 08:45] VITALS: BP 115/70
[2018-08-26 13:05] VITALS: BP 115/71
[2018-08-26 15:18] LABS: ACID FAST CULTURE Negative (()); ACID FAST SMEAR Negative (())
[2018-08-26 16:35] VITALS: BP 125/85
[2018-08-27 05:46] VITALS: BP 128/79
[2018-08-27 09:21] VITALS: BP 124/49
[2018-08-27 12:51] VITALS: BP 122/50
[2018-08-27 17:31] VITALS: BP 140/65
[2018-08-27 20:00] VITALS: BP 111/75
[2018-08-28] VITALS: BP 114/69
[2018-08-28 04:00] VITALS: BP 121/89
[2018-08-28 08:15] VITALS: BP 107/69
[2018-08-28 14:42] VITALS: BP 113/69
[2018-08-28 20:54] VITALS: BP 112/71
[2018-08-29 01:05] VITALS: BP 124/74
[2018-08-29 06:29] VITALS: BP 119/74
[2018-08-29 08:00] VITALS: BP 105/68
[2018-08-29 12:54] VITALS: BP 110/64
[2018-08-29 15:18] VITALS: BP 116/60
[2018-08-29 20:41] VITALS: BP 101/64
[2018-08-30 01:03] VITALS: BP 99/62
[2018-08-30 04:39] VITALS: BP 112/60
[2018-08-30 08:22] VITALS: BP 92/53
[2018-08-30 12:35] VITALS: BP 100/76
[2018-08-30 15:52] VITALS: BP 110/69
[2018-08-31] VITALS (10 sets, daily range): BP systolic 77–120; BP diastolic 43–76
[2018-08-31 06:54] LABS: BASOPHILS 0.3 % (0-2); EOSINOPHILS 2.9 % (0-7); HEMATOCRIT 32.6 % (36.0-48.0); HEMOGLOBIN 10.1 g/dL (12-16); IMMATURE GRANULOCYTES 0.8 % (0-5); LYMPHOCYTES 10.5 % (15-50); MCH 29.5 pg (26.0-34.0); MCV 95.3 fL (80.0-100.0); MEAN PLATELET VOLUME 10.1 fL (7.4-10.4); MONOCYTES 9.4 % (2-11); NEUTROPHILS 76.1 % (40-80); RBC 3.42 10x6/uL (4.00-5.40); WBC 13.6 10x3/uL (4.8-10.8)
[2018-08-31 06:55] LABS: PLATELET COUNT 656 10x3/uL (130-400)
[2018-08-31 07:22] LABS: ALBUMIN 2.6 g/dL (3.4-5.0); ALKALINE PHOSPHATASE 197 U/L (46-116); ALT (SGPT) 18 U/L (10-68); BILIRUBIN - TOTAL 0.55 mg/dL (0.2-1.3); CARBON DIOXIDE 29.1 mmol/L (21.0-32.0); CHLORIDE - SERUM 102 mmol/L (98-107); CREATININE - SERUM 0.3 mg/dL (0.6-1.3); MAGNESIUM - SERUM 1.7 mg/dL (1.8-2.4); PROTEIN - SERUM 7.5 g/dL (6.4-8.2); SODIUM 142 mmol/L (136-145); UREA NITROGEN 12 mg/dL (7-18); eGFR NON AFRICAN AMERICAN > 90 mL/min (90-120)
[2018-08-31 07:23] LABS: CALC OSMOLALITY 281 mosm/kg (275-300); GLUCOSE 75 mg/dL (74-106)
[2018-08-31 07:24] LABS: POTASSIUM - SERUM 2.6 mmol/L (3.5-5.1)
[2018-08-31 07:47] LABS: PLATELET ESTIMATE INCREASED
[2018-09-01] VITALS (16 sets, daily range): BP systolic 80–118; BP diastolic 57–79
[2018-09-01 03:58] LABS: HEMATOCRIT 32.4 % (36.0-48.0); HEMOGLOBIN 10.1 g/dL (12-16); MCH 29.9 pg (26.0-34.0); MCHC 31.2 g/dL (31.0-37.0); MCV 95.9 fL (80.0-100.0); MEAN PLATELET VOLUME 10.1 fL (7.4-10.4); PLATELET COUNT 686 10x3/uL (130-400); RBC 3.38 10x6/uL (4.00-5.40); RDW 16.2 % (11.5-14.5); WBC 21.6 10x3/uL (4.8-10.8)
[2018-09-01 03:59] LABS: CALC OSMOLALITY 282 mosm/kg (275-300); CALCIUM 8.9 mg/dL (8.5-10.1); CHLORIDE - SERUM 105 mmol/L (98-107); CREATININE - SERUM 0.4 mg/dL (0.6-1.3); GLUCOSE 91 mg/dL (74-106); MAGNESIUM - SERUM 2.1 mg/dL (1.8-2.4); PHOSPHOROUS 3.6 mg/dL (2.5-4.9); POTASSIUM - SERUM 3.7 mmol/L (3.5-5.1); SODIUM 142 mmol/L (136-145); UREA NITROGEN 12 mg/dL (7-18); eGFR NON AFRICAN AMERICAN > 90 mL/min (90-120)
[2018-09-01 06:29] LABS: HYPOCHROMASIA 1+; LYMPHOCYTES 7 % (15-50); MONOCYTES 5 % (2-11); NEUTROPHILS 86 % (40-80); PLATELET ESTIMATE INCREASED; PLATELET MORPHOLOGY NORMAL PLT MORPH
[2018-09-02 03:23] LABS: BASOPHILS 0.3 % (0-2); EOSINOPHILS 2.1 % (0-7); HEMATOCRIT 30.4 % (36.0-48.0); HEMOGLOBIN 9.3 g/dL (12-16); IMMATURE GRANULOCYTES 1.9 % (0-5); LYMPHOCYTES 11.6 % (15-50); MCH 29.6 pg (26.0-34.0); MCHC 30.6 g/dL (31.0-37.0); MCV 96.8 fL (80.0-100.0); MEAN PLATELET VOLUME 10.3 fL (7.4-10.4); MONOCYTES 8.5 % (2-11); NEUTROPHILS 75.6 % (40-80); PLATELET COUNT 701 10x3/uL (130-400); RBC 3.14 10x6/uL (4.00-5.40); RDW 16.1 % (11.5-14.5); WBC 17.9 10x3/uL (4.8-10.8)
[2018-09-02 03:33] LABS: CALC OSMOLALITY 282 mosm/kg (275-300); CALCIUM 8.4 mg/dL (8.5-10.1); CARBON DIOXIDE 25.5 mmol/L (21.0-32.0); CHLORIDE - SERUM 107 mmol/L (98-107); CREATININE - SERUM 0.4 mg/dL (0.6-1.3); GLUCOSE 80 mg/dL (74-106); MAGNESIUM - SERUM 1.8 mg/dL (1.8-2.4); PHOSPHOROUS 3.9 mg/dL (2.5-4.9); POTASSIUM - SERUM 3.6 mmol/L (3.5-5.1); SODIUM 143 mmol/L (136-145); UREA NITROGEN 10 mg/dL (7-18); eGFR NON AFRICAN AMERICAN > 90 mL/min (90-120)
[2018-09-02 04:19] VITALS: BP 97/52
[2018-09-02 12:54] VITALS: BP 86/80
[2018-09-02 16:16] VITALS: BP 102/66
[2018-09-02 20:00] VITALS: BP 97/64
[2018-09-03] VITALS (7 sets, daily range): BP systolic 88–169; BP diastolic 55–70
[2018-09-03 13:07] LABS: ACID FAST CULTURE Negative (()); ACID FAST SMEAR Negative (())
[2018-09-04 08:30] VITALS: BP 100/43
[2018-09-04 12:59] VITALS: BP 101/53
[2018-09-04 20:00] VITALS: BP 95/62
[2018-09-05] VITALS: BP 108/60
[2018-09-05 04:00] VITALS: BP 101/62
[2018-09-05 09:00] VITALS: BP 116/73
[2018-09-05 09:15] LABS: BASOPHILS 0.3 % (0-2); EOSINOPHILS 1.2 % (0-7); HEMATOCRIT 33.1 % (36.0-48.0); HEMOGLOBIN 10.6 g/dL (12-16); LYMPHOCYTES 11.9 % (15-50); MCH 29.8 pg (26.0-34.0); MEAN PLATELET VOLUME 9.9 fL (7.4-10.4); MONOCYTES 8.4 % (2-11); NEUTROPHILS 77.2 % (40-80); PLATELET COUNT 843 10x3/uL (130-400); RBC 3.56 10x6/uL (4.00-5.40); RDW 15.7 % (11.5-14.5); WBC 11.9 10x3/uL (4.8-10.8)
[2018-09-05 09:25] LABS: CALC OSMOLALITY 271 mosm/kg (275-300); CALCIUM 8.3 mg/dL (8.5-10.1); CARBON DIOXIDE 21.8 mmol/L (21.0-32.0); CHLORIDE - SERUM 103 mmol/L (98-107); CREATININE - SERUM 0.4 mg/dL (0.6-1.3); MAGNESIUM - SERUM 1.5 mg/dL (1.8-2.4); POTASSIUM - SERUM 3.2 mmol/L (3.5-5.1); SODIUM 136 mmol/L (136-145); UREA NITROGEN 7 mg/dL (7-18); eGFR NON AFRICAN AMERICAN > 90 mL/min (90-120)
[2018-09-05 09:27] LABS: GLUCOSE 139 mg/dL (74-106)
== END 2018-09-05 12:38 | DRG 3 ==
LOC: D.ICU 05:42 → D.SDCHOLD 05:42 → D.MS 05:42 → D.OPS 08:00 → EDSTATUS 08:00 → D.ICU 16:56 → D.MS 08-20 12:29 → D.ICU 08-31 18:06 → D.MS 09-01 14:56
PROVIDERS: Internal Medicine Pulmonary Disease; Specialist; Student in an Organized Health Care Education/Training Program; Surgery
PROC: 0BH17EZ Insertion of Endotracheal Airway into Trachea, Via Natural or Artificial Opening (ICD-10-PCS; 2018-06-07)
PROC: 5A1955Z Respiratory Ventilation, Greater than 96 Consecutive Hours (ICD-10-PCS; principal; 2018-06-07 09:00)
PROC: 0DB50ZZ Excision of Esophagus, Open Approach (ICD-10-PCS; 2018-06-07 09:00)
PROC: 0DB60ZZ Excision of Stomach, Open Approach (ICD-10-PCS; 2018-06-07 09:00)
PROC: 0B9B8ZZ Drainage of Left Lower Lobe Bronchus, Via Natural or Artificial Opening Endoscopic (ICD-10-PCS; 2018-06-12)
PROC: 0B958ZZ Drainage of Right Middle Lobe Bronchus, Via Natural or Artificial Opening Endoscopic (ICD-10-PCS; 2018-06-12)
PROC: 0DJ08ZZ Inspection of Upper Intestinal Tract, Via Natural or Artificial Opening Endoscopic (ICD-10-PCS; 2018-06-21)
PROC: 0DH60UZ Insertion of Feeding Device into Stomach, Open Approach (ICD-10-PCS; 2018-06-27)
PROC: 0B9M7ZX Drainage of Bilateral Lungs, Via Natural or Artificial Opening, Diagnostic (ICD-10-PCS; 2018-06-27)
PROC: 0B113F4 Bypass Trachea to Cutaneous with Tracheostomy Device, Percutaneous Approach (ICD-10-PCS; 2018-06-27 09:00)
PROC: 0B988ZZ Drainage of Left Upper Lobe Bronchus, Via Natural or Artificial Opening Endoscopic (ICD-10-PCS; 2018-07-19)
PROC: 0B968ZZ Drainage of Right Lower Lobe Bronchus, Via Natural or Artificial Opening Endoscopic (ICD-10-PCS; 2018-07-19)
PROC: 0B9B8ZZ Drainage of Left Lower Lobe Bronchus, Via Natural or Artificial Opening Endoscopic (ICD-10-PCS; 2018-07-19)
PROC: 0B928ZZ Drainage of Carina, Via Natural or Artificial Opening Endoscopic (ICD-10-PCS; 2018-07-28)
PROC: 0D2DXUZ Change Feeding Device in Lower Intestinal Tract, External Approach (ICD-10-PCS; 2018-07-30)
PROC: 0DHA3UZ Insertion of Feeding Device into Jejunum, Percutaneous Approach (ICD-10-PCS; 2018-08-23)
DX: C16.0 Malignant neoplasm of cardia (principal); J96.01 Acute respiratory failure with hypoxia; J96.02 Acute respiratory failure with hypercapnia; J15.8 Pneumonia due to other specified bacteria; J44.1 Chronic obstructive pulmonary disease with (acute) exacerbation; G72.81 Critical illness myopathy; F13.239 Sedative, hypnotic or anxiolytic dependence with withdrawal, unspecified; K21.9 Gastro-esophageal reflux disease without esophagitis; K75.81 Nonalcoholic steatohepatitis (NASH); I95.81 Postprocedural hypotension; Z87.891 Personal history of nicotine dependence; Y95 Nosocomial condition; D64.9 Anemia, unspecified; E88.09 Other disorders of plasma-protein metabolism, not elsewhere classified; I48.0 Paroxysmal atrial fibrillation; B19.20 Unspecified viral hepatitis C without hepatic coma; E87.6 Hypokalemia; F41.8 Other specified anxiety disorders; T42.75XA Adverse effect of unspecified antiepileptic and sedative-hypnotic drugs, initial encounter